=== PATIENT | female | born 1955 | race Caucasian/White ===

== ENCOUNTER → 2018-02-25 15:17 | Outpatient (CLI) | payer OTHER, SELFPAY ==
--- NOTE | 2018-02-25 15:20 | BI_ITS ---
MAMMOGRAPHY - BILATERAL SCREENING REASON FOR EXAM: Female, 63 years old. Routine annual screening examination. PERTINENT HISTORY: Non-contributory. TECHNIQUE: Digital bilateral breast shireen (3D mammographic acquisition) in the CC and MLO projections. 2-D mediolateral oblique (MLO) and craniocaudad (CC) views of both breasts were obtained. CAD: Full Field Digital Mammography with Computer Added Detection was performed. COMPARISON: Comparison is made with prior study dated January 29, 2017 and November 08, 2015. FINDINGS: Breast Composition: The breasts are heterogeneously dense, which may obscure small masses. There are no dominant masses or suspicious calcifications. No other significant abnormalities are identified. There has been no significant change since the prior study. BI/SCREENING MAMM (CAD), BILAT IMPRESSION: Stable bilateral screening mammogram. Yearly follow-up mammogram recommended. (A) ASSESSMENT CATEGORY: BIRADS Category 1: Negative. A letter regarding these results will be sent to the patient by the facility within 30 days. Approximately 10% of breast cancers are not detected by mammography. A normal mammogram should not delay biopsy of a clinically suspicious abnormality. [id number] Electronically Signed: Matthew Crockett MD at 8:16 EDT Tel [phone], Service support ,
== END ==
PROVIDERS: Family Provider Family Medicine; PCP Family Medicine; Visit Provider Family Medicine
DX: Z12.31 Encounter for screening mammogram for malignant neoplasm of breast (principal)
CPT/HCPCS: 77063; 77067

== ENCOUNTER → 2018-04-12 09:07 | Outpatient (CLI) | payer OTHER, SELFPAY | PROVIDERS: Visit Provider Family Medicine | DX: N39.0 Urinary tract infection, site not specified (principal) | CPT/HCPCS: 87086; 87088; 87186 ==

== ENCOUNTER → 2018-08-12 10:43 | Outpatient (CLI) | payer OTHER, SELFPAY ==
--- NOTE | 2018-08-15 10:50 | LEAS ---
Arterial Study - Arterial Study Arterial Study: This is a 63-year-old female with leg pain and suspected peripheral arterial occlusive disease. She is brought to the noninvasive vascular laboratory at this time for the purpose of bilateral noninvasive lower extremity arterial assessment. Doppler signal assessment was used to evaluate the pulses at ankle level bilaterally. The posterior tibial and dorsalis pedis pulses were triphasic bilaterally. Segmental limb pressures were obtained at ankle level bilaterally. The right ankle pressure, as determined by posterior tibial pulse, was measured at 159 mmHg. The right ankle pressure, as determined by dorsalis pedis pulse, was measured at 179 mmHg. The left ankle pressure, as determined by posterior tibial pulse, was measured at 179 mmHg. The left ankle pressure, as determined by dorsalis pedis pulse, was measured at 180 mmHg. Pulse?volume recordings were obtained at ankle level bilaterally. Waveform amplitudes appeared to be satisfactory bilaterally. Resting ankle?brachial indices were calculated bilaterally. The resting right ankle?brachial index was calculated to be 1.02. The resting left ankle?brachial index was calculated to be 1.02. Impression: Based upon the findings of this resting noninvasive lower extremity arterial study, there is no evidence of significant atherosclerotic peripheral arterial occlusive disease in the lower extremities bilaterally. Triphasic waveforms were noted at ankle level bilaterally. Resting ankle?brachial indices are bilaterally normal. In summary, this represents a normal resting noninvasive lower extremity arterial study bilaterally.
== END ==
PROVIDERS: Family Provider Family Medicine; PCP Family Medicine; Referring Provider Family Medicine; Visit Provider Family Medicine
DX: R09.89 Other specified symptoms and signs involving the circulatory and respiratory systems (principal); M79.604 Pain in right leg; M79.605 Pain in left leg
CPT/HCPCS: 93922

== ENCOUNTER → 2018-09-01 08:47 | Outpatient (CLI) | payer OTHER, SELFPAY ==
--- NOTE | 2018-09-01 09:52 | US_ITS ---
STUDY: ABDOMINAL ULTRASOUND REASON FOR EXAM: Female, 63 years old. Abdominal pain. TECHNIQUE: Transabdominal ultrasound was performed with real-time and static stovall scale imaging. TECHNICAL QUALITY: Adequate. COMPARISON: None. FINDINGS: Liver: The liver measures 12.8 cm. There is normal echogenicity of the liver. The bile ducts are within normal limits. There is hepatic color flow. The direction of portal flow is hepatopetal. There is no demonstrated mass lesion. Portal vein measurement: Gallbladder: Normal distended gallbladder. The gallbladder wall measures 3 mm. There is a negative sonographic Zhang's sign. There is no pericholecystic fluid. There are no gallstones. Common Bile Duct (C.B.D.): The common bile duct measures 3 mm. Pancreas: Normal size of the head, body and tail of the pancreas. There is normal echogenicity of the pancreas. There is no demonstrated pancreatic mass or cyst. Spleen: Normal size of the spleen. The spleen measures 10.5 cm. Right Kidney: Normal size of the right kidney. The right kidney measures 10.5 cm. Normal renal cortex. The right cortex measures 1.2 cm. There is no demonstrated renal mass or cyst. There is no right hydronephrosis. Left Kidney: Normal size of the left kidney. The left kidney measures 10.6 cm. Normal renal cortex. The left cortex measures 1.5 cm. There is no demonstrated renal mass or cyst. There is no left hydronephrosis. Aorta: Not dilated. I.V.C.: The IVC is patent. There is no ascites. US/Abdomen Complete IMPRESSION: Normal abdominal ultrasound examination. Electronically Signed: Franco Marte MD at 2:49 EST , Service support ,
[2018-09-01 10:33] LABS: Absolute Lymphocyte Count 1.67 X10^3/ul (0.83-4.51); Absolute Neutrophil Count 2.8 X10^3/uL (2.0-7.7); Basophil# 0.02 X10^3/uL; Basophil% 0.4 % (0-1); Eosinophil# 0.11 X10^3/uL; Eosinophils% 2.2 % (0-5); Hematocrit 43.7 % (37-47); Hemoglobin 13.9 g/dl (12.0-15.0); Lymphocyte # 1.67 X10^3/ul (4.0); Lymphocyte % 33.1 % (19-41); Mean Corp Hgb Conc 31.8 g/gl (32-36); Mean Corpuscular Hgb 30.2 pg (27.0-32.0); Monocyte# 0.43 X10^3/uL; Monocyte% 8.5 % (0-10); Neutrophil % 55.6 % (47-70); Platelet Count 335 K/mm3 (150-450); RBC Distribution Width CV 14.1 % (11.6-14.6); RBC Distribution Width SD 48.2 fl (35.1-43.9)
[2018-09-01 10:41] LABS: POSITIVE COUNT NO; POSITIVE DIFFERENTIAL NO; POSITIVE MORPHOLOGY NO
[2018-09-01 10:42] LABS: BUN 16 mg/dL (7-18); Creatinine, Serum 0.83 mg/dL (0.55-1.02); Glucose 94 mg/dL (74-106)
[2018-09-01 10:43] LABS: AST(SGOT) 9 U/L (15-37); Alanine Aminotransfer ALT/SGPT 21 U/L (13-56); Albumin, Serum 3.5 g/dL (3.2-5.0); Alkaline Phosphatase 64 U/L (45-117); Anion Gap 8 (5-15); BUN/Creat Ratio 19.4 RATIO (10-20); Chloride 108 mmol/L (98-107); EST Glomerular Filtration Rate 74 mL/min (>60); Est Glom Filt Rate - Afr Amer 90 mL/min (>60); Globulin 3.4 g/dL (2.2-4.2); Lipase 171 U/L (73-393); Potassium 3.7 mmol/L (3.5-5.1); Protein, Total 6.9 g/dL (6.4-8.2); Sodium Level 143 mmol/L (136-145)
== END ==
PROVIDERS: Family Provider Family Medicine; PCP Family Medicine; Visit Provider Family Medicine
DX: R10.9 Unspecified abdominal pain (principal)
CPT/HCPCS: 36415; 76700; 80053; 83690; 85025

== ENCOUNTER → 2018-09-27 19:16 | Outpatient (CLI) | payer OTHER, SELFPAY ==
[2018-09-27 13:08] VITALS: BMI 26.1
--- OUTSIDE RECORDS SUMMARY | 2018-12-30 10:07 | XMS RPT_ITS ---
:1955 Author Organization OHIP Support Name Relationship Address Phone [facility] Unavailable [address] + [place] [address] KHRIS AGARWAL Unavailable [address] + [place] [address] [facility] Unavailable [address] + [place] [address] KHRIS AGARWAL Unavailable [address] + [place] [address] [facility] Unavailable [address] + [place] [address] KHRIS AGARWAL Unavailable [address] + [place] [address] [facility] Unavailable [address] + [place] [address] KHRIS AGARWAL Unavailable [address] + [place] [address] [facility] Unavailable [address] + [place] [address] KHRIS AGARWAL Unavailable [address] + [place] [address] [facility] Unavailable [address] + [place] [address] KHRIS AGARWAL Unavailable [address] + [place] [address] [facility] Unavailable [address] + [place] [address] KHRIS AGARWAL Unavailable [address] + [place] [address] [facility] Unavailable [address] + [place] [address] KHRIS AGARWAL Unavailable [address] + [place] [address] [facility] Unavailable [address] + [place], [place] [address] KHRIS AGARWAL Unavailable [address] + [place] [address] Care Team Providers Name Role Phone Aisha Ignacio Attending Unavailable Santa, Reagan Referring Unavailable Marcanthony, Aisha Attending Unavailable Marcanthony, Aisha Referring Unavailable Santa, Reagan Primary Care Unavailable Santa, Reagan Attending Unavailable Santa, Reagan Primary Care Unavailable Santa, Reagan Attending Unavailable Marcanthony, Aisha Attending Unavailable Santa, Reagan Primary Care Unavailable Marcanthony, Aisha Referring Unavailable Santa, Reagan Attending Unavailable Marcanthony, Aisha Attending Unavailable Santa, Reagan Referring Unavailable Santa, Reagan Attending Unavailable Santa, Reagan Referring Unavailable Santa, Reagan Primary Care Unavailable Santa, Reagan Attending Unavailable Santa, Reagan Primary Care Unavailable PROBLEMS PROBLEMS DATE TYPE CONDITION / CODE ATTENDING STATUS SOURCE 09/28/2018 Unknown R10.2 - Pelvic Marcanthony, Active [place] and perineal pain [facility] / R10.2(ICD-10) Hospital Repository 09/27/2018 Unknown R52 - Pain, Marcanthony, Active [place] unspecified / [facility] R52(ICD-10) Hospital Repository 04/12/2018 Unknown N39.0 - Urinary SantaReagan fall Active [place] tract infection, Community site not Hospital specified / Repository N39.0(ICD-10) PROCEDURES PROCEDURES No Procedure Records FoundRESULTS RESULTS LAMBSKIN TRIMMER OFFICE VISIT Observed: 10/02/2018 Status: F Source: [place] REPORT 3:11 AM [facility] REPOSITORY [facility] [address] [place] [address] OFFICE VISIT Date of Service: 09/27/18 MR#: [id number] Acct: [id number] Name: YOUNG AGARWAL Rep #: [id number] : 1955 Provider: Aisha Ignacio MD Age/Sex: 63/F Location: [facility] [place] Status: Signed Intake Vital Signs09/27/18 Height 5 ft 8.5 in 09/27/18 Weight: 174 lb 8 oz 09/27/18 Body Mass Index (BMI) 26.1 09/27/18 Blood Pressure 112/80 Intake Visit Reasons: Pelvic pain x1 month (Stabbing pain) Allergies cephalexin [From Keflex] Allergy (Verified 09/27/18 13:09) Angioedema nitrofurantoin [From Macrobid] Allergy (Verified 09/27/18 13:09) Angioedema Sulfa (Sulfonamide Antibiotics) Allergy (Verified 09/27/18 13:09) Angioedema sulfamethoxazole [From Bactrim] Allergy (Verified 09/27/18 13:09) Angioedema trimethoprim [From Bactrim] Allergy (Verified 09/27/18 13:09) Angioedema ciprofloxacin [From Cipro] Adverse Reaction (Verified 09/27/18 13:09) rash Medications Aspirin [Aspirin, Baby] 81 mg PO DAILY@0800 09/16/16 [History Confirmed 09/27/18] Metoprolol Tartrate [Lopressor (Beta Zuleima)] 50 mg PO BID 09/16/16 [History Confirmed 09/27/18] ascorbic acid (vitamin C) 500 mg capsule mg PO cap 09/27/18 [History Confirmed 09/27/18] Is last menstrual period known: No Post menopausal: No Patient : No : No PFSH Medical History Mitral valve prolapse (Acute) UTI (urinary tract infection) (Acute) Surgical History History of endometrial ablation (Acute) Salivary cyst (Acute) Social History number of children: 3 current occupational status: employed current occupation: [employer] + Smoking Status: Never smoker alcohol intake: current alcohol intake frequency: holidays/special occasions only substance use type: does not use seatbelt use: always do you feel safe at home: Yes additional social history: Khris Retired HPI Pelvic pain x1 month (Stabbing pain): Details: YOUNG AGARWAL is a 63 year old who presents for pelvic pain for the last several months, complaining of a shooting pain vaginally into her uterus. she has a history of utis recurrent and saw a urologist in the past but didn't have any recommendations. she has only had 1 uti in the last 2 years. Her sister was just diagnosed with stage 4 bladder cancer. she has been having right upper quadrant pain and has had a GI workup. she had a RUQ ultrasound. she denies any bleeding or abnormal discharge. she will have a random spasm when she is walking around or on her feet moreso. she denies any known history of prolapse. she had a normal pap smear in the last year. Female Reproductive History Questions: Sexually active: Yes, Dyspareunia: No Pregancy History 3 Elective abortions Hx Para 3 Spontaneous abortions Past Pregnancies Del. DateName GA/Weeks Outcome Route Bth WeighInfant GeLabor LgtAnesthesiDel LocatProvider FOB t n h a n ROS Const Constitutional: Denies poor appetite, headache(s), fever(s), increased appetite, weight gain, weight loss or fatigue ENT ENT: Denies dizziness or dry mouth Cardio Card: Denies chest pain Resp Resp: Denies dyspnea or cough GI GI: Reports as per HPI and abdominal pain; denies vomiting, nausea or constipation : Reports as per HPI; denies urinary urgency, vaginal discharge, urinary frequency, vaginal itching, vaginal odor, vaginal dryness, urinary incontinence, urinary hesitancy, pelvic pain, difficulty urinating or painful urination Musc Musc: Denies muscle weakness, joint pain or back pain Skin Skin/Breast: Denies hair loss, change in hair, dry skin, breast pain, breast skin changes or breast lump Neuro Neuro: Denies dizziness Psych Psych: Denies anxiety or depression Endo Endo: Denies cold intolerance, increased thirst, excessive sweating or heat intolerance Meir/Lymph Hematologic/Lymphatic: Denies easy bleeding, Denies easy bruising, Denies enlarged lymph nodes Exam Const General: cooperative, healthy appearing, comfortable, no acute distress, well developed Nutritional Appearance: average body habitus Orientation: alert [facility] Head: normal to inspection, normocephalic Ears: hearing grossly normal bilaterally, external ears normal Nose: external nose normal, nares normal Face and sinus: normal facial exam Neck Neck: normal visual inspection, trachea midline, no lymphadenopathy Thyroid: thyroid normal Chest Chest palpation AND inspection: normal inspection of the chest Resp Effort AND Inspection: normal respiratory effort Auscultation: clear to auscultation bilaterally Cardio Rate: regular rate Rhythm: regular rhythm Heart Sounds: S1 normal, S2 normal GI Inspection: normal to inspection, non-distended Palpation: soft, no hepatosplenomegaly General: bladder normal to palpation External Female Exam: normal external appearance, normal appearance of the urethra Urethra: normal appearance of the urethra, normal palpation, no discharge Speculum Exam - Vagina: normal appearance of the vagina, normal vaginal discharge Speculum Exam - Cervix: normal appearance of the cervix, nontender Bimanual Exam- Vagina AND Uterus: bladder normal to palpation, No cervical tenderness, normal bimanual exam, normal vaginal palpation, uterine size normal, uterine shape normal, uterine mobility normal, uterine consistency normal, normal cervical palpation, uterus non-tender Bimanual Exam- Adnexa, other: normal adnexae, adnexae mobile, no adnexal masses, pelvic support normal Pelvic Support: normal Musc Cervical Spine: other Other: gross motor intact no deficits, full bilateral strength Skin General: no rashes or lesions noted Neuro General: alert, awake, no focal motor deficits, moves all extremities Motor: muscle tone normal throughout Extrem General: normal to inspection, no pedal edema Psych Appearance: grossly normal Mental Status: mental status grossly normal Affect: normal affect Speech and Movement: speech and movement normal Assessment AND Plan Problems 1. Acute pelvic pain R10.2 Plan recommend pelvic us, but reassurance provided that pain may be musculoskeletal. evaluate urine. fu if persistent Orders Orders: Coding Level of Care Code Off vis,new,level 3 Diagnoses Acute pelvic pain R10.2 10/02/18 0311 <Electronically signed by Aisha Ignacio MD> Date Aisha Ignacio MD Cosigner Signature: Date (if applicable) CC: TRANSVAGINAL Observed: 09/30/2018 Status: F Source: [place] NON- 11:24 AM [facility] REPOSITORY [facility] Imaging Services [address] [place] [address] Transvaginal Non- MR#: [id number] Acct: [id number] Name: YOUNG AGARWAL Rep #: [id number] : 1955 F 63 From: Edy Puckett DO PCP: Reagan Santa MD Status: REG CLI Study: Transvaginal Non- Date of Exam: 09/30/18 Exam# [id number] Ordering Dr: Aisha Ignacio MD STUDY: ULTRASOUND TRANSVAGINAL CLINICAL: Female, 63 years old. Pelvic pain TECHNIQUE: Transvaginal and transabdominal COMPARISON: None. FINDINGS: Normal uterine size measuring 5.4 x 4.8 x 3.0 cm in maximal craniocaudal dimension. It is retroverted. There are fibroids up to 2.4 cm with heterogeneous myometrium and calcifications. Nonvisualization of the endometrium. There are no endometrial masses, and there is no fluid in the endometrial cavity. Nabothian cyst at the uterine cervix. Normal right ovary, measuring 1.9 x 1.3 x 1.0 cm. There are cysts up to 1.4 cm . Normal left ovary, measuring 2.7 x 1.5 x 1.6 cm. There are cysts up to 8mm. There is mild free fluid in the pelvis. US/Transvaginal Non- IMPRESSION: Multiple cysts are noted of the ovaries. Heterogeneous myometrium with calcifications and fibroids. Mild pelvic fluid. Electronically Signed: Edy Puckett DO at 23:54 EST Tel [phone], Service support , CC: Reagan Santa MD; Aisha Ignacio MD Fluid Designer: Signed PELVIC (NON ) Observed: 09/30/2018 Status: F Source: [place] 11:24 AM [facility] REPOSITORY [facility] Imaging Services [address] [place] [address] Pelvic (Non ) MR#: [id number] Acct: [id number] Name: YOUNG AGARWAL Rep #: [id number] : 1955 F 63 From: Edy Puckett DO PCP: Reagan Santa MD Status: REG CLI Study: Pelvic (Non ) Date of Exam: 09/30/18 Exam# [id number] Ordering Dr: Aisha Ignacio MD STUDY: ULTRASOUND TRANSVAGINAL CLINICAL: Female, 63 years old. Pelvic pain TECHNIQUE: Transvaginal and transabdominal COMPARISON: None. FINDINGS: Normal uterine size measuring 5.4 x 4.8 x 3.0 cm in maximal craniocaudal dimension. It is retroverted. There are fibroids up to 2.4 cm with heterogeneous myometrium and calcifications. Nonvisualization of the endometrium. There are no endometrial masses, and there is no fluid in the endometrial cavity. Nabothian cyst at the uterine cervix. Normal right ovary, measuring 1.9 x 1.3 x 1.0 cm. There are cysts up to 1.4 cm . Normal left ovary, measuring 2.7 x 1.5 x 1.6 cm. There are cysts up to 8mm. There is mild free fluid in the pelvis. US/Pelvic (Non ) IMPRESSION: Multiple cysts are noted of the ovaries. Heterogeneous myometrium with calcifications and fibroids. Mild pelvic fluid. Electronically Signed: Edy Puckett DO at 23:54 EST Tel [phone], Service support , CC: Reagan Santa MD; Aisha Ignacio MD Fluid Designer: Signed Observed: 09/27/2018 Status: F Source: [place] CULTURE, URINE 7:17 PM [facility] REPOSITORY Urine Culture Culture exhibits no growth. Performed By: #### M100.0650 #### [facility] [address] [place] [place], [address] ABDOMEN COMPLETE Observed: 09/01/2018 Status: F Source: [place] 9:53 AM [facility] REPOSITORY [facility] Imaging Services [address] [place] [address] Abdomen Complete MR#: [id number] Acct: [id number] Name: YOUNG AGARWAL Rep #: [id number] : 1955 F 63 From: Franco Marte PCP: Reagan Santa MD Status: REG CLI Study: Abdomen Complete Date of Exam: 09/01/18 Exam# [id number] Ordering Dr: Reagan Santa MD STUDY: ABDOMINAL ULTRASOUND REASON FOR EXAM: Female, 63 years old. Abdominal pain. TECHNIQUE: Transabdominal ultrasound was performed with real-time and static stovall scale imaging. TECHNICAL QUALITY: Adequate. COMPARISON: None. FINDINGS: Liver: The liver measures 12.8 cm. There is normal echogenicity of the liver. The bile ducts are within normal limits. There is hepatic color flow. The direction of portal flow is hepatopetal. There is no demonstrated mass lesion. Portal vein measurement: Gallbladder: Normal distended gallbladder. The gallbladder wall measures 3 mm. There is a negative sonographic Zhang's sign. There is no pericholecystic fluid. There are no gallstones. Common Bile Duct (C.B.D.): The common bile duct measures 3 mm. Pancreas: Normal size of the head, body and tail of the pancreas. There is normal echogenicity of the pancreas. There is no demonstrated pancreatic mass or cyst. Spleen: Normal size of the spleen. The spleen measures 10.5 cm. Right Kidney: Normal size of the right kidney. The right kidney measures 10.5 cm. Normal renal cortex. The right cortex measures 1.2 cm. There is no demonstrated renal mass or cyst. There is no right hydronephrosis. Left Kidney: Normal size of the left kidney. The left kidney measures 10.6 cm. Normal renal cortex. The left cortex measures 1.5 cm. There is no demonstrated renal mass or cyst. There is no left hydronephrosis. Aorta: Not dilated. I.V.C.: The IVC is patent. There is no ascites. US/Abdomen Complete IMPRESSION: Normal abdominal ultrasound examination. Electronically Signed: Franco Marte MD at 2:49 EST , Service support , CC: Reagan Santa MD Fluid Designer: Signed CBC W/DIFF, AUTOMATED Collected: 09/01/2018 Status: F Source: [place] 8:48 AM [facility] REPOSITORY TYPE CODE TESTS RESULT OUT OF RANGE REFERENCE UNITS LAB L100.1000 4.4-11.0 K/mm3 Normal WBC 5.0 LAB L100.1200 4.2-5.4 M/mm3 Normal RBC 4.60 LAB L100.1300 12.0-15.0 g/dl Normal HGB 13.9 LAB L100.1400 37-47 % Normal HCT 43.7 LAB L100.1500 81-99 fL Normal MCV 95.0 LAB L100.1600 27.0-32.0 pg Normal MCH 30.2 LAB L100.1700 32-36 g/gl Low MCHC 31.8 LAB L100.1810 11.6-14.6 % Normal RDW CV 14.1 LAB L100.1820 35.1-43.9 fl High RDW SD 48.2 LAB L100.1900 150-450 K/mm3 Normal PLT 335 LAB L100.2000 6.2-12.0 fl Normal MPV 9.0 LAB L100.2100 47-70 % Normal NEUT% 55.6 LAB L100.2200 19-41 % Normal LY% 33.1 LAB L100.2300 0-10 % Normal MONO% 8.5 LAB L100.2400 0-5 % Normal EO% 2.2 LAB L100.2500 0-1 % Normal BASO% 0.4 LAB L100.2550 0.0-0.9 % Normal IM GRAN % 0.200 Result Comment: IG% - Immature Granulocytes (promyelocytes, myelocytes and metamyelocytes) > 1% indicates that a LEFT SHIFT is Present. LAB L100.2620 2.0-7.7 X10 3/uL Normal Absolute Neut 2.8 LAB L100.2720 0.83-4.51 X10 3/ul Normal Absolute Lymph 1.67 Performed By: #### L100.0100 #### [facility] [address] [place], [address] COMPREHENSIVE METABOLIC Collected: 09/01/2018 Status: F Source: [place] CAPUTO 8:48 AM [facility] REPOSITORY TYPE CODE TESTS RESULT OUT OF RANGE REFERENCE UNITS LAB L501.0100 74-106 mg/dL Normal GLU 94 Result Comment: Please note revised GLUCOSE reference range effective 2017. LAB L501.1000 7-18 mg/dL Normal BUN 16 LAB L501.1100 0.55-1.02 mg/dL Normal CREAT,SERUM 0.83 Result Comment: The validity of the calculated GFR AND GFRAA in patients over 70 years has not been determined. Clinical correlation is essential. LAB L501.1110 >60 mL/min Normal EST GFR 74 Result Comment: Non- GFR Calc LAB L501.1115 >60 mL/min Normal EST GFR - AA 90 Result Comment: GFR Calc LAB L501.1300 10-20 RATIO Normal BUN/CRE 19.4 LAB L501.1500 6.4-8.2 g/dL T Normal PROT 6.9 LAB L501.1800 3.2-5.0 g/dL Normal ALB 3.5 LAB L501.1950 2.2-4.2 g/dL Normal GLOB 3.4 LAB L501.2000 0.9-2.4 RATIO Normal A/G 1.0 LAB L501.2200 8.5-10.1 mg/dL CA Normal 9.0 LAB L501.4100 15-37 U/L Low AST 9 LAB L501.4305 45-117 U/L Normal ALK P 64 LAB L501.4405 13-56 U/L Normal ALT 21 LAB L501.4600 0.20-1.00 mg/dL T Normal BILI 0.50 LAB L501.5300 136-145 mmol/L NA Normal 143 LAB L501.5600 3.5-5.1 mmol/L K Normal 3.7 LAB L501.5900 98-107 mmol/L High CL 108 LAB L501.6100 21.0-32.0 mmol/L Normal CO2 27.0 LAB L501.6200 5-15 Normal GAP 8 Performed By: #### L500.4050, L501.2450 #### [facility] [address] [place], [address] LIPASE Collected: 09/01/2018 Status: F Source: [place]AH 8:48 AM [facility] REPOSITORY TYPE CODE TESTS RESULT OUT OF RANGE REFERENCE UNITS LAB L501.2450 73-393 U/L Normal LIPASE 171 Performed By: #### L500.4050, L501.2450 #### [facility] [address] [place], [address] LOWER EXT ARTERIAL Observed: 08/15/2018 Status: F Source: [place] STUDY 10:55 AM [facility] REPOSITORY [facility] Cardiovascular Services [address] [place] [address] 08/15/18 1050 MR#: [id number] Acct: [id number] Name: YOUNG AGARWAL Rep #: [id number] : 1955 63 From: Roderick Christine MD Attending Dr: Reagan Santa MD Status: REG CLI Ordering Dr: Date: 08/15/18 Location: [facility] Sex: F C Admitted: Arterial Study - Arterial Study Arterial Study: This is a 63-year-old female with leg pain and suspected peripheral arterial occlusive disease. She is brought to the noninvasive vascular laboratory at this time for the purpose of bilateral noninvasive lower extremity arterial assessment. Doppler signal assessment was used to evaluate the pulses at ankle level bilaterally. The posterior tibial and dorsalis pedis pulses were triphasic bilaterally. Segmental limb pressures were obtained at ankle level bilaterally. The right ankle pressure, as determined by posterior tibial pulse, was measured at 159 mmHg. The right ankle pressure, as determined by dorsalis pedis pulse, was measured at 179 mmHg. The left ankle pressure, as determined by posterior tibial pulse, was measured at 179 mmHg. The left ankle pressure, as determined by dorsalis pedis pulse, was measured at 180 mmHg. Pulse volume recordings were obtained at ankle level bilaterally. Waveform amplitudes appeared to be satisfactory bilaterally. Resting ankle brachial indices were calculated bilaterally. The resting right ankle brachial index was calculated to be 1.02. The resting left ankle brachial index was calculated to be 1.02. Impression: Based upon the findings of this resting noninvasive lower extremity arterial study, there is no evidence of significant atherosclerotic peripheral arterial occlusive disease in the lower extremities bilaterally. Triphasic waveforms were noted at ankle level bilaterally. Resting ankle brachial indices are bilaterally normal. In summary, this represents a normal resting noninvasive lower extremity arterial study bilaterally. 08/15/18 1055 <Electronically signed by Roderick Christine MD> Date Roderick Christine MD CC: Reagan Santa MD Date Dictated: 08/15/18 105 Date Transcribed: 08/15/181049 Fluid Designer: MANJEET Signed PROGRESS Observed: 04/28/2018 Status: COMPLETED Source: [place] 4:00 PM [facility] [place] REPOSITORY O ID: [id number] Author: Danisha Richmond Service: (none) Author Type: Physician Type: Progress Notes Filed: 04/28/2018 4:49 PM Note Text: SUBJECTIVE Young Agarwal is a 63 year old woman who presents for her annual exam: Last pap 03/28, Mammo 03/29, Bone Density 02/25, Patient's last menstrual period was 08/30/2013.. States she had a UTI 2 weeks ago and would like to be checked again. She took amoxicillin and pyridium (didn't help) and then was given trimethoprim. It helped. She had E coli on culture. Having vaginal irritation. Medications, Allergies, Surgeries, Family History updated and smoking status updated. Discussed health maintenance, including regular aerobic exercise, low fat diet, and periodic exams. HISTORIES FAMILY HISTORY Problem Relation Age of Onset - borderline diabetes [OTHER] Mother - skin cancer [OTHER] Father - RECTAL MASS [OTHER] Daughter - diabetic [OTHER] Sister PAST MEDICAL HISTORY Diagnosis Date - Benign neoplasm of colon - Mitral valve disorders(424.0) - Mitral valve prolapse - UTI (urinary tract infection) Dr Wesley - Varicose veins of both lower extremities PAST SURGICAL HISTORY Procedure Laterality Date - COLONOSCOP W/ OR W/O [facility] SPEC 05/26/2007 Colonoscopy - COLONOSCOP W/ OR W/O [facility] 07/16/2009 Colonoscopy - COLONOSCOPY 2012 - EXCIS RECTAL LESION,TRANSANAL 06/23/07 - LAPAROSCOPY, SURGICAL; ABLATION OF - OFFICE ENDOMETRIAL ABLATION - PAROTID DUCT DIVERT,EXC SUBMAND - PAST SURGICAL HISTORY OF 08/19 growth removed from neck benign - PAST SURGICAL HISTORY OF 2007 Removal Salivary Gland Benign - PAST SURGICAL HISTORY OF Removal Rectal Growth Benign - REMOVAL OF TONSILS,<12 Y/O Tonsillectomy - THERMAL ENDOMETRIAL ABLATION 2000 approx uncertain type ACTIVE PROBLEM LIST Family History of Malignant Neoplasm of Gastrointestinal Tract Personal History of Colonic Polyps Benign Neoplasm of Colon ALLERGIES Allergen Reactions - Augmentin [Amoxicil* Itching - Biaxin [Clarithromy* heart pounding - Ciprofloxacin Itching - Keflex [Cephalexin] Itching - Macrobid [Nitrofura* Itching - Macrodantin [Nitrof* Unknown - Sulfa (Sulfonamide * Current Outpatient Prescriptions: glucosamine/chondro garcia A (COSAMIN DS ORAL) Take by mouth. metoprolol tartrate(LOPRESSOR 50 MG TAB) Take one(1) tablet twice daily. MULTIVITAMIN TAB Take one(1) tablet daily. ascorbic acid(VITAMIN C 500 MG TAB) Take one(1) tablet daily. cyclobenzaprine (FLEXERIL) 5 mg tablet Take 5 mg by mouth daily at bedtime. phenazopyridine (PYRIDIUM, GERIDIUM) 200 mg tablet Take 200 mg by mouth three times daily. trimethoprim (PROLOPRIM) 100 mg tablet Take 100 mg by mouth twice daily. CALCIUM CITRATE/VITAMIN D3 (CALCIUM CITRATE + D ORAL) Take 1 Each by mouth once daily. No current facility-administered medications for this visit. REVIEW OF SYSTEMS GENERAL: No weight loss, malaise or fevers HEENT: No changes in hearing or vision NECK: Negative for lumps, goiter, pain and significant neck swelling RESPIRATORY: Negative for cough, wheezing, dyspnea or shortness of breath CARDIOVASCULAR: Negative for chest pain or palpitations GI: Negative for abdominal discomfort, blood in stools or black stools, change in bowel habit, diarrhea, nausea, vomiting, constipation : No history of dysuria, frequency or incontinence CERTIFIED MEDICAL TRANSCRIPTIONIST: Negative for abnormal vaginal bleeding, abnormal vaginal discharge or Breast symptoms ENDOCRINE: Negative for cold or heat intolerance, polyuria, polydipsia and goiter NEURO: No history of headaches, syncope, paralysis, seizures or tremors OBJECTIVE Urine dip: neg BP 124/80 Ht 5' 8 (1.73m) Wt 173 lb (78.5kg) LMP 08/30/2013 BMI 26.31 kg/(m2). HEENT: Within normal limits NECK: Supple, no thyromegaly BREASTS: No masses, no nipple discharge HEART: Regular rate and rhythm without murmur, rub, or gallop LUNGS: Clear bilaterally to auscultation ABDOMEN: No masses, non tender, no hernias, no hepatosplenomegaly PELVIC: EGBUS: No lesions, normal appearance VAGINA: + discharge, cx taken, no blood, no lesions; poor kegel tone CERVIX: No lesions, non tender UTERUS: Anteverted, normal size, non tender ADNEXA: Non tender, no masses RECTOVAGINAL: Neg for heme or mass (FIT) EXTREMITIES: No edema, no calf tenderness NEUROLOGICAL: Grossly intact ASSESSMENT/PLAN: 1. Gynecologic exam normal - ICD9: V72.31, ICD10: Z01.419 (primary diagnosis) - Completed pelvic and breast exam - Encouraged monthly BSE - Follow up for annual exam in one year. - THINPREP(R) PAP TEST W/RFX HPV MRNA E6/E7 ([facility]) - FLETCHER SCREENING 2. Cervical cancer screening - ICD9: V76.2, ICD10: Z12.4 - THINPREP(R) PAP TEST W/RFX HPV MRNA E6/E7 ([facility]) 3. Breast screening - ICD9: V76.10, ICD10: Z12.31 - FLETCHER SCREENING 4. Acute vaginitis - ICD9: 616.10, ICD10: N76.0 - ROUTINE CULT + STAIN Danisha Richmond MD Observed: 04/12/2018 Status: F Source: SARAH CULTURE, URINE 9:09 AM [facility] REPOSITORY Urine Culture ORGANISM 1: Presumptive E. coli Rio Count 50,000-80,000 Presumptive E. coli: REACTION Amoxacillin/Clavulanic Acid $ 8 S Ampicillin $ >=32 R Ampicillin/Sulbactam $ 16 I Cefazolin $ <=4 S Cefepime $ <=1 S Ceftriaxone $ <=1 S Ciprofloxacin $ <=0.25 S ESBL - Ertapenim $$$ <=0.5 S Gentamicin $ <=1 S Imipenem *NF <=0.25 S Levofloxacin $ <=0.12 S Nitrofurantoin $ <=16 S Piperacillin/Tazobactam $$ <=4 S Tobramycin $ <=1 S Trimethoprim/Sulfametho $ <=20 S (NF) indicates non-formulary drug at [facility]. Approval by Infectious Disease Specialist required before non-formulary drugs may be ordered and/or dispensed. Performed By: #### M100.0650 #### [facility] [address] [place], [address] SCREENING MAMM (CAD), Observed: 02/25/2018 Status: F Source: JULIOCESAR BILAT 3:20 PM [facility] REPOSITORY [facility] Imaging Services [address] [place] [address] SCREENING MAMM (CAD), BILAT MR#: [id number] Acct: [id number] Name: YOUNG AGARWAL Rep #: [id number] : 1955 F 63 From: Matthew Crockett MD PCP: Reagan Santa MD Status: REG CLI Study: SCREENING MAMM (CAD), BILAT Date of Exam: 02/25/18 Exam# [id number] Ordering Dr: Reagan Santa MD MAMMOGRAPHY - BILATERAL SCREENING REASON FOR EXAM: Female, 63 years old. Routine annual screening examination. PERTINENT HISTORY: Non-contributory. TECHNIQUE: Digital bilateral breast shireen (3D mammographic acquisition) in the CC and MLO projections. 2-D mediolateral oblique (MLO) and craniocaudad (CC) views of both breasts were obtained. CAD: Full Field Digital Mammography with Computer Added Detection was performed. COMPARISON: Comparison is made with prior study dated January 29, 2017 and November 08, 2015. FINDINGS: Breast Composition: The breasts are heterogeneously dense, which may obscure small masses. There are no dominant masses or suspicious calcifications. No other significant abnormalities are identified. There has been no significant change since the prior study. BI/SCREENING MAMM (CAD), BILAT IMPRESSION: Stable bilateral screening mammogram. Yearly follow-up mammogram recommended. (A) ASSESSMENT CATEGORY: BIRADS Category 1: Negative. A letter regarding these results will be sent to the patient by the facility within 30 days. Approximately 10% of breast cancers are not detected by mammography. A normal mammogram should not delay biopsy of a clinically suspicious abnormality. [id number] Electronically Signed: Matthew Crockett MD at 8:16 EDT Tel [phone], Service support , CC: Reagan Santa MD Fluid Designer: Signed ALLERGIES ALLERGIES DATE TYPE / CODE NAME / CODE REACTION SEVERITY SOURCE 09/27/2018 Drug Sulfa Angioedema Unknown [facility]4160 (Sulfonamide [facility] 45614(SNOMED Antibiotics) Repository CT) /[id number]( RXNORM) 09/27/2018 Drug cephalexin/F Angioedema Unknown [place] [facility] Allergy/4160 [id number](RX Hospital 02340(SNOMED NORM) Repository CT) 09/27/2018 Drug sulfamethoxa Angioedema Unknown [place] [facility] Allergy/4160 zole/[id number] Hospital 03442(SNOMED 827(RXNORM) Repository CT) 09/27/2018 Drug nitrofuranto Angioedema Unknown [facility]/4160 in/[id number] Hospital 52196(SNOMED 2(RXNORM) Repository CT) 09/27/2018 Drug trimethoprim Angioedema Unknown [place] [facility] Allergy/4160 /[id number]( Hospital 40527(SNOMED RXNORM) Repository CT) 09/27/2018 Drug ciprofloxaci Rash Unknown [facility] All[facility]/4160 n/[id number] Hospital 35546(SNOMED (RXNORM) Repository CT) ENCOUNTERS ENCOUNTERS ADMIT/DISCHARGE ACCOUNT ADMITTING ENCOUNTER LOCATION SOURCE NUMBER CLASS 09/30/2018 [id number] Ambulatory [facility] 3 [facility] ing:[place] Repository 09/27/2018 [id number] Ambulatory [place] Juliocesar 6 [facility] ing:[facility] Repository 09/27/2018/ [id number] Ambulatory BMSBuilding:B [place] 8 0 [facility] Repository 09/01/2018 [id number] [place]ulatory [place] 7 [facility] ing:[place] Repository 08/12/2018 [id number] Ambulatory [place] Juliocesar 0 [facility] ing:[facility] Repository 06/15/2018 [id number] Ambulatory BMSBuilding:B [facility] 7 [facility] Repository 04/28/2018 [id number] Ambulatory BMSBuilding:B [place] 5 [facility] Repository 04/12/2018 [id number] Ambulatory [place] Juliocesar 7 [facility] ing:[facility] Repository 02/25/2018 [id number] [place]ulatory [place] 1 [facility] ing:OPBI Repository PAYERS PAYERS ENCOUNTER GUARANTOR PAYER SUBSCRIBER SOURCE 09/30/2018 YOUNG L Primary YOUNG L [facility] [id number] [facility]: [address] Number: Repository [id number]: 330 [id number] [phone] () Date:6658-26-15YV[address] [address]EM: 09/30/2018 Secondary NOT GIVENUNK [place] Insurance:SELF PAY [facility] Number: Effective Repository Date:2018-09-27 09/27/2018 YOUNG L Primary KHRIS J [facility] [id number] [facility] [place] Number: Repository [address]Hfp: 330 [id number] [phone] () Date:4510-36-09NV[address] [address]BT: 09/27/2018 Secondary NOT GIVENUNK [place] Insurance:SELF PAY [facility] Number: Effective Repository Date:2018-09-27 09/27/2018 YOUNG L Primary YOUNG L [place]esar [id number] Insurance:[facility]: [address] Number: Repository [id number]: 330 [id number] [phone] () Date:8716-21-57JU[address] [address]DA: 09/27/2018 Secondary NOT GIVENUNK [place] Insurance:SELF PAY [facility]: Effective Repository Date:2018-08-27 09/01/2018 YOUNG L Primary YOUNG L [place] [id number] Insurance:[employer]OURCE RUSSELLDOB: Community ZHANG JUST [address] Number: Repository [id number]: 330 [id number] [phone] () Date:7372-24-32KU [address] [address]PH: 09/01/2018 Secondary NOT GIVENUNK [place] Insurance:SELF PAY [facility] Number: Effective Repository Date:2018-09-01 08/12/2018 YOUNG L Primary YOUNG L [place] [id number] Insurance:[employer] RUSSELLDOB: Community ZHANG JUST [address] Number: Repository [address]Bzr: 330 [id number] [phone] () Date:9646-74-03HQ[address] [address]CW: 08/12/2018 Secondary NOT GIVENUNK [place] Insurance:SELF PAY [facility] Number: Effective Repository Date:2018-07-28 06/15/2018 Young L Primary Young L [place] [id number] Insurance:CARESOURCE RussellDOB: Community ZHANG JUST [address] Number: Repository [id number]: 330 [id number] [phone] () Date:7865-71-80SA [address] [place] [address]QM: 06/15/2018 Secondary NOT GIVENUNK [place] Insurance:SELF PAY [facility] Number: Effective Repository Date:2018-04-13 04/28/2018 YOUNG L Primary YOUNG L [place] [id number] Insurance:[employer] RUSSELLDOB: Community [place]ANG JUST [address] [place] [address] Number: Repository [id number]: 330 [id number] [phone] (HP) Date:0872-35-29JU [address] [address]KG: 04/28/2018 Secondary NOT GIVENUNK [place] Insurance:SELF PAY [facility] Number: Effective Repository Date:2018-04-28 04/12/2018 Young L Primary Young L [place] [id number] Insurance:CARESOURCE RussellDOB: Community ZHANG JUST FOR [facility] [place]: Repository [id number]: 330 [id number] [phone] () Date:5317-07-33PR [address] [address]CF: 04/12/2018 Secondary NOT GIVENUNK [place] Insurance:SELF PAY [facility] Number: Effective Repository Date:2018-04-12 02/25/2018 Young L Primary Young L [place] [id number] Insurance:CARESOURCE RussellDOB: Community ZHANG JUST [facility][note 3] [id number] Number: Repository [id number]: 330 [id number] [phone] () Date:1348-17-06AI [address] [address]DA: 02/25/2018 Secondary NOT GIVENUNK [place] Insurance:SELF PAY [facility] Number: Effective Repository Date:2018-02-05
== END ==
PROVIDERS: Family Provider Family Medicine; PCP Family Medicine; Referring Provider Obstetrics & Gynecology; Visit Provider Obstetrics & Gynecology
DX: R10.2 Pelvic and perineal pain (principal)
CPT/HCPCS: 87086

== ENCOUNTER → 2018-09-30 11:22 | Outpatient (CLI) | payer OTHER, SELFPAY ==
[2018-09-27 13:08] VITALS: BMI 26.1
--- NOTE | 2018-09-30 11:24 | US_ITS ---
STUDY: ULTRASOUND TRANSVAGINAL CLINICAL: Female, 63 years old. Pelvic pain TECHNIQUE: Transvaginal and transabdominal COMPARISON: None. FINDINGS: Normal uterine size measuring 5.4 x 4.8 x 3.0 cm in maximal craniocaudal dimension. It is retroverted. There are fibroids up to 2.4 cm with heterogeneous myometrium and calcifications. Nonvisualization of the endometrium. There are no endometrial masses, and there is no fluid in the endometrial cavity. Nabothian cyst at the uterine cervix. Normal right ovary, measuring 1.9 x 1.3 x 1.0 cm. There are cysts up to 1.4 cm . Normal left ovary, measuring 2.7 x 1.5 x 1.6 cm. There are cysts up to 8mm. There is mild free fluid in the pelvis. US/Pelvic (Non ) IMPRESSION: Multiple cysts are noted of the ovaries. Heterogeneous myometrium with calcifications and fibroids. Mild pelvic fluid. Electronically Signed: Edy Puckett DO at 23:54 EST Tel [phone], Service support ,
--- NOTE | 2018-09-30 11:24 | US_ITS ---
STUDY: ULTRASOUND TRANSVAGINAL CLINICAL: Female, 63 years old. Pelvic pain TECHNIQUE: Transvaginal and transabdominal COMPARISON: None. FINDINGS: Normal uterine size measuring 5.4 x 4.8 x 3.0 cm in maximal craniocaudal dimension. It is retroverted. There are fibroids up to 2.4 cm with heterogeneous myometrium and calcifications. Nonvisualization of the endometrium. There are no endometrial masses, and there is no fluid in the endometrial cavity. Nabothian cyst at the uterine cervix. Normal right ovary, measuring 1.9 x 1.3 x 1.0 cm. There are cysts up to 1.4 cm . Normal left ovary, measuring 2.7 x 1.5 x 1.6 cm. There are cysts up to 8mm. There is mild free fluid in the pelvis. US/Transvaginal Non- IMPRESSION: Multiple cysts are noted of the ovaries. Heterogeneous myometrium with calcifications and fibroids. Mild pelvic fluid. Electronically Signed: Edy Puckett DO at 23:54 EST Tel [phone], Service support ,
== END ==
PROVIDERS: Family Provider Family Medicine; PCP Family Medicine; Referring Provider Obstetrics & Gynecology; Visit Provider Obstetrics & Gynecology
DX: R10.2 Pelvic and perineal pain (principal)
CPT/HCPCS: 76830; 76856; 93976

== ENCOUNTER → 2018-12-16 14:18 | Outpatient (CLI) | payer OTHER, SELFPAY ==
[2018-12-16 14:05] VITALS: BMI 25.4
--- NOTE | 2018-12-16 14:27 | RAD_ITS ---
STUDY: X-RAY - RIGHT KNEE REASON FOR EXAM: Female, 63 years old. Knee pain. TECHNIQUE: 4 view(s) of the knee. COMPARISON: None. FINDINGS: Normal visualized distal femur. Normal visualized proximal tibia and fibula. Normal proximal tibiofibular articulation. There is no acute fracture, dislocation or destructive osseous pathology. Normal medial femorotibial compartment. Normal lateral femorotibial compartment. Normal patellofemoral articulation. There is no demonstrated joint effusion. The soft tissue structures are unremarkable. RAD/Knee 4 or More Views IMPRESSION: Normal x-ray examination of the knee. Electronically Signed: Giles Singh DO at 23:15 EST Tel [phone], Service support ,
--- NOTE | 2018-12-16 14:27 | RAD_ITS ---
STUDY: X-RAY - PELVIS AND LEFT HIP REASON FOR EXAM: Female, 63 years old. Left hip pain. TECHNIQUE: 2 views of the pelvis and hip. COMPARISON: None. FINDINGS: There is a non-specific bowel gas pattern. Normal visualized soft tissue structures. There are multiple calcified phleboliths. Normal bilateral iliac wings, sacroiliac joints and visualized sacrum. Normal bilateral superior and inferior pubic rami. Normal pubic symphysis. Normal bilateral ischial tuberosities. Normal visualized left femoral head. Normal left acetabulum. Normal left hip joint. RAD/Hip 1 view with Pelvis IMPRESSION: Normal x-ray examination of the pelvis and left hip. Electronically Signed: Giles Singh DO at 23:16 EST Tel [phone], Service support ,
== END ==
PROVIDERS: Family Provider Family Medicine; PCP Family Medicine; Referring Provider Physician Assistant; Visit Provider Physician Assistant
DX: M25.561 Pain in right knee (principal)
CPT/HCPCS: 73501; 73564

== ENCOUNTER 2019-01-13 09:00 | Outpatient (RCR) | payer OTHER, SELFPAY ==
[2018-12-16 14:05] VITALS: BMI 25.4
--- NOTE | 2018-12-22 09:58 | HP.PTEVAL ---
Patient's Visit Information YOUNG AGARWAL is a 63 year old F referred to Physical Therapy by NIKOLAI Maloney with a diagnosis of Bilateral Patella Femoral Syndrome, Left greater troc bursitis and ITBand S. Date of Evaluation: 12/22/18 Physical Therapist: Adalgisa Guthrie DPT - Visit Plan Frequency: 2x /Week Duration: 3 Weeks Plan: Focus on I HEP (core and LE strength/stabilization) for the gym due to co-pay. - Subjective Findings: About a month ago she lifted some heavy things at work from the floor to waiste height- couple days later the right knee started to bother her- she has a injury about 30 years to the knee. About 5 years MD put her on Glucosamine. Now the pain is in the knee every time she goes upstairs. The left his is also bothering her. She feels like it was pulled. Thinks it was a flare up. Fritz told her OA and tilted knee caps. When she walks across a rooms he is okay but when she walks further it aches. Knee:Pain is located along the distal patella- Agg: stairs going up, squatting down Worst: 5/10 Eases: sitting down and it goes away instantly. Best: 0/10. Describes the pain in the knee as a sharp pains. No radiating pain on the right. No N/T in the toes. Left Hip: Worst: 5/10 Agg: walking any distances, going up stairs. Best: 0/10 Eases: sitting down and the pain goes away, Ice.Sleep: disturbed when she goes on that side and its a dull achy with walking. Left side radiates down the thigh. No N/T in the left foot. Does have OA in the back as well. Feels like she has OA everywhere and her mother has it as well. 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 X-rays were negative. PMHx/Meds: no changes. - Objective Posture: FH, RS in supported sitting- can correct but does not maintain. Gait: no deviation noted- good arm swing and trunk rotation. Stairs: Asc/Desc 8 recip with 1 HR- Asc: uses UE A for propulsion Desc: uncontrolled. Palpation: tender along left greater troch and into the piriformis with pain into the paraspinals on the left. PA glides to lumbar spine increase pain. No pain with palpation to knee. ROM: WFL in all planes. Sensation/Reflex: WNL. Strength: Core: poor, Hip: 4/5, Knee: 4+/5, Ankle: 5/5 throughout. Flex: HS: mild restrition, Gastroc: mild restriction. Special Test: dural signs: negative, McMurrays: negative - Goals Goal 1:: Patient will be I with HEP and progression Goal Time Frame: 4-6 Weeks Goal 2:: Patient will maintain proper posture t/o tx session to demo increased core s/s. Goal Time Frame: 4-6 Weeks Goal 3:: Patient will demo 5/5 strength in LE where deficit to ease ADL's. Goal Time Frame: 4-6 Weeks Goal 4:: Patient will asc/desc 8 recip with no HR and good control with 0/10 pain Goal Time Frame: 4-6 Weeks - Rehabilitation Potential Physical Therapy Diagnosis: Patient presents with hypomobiliy- she has decreased strength, flexibility and muscular endurance leading to poor posture and increased pain with ADL's Rehabilitation Potential: Fair - Anticipated Interventions Patient/Client Instruction: Educate patient on: Benefits of Fitness Program Therapeutic Exercise to Include: Strength training, Endurance training, Balance training, Agility training, Body mechanics, Postural training, Flexibilty training, Gait and locomotor training, Dynamic Lumbar Stabilization, Scapular Strength/Stabilization For the Purpose of:: To improve muscle performance and motor function Thank you for the opportunity to evaluate your patient. For Medicare and Medicare HMO plans, please review the plan of care and approve it. It will need to be FAXED BACK to us at [phone] for Medicare purposes. For Medicare only, by signing this I certify the plan of care. Please let me know if there are questions or concerns regarding this plan of care. Physician Signature: Date:
--- NOTE | 2019-01-13 10:33 | HP.PTDCSUM ---
HP - PT D/C Summary It has been my pleasure to treat YOUNG AGARWAL under orders from NIKOLAI Maloney, for the diagnosis of Bilateral Patella Femoral Syndrome, Left greater troc bursitis and ITBand S for a total of 4 visit(s). Discharge Date: Please see the following information for a summary of their discharge status. - Subjective Subjective: Patient reports that she is getting better- she is compliant with HEP- has not been able to get to the gym yet due to having stomach bug. Does feel like her knee is better- going up and down stairs. The hip just every once in awhile it pulls. But the exercises do not give her problems - Pain right knee Pain Intensity (Out of 10): 6 left hip Pain Intensity (Out of 10): 0 - Overall Improvement % Improvement: 80 - Objective Objective/Function: Posture: FH, RS can correct and maintain in supported sitting. Gait: no deviation noted- good arm swing and trunk rotation. Stairs: Asc/Desc 8 recip with 1 HR- good technique Palpation: not tender No pain with palpation to knee. ROM: WFL in all planes. Sensation/Reflex: WNL. Strength: Core: fair, Hip: 4+/5, Knee: 4+/5, Ankle: 5/5 throughout. Flex: HS: mild restrition, Gastroc: mild restriction. Special Test: dural signs: negative, McMurrays: negative - Goals Goal 1:: Patient will be I with HEP and progression Goal Progress: Goal Met Goal 2:: Patient will maintain proper posture t/o tx session to demo increased core s/s. Goal Progress: Progressing Goal 3:: Patient will demo 5/5 strength in LE where deficit to ease ADL's. Goal Progress: Progressing Goal 4:: Patient will asc/desc 8 recip with no HR and good control with 0/10 pain Goal Progress: Goal Met - Plan Plan: Discharge to HEP- call if questions - D/C Information If there are questions or concerns regarding this patient's physical therapy, please feel free to call me at [phone]. Thank you for the referral of this patient. Sincerely, Adalgisa Guthrie DPT
== END 2019-01-13 16:09 | disposition home or self-care (01) ==
LOC: PT 09:00
PROVIDERS: Family Provider Family Medicine; PCP Family Medicine; Referring Provider Physician Assistant; Visit Provider Physician Assistant
DX: M22.2X1 Patellofemoral disorders, right knee (principal); M22.2X2 Patellofemoral disorders, left knee; M70.62 Trochanteric bursitis, left hip; M76.32 Iliotibial band syndrome, left leg; G57.02 Lesion of sciatic nerve, left lower limb
CPT/HCPCS: 97110; 97161; 97164

== ENCOUNTER → 2019-04-12 14:32 | Outpatient (CLI) | payer OTHER, SELFPAY ==
[2018-12-16 14:05] VITALS: BMI 25.4
--- NOTE | 2019-04-12 14:34 | BI_ITS ---
MAMMOGRAPHY - BILATERAL SCREENING REASON FOR EXAM: Female, 64 years old. Routine annual screening examination. PERTINENT HISTORY: Sister with breast cancer. TECHNIQUE: Digital bilateral breast edith (3D mammographic acquisition) in the CC and MLO projections. 2-D mediolateral oblique (MLO) and craniocaudad (CC) views of both breasts were obtained. CAD: Full Field Digital Mammography with Computer Added Detection was performed. COMPARISON: Comparison is made with prior study dated February 25, 2018 and January 29, 2017. FINDINGS: Breast Composition: The breasts are heterogeneously dense, which may obscure small masses. There are no dominant masses or suspicious calcifications. No other significant abnormalities are identified. There has been no significant change since the prior study. BI/SCREEN MAMM (CAD) W/EDITH BILAT IMPRESSION: Stable bilateral screening mammogram. Yearly follow-up mammogram recommended. (A) ASSESSMENT CATEGORY: BIRADS Category 1: Negative. A letter regarding these results will be sent to the patient by the facility within 30 days. Approximately 10% of breast cancers are not detected by mammography. A normal mammogram should not delay biopsy of a clinically suspicious abnormality. [id number] Electronically Signed: Matthew Crockett, at 15:41 EDT , Service support ,
== END ==
PROVIDERS: Family Provider Family Medicine; PCP Family Medicine; Referring Provider Family Medicine; Visit Provider Family Medicine
DX: Z12.31 Encounter for screening mammogram for malignant neoplasm of breast (principal)
CPT/HCPCS: 77063; 77067

== ENCOUNTER → 2019-11-07 08:08 | Outpatient (CLI) | payer OTHER, SELFPAY ==
[2019-05-20 09:35] VITALS: BMI 25.4
[2019-11-07 10:48] LABS: Anion Gap 6 (5-15); BUN 17 mg/dL (7-18); BUN/Creat Ratio 21.8 RATIO (10-20); Calcium,Total 9.5 mg/dL (8.5-10.1); Chloride 106 mmol/L (98-107); Cholesterol 225 mg/dL (200); Creatinine, Serum 0.78 mg/dL (0.55-1.02); EST Glomerular Filtration Rate 79 mL/min (>60); Est Glom Filt Rate - Afr Amer 96 mL/min (>60); Glucose 96 mg/dL (74-106); High Density Lipoprotein 48 mg/dL; Potassium 4.2 mmol/L (3.5-5.1); Sodium Level 140 mmol/L (136-145); Triglycerides 129 mg/dL; Very Low Density Lipoprotein 26 mg/dL (5-40)
== END ==
PROVIDERS: PCP Family Medicine; Referring Provider Family Medicine; Visit Provider Family Medicine
DX: I10 Essential (primary) hypertension (principal)
CPT/HCPCS: 36415; 80048; 80061

== ENCOUNTER → 2019-11-29 09:24 | Outpatient (CLI) | payer OTHER, SELFPAY ==
[2019-11-11 15:04] VITALS: BMI 25.7
--- NOTE | 2019-11-29 09:25 | STEWCON_ITS ---
Reason For Study: CHEST PAIN Stress Results Protocol: Stress Echocardiogram Maximum Predicted HR: 156 bpm Target HR: 133 bpm % Maximum Predicted HR: 110 % DurationHeart Rate Stage (mm:ss) (bpm) BP Comment BASELINE 90 138/84DILUTED DEFINITY 5 CC USED ARNOLD PROTOCOL- STAGE 1 3:00 136 140/78NO SX ARNOLD PROTOCOL- STAGE 2 3:00 160 164/74NO SX ARNOLD PROTOCOL- STAGE 3 1:01 171 / FATIGUE, NO CP RECOVERY 115 124/74PT TOOK HER METOPROLOL FROM HOME Stress Duration: 7:01 mm:ss Maximum Stress HR: 171 bpm METS: 9 Baseline Echocardiogram Findings Stress Echo Wall motion Data Resting WM Intermediate WM Stress WM Resting Wall Motion Wall Motion Stress All segments Normal. All segments Hyperkinetic. Ejection Fraction 55 %. Ejection Fraction 70 %. Stress Results Heart rate response: Appropriate Blood pressure response: Resting blood pressure: Borderline hypertension-appropriate response Arrhythmias: Isolated ventricular couplet during exercise and isolated PVC during recovery Functional capacity: Average Stopped secondary to: Fatigue. EKG Data Baseline ECG: Normal sinus rhythm. Peak exercise ECG: Approximately 0.5 to 1.[address] segment depression in leads II, III, aVF, and V4 through V6 with subsequent resolution towards baseline in recovery. Symptoms with Stress No complaint of chest discomfort during exercise or recovery. Interpretation Summary 1. Technically difficult study 2. Contrast injection performed 3. Negative (adequate) stress echocardiogram Ordering Physician: Reagan Gallagher MD Referring Physician: Reagan Gallagher Performed By: Alison Ledezma, JACKYCS, RVT
== END ==
PROVIDERS: PCP Family Medicine; Referring Provider Internal Medicine Cardiovascular Disease; Visit Provider Internal Medicine Cardiovascular Disease
DX: R07.9 Chest pain, unspecified (principal); M79.602 Pain in left arm; I47.1 Supraventricular tachycardia; I49.3 Ventricular premature depolarization; I10 Essential (primary) hypertension; E78.2 Mixed hyperlipidemia
CPT/HCPCS: 93017; 93350; Q9957; A4216; C8928

== ENCOUNTER → 2020-01-12 11:38 | Outpatient (CLI) | payer OTHER, SELFPAY ==
[2019-11-11 15:04] VITALS: BMI 25.7
== END ==
PROVIDERS: PCP Family Medicine; Referring Provider Family Medicine; Visit Provider Family Medicine
DX: R19.7 Diarrhea, unspecified (principal)
CPT/HCPCS: 87493

== ENCOUNTER → 2020-04-10 | Outpatient (CLI) | payer MEDICARE, SELFPAY ==
[2019-11-11 15:04] VITALS: BMI 25.7
== END | disposition home or self-care (01) ==
PROVIDERS: PCP Family Medicine; Referring Provider Family Medicine; Visit Provider Family Medicine
DX: R19.7 Diarrhea, unspecified (principal)
CPT/HCPCS: 87493

== ENCOUNTER → 2020-06-11 09:48 | Outpatient (CLI) | payer MEDICARE, SELFPAY ==
[2019-11-11 15:04] VITALS: BMI 25.7
--- NOTE | 2020-06-11 09:51 | BI_ITS ---
MAMMOGRAPHY - BILATERAL SCREENING REASON FOR EXAM: Female, 65 years old. Routine annual screening examination. PERTINENT HISTORY: Non-contributory. TECHNIQUE: Digital bilateral breast edith (3D mammographic acquisition) in the CC and MLO projections. 2-D mediolateral oblique (MLO) and craniocaudad (CC) views of both breasts were obtained. CAD: Full Field Digital Mammography with Computer Added Detection was performed. COMPARISON: Comparison is made with prior study dated 04/12/2019 and 02/25/2018. FINDINGS: Breast Composition: The breasts are heterogeneously dense, which may obscure small masses. There are no dominant masses or suspicious calcifications. No other significant abnormalities are identified. There has been no significant change since the prior study. BI/SCREEN MAMM (CAD) W/EDITH BILAT IMPRESSION: Stable bilateral screening mammogram. Yearly follow-up mammogram recommended. (A) ASSESSMENT CATEGORY: BIRADS Category 1: Negative. A letter regarding these results will be sent to the patient by the facility within 30 days. Approximately 10% of breast cancers are not detected by mammography. A normal mammogram should not delay biopsy of a clinically suspicious abnormality. [id number] Electronically Signed: Matthew Crockett, at 10:51 EDT , Service support ,
== END ==
PROVIDERS: PCP Family Medicine; Referring Provider Family Medicine; Visit Provider Family Medicine
DX: Z12.31 Encounter for screening mammogram for malignant neoplasm of breast (principal)
CPT/HCPCS: 77063; 77067

== ENCOUNTER → 2020-12-17 10:45 | Outpatient (CLI) | payer MEDICARE, SELFPAY ==
[2020-11-07 16:16] VITALS: BMI 25.8
--- NOTE | 2020-12-17 10:49 | RAD_ITS ---
STUDY: X-RAY - PELVIS AND BILATERAL HIPS REASON FOR EXAM: Bilateral hip pain. TECHNIQUE: AP view of the pelvis.? 2 views of the right hip, and 2 views of the left hip were obtained. COMPARISON: Radiographs 12/16/2018. FINDINGS: There are pelvic phleboliths and a small calcified uterine fibroid. Normal bilateral iliac wings, sacroiliac joints and visualized sacrum. Normal bilateral superior and inferior pubic rami. Normal pubic symphysis. Normal bilateral ischial tuberosities. Normal visualized right femoral head. Normal right acetabulum. Normal right hip joint. Normal visualized left femoral head. Normal left acetabulum. There is mild joint space narrowing of the superior medial left hip joint as on the prior study. RAD/Hips B/L min 2 views w/ Pelvis IMPRESSION: Mild left hip arthrosis. Otherwise, unremarkable x-ray examination of the pelvis and bilateral hips. Electronically Signed: Song Portillo MD at 11:45 EST Tel , Service support ,
[2020-12-17 12:35] LABS: ALB/GLOB Ratio 1.1 RATIO (0.9-2.4); AST(SGOT) 17 U/L (15-37); Alanine Aminotransfer ALT/SGPT 25 U/L (13-56); Albumin, Serum 3.7 g/dL (3.2-5.0); Alkaline Phosphatase 64 U/L (45-117); Anion Gap 4 (5-15); BUN 14 mg/dL (7-18); Calcium,Total 9.1 mg/dL (8.5-10.1); Chloride 105 mmol/L (98-107); Cholesterol 169 mg/dL (200); Creatinine, Serum 0.74 mg/dL (0.55-1.02); EST Glomerular Filtration Rate 84 mL/min (>60); Est Glom Filt Rate - Afr Amer 102 mL/min (>60); Globulin 3.3 g/dL (2.2-4.2); Glucose 93 mg/dL (74-106); High Density Lipoprotein 65 mg/dL; Potassium 3.9 mmol/L (3.5-5.1); Sodium Level 141 mmol/L (136-145); Triglycerides 72 mg/dL; Very Low Density Lipoprotein 14 mg/dL (5-40)
== END ==
PROVIDERS: PCP Family Medicine; Referring Provider Family Medicine; Visit Provider Family Medicine
DX: Z00.00 Encounter for general adult medical examination without abnormal findings (principal); M25.552 Pain in left hip; M25.551 Pain in right hip
CPT/HCPCS: 36415; 73521; 80053; 80061

== ENCOUNTER → 2021-06-12 11:54 | Outpatient (CLI) | payer MEDICARE, SELFPAY ==
[2020-11-07 16:16] VITALS: BMI 25.8
--- NOTE | 2021-06-12 11:58 | BI_ITS ---
MAMMOGRAPHY - BILATERAL SCREENING 3-D TOMOSYNTHESIS REASON FOR EXAM: Female, 66 years old. SCREENING PERTINENT HISTORY: No significant family history. TECHNIQUE: 2-D mammograms and 3-D Tomosynthesis of the breast (s) were performed. CAD was performed. COMPARISON: 06/11/2020 FINDINGS: The breast composition is heterogeneously dense that can obscure small breast masses. Scattered benign calcifications are seen. No dense spiculated masses or suspicious microcalcifications are identified. No architectural distortion is identified. There is no skin thickening or retraction. There has been no significant change since the prior study. BI/SCREENING MAMM (CAD), BILAT IMPRESSION: No mammographic signs of malignancy. Routine yearly mammograms recommended. ASSESSMENT CATEGORY: BIRADS Category 1: Negative. A letter regarding these results will be sent to the patient by the facility within 30 days. FOLLOW UP RECOMMENDATION: Yearly follow up mammogram recommended. (A) Approximately 10% of breast cancers are not detected by mammography. A normal mammogram should not delay biopsy of a clinically suspicious abnormality. Electronically Signed: Arthur Walsh MD at 13:03 EDT Tel , Service support ,
== END ==
PROVIDERS: PCP Family Medicine; Visit Provider Family Medicine
DX: Z12.31 Encounter for screening mammogram for malignant neoplasm of breast (principal)
CPT/HCPCS: 77067

== ENCOUNTER 2021-12-26 10:37 | Outpatient (CLI) | payer MEDICARE, SELFPAY ==
[2021-12-26 12:52] LABS: Anion Gap 5 (5-15); BUN 15 mg/dL (7-18); BUN/Creat Ratio 20.5 RATIO (10-20); Calcium,Total 9.6 mg/dL (8.5-10.1); Chloride 106 mmol/L (98-107); Cholesterol 156 mg/dL (200); Creatinine, Serum 0.73 mg/dL (0.55-1.02); EST Glomerular Filtration Rate 85 mL/min (>60); Est Glom Filt Rate - Afr Amer 102 mL/min (>60); Glucose 89 mg/dL (74-106); High Density Lipoprotein 59 mg/dL; Potassium 4.2 mmol/L (3.5-5.1); Sodium Level 141 mmol/L (136-145); Thyroid Stim Hormone (TSH) 1.57 uIU/mL (0.358-3.74); Triglycerides 71 mg/dL; Very Low Density Lipoprotein 14 mg/dL (5-40); Vitamin D,25 Hydroxy 33.8 ng/mL
== END 2021-12-26 23:59 | disposition home or self-care (01) ==
LOC: MFPLAB 10:39
PROVIDERS: PCP Family Medicine; Referring Provider Family Medicine; Visit Provider Family Medicine
DX: Z00.00 Encounter for general adult medical examination without abnormal findings (principal); E55.9 Vitamin D deficiency, unspecified
CPT/HCPCS: 36415; 80048; 80061; 82306; 84443

== ENCOUNTER 2022-01-24 11:44 | Outpatient (CLI) | payer MEDICARE, SELFPAY ==
--- NOTE | 2022-01-24 11:47 | RAD_ITS ---
STUDY: X-RAY CHEST REASON FOR EXAM: Female, 66 years old. BRONCHITIS TECHNIQUE: PA and lateral views of the chest. COMPARISON: 09/16/2016 FINDINGS: The lungs are clear and expanded. There is no demonstrated pleural abnormality. Normal size heart. Normal mediastinum and juan m. Normal visualized pulmonary arteries. Normal visualized aortic arch and descending thoracic aorta. There is a dextroscoliosis of the thoracic spine. Normal visualized ribs, clavicles, and shoulders. There is no demonstrated abnormality of the visualized soft tissue structures of the upper abdomen. RAD/Chest PA and Lateral IMPRESSION: Normal x-ray examination of the chest. Electronically Signed: Arthur Walsh MD at 17:11 EDT ,
== END 2022-01-24 23:59 | disposition home or self-care (01) ==
LOC: MTRAD 11:45
PROVIDERS: PCP Family Medicine; Referring Provider Family Medicine; Visit Provider Family Medicine
DX: J20.9 Acute bronchitis, unspecified (principal)
CPT/HCPCS: 71046

== ENCOUNTER → 2022-07-14 | Outpatient (CLI) | payer MEDICARE, SELFPAY ==
--- NOTE | 2022-07-14 16:22 | CT_ITS ---
STUDY: CT ABDOMEN AND PELVIS WITH CONTRAST REASON FOR EXAM: Female, 67 years old. Abdominal pain. RADIATION DOSAGE (If Supplied By Facility): CTDIvol = ( 16.98 ) mGy, DLP = ( 1026.24 ) mGycm TECHNIQUE: Transaxial images were obtained from the dome of the diaphragm to the symphysis pubis with oral contrast. 100 mL of ISOVUE 370 was administered. Sagittal and coronal images were reconstructed. Individualized dose optimization techniques were used for this CT. COMPARISON: Ultrasound, 09/30/2018. Abdominal ultrasound, 09/01/2018. FINDINGS: The visualized lung bases are unremarkable. The visualized portions of the heart are within normal limits. There are small hypodensities in the dome of segment 7 of the liver. The more superior demonstrates interval patchy peripheral enhancement. There is also a hypodensity in segment 2 of the liver with adjacent patchy area of enhancement. Question hemangiomas. The liver is otherwise unremarkable. Normal gallbladder and extrahepatic biliary system. Normal spleen. Normal pancreas. Normal bilateral adrenal glands. Small fat density focus in the upper pole of the right kidney. Question angiomyolipoma. The right kidney is otherwise unremarkable. Normal left kidney. Normal visualized ureters. Normal visualized stomach. Normal small intestine. Normal colon. The appendix is visualized and appears normal. There is diffuse atherosclerotic calcification of the abdominal aorta, without a demonstrated aneurysm. Normal inferior vena cava. Normal retroperitoneum. Normal urinary bladder. Normal uterus. There are follicles left ovary with a small focal calcification. There were multiple right ovarian follicles. No pelvic lymphadenopathy. No free air or free fluid is seen within the peritoneal cavity. Normal abdominal wall. There are diffuse degenerative changes of the visualized lumbar spine. CT/Abdomen/Pelvis WITH Contrast IMPRESSION: 1. Question hepatic hemangiomas. 2. Small fat density mass in the right kidney. Question angiomyolipoma. 3. Bilateral ovarian follicles. 4. Atherosclerotic changes of the aorta without aneurysm. 5. Degenerative changes of the lumbar spine. Electronically Signed: Giles Singh DO at 17:20 EDT Reading Location ID and State: [facility] Tel [phone], Service support ,
[2022-07-14 16:50] LABS: CREATININE FINGERSTICK < 0.9 mg/dL (0.55-1.02); EGFR FINGERSTICK > 60.0000 mL/min (>60)
== END | disposition home or self-care (01) ==
LOC: CT 16:21
PROVIDERS: PCP Family Medicine; Referring Provider Family Medicine; Visit Provider Family Medicine
DX: R10.9 Unspecified abdominal pain (principal)
CPT/HCPCS: 36415; 74177; 80053; 83690; 85025; Q9967

== ENCOUNTER → 2022-07-14 | Outpatient (CLI) | payer MEDICARE, SELFPAY ==
[2022-07-14 18:15] LABS: Absolute Lymphocyte Count 2.44 X10^3/uL (0.83-4.51); Absolute Neutrophil Count 2.5 X10^3/uL (2.0-7.7); Basophil# 0.03 X10^3/uL; Basophil% 0.5 % (0-1); Eosinophil# 0.31 X10^3/uL; Eosinophils% 5.3 % (0-5); Hematocrit 42.4 % (37-47); Hemoglobin 13.5 g/dL (12.0-15.0); Lymphocyte # 2.44 X10^3/ul (0.83-4.51); Lymphocyte % 41.9 % (19-41); Mean Corp Hgb Conc 31.8 g/dL (32-36); Mean Corpuscular Hgb 30.1 pg (27.0-32.0); Mean Corpuscular Volume 94.6 fL (81-99); Mean Platelet Vol. 9.4 fl (6.2-12.0); Monocyte# 0.53 X10^3/uL; Monocyte% 9.1 % (0-10); NRBC Flagged by Analyzer 0 % (0-5); Neutrophil # 2.51 X10^3/uL (2.7-7.7); Platelet Count 314 K/mm3 (150-450); RBC Distribution Width CV 13.8 % (11.6-14.6); Red Blood Count 4.48 M/mm3 (4.2-5.4); White Blood Count 5.8 K/mm3 (4.4-11.0)
[2022-07-14 18:42] LABS: ALB/GLOB Ratio 1.1 RATIO (0.9-2.4); AST(SGOT) 19 U/L (15-37); Alanine Aminotransfer ALT/SGPT 31 U/L (13-56); Albumin, Serum 3.7 g/dL (3.2-5.0); Alkaline Phosphatase 73 U/L (45-117); Anion Gap 6 (5-15); BUN 13 mg/dL (7-18); BUN/Creat Ratio 17.8 RATIO (10-20); Calcium,Total 9.9 mg/dL (8.5-10.1); Chloride 104 mmol/L (98-107); Creatinine, Serum 0.73 mg/dL (0.55-1.02); EST Glomerular Filtration Rate 85 mL/min (>60); Est Glom Filt Rate - Afr Amer 102 mL/min (>60); Globulin 3.5 g/dL (2.2-4.2); Glucose 74 mg/dL (74-106); Lipase 185 U/L (73-393); Potassium 3.8 mmol/L (3.5-5.1); Protein, Total 7.2 g/dL (6.4-8.2); Sodium Level 142 mmol/L (136-145)
== END | disposition home or self-care (01) ==
LOC: MFPLAB 13:51
PROVIDERS: PCP Family Medicine; Visit Provider Family Medicine
DX: R10.9 Unspecified abdominal pain (principal)
CPT/HCPCS: 36415; 80053; 83690; 85025

== ENCOUNTER → 2022-07-18 | Outpatient (CLI) | payer MEDICARE, SELFPAY ==
--- NOTE | 2022-07-18 10:38 | BI_ITS ---
MAMMOGRAPHY - BILATERAL SCREENING REASON FOR EXAM: Female, 67 years old. Routine annual screening examination. PERTINENT HISTORY: Sister with breast cancer. TECHNIQUE: Digital bilateral breast edith (3D mammographic acquisition) in the CC and MLO projections. 2-D mediolateral oblique (MLO) and craniocaudad (CC) views of both breasts were obtained. CAD: Full Field Digital Mammography with Computer Added Detection was performed. COMPARISON: Comparison is made with prior study of 06/12/2021 and 06/11/2020. FINDINGS: Breast Composition: The breasts are heterogeneously dense, which may obscure small masses. There are no dominant masses or suspicious calcifications. No other significant abnormalities are identified. There has been no significant change since the prior study. BI/SCRN MAMM (CAD)W/EDITH BILAT IMPRESSION: Stable bilateral screening mammogram. Yearly follow-up mammogram recommended. (A) ASSESSMENT CATEGORY: BIRADS Category 1: Negative. A letter regarding these results will be sent to the patient by the facility within 30 days. Approximately 10% of breast cancers are not detected by mammography. A normal mammogram should not delay biopsy of a clinically suspicious abnormality. [id number] Electronically Signed: Matthew Crockett MD at 11:58 EDT ,
== END | disposition home or self-care (01) ==
LOC: OPBI 10:36
PROVIDERS: PCP Family Medicine; Visit Provider Family Medicine
DX: Z12.31 Encounter for screening mammogram for malignant neoplasm of breast (principal); Z80.3 Family history of malignant neoplasm of breast
CPT/HCPCS: 77063; 77067

== ENCOUNTER → 2022-09-22 | Outpatient (CLI) | payer MEDICARE, SELFPAY ==
--- NOTE | 2022-09-22 12:34 | RAD_ITS ---
EXAM: XR LUMBOSACRAL SPINE, 4 OR 5 VIEWS CLINICAL INDICATION: BACK PAIN TECHNIQUE: Frontal, lateral and bilateral oblique views of the lumbar spine. This report was created using [employer] report generation technology. COMPARISON: None. FINDINGS: VERTEBRAE: Mild levoscoliosis centered at L3. Preserved vertebral body height. No fracture. No spondylolisthesis. No significant facet arthropathy. DISC SPACES: Marked disc space narrowing at L5-S1 with mild endplate sclerosis. Mild narrowing at L3-4 and L4-5. VASCULATURE: Mild partial peripheral calcification of the intra-abdominal aorta. GASTROINTESTINAL TRACT: Mild gas and stool in the right colon. Included bowel gas pattern is non-obstructive. RAD/L/S Spine Min 4 Views IMPRESSION: Degenerative changes, multilevel disc space narrowing. No spondylolisthesis. Electronically Signed: Sameera Perez MD at 6:31 EST ,
== END | disposition home or self-care (01) ==
LOC: MTRAD 12:33
PROVIDERS: PCP Family Medicine; Referring Provider Family Medicine; Visit Provider Family Medicine
DX: M54.9 Dorsalgia, unspecified (principal)
CPT/HCPCS: 72110

== ENCOUNTER → 2022-11-06 | Outpatient (CLI) | payer MEDICARE, SELFPAY ==
--- NOTE | 2022-11-06 14:55 | CT_ITS ---
STUDY: LOW DOSE CT LUNG CANCER SCREENING REASON FOR EXAM: Female, 67 years old. HX SMOKING. Patient smoked 10 cigarettes a day for 25 years. Patient quit smoking 9 years ago. RADIATION DOSAGE (If Supplied By Facility): CTDIvol = ( 3.02 ) mGy, DLP = ( 112.87 ) mGycm TECHNIQUE: No contrast was administered. Low dose technique was utilized (average mAS-38 and kVp 120). 1.25 mm axial source images with a slice interval of 1.25-mm were reconstructed in lung windows. 2.5 mm axial source images with a slice interval of 2.5-mm were reconstructed in lung windows. 5.0 mm axial source images with a slice interval of 5.0-mm were reconstructed in soft tissue windows. COMPARISON: Comparison is made with prior chest radiograph dated 01/24/2022. NODULES: Emphysema: Emphysematous changes. Scarring at the lung apices. Irregular scarring with a small bullous formation in the peripheral lateral aspect of the right upper lobe. Mild degree of bronchiectasis in the lower lung. Mild scarring in the right middle lobe and left lower lobe. Endobronchial lesion: None Aorta: Mild atherosclerotic plaque formation of the aortic arch. CORONARY ARTERIES: Coronary artery calcification is seen. Heart: Unremarkable Pulmonary artery: Unremarkable Mediastinal nodes: Small benign-appearing mediastinal lymph nodes. Other chest and abdominal findings: CT/Low Dose CT Lung Screening IMPRESSION: Lung-RADS category 2 - Continue annual screening with LDCT in 12 months. IMPORTANT NOTES FOR USE: ACR Lung-RADS Version 1.1 Assessment Categories Release Date: 2018 Category: Coded 0-4 bases on nodule(s) with highest degree of suspicion. Negative screen is defined as categories 1 and 2; a positive screen is defined as categories 3 and 4. Category 3 and 4A nodules that are unchanged on interval CT should be coded as category 2, and individuals returned to screening in 12 months. Category 4X: Category 3 or 4 nodules with additional imaging findings that increase the suspicion of lung cancer, such as spiculation, GGN that doubles in size in 1 year, enlarged lymph notes, etc. Category Modifiers: S (significant finding unrelated to lung cancer) Electronically Signed: Matthew Crockett MD at 15:35 EST ,
== END | disposition home or self-care (01) ==
PROVIDERS: PCP Family Medicine; Referring Provider Family Medicine; Visit Provider Family Medicine
DX: Z87.891 Personal history of nicotine dependence (principal)
CPT/HCPCS: 71271

== ENCOUNTER 2022-11-26 11:30 | Outpatient (RCR) | payer MEDICARE, SELFPAY ==
--- NOTE | 2022-10-23 13:24 | HP.PTEVAL_ITS ---
Patient's Visit Information YOUNG AGARWAL is a 67 year old F referred to Physical Therapy by Dr. Reagan Santa MD with a diagnosis of BACK PAIN. Date of Evaluation: 10/23/22 Physical Therapist: Jorge Peterson PT, Cert MDT, OCS - Visit Plan Frequency: 2x /Week Duration: 4 Weeks Plan: PT INTERVETIONS DLS ,POSTURAL EX'S ,MODALTIES AND ACTIVITY MODIFIACTION - Subjective This 67 y/o female presents to physical therapy back pain. Patient has s ymmetrical LBP since May no etiology . Patient seen Chiropractor had x-rays showed DDD/spur. Seen DR tried prednisone which didn't help. Patient pain worse in morning thus changes mattress. Pain located center described ache occasional left buttock . Aggravating factors AM ,bending ,lifting ,twisting and sitting . Patient alleviating factors movement ,ice /heat. Coughing/sneezing -. Bowel/bladder -. Patient pain affects QOL and function. Patient sits all day at work. 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 SOCIAL: - Pain Bilateral Back Pain Intensity (Out of 10): 8 Pain Intensity Range: 10 - Objective POSTURE: mild forward posture. GAIT: reciprocal pattern. SYMTRIES: align. PALPATION: tender LS/SI. NEURO: denies paresthesia/tingling ,reflexes L3-4 ,L4-5,L5-S1 1/3. FLEXABLITY: hamstrings min tight. LUMBAR ROM: flexion WFL ,extension mod loss, side glides min loss. MMT: quads/hams 4/5 ,hip flexion 4/5 ,ankle 4/5 - Special Tests L/S Slump test left side: Negative L/S Slump test right side: Negative L/S Left Straight Leg Raise: Negative L/S Right Straight Leg Raise: Negative Lumbar Standing: Flexion - Mechanical Response: No effect Lumbar Standing: Flexion - Symptoms During Testing: Increases Lumbar Standing: Flexion - Symptoms After Testing: No worse Lumbar Standing: Extension - Symptoms During Testing: Increases Lumbar Standing: Extension - Symptoms After Testing: Worse Lumbar Standing: Right Side Glides - Mechanical Response: No effect Lumbar Standing: Right Side Meridian - Symptoms During Testing: No effect Lumbar Standing: Right Side Meridian - Symptoms After Testing: No effect Lumbar Standing: Left Side Meridian - Mechanical Response: No effect Lumbar Standing: Left Side Meridian - Symptoms During Testing: No effect Lumbar Standing: Left Side Mer[place] - Symptoms After Testing: No effect Lumbar Lying: Flexion - Mechanical Response: No effect Lumbar Lying: Flexion - Symptoms During Testing: Decreases Lumbar Lying: Flexion - Symptoms After Testing: Better Lumbar Lying: Extension - Mechanical Response: No effect Lumbar Lying: Extension - Symptoms During Testing: Increases Lumbar Lying: Extension - Symptoms After Testing: Worse - Balance/Special Test Scores Oswestry Low Back Score: 32 - Goals Goal 1:: I with HEP lumbar Goal Time Frame: 4-6 Weeks Goal 2:: Patient to improve posture/body mechanics 90% of the timne Goal Time Frame: 4-6 Weeks Goal 3:: Patient to improve lumbar pain to by 50% to improve function and ADLS Goal Time Frame: 4-6 Weeks Goal 4:: Patient to improve lumbar ROM for function of recovery to tie shoes Goal Time Frame: 4-6 Weeks Goal 5:: Patient to improve back oswestry score by 5 points to improve QOL and function Goal Time Frame: 4-6 Weeks - Rehabilitation Potential Physical Therapy Diagnosis: This patient has lumbar pain with possible stenosis vs disc with pain positioning and motion testing thus benefit from skilled PT Rehabilitation Potential: Good - Anticipated Interventions Patient/Client Instruction: Educate patient on: Condition, Plan of Care For the Purpose of:: To decrease pain, To increase ROM, To improve muscle performance and motor function, To improve ability to perform ADL's, To increase tolerance to activity/condition/position, To improve performance and independence with ADL's, To improve ability of physical actions for home/community/work/leisure, To improve health of tissue, To decrease soft tissue restriction, To increase flexibility/ROM, To reduce risk of recurrence, To improve tolerance to ADL's Therapeutic Exercise to Include: Strength training, Balance training, Body mechanics, Postural training, Flexibilty training, Dynamic Lumbar Stabilization, Farzaneh Exercises For the Purpose of:: To decrease pain, To increase ROM, To improve muscle performance and motor function, To improve ability to perform ADL's, To increase tolerance to activity/condition/position, To improve ability of physical actions for home/community/work/leisure, To improve health of tissue, To decrease soft tissue restriction, To increase flexibility/ROM TENS: Yes IF ES: Yes Thermo therapy (hot pack): Yes Ultrasound (thermal/non thermal): Yes For the Purpose of:: To decrease pain, To improve nutrient delivery to tissue, To increase oxygenation perfusion, To improve health of tissue, To decrease soft tissue restriction Thank you for the opportunity to evaluate your patient. For Medicare and Medicare HMO plans, please review the plan of care and approve it. It will need to be FAXED BACK to us at [phone] for Medicare purposes. For Medicare only, by signing this I certify the plan of care. Please let me know if there are questions or concerns regarding this plan of care. Physician Signature: Date:
--- NOTE | 2023-04-22 13:45 | HP.PTDCSUM ---
Discharge Summary D/C summary: It has been my pleasure to treat YOUNG AGARWAL referred by Dr. Reagan Santa MD, with the diagnosis of BACK PAIN for a total of 5 visit(s). Discharge Date: 11/26/22 Please see the following information for a summary of their discharge status. Subjective Subjective: Doing good Pain Bilateral Back: Pain Intensity (Out of 10): 1 Overall Improvement % Improvement: 50 Objective Objective/Function: POSTURE: mild forward posture GAIT: reciprocal pattern PALPTION: tender SI LUMBAR ROM: flexion min ,extension min loss ,side glides min MMT: quads/hams 4/5 ,hip flexion 4/5 ,ankle Goals Goal 1:: I with HEP lumbar Goal Progress: Goal Met Goal 2:: Patient to improve posture/body mechanics 90% of the timne Goal Progress: Goal Met Goal 3:: Patient to improve lumbar pain to by 50% to improve function and ADLS Goal Progress: Goal Met Goal 4:: Patient to improve lumbar ROM for function of recovery to tie shoes Goal Progress: Goal Met Goal 5:: Patient to improve back oswestry score by 5 points to improve QOL and function Goal Progress: Goal Met Plan Plan: D/C D/C Information d/c sentence: If there are questions or concerns regarding this patient's physical therapy, please feel free to call me at [phone]. Thank you for the referral of this patient. Sincerely, Jorge Peterson, PT, Cert MDT, OCS Balance/Gait/Functional tests Balance/Special Test Scores Oswestry Low Back Score: 6
== END 2022-11-26 19:00 | disposition home or self-care (01) ==
LOC: PT 11:30
PROVIDERS: PCP Family Medicine; Referring Provider Family Medicine; Visit Provider Family Medicine
DX: M54.9 Dorsalgia, unspecified (principal)
CPT/HCPCS: 97110; 97162

== ENCOUNTER → 2023-01-01 | Outpatient (CLI) | payer MEDICARE, SELFPAY ==
[2023-01-01 12:55] LABS: Anion Gap 6 (5-15); BUN 18 mg/dL (7-18); BUN/Creat Ratio 25.9 RATIO (10-20); Calcium,Total 9.4 mg/dL (8.5-10.1); Chloride 105 mmol/L (98-107); Cholesterol 151 mg/dL (200); Creatinine, Serum 0.69 mg/dL (0.55-1.02); EST Glomerular Filtration Rate 89 mL/min (>60); Est Glom Filt Rate - Afr Amer 108 mL/min (>60); Glucose 102 mg/dL (74-106); High Density Lipoprotein 56 mg/dL; Sodium Level 141 mmol/L (136-145); Triglycerides 81 mg/dL; Very Low Density Lipoprotein 16 mg/dL (5-40)
[2023-01-01 13:00] LABS: Vitamin D,25 Hydroxy 34.2 ng/mL
== END | disposition home or self-care (01) ==
LOC: MTLAB 10:19
PROVIDERS: PCP Family Medicine; Referring Provider Family Medicine; Visit Provider Family Medicine
DX: Z00.00 Encounter for general adult medical examination without abnormal findings (principal); E55.9 Vitamin D deficiency, unspecified
CPT/HCPCS: 36415; 80048; 80061; 82306

== ENCOUNTER → 2023-01-27 | Outpatient (CLI) | payer MEDICARE, SELFPAY ==
--- NOTE | 2023-01-27 09:58 | BD_ITS ---
STUDY: DUAL ENERGY X-RAY ABSORPTIOMETRY / DXA REASON FOR EXAM: Female, 67 years old. Post menopausal TECHNIQUE: Bone Mineral Density (BMD) measurements of lumbar spine and bilateral hips were obtained. COMPARISON: Comparison is made with prior study dated January 29, 2017. FINDINGS: Lumbar Spine (L1-L4): g/cm2 (0.825) / T-score (-2.0) / Z-score (-0.1) Findings are suggestive of osteopenia with a moderate fracture risk. Left Femur Total: g/cm2 (0.846) / T-score (-0.8) / Z-score (0.6) Left Femoral Neck: g/cm2 (0.699) / T-score (-1.4) / Z-score (0.3) Right Femur Total: g/cm2 (0.819) / T-score (-1.0) / Z-score (0.4) Right Femoral Neck: g/cm2 (0.709) / T-score (-1.3) / Z-score (0.4) The T-Scores on the most recent prior examination were: Lumbar Spine (L1-L4): There has been worsening of bone density since the previous examination. Left Femur Total: which represents a worsening of 3.4%. Right Femur Total: which represents a worsening of 3.8%. BD/Dexa Bone Density Study IMPRESSION: The patient is considered osteopenic as outlined below according to World [place]un[place] Organization (WHO) criteria with a moderate fracture risk. There has been worsening of bone density since the previous examination. Reference Information: The T-score is the number of standard deviations above or below the standard which is normal for young adults at their peak bone mineral density. The World Health Organization (WHO) interprets the T-scores as follows: Above -1 Normal bone density Between -1 and -2.5 Osteopenia Equal to / or below -2.5 Osteoporosis As a practical clinical guideline, osteopenia may be graded as follows: Mild -1 through -1.5 Moderate -1.6 through -2.0 Severe -2.1 through -2.4 The Z-score is the number of standard deviations above or below age-matched controls. A Z-score of less than -1.5 would be considered abnormal. References: 1. NIH Osteoporosis and Related Bone Diseases www osteo.org 2. International Society for Clinical Densitometry www iscd.org 3. National Osteoporosis Foundation www nof.org Electronically Signed: Matthew Crockett MD at 13:53 EDT ,
== END | disposition home or self-care (01) ==
LOC: OPBD 09:45
PROVIDERS: PCP Family Medicine; Referring Provider Obstetrics & Gynecology; Visit Provider Obstetrics & Gynecology
DX: Z01.419 Encounter for gynecological examination (general) (routine) without abnormal findings (principal); Z78.0 Asymptomatic menopausal state; N95.9 Unspecified menopausal and perimenopausal disorder
CPT/HCPCS: 77080

== ENCOUNTER → 2023-07-22 | Outpatient (CLI) | payer MEDICARE, SELFPAY ==
--- NOTE | 2023-07-22 10:04 | BI_ITS ---
MAMMOGRAPHY - BILATERAL SCREENING REASON FOR EXAM: Female, 68 years old. Routine annual screening examination. PERTINENT HISTORY: Sister with breast cancer. TECHNIQUE: Digital bilateral breast edith (3D mammographic acquisition) in the CC and MLO projections. 2-D mediolateral oblique (MLO) and craniocaudad (CC) views of both breasts were obtained. CAD: Full Field Digital Mammography with Computer Added Detection was performed. COMPARISON: Comparison is made with prior study July 18, 2022 and June 12, 2021. FINDINGS: Breast Composition: The breasts are heterogeneously dense, which may obscure small masses. There are no dominant masses or suspicious calcifications. No other significant abnormalities are identified. There has been no significant change since the prior study. BI/SCRN MAMM (CAD)W/EDITH BILAT IMPRESSION: Stable bilateral screening mammogram. Yearly follow-up mammogram recommended. (A) ASSESSMENT CATEGORY: BIRADS Category 1: Negative. A letter regarding these results will be sent to the patient by the facility within 30 days. Approximately 10% of breast cancers are not detected by mammography. A normal mammogram should not delay biopsy of a clinically suspicious abnormality. [id number] Electronically Signed: Matthew Crockett MD at 10:47 EDT ,
== END | disposition home or self-care (01) ==
LOC: OPBI 10:03
PROVIDERS: PCP Family Medicine; Referring Provider Family Medicine; Visit Provider Family Medicine
DX: Z12.31 Encounter for screening mammogram for malignant neoplasm of breast (principal)
CPT/HCPCS: 77063; 77067

== ENCOUNTER 2024-05-02 09:16 | Outpatient (CLI) | payer MEDICARE, SELFPAY ==
[2024-05-02 12:41] LABS: Anion Gap 7 (5-15); BUN 20 mg/dL (7-18); Calcium,Total 9.4 mg/dL (8.5-10.1); Chloride 107 mmol/L (98-107); Cholesterol 165 mg/dL (200); Creatinine, Serum 0.77 mg/dL (0.55-1.02); EST Glomerular Filtration Rate 79 mL/min (>60); Est Glom Filt Rate - Afr Amer 96 mL/min (>60); Glucose 98 mg/dL (74-106); High Density Lipoprotein 64 mg/dL; Potassium 3.9 mmol/L (3.5-5.1); Sodium Level 140 mmol/L (136-145); Thyroid Stim Hormone (TSH) 1.76 uIU/mL (0.358-3.74); Triglycerides 83 mg/dL; Very Low Density Lipoprotein 17 mg/dL (5-40)
== END 2024-05-02 23:59 | disposition home or self-care (01) ==
LOC: MTLAB 09:17
PROVIDERS: PCP Family Medicine; Referring Provider Family Medicine; Visit Provider Family Medicine
DX: R63.5 Abnormal weight gain (principal); E78.5 Hyperlipidemia, unspecified
CPT/HCPCS: 36415; 80048; 80061; 84443

== ENCOUNTER → 2024-05-23 | Outpatient (CLI) | payer MEDICARE, SELFPAY ==
--- NOTE | 2024-05-23 14:58 | CT_ITS ---
STUDY: LOW DOSE CT LUNG CANCER SCREENING REASON FOR EXAM: Female, 69 years old. NICOTINE DEPENDENCE. Patient smoked 10 cigarettes per day for 30 years. RADIATION DOSAGE (If Supplied By Facility): CTDIvol = ( 3.02 ) mGy, DLP = ( 114.75 ) mGycm TECHNIQUE: No contrast was administered. Low dose technique was utilized (average mAS-38 and kVp 120). 1.25 mm axial source images with a slice interval of 1.25-mm were reconstructed in lung windows. 2.5 mm axial source images with a slice interval of 2.5-mm were reconstructed in lung windows. 5.0 mm axial source images with a slice interval of 5.0-mm were reconstructed in soft tissue windows. COMPARISON: Comparison is made with prior study dated November 06, 2022. NODULES: No suspicious nodules seen. Emphysema: Stable scarring at the lung apices. Stable emphysematous changes. Stable focal bronchiectasis and scarring in the posterior aspect of the right upper lobe as seen on axial image #104. Stable scarring in the right middle lobe with a focal bronchiectasis. Stable mild scarring in the left lower lobe. Endobronchial lesion: None Aorta: Atherosclerotic plaque formation of the aortic arch. CORONARY ARTERIES: Coronary artery calcification is seen. Heart: Unremarkable Pulmonary artery: Unremarkable Mediastinal nodes: Small benign-appearing mediastinal lymph nodes. Other chest and abdominal findings: CT/Low Dose CT Lung Screening IMPRESSION: Lung-RADS category 2 - Continue annual screening with LDCT in 12 months. IMPORTANT NOTES FOR USE: ACR Lung-RADS Version 1.1 Assessment Categories Release Date: 2018 Category: Coded 0-4 bases on nodule(s) with highest degree of suspicion. Negative screen is defined as categories 1 and 2; a positive screen is defined as categories 3 and 4. Category 3 and 4A nodules that are unchanged on interval CT should be coded as category 2, and individuals returned to screening in 12 months. Category 4X: Category 3 or 4 nodules with additional imaging findings that increase the suspicion of lung cancer, such as spiculation, GGN that doubles in size in 1 year, enlarged lymph notes, etc. Category Modifiers: S (significant finding unrelated to lung cancer) Electronically Signed: Matthew Crockett MD at 10:09 EDT ,
== END | disposition home or self-care (01) ==
LOC: CT 14:57
PROVIDERS: PCP Family Medicine; Referring Provider Family Medicine; Visit Provider Family Medicine
DX: Z87.891 Personal history of nicotine dependence (principal)
CPT/HCPCS: 71271

== ENCOUNTER 2024-07-07 10:00 | Outpatient (RCR) | payer MEDICARE, SELFPAY ==
--- NOTE | 2024-06-09 14:59 | HP.PTEVAL ---
Patient's Visit Information Visit Information Visit Information: YOUNG AGARWAL is a 69 year old F referred to Physical Therapy by Dr. Aisha Ignacio MD with a diagnosis of PELVIC AND PERINEAL PAIN. Date of Evaluation: 06/01/24 Physical Therapist: Ele Tovar PT, Cert MDT Visit Plan Frequency: 1x/Week Duration: 2-4 Months Plan: PF THERAPY FOR STRENGTHENING, LENGTHENING/RELAXATION AND ENDURANCE TRAINING. URINARY URGE AND FREQUENCY EDUCATION. HEALTHY BLADDER HABIT EDUCATION. TRAINING IN COORDINATION OF PELVIC FLOOR MUSCULATURE WITH HIP AND CORE (TRANSVERSE ABDOMINUS) MUSCULATURE. CORE STRENGTHENING. SHILOH LE ROM, STRETCHING AND STRENGTHENING. TRAINING IN ABDOMINAL CAVITY PRESSURE MGMT WITH ADL'S. 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 Present symptoms: BLADDER AND UTERUS PROLAPSE. INTERMITTENT URINE LEAKAGE. INTERMITTENT URINARY URGENCY. PATIENT REPORTS SHE IS NOT HEAR FOR PAIN. SHE STATES SHE FEELS THE BULGING/PRESSURE IN THE VAGINAL AREA INTERMITTENLY BUT DENIES PAIN. Present since: NOTICED PROLAPSE ABOUT 3 YEARS AGO. Pain Scale: N/A Is it getting better, worse or staying the same: STAYING THE SAME. PATIENT REPORTS ON RECENT PHYSICIAN FOLLOW UP THE PROLAPSE IS STAYING THE SAME. Commenced as a result of: POSSIBLY LIFTING COFFEE CANS OF HEAVY QUARTERS - DIDN'T BEND KNEES AND HURT BACK/HIP/KNEE TOO. Worse: WALKING, STANDING, WAITING TOO LONG TO GO TO THE BATHROOM, MAKING THE BED, COMING UP THE BASEMENT STEPS. Better: SLR'S Disturbed sleep: GETTING UP 0-1 A NIGHT TO URINATE Previous history/Previous treatment: H/O A LOT OF UTI'S BUT HASN'T HAD ANY FOR ABOUT 4 YEARS. 1998 - ENDOMETRIAL ABLASION Treatment this episode: NONE Coughing/sneezing/straining: NOT NORMALLY UNLESS EXCESSIVE COUGHING WITH ILLNESS. Gait: NORMAL How long can you delay the need to urinate: 0-10 MINUTES Prolapse (Falling out feeling): YES Frequency of Urination: EVERY 1-2 HRS Ability to stop urine flow: YES Ability to initiate urine stream: YES Dyspareunia: N/A Bowel Incontinence: NO Accidents: NO Unexplained weight loss: NO Imaging: LUMBAR DDD PMH/Recent major surgery: CHRONIC BACK PAIN, R KNEE PAIN, SCOLIOSIS Objective Objective: Sitting/Standing Posture: ANTERIOR PELVIC TILT, SCOLIOSIS. Other Observations: INDEP GAIT AND TRANSFERS. Sensory deficit: SHILOH LE LIGHT TOUCH SENSATION GROSSLY INTACT AND SYMMETRICAL ROM deficit: SHILOH HIP TIGHTNESS ALL PLANES. SHILOH HS AND CALF TIGHTNESS. Motor deficit: R HIP 4-/5, KNEE 4-/5, ANKLE 5/5. L HIP 4/5, KNEE 4/5, ANKLE 5/5. PELVIC FLOOR STRENGTH 4/5 X 5 SEC X 5 WITH INTERNAL MANUAL VAGINAL TESTING. Dural Signs: NEGATIVE SHILOH LE'S. Lumbar mvmt loss: flex - NIL ext - LUZMA R SG - MOD L SG - MOD PATIENT DENIES PAIN WITH LUMBAR ROM TESTING Core strength: FAIR Palpation: NO TENDERNESS OF BACK, HIPS, PELVIC AREA INTERNALLY OR EXTERNALLY. FUNCTIONAL SCREEN: Incontinence Impact Questionnaire Score: 15 Urogenital Distress Inventory Score: 13 Goals Goal 1:: DECREASE URINARY LEAKAGE EPISODES TO ONE OR LESS PER DAY Goal Time Frame: 4-6 Weeks Goal 2:: PATIENT WILL SUCCESSFULLY DELAY VOIDING LONG NEEDED WHEN URGENCY OCCURS TO SUCCESSFULLY MAKE IT TO THE BATHROOM. Goal Time Frame: 6-8 Weeks Goal 3:: PATIENT WILL DEMONSTRATE/COMMUNICATE 10 CONSISTENT AND CONSECUTIVE 10 SECOND PELVIC FLOOR MUSCLE CONTRACTIONS TO DEMONSTRATE IMPROVED PELVIC FLOOR ENDURANCE. Goal Time Frame: 8-12 Weeks Goal 4:: DEVELOP HEALTHY FLUID INTAKE HABITS WITH FLUID INTAKE OF ? BODY WEIGHT IN OUNCES PER DAY AND 2/3 BEING WATER. Goal Time Frame: 2-4 Weeks Goal 5:: NORMALIZE VOIDING FREQUENCEY TO EVERY 3-4 HOURS. Goal Time Frame: 4-6 Weeks Goal 6:: PATIENT WILL BE INDEP WITH A HEP/HOME INSTRUCTIONS FOR CONTINUED IMPROVEMENT ONCE FORMAL PHYSICAL THERAPY CONCLUDES. Goal Time Frame: 8-12 Weeks Rehabilitation Potential Physical Therapy Diagnosis: PELVIC FLOOR, CORE AND LE WEAKNESS. TRUNK AND LE STIFFNESS. SYMPTOMS OF PROLAPSE, INCREASED URINARY FREQUENCY AND URGE INCONTINENCE. Rehabilitation Potential: Good Anticipated Interventions Patient/Client Instruction: Educate patient on: Condition and Plan of Care For the Purpose of:: To improve self management Therapeutic Exercise to Include: Strength training, Endurance training, Postural training, Flexibilty training, Neuromotor development and Relaxation training For the Purpose of:: To improve muscle performance and motor function, To increase tolerance to activity/condition/position, To increase flexibility/ROM and To improve self management Text: Thank you for the opportunity to evaluate your patient. For Medicare and Medicare HMO plans, please review the plan of care and approve it. It will need to be FAXED BACK to us at [phone] for Medicare purposes. For Medicare only, by signing this I certify the plan of care. Please let me know if there are questions or concerns regarding this plan of care. Physician Signature: Date:
--- NOTE | 2024-08-10 14:46 | HP.PT.NRP ---
Patient Information Patient Information: YOUNG AGARWAL was seen in my office for initial evaluation on 06/01/24. The following Plan of Care was established for this patient: POC Established Initial Frequency: 1x/Week Initial Duration: 2-4 Months Anticipated Interventions Patient/Client Instruction: Educate patient on: Condition and Plan of Care For the Purpose of:: To improve self management Therapeutic Exercise to Include: Strength training, Endurance training, Postural training, Flexibilty training, Neuromotor development and Relaxation training For the Purpose of:: To improve muscle performance and motor function, To increase tolerance to activity/condition/position, To increase flexibility/ROM and To improve self management Last Seen Last Seen: This patient was last seen in our office 07/07/24. Pertinent comments regarding their Physical therapy will appear below: It has been my pleasure to see this patient for a total of 5 visits. This patient has not returned to Physical Therapy for more visits and is appropriate to return to MD for further follow-up as needed. She apparently cancelled all remaining appointments due to hurting her back. At this point I will be discontinuing this patient from physical therapy. I would be happy to see this patient again in the future if found appropriate by the physician. Thank you! Ele Tovar, PT, Cert MDT
== END 2024-07-07 19:00 | disposition home or self-care (01) ==
LOC: PT 10:00
PROVIDERS: PCP Family Medicine; Referring Provider Obstetrics & Gynecology; Visit Provider Obstetrics & Gynecology
DX: R10.2 Pelvic and perineal pain (principal)
CPT/HCPCS: 97162; 97530

== ENCOUNTER → 2024-09-13 | Outpatient (CLI) | payer MEDICARE, SELFPAY ==
--- NOTE | 2024-09-13 15:24 | BI_ITS ---
MAMMOGRAPHY - BILATERAL SCREENING REASON FOR EXAM: Female, 69 years old. Routine annual screening examination. PERTINENT HISTORY: Sister with breast cancer. TECHNIQUE: Digital bilateral breast edith (3D mammographic acquisition) in the CC and MLO projections. 2-D mediolateral oblique (MLO) and craniocaudad (CC) views of both breasts were obtained. CAD: Full Field Digital Mammography with Computer Added Detection was performed. COMPARISON: Comparison is made with prior study July 22, 2023 and July 18, 2022. FINDINGS: Breast Composition: The breasts are heterogeneously dense, which may obscure small masses. There are no dominant masses or suspicious calcifications. Stable 5.1 mm well-defined nodule in the axillary region of the right breast suggestive of a small lymph node. No other significant abnormalities are identified. There has been no significant change since the prior study. BI/SCRN MAMM (CAD)W/EDITH BILAT IMPRESSION: Stable bilateral screening mammogram. Yearly follow-up mammogram recommended. (A) ASSESSMENT CATEGORY: BIRADS Category 2: Benign. A letter regarding these results will be sent to the patient by the facility within 30 days. Approximately 10% of breast cancers are not detected by mammography. A normal mammogram should not delay biopsy of a clinically suspicious abnormality. [id number] Electronically Signed: Matthew Crockett MD at 8:34 EST ,
== END | disposition home or self-care (01) ==
LOC: OPBI 15:24
PROVIDERS: PCP Family Medicine; Referring Provider Nurse Practitioner Women's Health; Visit Provider Nurse Practitioner Women's Health
DX: Z12.31 Encounter for screening mammogram for malignant neoplasm of breast (principal)
CPT/HCPCS: 77063; 77067

== ENCOUNTER → 2024-12-20 | Outpatient (CLI) | payer MEDICARE, SELFPAY ==
--- NOTE | 2024-12-20 09:46 | RAD_ITS ---
EXAM: XR Chest, 2 Views CLINICAL INDICATION: HEMOPTYSIS TECHNIQUE: Frontal and lateral views of the chest. COMPARISON: No relevant prior studies available. FINDINGS: LUNGS AND PLEURAL SPACES: Hyperlucent lungs. Flattening of the diaphragm. No consolidation. No pneumothorax. HEART: Unremarkable. No cardiomegaly. MEDIASTINUM: Unremarkable. Normal mediastinal contour. BONES/JOINTS: Unremarkable. No acute fracture. RAD/Chest PA and Lateral IMPRESSION: Suggestion of COPD. Reading Location: [facility]
== END | disposition home or self-care (01) ==
LOC: MTRAD 09:46
PROVIDERS: PCP Family Medicine; Referring Provider Family Medicine; Visit Provider Family Medicine
DX: R04.2 Hemoptysis (principal)
CPT/HCPCS: 71046

== ENCOUNTER → 2024-12-28 | Outpatient (CLI) | payer MEDICARE, SELFPAY ==
[2024-12-28 10:09] LABS: CRP < 3.00 mg/L (0.0-3.0)
[2024-12-29 13:08] LABS: Anti-dsDNA Ab <1 IU/mL (0-9); SJOGREN'S Anti-SS-A test < 0.2 AI (0.0-0.9); SJOGREN'S Anti-SS-B test < 0.2 AI (0.0-0.9)
[2024-12-30 13:08] LABS: QNTFERON TB Mitogen Value > 10.00 IU/mL (.); QNTFERON TB Nil Value 0.05 IU/mL (.); QNTFERON TB1+ Ag Value 0.07 IU/mL (.); QNTFERON TB2+ Ag Value 0.04 IU/mL (.); QNTIFERON TB Positive Criteria Negative (Negative)
[2025-01-02 13:08] LABS: Angiotensin Convert Enzyme 41 U/L (14-82); Anti-Smooth Muscle ABS 5 Units (0-19); CCP IgG Antibodies 5 units (0-19); Cytoplasmic Ab (C-ANCA) <1:20 titer (Neg:<1:20); Perinuclear Ab (P-ANCA) <1:20 titer (Neg:<1:20)
== END | disposition home or self-care (01) ==
LOC: LAB 08:46
PROVIDERS: PCP Family Medicine; Referring Provider Internal Medicine Pulmonary Disease; Visit Provider Internal Medicine Pulmonary Disease
DX: J47.9 Bronchiectasis, uncomplicated (principal)
CPT/HCPCS: 36415; 82164; 83516; 86037; 86140; 86200; 86225; 86235; 86480; 87015; 87070; 87116; 87205; 87206

== ENCOUNTER → 2024-12-29 | Outpatient (CLI) | payer MEDICARE, SELFPAY | END | disposition home or self-care (01) | LOC: LAB 11:07 | PROVIDERS: PCP Family Medicine; Referring Provider Internal Medicine Pulmonary Disease; Visit Provider Internal Medicine Pulmonary Disease | DX: J47.9 Bronchiectasis, uncomplicated (principal) | CPT/HCPCS: 87015; 87116; 87206 ==

== ENCOUNTER → 2024-12-30 | Outpatient (CLI) | payer MEDICARE, SELFPAY | END | disposition home or self-care (01) | LOC: LAB 09:10 | PROVIDERS: PCP Family Medicine; Referring Provider Internal Medicine Pulmonary Disease; Visit Provider Internal Medicine Pulmonary Disease | DX: J47.9 Bronchiectasis, uncomplicated (principal) | CPT/HCPCS: 87015; 87116; 87206 ==

== ENCOUNTER → 2025-02-04 | Outpatient (CLI) | payer MEDICARE, SELFPAY ==
--- NOTE | 2025-02-04 10:19 | US_ITS ---
EXAM: Soft tissue neck CLINICAL HISTORY: Palpable mass COMPARISON: None TECHNIQUE: Multiple longitudinal and transverse ultrasound images of the neck were obtained. FINDINGS: Multiple longitudinal and transverse ultrasound images of the right side of the neck confirmed a dominant nodule in the right lobe of the thyroid gland. This measures 4 x 2 cm and is mixed solid and cystic. US/Head/Neck Soft Tissue IMPRESSION: Ultrasound confirms a 4 cm mixed cystic and solid dominant nodule of the right lobe of the thyroid gland and follow-up thyroid ultrasound is recommended. Reading Location: [id number]
== END | disposition home or self-care (01) ==
LOC: US 10:18
PROVIDERS: PCP Family Medicine; Referring Provider Family Medicine; Visit Provider Family Medicine
DX: R22.1 Localized swelling, mass and lump, neck (principal)
CPT/HCPCS: 76536

== ENCOUNTER → 2025-02-16 | Outpatient (CLI) | payer MEDICARE, SELFPAY ==
--- NOTE | 2025-02-16 11:50 | US_ITS ---
PROCEDURE: THYROID 02/16/2025 REASON FOR EXAM: THYROID ULTRASOUND TECHNIQUE: High-frequency thyroid ultrasound, including grayscale and color-flow images. REFERENCE LINKS: TI-RADS Chart: [email or web address]-[email or web address]-rads TI-RADS Calculator Tool with Reference Images: [email or web address]/radiology-[email or web address]/body-imaging/tirads-calculator/ COMPARISON: Comparison is made with prior sonogram of the neck dated February 04, 2025. FINDINGS: Right thyroid lobe size: 5.1 cm x 2.7 cm x 2.2 cm Left thyroid lobe size: 3.9 cm x 1.4 cm x 1.4 cm Isthmus: 0.2 cm Background parenchymal echotexture is heterogeneous Nodules: . Lobe: Right, Location: Mid upper pole, Size: 3.9 cm x 2.1 cm x 2 cm cm, Stability: N/A Composition: Solid or almost completely solid (+2). Hypervascular. Echogenicity: Hyper to Isoechoic (+1) Margin: Ill-defined (+0) Shape: Wider than tall (+0) Echogenic Foci: None (+0) TI-RADS: 3 . Lobe: Left, Location: Mid portion, Size: 0.6 cm x 0.4 cm x 0.3 cm cm, Stability: N/A Composition: Mixed cystic and solid (+1) Echogenicity: Hyper to Isoechoic (+1) Margin: Ill-defined (+0) Shape: Wider than tall (+0) Echogenic Foci: None (+0) TI-RADS: 2 US/Thyroid IMPRESSION: Dominant complex nodule in the right lobe of the thyroid as described. Biopsy recommended. RECOMMENDATION: Based on most suspicious nodule. Nodule size = largest diameter Only evaluate nodule if =>5 mm. Growth > 20% in 2 dimensions = worsening. Follow up to 4 nodules. Recommend biopsy for no more than 2 nodules. Reading Location: [facility]
== END | disposition home or self-care (01) ==
PROVIDERS: PCP Family Medicine; Referring Provider Surgery; Visit Provider Surgery
DX: E04.1 Nontoxic single thyroid nodule (principal)
CPT/HCPCS: 76536

== ENCOUNTER → 2025-02-20 | Outpatient (CLI) | payer MEDICARE, SELFPAY ==
--- NOTE | 2025-02-20 09:00 | ASPIG_PTH ---
PATIENT: YOUNG AGARWAL LOC: [facility]#:[id number] AGE/SX: 69/F ROOM: RE02/20/[address]: Dr. Mendez South MD : 1955 BED: DIS: 02/20/2025 SPEC #: [id number] RECD: 02/20/25 10:00 STATUS: SHELIA RASHEL #: [id number] ANNIE: 02/20/25 09:[address]: Mendez South DEPT: CYTOLOGY RECD BY: José Malhotra ENTERED: 02/20/25 10:48 SP TYPE: ASP OUT OTHR DR: Dr. Reagan Santa MD Tissues: A - Thyroid gland, NOS Procedures: FNA Specimen Adequacy Special Stain Group II Surgery Specimen Level IV Cytology Other HEADER OPERATION: Fine needle aspiration of right thyroid nodule PRE-OP DIAGNOSIS: Right thyroid nodule TISSUE SUBMITTED: A- Right thyroid nodule, B- Right cystic fluid for cytology DIAGNOSIS CYTOLOGY A. Thyroid, fna - right thyroid: * No malignant cells are identified * Benign follicular nodular disease B. Thyroid, fna - cystic fluid: * Nondiagnostic due to insufficient cellular material * Cyst fluid COMMENT The specimen is evaluated at the time of biopsy by Dr. Garrett. Immediate Evaluation = 1. Adequate. 2. Adequate. 3. Adequate. 4. Adequate. 5. Few cells. CYTOLOGY STUDY Slides are reviewed. CYTOLOGY GROSS A. Received is 30 ml of red-cloudy fluid cytolyt with particles and 10 smears (5 DQ, 5 PAP labeled with the patient's name and and designated per the requisition as Right thyroid nodule. Submitted for cytology and cell block preparation. B. Received is 4 ml of red-cloudy fluid labeled with the patient's name and and designated per the requisition as Right cystic fluid. Submitted for cytology and cell block preparation. Mr 02/20/2025 CPT: 27094p7
[2025-02-20 11:06] LABS: Free T3 2.9 pg/mL (2.18-3.98); T4 Total, Thyroxin 7.1 ug/dL (4.8-13.9)
== END | disposition home or self-care (01) ==
PROVIDERS: PCP Family Medicine; Referring Provider Surgery; Visit Provider Surgery
DX: E04.1 Nontoxic single thyroid nodule (principal)
CPT/HCPCS: 36415; 84436; 84443; 84481; 88161; 88172; 88305; 88313

== ENCOUNTER → 2025-03-30 | Outpatient (CLI) | payer MEDICARE, SELFPAY ==
--- NOTE | 2025-03-30 15:02 | ART_ITS ---
Reason For Study Reason For Study: NUMBNESS/TINGLING Procedure A bilateral lower extremity continuous wave Doppler with analog waveform analysis and ankle brachial indexes. Left Segmental Pressures Left brachial= 153mmHg. Left posterior tibial artery = 171mmHg. Left dorsalis pedis artery = 176mmHg. The left posterior tibial artery waveforms are triphasic. The left dorsalis pedis waveforms are triphasic. Right Segmental Pressures Right brachial= 156mmHg. Right posterior tibial artery = 178mmHg. Right dorsalis pedis artery = 186mmHg. The right posterior tibial artery waveforms are triphasic. The right dorsalis pedis waveforms are triphasic. Indices The right resting ankle brachial index is 1.19. The right ankle brachial index by the posterior tibial artery is 1.14. The right ankle brachial index by the dorsalis pedis is 1.19. The left resting ankle brachial index is 1.13. The left ankle brachial index by the posterior tibial artery is 1.10. The left ankle brachial index by the dorsalis pedis is 1.13. VL/Ankle Brachial Index Interpretation Summary Triphasic Doppler waveforms are noted at ankle level bilaterally. Pulse-volume recordings appear satisfactory at ankle level bilaterally. Resting ankle-brachial indices are normal bilaterally. There is no evidence of significant arterial occlusive disease in the lower ext remities bilaterally. Ordering Physician: Reagan Santa Referring Physician: REAGAN SANTA MD Performed By: Kateryna Garay RVT, RDCS
== END | disposition home or self-care (01) ==
PROVIDERS: PCP Family Medicine; Referring Provider Family Medicine; Visit Provider Family Medicine
DX: R22.0 Localized swelling, mass and lump, head (principal); R20.2 Paresthesia of skin; R09.89 Other specified symptoms and signs involving the circulatory and respiratory systems
CPT/HCPCS: 93922

== ENCOUNTER → 2025-04-25 | Outpatient (CLI) | payer MEDICARE, SELFPAY ==
[2025-04-25 12:17] LABS: Hematocrit 40.9 % (37-47); Hemoglobin 13.3 g/dL (12.0-15.0); Immature Granulocytes Count 0.010 X10^3/uL (0.0-0.0); Mean Corp Hgb Conc 32.5 g/dL (32-36); Mean Corpuscular Volume 92.3 fL (81-99); Mean Platelet Vol. 9.0 fl (6.2-12.0); NRBC Flagged by Analyzer 0 % (0-5); Platelet Count 272 K/mm3 (150-450); RBC Distribution Width CV 14.1 % (11.6-14.6); RBC Distribution Width SD 48.2 fl (35.1-43.9); Red Blood Count 4.43 M/mm3 (4.2-5.4); White Blood Count 4.9 K/mm3 (4.4-11.0)
[2025-04-25 12:47] LABS: AST(SGOT) 19 U/L (<=31); Alanine Aminotransfer ALT/SGPT 14 U/L (<=34); Albumin, Serum 4.1 g/dL (3.4-4.8); Alkaline Phosphatase 72 U/L (35-104); Anion Gap 10 (5-15); BUN 19 mg/dL (4-19); BUN/Creat Ratio 28.5 RATIO (10-20); Calcium,Total 9.8 mg/dL (7.6-11.0); Carbon Dioxide 26.2 mmol/L (21.0-32.0); Chloride 103 mmol/L (98-108); Cholesterol 170 mg/dL (<=200); Globulin 2.7 g/dL (2.2-4.2); Glucose 92 mg/dL (70-99); Low Density Lipoprotein Calc. 93 mg/dL; Potassium 3.9 mmol/L (3.3-5.1); Triglycerides 79 mg/dL; Very Low Density Lipoprotein 16 mg/dL (5-40); Vitamin D,25 Hydroxy 31.3 ng/mL (30-100); cholesterol:hdl ratio screen 2.78
== END | disposition home or self-care (01) ==
LOC: MFPLAB 09:59
PROVIDERS: PCP Family Medicine; Visit Provider Family Medicine
DX: Z00.00 Encounter for general adult medical examination without abnormal findings (principal)
CPT/HCPCS: 36415; 80053; 80061; 82306; 83036; 84443; 85025

== ENCOUNTER → 2025-05-02 | Outpatient (CLI) | payer MEDICARE, SELFPAY ==
--- NOTE | 2025-05-02 11:37 | NEURO ---
NCS and/or EMG Patient Report Ordering Doctor: Reagan Santa DATE OF SERVICE: 05/02/25 Clinical Summary: 70 year old female patient with symptoms of pain in the left elbow that can radiate down the forearm. Nerve Conduction Studies Summary: Nerve conduction studies of the left upper extremity were normal. Needle Examination Summary: Needle examination of select muscles of the left upper extremity was normal. Impression: This is a normal study. There is no electrodiagnostic evidence of a left median mononeuropathy, ulnar mononeuropathy, or cervical radiculopathy. Multi Select Codes Neurology Neurology Interp Codes: 99686-59 Musc test done w/n test comp (interp) (1) and 36773-17 Nrv cndj test 7-8 studies (interp)
--- OUTSIDE RECORDS SUMMARY | 2025-05-02 20:05 | XMS RPT_ITS | CCD ---
Author Organization [facility] Care Team Providers Care Tubular Splitting Machine Tender Name Role Phone Dr. Reagan Rosen Primary Care Provider Dr. Reagan Rosen Referring Provider Dr. Reagan Gallagher Attending Provider Dr. Reagan Rosen Primary Care Provider Dr. Reagan Rosen Referring Provider Dr. Reagan Gallagher Attending Provider [phone] Aisha Ignacio Attending Provider [phone] Dr. Reagan Rosen Primary Care Provider Dr. Reagan Rosen Referring Provider REAGAN ROSEN Primary Care Unavailable Kiet RHODES, Dr. Kirk Primary Care Provider Regina RENDERER-CRashmi Attending Provider Regina RENDERER-CRashmi Referring Provider Dr. Clinton Bautista MD Attending Provider [phone] Dr. Clinton Bautista MD Referring Provider Porter RHODES, Dr. Edmundo Fam Attending Provider Dr. Edmundo Buenrostro MD, V Referring Provider Dr. Reagan Rosen MD Primary Care Provider Dr. Reagan Rosen MD Attending Provider Dr. Reagan Rosen MD Referring Provider Dr. Mendez South MD Attending Provider Dr. Mendez South MD Referring Provider Sibilia, Edmundo V Referring Unavailable Sibilia, Edmundo V Attending Unavailable Rosen, Reagan Primary Care Unavailable Regina, Rashmi Referring Unavailable Buckland, Rashmi Attending Unavailable Rosen, Reagan Primary Care Unavailable Rosen, Reagan Referring Unavailable Bortz, Mendez Attending Unavailable Rosen, Reagan Primary Care Unavailable Rosen, Reagan Referring Unavailable Rosen, Reagan Attending Unavailable Rosen, Reagan Primary Care Unavailable Bortz, Mendez Referring Unavailable Bortz, Mendez Attending Unavailable Rosen, Reagan Primary Care Unavailable Bortz, Mendez Referring Unavailable Bortz, Mendez Attending Unavailable Rosen, Reagan Primary Care Unavailable Rosen, Reagan Referring Unavailable Rosen, Reagan Attending Unavailable Rosen, Reagan Primary Care Unavailable Rosen, Reagan Primary Care Unavailable Rosen, Reagan Attending Unavailable Rosen, Reagan Referring Unavailable Rosen, Reagan Referring Unavailable Rosen, Reagan Attending Unavailable Rosen, Reagan Primary Care Unavailable Marcanthony, Aisha Referring Unavailable Marcanthony, Aisha Attending Unavailable Rosen, Reagan Primary Care Unavailable Schinner, Clinton Palomares Referring Unavailable Schinner, Clinton Palomares Attending Unavailable Rosen, Reagan Primary Care Unavailable Rosen, Reagan Attending Unavailable Rosen, Reagan Primary Care Unavailable Rosen, Reagan Referring Unavailable Rosen, Reagan Attending Unavailable Rosen, Reagan Primary Care Unavailable Rosen, Reagan Referring Unavailable Rosen, Reagan Attending Unavailable Rosen, Reagan Primary Care Unavailable Sibilia, Edmundo V Referring Unavailable Sibilia, Edmundo Fam Attending Unavailable Rosen, Reagan Primary Care Unavailable Sibilia, Edmundo V Referring Unavailable Sibilia, Edmundo Fam Attending Unavailable Rosen, Reagan Primary Care Unavailable Kiet RHODES, Dr. Kirk Primary Care Provider Allergies Allergy Classification Reported Allergen(s) Allergy Type Date of Onset Reaction(s) Facility (20 sources) Cephalexin; Translations: [CEPHALEXIN] Drug Allergy 12-19-19 16 Angioedema [facility] (20 sources) Ciprofloxacin; Translations: [CIPROFLOXACIN] Drug Allergy 10-20-19 15 rash [facility] (19 sources) Nitrofurantoin Drug Allergy 11-08-19 22 Angioedema [facility] (19 sources) Sulfamethoxazole Drug Allergy 11-08-19 22 Angioedema [facility] (20 sources) Sulfonamides (Antibiotic); Translations: [SULFA (SULFONAMIDE ANTIBIOTICS)] Allergy to substance 04-06-20 07 Angioedema [facility] (19 sources) Trimethoprim Drug Allergy 11-08-19 22 Angioedema [facility] (1 source) Clarithromycin; Translations: [CLARITHROMYCIN] Drug Allergy 05-26-20 07 [facility] (1 source) Nitrofurantoin; Translations: [NITROFURANTOIN MACROCRYSTAL] Drug Allergy 04-27-20 18 [facility] (1 source) NITROFURANTOIN MONOHYD/M-CRYST; Translations: [NITROFURANTOIN MONOHYD/M-CRYST] Propensity to adverse reactions to drug (disorder) 08-30-20 13 [facility] (1 source) Cephalexin Drug Allergy 02-21-20 [facility] (1 source) Ciprofloxacin Drug Allergy 02-21-20 [facility] (1 source) Nitrofurantoin Drug Allergy 02-21-20 [facility] (1 source) Sulfamethoxazole Drug Allergy 02-21-20 [facility] (1 source) Trimethoprim Drug Allergy 02-21-20 [facility] Medications Current Medications Medication Drug Class(es) Dates Sig (Normalized) Sig (Original) albuterol 0.83 mg/ml inhalation solution (4 sources) beta2-Adrenergic Agonist Start: 02-20-2025 take 2.5 mg by inhalation once daily Albuterol Sulfate 2.5 mg /3 mL (0.083 %) solution for nebulization Active 2.5 mg INHALATION daily February 20, 2025 12:00am ascorbic acid 500 mg oral capsule (20 sources) Vitamin C Start: 09-27-2018 End: 11-11-2019 take 1 capsule by mouth once daily Ascorbic Acid (Vitamin C) 500 mg capsule Active 500 mg PO DAILY 0 November 11, 2019 4:05pm chondroitin sulfates 400 mg / glucosamine hydrochloride 500 mg oral tablet (19 sources) Start: 11-08-2021 Glucosamine-Chondro itin (Cosamin Ds) 500-400 mg tablet Active 1 {tbl} PO DAILY November 08, 2021 1:00am Lactobacillus Combination No.4 (Probiotic) 3 billion cell capsule (4 sources) Start: 02-20-2025 take 3 capsules by mouth once daily Lactobacillus Combination No.4 (Probiotic) 3 billion cell capsule Active 3000 NMA PO daily February 20, 2025 12:00am administer with a meal metoprolol tartrate 50 mg oral tablet (19 sources) beta-Adrenergic Zuleima Start: 09-16-2016 take 1 tablet by mouth twice daily Metoprolol Tartrate 50 MG tablet Active 50 mg PO TWICE A DAY September 16, 2016 1:00am rosuvastatin calcium 5 mg oral tablet (19 sources) HMG-CoA Reductase Inhibitor Start: 11-11-2019 take 1 tablet by mouth once daily Rosuvastatin (Crestor) 5 mg tablet Active 5 mg PO DAILY November 11, 2019 1:00am Completed/Discontinued Medications Medication Drug Class(es) Dates Sig (Normalized) Sig (Original) Antiarthritic Combination No.2 (Glucosamine-Chondro itin) 900 mg tablet (19 sources) Start: 11-11-2019 End: 11-08-2021 take 1 tablet by mouth once daily Antiarthritic Combination No.2 (Glucosamine-Chondr oitin) 900 mg tablet Discontinued 900 MG PO DAILY November 11, 2019 4:07pm November 08, 2021 3:55pm Start: 11-11-2019 End: 11-08-2021 take 1 tablet by mouth once daily Antiarthritic Combination No.2 (Glucosamine-Chondroitin) 900 mg tablet Discontinued 900 mg PO DAILY November 11, 2019 1:00am November 08, 2021 3:55pm Start: 11-11-2019 End: 11-08-2021 take 1 tablet by mouth once daily Antiarthritic Combination No.2 (Glucosamine-Chondroitin) 900 mg tablet Discontinued 900 MG PO DAILY November 11, 2019 12:00am November 08, 2021 2:55pm Start: 11-11-2019 End: 11-08-2021 take 1 tablet by mouth once daily Antiarthritic Combination No.2 (Glucosamine-Chondroitin) 900 mg tablet Discontinued 900 MG PO DAILY November 11, 2019 1:00am November 08, 2021 3:55pm aspirin 81 mg chewable tablet (19 sources) Platelet Aggregation Inhibitor, Nonsteroidal Anti-inflammatory Drug Start: 09-16-2016 End: 11-07-2020 take 1 tablet by mouth once daily Aspirin 81 MG tablet,chewable Discontinued 81 mg PO DAILY@0800 September 16, 2016 1:00am November 07, 2020 5:16pm azithromycin 1000 mg powder for oral suspension (8 sources) Macrolide Antimicrobial Start: 01-22-2024 End: 02-18-2024 take 1 g by mouth every week Azithromycin (Zithromax) 1 gram packet Discontinued 1 g PO EVERY WEEK January 22, 2024 12:00am February 18, 2024 2:01pm calcium carbonate 750 mg chewable tablet (19 sources) Start: 05-20-2019 End: 11-11-2019 take 1 tablet by mouth twice daily Calcium Carbonate (Antacid Ext Str (Calcium Carb)) 300 mg (750 mg) tablet,chewable Discontinued 300 mg PO TWICE A DAY May 20, 2019 12:00am November 11, 2019 4:05pm calcium citrate 1500 mg / cholecalciferol 200 unt oral tablet (19 sources) Vitamin D Start: 11-08-2021 End: 12-17-2022 Calcium Citrate-Vitamin D3 (Calcium Citrate + D) 315 mg-5 mcg (200 unit) tablet Discontinued 1 {tbl} PO DAILY November 08, 2021 1:00am December 17, 2022 2:40pm FLUoxetine 10 mg oral capsule (19 sources) Serotonin Reuptake Inhibitor Start: 11-07-2020 End: 11-08-2021 take 1 capsule by mouth once daily Fluoxetine (Prozac) 10 mg capsule Discontinued 10 mg PO DAILY November 07, 2020 1:00am November 08, 2021 3:55pm LORazepam 0.5 mg oral tablet (19 sources) Benzodiazepine Start: 11-10-2019 End: 11-07-2020 take 1 tablet by mouth once daily as needed Lorazepam 0.5 mg tablet Discontinued 0.5 mg PO DAILY as needed November 10, 2019 1:00am November 07, 2020 5:17pm Problems Active Problems Problem Classification Problem Date Documented Date Episodic/Chronic Abdominal pain (19 sources) Acute pelvic pain; Translations: [Pelvic and perineal pain] 09-27-2018 Episodic Cardiac dysrhythmias (20 sources) Ventricular premature beats; Translations: [Ventricular premature depolarization] Chronic Chronic obstructive pulmonary disease and bronchiectasis (1 source) Bronchiectasis, uncomplicated; Translations: [Bronchiectasis, uncomplicated] Onset: 03-09-2025 Chronic Disorders of lipid metabolism (20 sources) Mixed hyperlipidemia; Translations: [Mixed hyperlipidemia] Chronic Essential hypertension (20 sources) Essential hypertension; Translations: [Essential (primary) hypertension] Chronic Other congenital anomalies (8 sources) Herniated urinary bladder 01-13-2023 Chronic Comment on above: PFPT. offered pessar y Other connective tissue disease (1 source) Pain in left arm; Translations: [Pain in left arm] Onset: 04-25-2025 Episodic Other diseases of bladder and urethra (19 sources) Prolapse of urethral mucosa; Translations: [Other specified disorders of urethra] 05-20-2019 Episodic Comment on above: offered estrogen cre am, pelvic floor physical therapy Other skin disorders (1 source) Localized swelling, mass and lump, head; Translations: [Localized swelling, mass and lump, head] Onset: 04-07-2025 Episodic Other skin disorders (1 source) Localized swelling, mass and lump, neck; Translations: [Localized swelling, mass and lump, neck] Onset: 02-08-2025 Episodic Thyroid disorders (9 sources) Thyroid nodule; Translations: [Nontoxic single thyroid nodule] Onset: 02-23-2025 02-20-2025 Chronic Comment on above: Patient is 69-year-o ld female, historically euthyroid, who presents for new evaluation of a recently diagnosed right thyroid nodule. Patient has a history of protracted illness dating back to July with upper respiratory tract symptoms. The nodule was patient discovered as she was rubbing her neck following a coughing fit with the symptoms. She has symptomatically improved but the nodule persists. At most, patient describes episodic symptoms that could be construed as compressive in nature. I reviewed her ultrasound with her and notified her that it is yet to be read by radiology but in my own independent interpretation the dominant right thyroid nodule fairly clearly qualified as a TI-RADS 3 nodule. With its greatest dimension at 3.9 cm it comfortably met ACR criteria for recommending FNA biopsy. Thus this recommendation was extended to patient which she readily accepted. After discussion of the procedure she provided her consent and it was undertaken during today's visit. Full details are given in the "procedures" section of this note. Additionally, she elected to have me aspirate some of the cystic fluid from her thyroid. Lastly, it is approaching 1 year since she had her last thyroid functions tested and she reports symptoms that could be related to metabolic dysfunction so these will be rechecked at the conclusion of today's visit. Unclassified (5 sources) Herniated urinary bladder; Translations: [Cystocele] 01-13-2023 Past or Other Problems Problem Classification Problem Date Documented Da te Episodic/Chronic Other lower respiratory disease (1 source) Hemoptysis; Translations: [Hemoptysis] Onset: 12-28-2024 Episodic Other nutritional; endocrine; and metabolic disorders (1 source) Abnormal weight gain; Translations: [Abnormal weight gain] Onset: 05-27-2024 Episodic Other screening for suspected conditions (not mental disorders or infectious disease) (1 source) Encounter for screening mammogram for malignant neoplasm of breast; Translations: [Encounter for screening mammogram for malignant neoplasm of breast] Onset: 10-13-2024 Episodic Screening and history of mental health and substance abuse codes (1 source) Personal history of nicotine dependence; Translations: [Personal history of nicotine dependence] Onset: 06-17-2024 Episodic Results Test Name Value Interpretation Reference Range Facility Absolute lymphocyte countOrd ered By: Reagan Rosen on 04-25-2025 Lymphocytes Auto (Unsp spec) [#/Vol] 2.10 10*3/uL 0.83-4.51 [facility] Absolute neutrophil countOrd ered By: Reagan Rosen on 04-25-2025 Neutrophils (Bld) [#/Vol] 2.0 10*3/uL 2.0-7.7 [facility] Anion gap in Serum or Plasma Ordered By: Reagan Rosen on 04-25-2025 Anion gap [Moles/Vol] 10 mmol/L 02-23 [facility] Automated lymphocyte count a s percentage of total leukocytesOrdered By: Reagan Rosen on 04-25-2025 Lymphocytes/100 WBC Auto (Unsp spec) 42.7 % High 19-41 [facility] BUN/creatinine ratioOrdered By: Reagan Rosen on 04-25-2025 Urea nitrogen/Creatinine [Mass ratio] 28.5 mg/mg High 10-20 [facility] Basophil percentageOrdered B y: Reagan Rosen on 04-25-2025 Basophils/100 WBC (Bld) 0.4 % 0-1 [facility] Bilirubin, totalOrdered By: Reagan Rosen on 04-25-2025 Bilirubin [Mass/Vol] 0.56 mg/dL 0.00-1.30 [facility] CBC W/Diff, Automatedon 04-11 Absolute Lymph 2.10 X10 3/uL Normal 0.83-4.51 [facility] Comment on above: Performed By: #### L 506.1001, [id number], [id number], L501.9985, L100.0100, L500.4100 #### [facility] [address] [place], [address] Absolute Neut 2.0 X10 3/uL Normal 2.0-7.7 [facility] Comment on above: Performed By: #### L 506.1001, [id number], L500.4050, L501.9985, L100.0100, L500.4100 #### [facility] [address] [place], [address] Basophils/100 WBC (Bld) 0.4 % Normal 0-1 [facility] Comment on above: Performed By: #### L 506.1001, [id number], [id number], [id number], L100.0100, L500.4100 #### [facility] [address] [place], [address] Eosinophils/100 WBC (Bld) 4.9 % Normal 0-5 [facility] Comment on above: Performed By: #### L 506.1001, [id number], [id number], L501.9985, L100.0100, L500.4100 #### [facility] [address] [place], [address] Erythrocyte distribution width (RBC) [Ratio] 14.1 % Normal 11.6-14.6 [facility] Comment on above: Performed By: #### L 506.1001, [id number], L500.4050, L501.9985, L100.0100, L500.4100 #### [facility] [address] [place], [address] Hematocrit (Bld) [Volume fraction] 40.9 % Normal 37-47 [facility] Comment on above: Performed By: #### L 506.1001, [id number], L500.4050, L501.9985, L100.0100, L500.4100 #### [facility] [address] [place], [address] Hemoglobin (Bld) [Mass/Vol] 13.3 g/dL Normal 12.0-15.0 [facility] Comment on above: Performed By: #### L 506.1001, [id number], L500.4050, L501.9985, L100.0100, L500.4100 #### [facility] [address] [place], [address] IG% 0.200 Normal 0.0-0.9 [facility] Comment on above: Result Comment: IG% - Immature Granulocytes (promyelocytes, myelocytes and metamyelocytes) > 1% indicates that a LEFT SHIFT is Present. Performed By: #### L 506.1001, [id number], L500.4050, L501.9985, L100.0100, L500.4100 #### [facility] [address] [place], [address] Lymphocytes/100 WBC (Bld) 42.7 % High 19-41 [facility] Comment on above: Performed By: #### L 506.1001, [id number], L500.4050, L501.9985, L100.0100, L500.4100 #### [facility] [address] [place], [address] MCH (RBC) [Entitic mass] 30.0 pg Normal 27.0-32.0 [facility] Comment on above: Performed By: #### L 506.1001, [id number], L500.4050, L501.9985, L100.0100, L500.4100 #### [facility] [address] [place], [address] MCHC (RBC) [Mass/Vol] 32.5 g/dL Normal 32-36 [facility] Comment on above: Performed By: #### L 506.1001, [id number], L500.4050, L501.9985, L100.0100, L500.4100 #### [facility] [address] [place], [address] MCV (RBC) [Entitic vol] 92.3 fL Normal 81-99 [facility] Comment on above: Performed By: #### L 506.1001, [id number], L500.4050, L501.9985, L100.0100, L500.4100 #### [facility] [address] [place], [address] Monocytes/100 WBC (Bld) 10.4 % High 0-10 [facility] Comment on above: Performed By: #### L 506.1001, [id number], L500.4050, L501.9985, L100.0100, L500.4100 #### [facility] [address] [place], [address] Neutrophils/100 WBC (Bld) 41.4 % Low 47-70 [facility] Comment on above: Performed By: #### L 506.1001, [id number], L500.4050, L501.9985, L100.0100, L500.4100 #### [facility] [address] [place], [address] Nucleated RBC (Bld) [#/Vol] 0 10*3/uL Normal 0-5 [facility] Comment on above: Performed By: #### L 506.1001, [id number], L500.4050, L501.9985, L100.0100, L500.4100 #### [facility] [address] [place], [address] Platelet mean volume (Bld) [Entitic vol] 9.0 fL Normal 6.2-12.0 [facility] Comment on above: Performed By: #### L 506.1001, [id number], L500.4050, L501.9985, L100.0100, L500.4100 #### [facility] [address] [place], [address] Platelets (Bld) [#/Vol] 272 10*3/uL Normal 150-450 [facility] Comment on above: Performed By: #### L 506.1001, [id number], L500.4050, L501.9985, L100.0100, L500.4100 #### [facility] [address] [place], [address] RBC (Bld) [#/Vol] 4.43 10*6/uL Normal 4.2-5.4 [facility] Comment on above: Performed By: #### L 506.1001, [id number], L500.4050, L501.9985, L100.0100, L500.4100 #### [facility] [address] [place], [address] RDW SD 48.2 fl High 35.1-43.9 [facility] Comment on above: Performed By: #### L 506.1001, [id number], L500.4050, L501.9985, L100.0100, L500.4100 #### [facility] [address] [place], [address] WBC (Bld) [#/Vol] 4.9 10*3/uL Normal 4.4-11.0 [facility] Comment on above: Performed By: #### L 506.1001, [id number], L500.4050, L501.9985, L100.0100, L500.4100 #### [facility] [address] [place], [address] Calculated very low density lipoprotein (VLDL) cholesterol measurementOrdered By: Reagan Rosen on 04-25-2025 Calculated very low density lipoprotein (VLDL) cholesterol measurement 16 mg/dL 5-40 [facility] Carbon dioxide, total [Moles /volume] in Central venous bloodOrdered By: Reagan Rosen on 04-25-2025 CO2 [Moles/Vol] 26.2 mmol/L 21.0-32.0 [facility] Chloride assayOrdered By: Miguel Ángel Rosen on 04-25-2025 Chloride [Moles/Vol] 103 mmol/L 98-108 [facility] Comprehensive Metabolic Prof ilon 04-25-2025 Albumin [Mass/Vol] 4.1 g/dL Normal 3.4-4.8 [facility] Comment on above: Performed By: #### L 506.1001, [id number], L500.4050, L501.9985, L100.0100, L500.4100 #### [facility] [address] [facility] [place], [address] Albumin/Globulin [Mass ratio] 1.5 {ratio} Normal 0.9-2.4 [facility] Comment on above: Performed By: #### L 506.1001, [id number], L500.4050, L501.9985, L100.0100, L500.4100 #### [facility] [address] [place], [address] ALK PHOS 72 U/L Normal 35-104 [facility] Comment on above: Performed By: #### L 506.1001, [id number], L500.4050, L501.9985, L100.0100, L500.4100 #### [facility] [address] [place], [address] ALT [Catalytic activity/Vol] 14 U/L Normal <=34 [facility] Comment on above: Performed By: #### L 506.1001, [id number], L500.4050, L501.9985, L100.0100, L500.4100 #### [facility] [address] [place], [address] AST [Catalytic activity/Vol] 19 U/L Normal <=31 [facility] Comment on above: Performed By: #### L 506.1001, [id number], L500.4050, L501.9985, L100.0100, L500.4100 #### [facility] [address] [place], [address] Bilirubin [Mass/Vol] 0.56 mg/dL Normal 0.00-1.30 [facility] Comment on above: Performed By: #### L 506.1001, [id number], L500.4050, L501.9985, L100.0100, L500.4100 #### [facility] [address] [place], [address] BUN/CRE 28.5 RATIO High 10-20 [facility] Comment on above: Performed By: #### L 506.1001, [id number], L500.4050, L501.9985, L100.0100, L500.4100 #### [facility] [address] [place], [address] Calcium [Mass/Vol] 9.8 mg/dL Normal 7.6-11.0 [facility] Comment on above: Performed By: #### L 506.1001, [id number], L500.4050, L501.9985, L100.0100, L500.4100 #### [facility] [address] [place], [address] Chloride [Moles/Vol] 103 mmol/L Normal 98-108 [facility] Comment on above: Performed By: #### L 506.1001, [id number], L500.4050, L501.9985, L100.0100, L500.4100 #### [facility] [address] [place], [address] CO2 [Moles/Vol] 26.2 mmol/L Normal 21.0-32.0 [facility] Comment on above: Performed By: #### L 506.1001, [id number], L500.4050, L501.9985, L100.0100, L500.4100 #### [facility] [address] [place], [address] Creatinine [Mass/Vol] 0.67 mg/dL Low 0.70-1.20 [facility] Comment on above: Performed By: #### L 506.1001, [id number], L500.4050, L501.9985, L100.0100, L500.4100 #### [facility] [address] [place], [address] GAP 10 Normal 5-15 [facility] Comment on above: Performed By: #### L 506.1001, [id number], L500.4050, L501.9985, L100.0100, L500.4100 #### [facility] [facility] [address] [place], [address] GFR/1.73 sq M.predicted among non-blacks MDRD (S/P/Bld) [Vol rate/Area] 94 mL/min/{1.73_m2} Normal >60 [facility] Comment on above: Result Comment: mL/m in/1.73m2 CKD-EPI Creatinine Equation (2020) Performed By: #### L 506.1001, L501.9520, L500.4050, L501.9985, L100.0100, L500.4100 #### [facility] [address] [place], [address] Globulin (S) [Mass/Vol] 2.7 g/dL Normal 2.2-4.2 [facility] Comment on above: Performed By: #### L 506.1001, L501.9520, L500.4050, L501.9985, L100.0100, L500.4100 #### [facility] [address] [place] [place], [address] Glucose [Mass/Vol] 92 mg/dL Normal 70-99 [facility] Comment on above: Performed By: #### L 506.1001, L501.9520, L500.4050, L501.9985, L100.0100, L500.4100 #### [facility] [address] [place], [address] Potassium [Moles/Vol] 3.9 mmol/L Normal 3.3-5.1 [facility] Comment on above: Performed By: #### L 506.1001, L501.9520, L500.4050, L501.9985, L100.0100, L500.4100 #### [facility] [address] [place], [address] Sodium [Moles/Vol] 139 mmol/L Normal 133-145 [facility] Comment on above: Performed By: #### L 506.1001, L501.9520, L500.4050, L501.9985, L100.0100, L500.4100 #### [facility] [address] [place], [address] T PROT 6.9 g/dL Normal 5.9-8.4 [facility] Comment on above: Performed By: #### L 506.1001, L501.9520, L500.4050, L501.9985, L100.0100, L500.4100 #### [facility] [address] [place], [address] Urea nitrogen [Mass/Vol] 19 mg/dL Normal 4-19 [facility] Comment on above: Performed By: #### L 506.1001, L501.9520, L500.4050, L501.9985, L100.0100, L500.4100 #### [facility] [address] [place], [address] Eosinophil percentageOrdered By: Reagan Rosen on 04-25-2025 Eosinophils/100 WBC (Bld) 4.9 % 0-5 [facility] Erythrocyte distribution wid th ratioOrdered By: Reagan Rosen on 04-25-2025 Erythrocyte distribution width (RBC) [Ratio] 14.1 % 11.6-14.6 [facility] Erythrocyte distribution wid th standard deviationOrdered By: Reagan Rosen on 04-25-2025 Erythrocyte distribution width (RBC) [Ratio] 48.2 fl High 35.1-43.9 [facility] Glomerular filtration rate ( GFR) estimation/1.73 sq m using serum, plasma, or whole bOrdered By: Reagan Rosen on 04-25-2025 GFR/1.73 sq M.predicted among non-blacks MDRD (S/P/Bld) [Vol rate/Area] 94 mL/min/{1.73_m2} >60 [facility] Comment on above: mL/min/1.73m2 CKD-EP I Creatinine Equation (2020) Hematocrit Auto (Bld) [Volum e fraction]Ordered By: Reagan Rosen on 04-25-2025 Hematocrit (Bld) [Volume fraction] 40.9 % 37-47 [facility] Hemoglobin A1con 04-25-2025 HbA1c (Bld) [Mass fraction] 5.4 % Normal <=5.6 [facility] Comment on above: Result Comment: Norm al < 5.7 % Prediabetic 5.7 - 6.4 % Diabetic >or= 6.5 % Please note range changes. Performed By: #### L 506.1001, L501.9520, L500.4050, L501.9985, L100.0100, L500.4100 ####[facility] [address] [place], [address] Hemoglobin A1c percentageOrd ered By: Reagan Rosen on 04-25-2025 HbA1c (Bld) [Mass fraction] 5.4 % <5.7 [facility] Comment on above: Normal < 5.7 % Predi abetic 5.7 - 6.4 % Diabetic >or= 6.5 % Please note range changes. Hemoglobin measurementOrdere d By: Reagan Rosen on 04-25-2025 Hemoglobin (Bld) [Mass/Vol] 13.3 g/dL 12.0-15.0 [facility] Immature granulocytes/100 WB C Auto (Bld)Ordered By: Reagan Rosen on 04-25-2025 Immature granulocytes/100 WBC (Bld) 0.200 % 0.0-0.9 [facility] Comment on above: IG% - Immature Granu locytes (promyelocytes, myelocytes and metamyelocytes) > 1% indicates that a LEFT SHIFT is Present. LDL calc ser/plasOrdered By: Reagan Rosen on 04-25-2025 Cholesterol in LDL [Mass/Vol] 93 mg/dL [facility] Comment on above: Pbqdppfyan=414-286 m g/dL & Higher Nphf=387 mg/dL or greater Laboratory - Chemistry and C hemistry - challengeOrdered By: Reagan Rosen on 04-25-2025 AST [Catalytic activity/Vol] 19 U/L <32 [facility] Lipid Profileon 04-25-2025 CHOL:HDL 2.78 Normal [facility] Comment on above: Performed By: #### L 506.1001, L501.9520, L500.4050, L501.9985, L100.0100, L500.4100 ####[facility] [address] [place], [place], [address] Cholesterol [Mass/Vol] 170 mg/dL Normal <=200 [facility] Comment on above: Result Comment: Chol esterol level, Desirable <200 mg/dL Borderline high cholesterol 200-239 mg/dL High cholesterol >=240 mg/dL Recommendations of the NCEP Adult Treatment Panel for the following risk-cutoff thresholds for the [place] population. Performed By: #### L 506.1001, L501.9520, L500.4050, L501.9985, L100.0100, L500.4100 ####[facility] [address] [place], [address] Cholesterol in HDL [Mass/Vol] 61 mg/dL Normal [facility] Comment on above: Result Comment: Jessica onal Cholesterol Education Program (NCEP) guidelines: <40 mg/dL: Low HDL-cholesterol (major risk factor for CHD) >= 60 mg/dL: High HDL-cholesterol (negative risk factor for CHD) HDL-cholesterol is affected by a number of factors, e.g. smoking, exercise, hormones, sex and age. Performed By: #### L 506.1001, L501.9520, L500.4050, L501.9985, L100.0100, L500.4100 ####[facility] [address] [place], [address] Cholesterol in LDL [Mass/Vol] 93 mg/dL Normal [facility] Comment on above: Result Comment: Bord gomcdh=054-908 mg/dL Higher Ynvf=453 mg/dL or greater Performed By: #### L 506.1001, L501.9520, L500.4050, L501.9985, L100.0100, L500.4100 ####[facility] [address] [place], [address] Cholesterol in VLDL [Mass/Vol] 16 mg/dL Normal 5-40 [facility] Comment on above: Performed By: #### L 506.1001, L501.9520, L500.4050, L501.9985, L100.0100, L500.4100 ####[facility] [address] [place], [address] Triglyceride [Mass/Vol] 79 mg/dL Normal [facility] Comment on above: Result Comment: The drugs N-Acetylcysteine and Metamizole may falsely depress this assay. Normal range: <150 mg/dL Borderline High: 150-199 mg/dL High: 200-499 mg/dL Very High: >500 mg/dL Performed By: #### L 506.1001, L501.9520, L500.4050, L501.9985, L100.0100, L500.4100 ####[facility] [address] [place], [address] MCV (mean corpuscular volume ) determinationOrdered By: Reagan Rosen on 04-25-2025 MCV (RBC) [Entitic vol] 92.3 fL 81-99 [facility] Mean corpuscular hemoglobin (MCH) determinationOrdered By: Reagan Rosen on 04-25-2025 MCH (RBC) [Entitic mass] 30.0 pg 27.0-32.0 [facility] Mean corpuscular hemoglobin concentration (MCHC) determinationOrdered By: Reagan Rosen on 04-25-2025 MCHC (RBC) [Mass/Vol] 32.5 g/dL 32-36 [facility] Mean platelet volume determi nationOrdered By: Reagan Rosen on 04-25-2025 Platelet mean volume (Bld) [Entitic vol] 9.0 fL 6.2-12.0 [facility] Monocyte percentageOrdered B y: Reagan Rosen on 04-25-2025 Monocytes/100 WBC (Bld) 10.4 % High 0-10 [facility] Neutrophil percentageOrdered By: Reagan Rosen on 04-25-2025 Neutrophils/100 WBC (Bld) 41.4 % Low 47-70 [facility] Nucleated red blood cell per centageOrdered By: Reagan Rosen on 04-25-2025 Nucleated RBC/100 WBC (Bld) [Ratio] 0 % 0-5 [facility] Platelet countOrdered By: Miguel Ángel Rosen on 04-25-2025 Platelets (Bld) [#/Vol] 272 10*3/uL 150-450 [facility] Potassium measurement (mass/ volume)Ordered By: Reagan Rosen on 04-25-2025 Potassium (Unsp spec) [Mass/Vol] 3.9 mmol/L 3.3-5.1 [facility] RBC Auto (Bld) [#/Vol]Ordere d By: Reagan Rosen on 04-25-2025 RBC (Bld) [#/Vol] 4.43 10*6/uL 4.2-5.4 [facility] Screening total cholesterol/ high density lipoprotein (HDL) cholesterol ratioOrdered By: Reagan Rosen on 04-25-2025 Cholesterol.total/Cholest sheryl in HDL [Mass ratio] 2.78 {ratio} [facility] Serum creatinine measurement (mass/volume)Ordered By: Reagan Rosen on 04-25-2025 Creatinine [Mass/Vol] 0.67 mg/dL Low 0.70-1.20 [facility] Serum globulin measurementOr dered By: Reagan Rosen on 04-25-2025 Globulin (S) [Mass/Vol] 2.7 g/dL 2.2-4.2 [facility] Serum glucose measurement (m ass/volume)Ordered By: Reagan Rosne on 04-25-2025 Glucose [Mass/Vol] 92 mg/dL 70-99 [facility] Serum or plasma alanine leon otransferase (ALT) measurementOrdered By: Reagan Rosen on 04-25-2025 ALT [Catalytic activity/Vol] 14 U/L <35 [facility] Serum or plasma albumin kelsey urement (mass/volume)Ordered By: Reagan Rosen on 04-25-2025 Albumin [Mass/Vol] 4.1 g/dL 3.4-4.8 [facility] Serum or plasma albumin/glob ulin mass ratioOrdered By: Reagan Rosen on 04-25-2025 Albumin/Globulin [Mass ratio] 1.5 {ratio} 0.9-2.4 [facility] Serum or plasma alkaline chandrakant sphatase measurementOrdered By: Reagan Rosen on 04-25-2025 ALP [Catalytic activity/Vol] 72 U/L 35-104 [facility] Serum or plasma calcium kelsey urement (mass/volume)Ordered By: Reagan Rosen on 04-25-2025 Calcium [Mass/Vol] 9.8 mg/dL 7.6-11.0 [facility] Serum or plasma cholesterol in HDL measurement (mass/volume)Ordered By: Reagan Rosen on 04-25-2025 Cholesterol in HDL [Mass/Vol] 61 mg/dL >40 [facility] Comment on above: National Cholesterol Education Program (NCEP) guidelines:<40 mg/dL: Low HDL-cholesterol (major risk factor for CHD)>= 60 mg/dL: High HDL-cholesterol (negative risk factor for CHD)HDL-cholesterol is affected by a number of factors, e.g. smoking, exercise, hormones, sex and age. Serum or plasma cholesterol measurement (mass/volume)Ordered By: Reagan Rosen on 04-25-2025 Cholesterol [Mass/Vol] 170 mg/dL <201 [facility] Comment on above: Cholesterol level, D esirable <200 mg/dLBorderline high cholesterol 200-239 mg/dLHigh cholesterol >=240 mg/dLRecommendations of the NCEP Adult Treatment Panel for the following risk-cutoff thresholds for the [place] population. Serum or plasma urea nitroge n measurement (mass/volume)Ordered By: Reagan Rosen on 04-25-2025 Urea nitrogen [Mass/Vol] 19 mg/dL 4-19 [facility] Sodium levelOrdered By: Reagan Rosen on 04-25-2025 Sodium [Moles/Vol] 139 mmol/L 133-145 [facility] TSH DL <= 0.005 mIU/L QnOrde red By: Reagan Rosen on 04-25-2025 TSH Qn 1.710 uIU/mL 0.300-4.20 0 [facility] Thyroid Stim Hormone (TSH)on 04-25-2025 TSH 1.710 uIU/mL Normal 0.300-4.20 0 [facility] Comment on above: Performed By: #### L 506.1001, L501.9520, L500.4050, L501.9985, L100.0100, L500.4100 ####[facility] [address] [place], [address] Total proteinOrdered By: Zoë keerthi Rosen on 04-25-2025 Protein [Mass/Vol] 6.9 g/dL 5.9-8.4 [facility] Triglycerides measurementOrd ered By: Reagan Rosen on 04-25-2025 Triglyceride [Mass/Vol] 79 mg/dL <199 [facility] Comment on above: The drugs N-Acetylcy steine and Metamizole may falsely depress this assay. Normal range: <150 mg/dLBorderline High: 150-199 mg/dLHigh: 200-499 mg/dLVery High: >500 mg/dL Vitamin D,25 Hydroxyon 04-25 Vitamin D 25-OH 31.3 ng/mL Normal 30-100 [facility] Comment on above: Result Comment: Stephany min D Status Deficiency: <20 ng/mL (50nmol/L) Insufficiency: 20-30 ng/mL (50-75 nmol/L) Sufficiency: 30-100 ng/mL (75-250 nmol/L) Toxicity: >100 ng/mL (>250 nmol/L) Performed By: #### L 506.1001, L501.9520, L500.4050, L501.9985, L100.0100, L500.4100 ####[facility] [address] [place], [address] White blood cell (WBC) count Ordered By: Reagan Rosen on 04-25-2025 WBC (Bld) [#/Vol] 4.9 10*3/uL 4.4-11.0 [facility] Ankle Brachial Indexon 03-30 Ankle Brachial Index [facility] [address] [place] [address] Ankle Brachial Index 03/30/25 1504 MR#: [id number] Acct: [id number] Name: YOUNG AGARWAL Rep #: [id number] : 1955 70 From: Roderick Christine MD Attending Dr: Dr. Reagan Rosen MD Status: REG CLI Ordering Dr: Reagan Rosen MD Date: 03/30/25 Location: [facility] Sex: F C Admitted: Reason For Study Reason For Study: NUMBNESS/TINGLING Procedure A bilateral lower extremity continuous wave Doppler with analog waveform analysis and ankle brachial indexes. Left Segmental Pressures Left brachial= 153mmHg. Left posterior tibial artery = 171mmHg. Left dorsalis pedis artery = 176mmHg. The left posterior tibial artery waveforms are triphasic. The left dorsalis pedis waveforms are triphasic. Right Segmental Pressures Right brachial= 156mmHg. Right posterior tibial artery = 178mmHg. Right dorsalis pedis artery = 186mmHg. The right posterior tibial artery waveforms are triphasic. The right dorsalis pedis waveforms are triphasic. Indices The right resting ankle brachial index is 1.19. The right ankle brachial index by the posterior tibial artery is 1.14. The right ankle brachial index by the dorsalis pedis is 1.19. The left resting ankle brachial index is 1.13. The left ankle brachial index by the posterior tibial artery is 1.10. The left ankle brachial index by the dorsalis pedis is 1.13. VL/Ankle Brachial Index Interpretation Summary Triphasic Doppler waveforms are noted at ankle level bilaterally. Pulse-volume recordings appear satisfactory at ankle level bilaterally. Resting ankle-brachial indices are normal bilaterally. There is no evidence of significant arterial occlusive disease in the lower extremities bilaterally. ___ Ordering Physician: Reagan Rosen Referring Physician: REAGAN ROSEN MD Performed By: Kateryna Garay RVFarrah, RDCS 03/30/25 2352 Date Roderick Christine MD CC: Dr. Reagan Rosen MD Date Dictated: 03/30/25 1504 Date Transcribed: 03/30/25 235 Arch Support Technician: Signed Normal [facility] Arterial study reportOrdered By: Roderick Christine on 03-30-2025 Noninvasive arteriosclerosis study report [facility] [address] [place] [address] Ankle Brachial Index 03/30/25 1504 MR#: [id number] Acct: [id number] Name: YOUNG AGARWAL Rep #:[id number] : 1955 70 From: Roderick Christine MD Attending Dr: Dr. Reagan Rosen MD Status: REG CLI Ordering Dr: Reagan Rsoen MD Date: Location: [facility] Sex: F C Admitted: Reason For Study Reason For Study: NUMBNESS/TINGLING Procedure A bilateral lower extremity continuous wave Doppler with analog waveform analysis and ankle brachial indexes. Left Segmental Pressures Left brachial= 153mmHg. Left posterior tibial artery = 171mmHg. Left dorsalis pedis artery = 176mmHg. The left posterior tibial artery waveforms are triphasic. The left dorsalis pedis waveforms are triphasic. Right Segmental Pressures Right brachial= 156mmHg. Right posterior tibial artery = 178mmHg. Right dorsalispedis artery = 186mmHg. The right posterior tibial artery waveforms are triphasic. The right dorsalis pedis waveforms are triphasic. Indices The right resting ankle brachial index is 1.19. The right ankle brachial index by the posterior tibial artery is 1.14. The right ankle brachial index by the dorsalis pedis is 1.19. The left resting ankle brachial index is 1.13. The left ankle brachial index by the posterior tibial artery is 1.10. The left ankle brachial index by the dorsalis pedis is 1.13. VL/Ankle Brachial Index Interpretation Summary Triphasic Doppler waveforms are noted at ankle level bilaterally. Pulse-volume recordings appear satisfactory at ankle level bilaterally. Resting ankle-brachial indices are normal bilaterally. There is no evidence of significant arterial occlusive disease in the lower extremities bilaterally. ___ Ordering Physician: Reagan Rosen Referring Physician: REAGAN ROSEN MD Performed By: Kateryna Garay RVT, RDCS 03/30/25 0615 Date _ Roderick Christine MD CC: Dr. Reagan Rosen MD ~ Date Dictated: 03/30/25 1504 Date Transcribed: 03/30/25 9916 Arch Support Technician: Signed [facility] Other Phone: Free T3on 02-20-2025 Free T3 [Mass/Vol] 2.9 pg/mL Normal 2.18-3.98 [facility] Comment on above: Performed By: #### L 501.70237, T357.7270, A073.7999 ####[facility] [address] [place], [address] Free M6Scylbyk By: Mendez iverson on 02-20-2025 Free T3 [Mass/Vol] 2.9 pg/mL 2.18-3.98 [facility] Special Stain Group IIon Special Stain Group II -------- Patient Age/Sex Location Account Attending Physician YOUNG AGARWAL 69/F [facility] [id number] Dr. Mendez [place] MD Specimen: [id number] Received: 02/20/25 Status: SHELIA Ott Num: [id number] Spec Type: ASP OUT Subm Dr: Dr. Mendez [facility] MD HEADER OPERATION: Fine needle aspiration of right thyroid nodule PRE-OP DIAGNOSIS: Right thyroid nodule TISSUE SUBMITTED: A- Right thyroid nodule, B- Right cystic fluid for cytology DIAGNOSIS CYTOLOGY A. Thyroid, fna - right thyroid: * No malignant cells are identified * Benign follicular nodular disease B. Thyroid, fna - cystic fluid: * Nondiagnostic due to insufficient cellular material * Cyst fluid COMMENT The specimen is evaluated at the time of biopsy by Dr. Garrett. Immediate Evaluation = 1. Adequate. 2. Adequate. 3. Adequate. 4. Adequate. 5. Few cells. CYTOLOGY STUDY Slides are reviewed. CYTOLOGY GROSS A. Received is 30 ml of red-cloudy fluid cytolyt with particles and 10 smears (5 DQ, 5 PAP labeled with the patient's name and and designated per the requisition as "Right thyroid nodule." Submitted for cytology and cell block preparation. B. Received is 4 ml of red-cloudy fluid labeled with the patient's name and and designated per the requisition as "Right cystic fluid." Submitted for cytology and cell block preparation. 02/20/2025 CPT: 33704u9 Signed (signature on file) Dr. Ely Mcrae, 02/24/25 1246 Normal [facility] Comment on above: Performed By: #### P SSII ####[facility] [address] [place], [address] Surgery Visit Reporton 02-20 Surgery Visit Report [facility] [address] [place] [address] OFFICE VISIT Date of Service: 02/20/25 MR#: [id number] Acct: [id number] Name: YOUNG AGARWAL Rep #: [id number] : 1955 Provider: Dr. Mendez savage MD Age/Sex: 69/F Location: [facility] Status: Signed Intake Vital Signs 02/18/24 13:58 02/20/25 09:07 Height 5 ft 8 in 5 ft 8 in Weight: 178 lb BMI 27.0 BP 127/75 H Blood Pressure Location Rt brachial Position Sitting Respiration 17 Pulse 58 L Pulse Source Monitor Pulse Oximetry (%) 97 Oxygen Delivery Method room air Intake Visit Reasons: THYROID NODULE Chief Complaint: thyroid nodule Is patient in pain?: No Allergies cephalexin (From Keflex) Allergy (Verified 02/20/25 09:07) Angioedema nitrofurantoin (From Macrobid) Allergy (Verified 02/20/25 09:07) Angioedema Sulfa (Sulfonamide Antibiotics) Allergy (Verified 02/20/25 09:07) Angioedema sulfamethoxazole (From Bactrim) Allergy (Verified 02/20/25 09:07) Angioedema trimethoprim (From Bactrim) Allergy (Verified 02/20/25 09:07) Angioedema ciprofloxacin (From Cipro) Adverse Reaction (Verified 02/20/25 09:07) rash Medications ???Medication ???Instructions ???Recorded ???Confirmed ???Type metoprolol tartrate 50 mg tablet 50 mg PO BID 09/16/16 02/20/25 His tory ascorbic acid (vitamin C) 500 mg 500 mg PO DAILY 11/11/19 02/20/25 History capsule rosuvastatin 5 mg tablet (Crestor) 5 mg PO DAILY 11/11/19 02/20/25 History glucosamine-chondroitin 500 mg-400 1 tab PO DAILY 11/08/21 02/20/25 History mg tablet (Cosamin DS) albuterol sulfate 2.5 mg/3 mL 2.5 mg inhalation QDAY 02/20/25 History (0.083 %) solution for nebulization lactobacillus combination no.4 3 3,000 mmu cells PO QDAY 02/20/25 0 02/20/25 History billion cell capsule (Probiotic) Have you fallen in the past year?: No PFSH Medical History Thyroid nodule Premature ventricular contraction SVT (supraventricular tachycardia) Essential hypertension Mixed hyperlipidemia UTI (urinary tract infection) Mitral valve prolapse Surgical History rectal tumor removal History of endometrial ablation Salivary cyst Family History Father Myocardial infarction, Onset Age: 65 Sister Mitral valve prolapse Bladder cancer Bladder cancer, cancer cells found in breast also Brother Cancer Liver Mother No problems noted. Social History number of children: 3 current occupational status: employed current occupation: Retired Smoking Status: Former smoker alcohol intake: current alcohol intake frequency: holidays/special occasions only details: occasional substance use type: does not use caffeine: No seatbelt use: always do you feel safe at home: Yes additional social history: Khris Retired HPI HPI HPI: Patient is a 69-year-old female who presents for surgical consultation related to newly diagnosed right thyroid nodularity. They are referred for surgical consultation from Dr. Rosen. This was discovered by patient as she felt a lump in her neck while rubbing her neck after a particularly troubling coughing fit. She notes she initially raised this observation to pulmonary medicine Dr. Buenrostro's office and was ultimately referred to her PCP, Dr. Rosen who ordered the thyroid ultrasound. Mrs. Agarwal relates that she has been sick "off-and-on" since July with upper respiratory tract symptoms. She reports that she is now feeling better. She shares she initially believed this could be related to a "lump" she had removed from her left salivary gland years ago that was ultimately given a benign pathologic diagnosis. They do not experience difficulty with swallowing. They do not complain of a new cough at this point. They do appreciate new voice changes per her but she admits these are episodic. They also do have a history of snoring/sleep apnea. Additionally, their weight has been stable but she reports an inability to lose despite intentional effort. There is a history of recent fatigue but she shares her sleep is fragmented with frequent awakenings due to possible restless leg syndrome diagnosis. They do have a history of cold intolerance. Other symptoms include: Pertinent positives: Anxiety, dry skin, pertinent negatives: No palpitations, no GI concerns, no unusual sweating. They do not have a family history of thyroid disorders or endocrinopathies. There is no history of prior radiation exposure. Previous work-up has included thyroid ultrasound. This study was performed (more content not included)... Normal [facility] T4 Total, Thyroxinon 025 T4 [Mass/Vol] 7.1 ug/dL Normal 4.8-13.9 [facility] [facility] Comment on above: Performed By: #### L 501.34577, L501.9520, L501.9310 ####[facility] [address] [place], [place], [id number] TSH DL <= 0.005 mIU/L QnOrde red By: Mendez South on 02-20-2025 TSH Qn 1.630 uIU/mL 0.300-4.20 0 [facility] Thyroid Stim Hormone (TSH)on 02-20-2025 TSH 1.630 uIU/mL Normal 0.300-4.20 0 [facility] Comment on above: Performed By: #### L 501.25041, L501.9520, L501.9310 ####[facility] [address] [place], [place], [id number] ThyroxineOrdered By: Mendez South on 02-20-2025 T4 [Mass/Vol] 7.1 ug/dL 4.8-13.9 [facility] Thyroidon 02-16-[address] [facility] Imaging Services [address] [place], [place] [id number] Thyroid MR#: [id number] Acct: [id number] Name: YOUNG AGARWAL Rep #: [id number] : 1955 F 69 From: Matthew flannery MD PCP: Dr. Reagan Rosen MD Status: REG CLI Study: Thyroid Date of Exam: 02/16/25 Exam# [id number] Ordering Dr: Mendez South MD PROCEDURE: THYROID 02/16/2025 REASON FOR EXAM: THYROID ULTRASOUND TECHNIQUE: High-frequency thyroid ultrasound, including grayscale and color-flow images. REFERENCE LINKS: TI-RADS Chart: [email or web address] [email or web address]/head-neck/ti-rads/ti -rads TI-RADS Calculator Tool with Reference Images: [email or web address]/rad iology-calculators/body-i maging/tirads-calculator/ COMPARISON: Comparison is made with prior sonogram of the neck dated February 04, 2025. FINDINGS: Right thyroid lobe size: 5.1 cm x 2.7 cm x 2.2 cm Left thyroid lobe size: 3.9 cm x 1.4 cm x 1.4 cm Isthmus: 0.2 cm Background parenchymal echotexture is heterogeneous Nodules: . Lobe: Right, Location: Mid upper pole, Size: 3.9 cm x 2.1 cm x 2 cm cm, Stability: N/A Composition: Solid or almost completely solid (+2). Hypervascular. Echogenicity: Hyper to Isoechoic (+1) Margin: Ill-defined (+0) Shape: Wider than tall (+0) Echogenic Foci: None (+0) TI-RADS: 3 . Lobe: Left, Location: Mid portion, Size: 0.6 cm x 0.4 cm x 0.3 cm cm, Stability: N/A Composition: Mixed cystic and solid (+1) Echogenicity: Hyper to Isoechoic (+1) Margin: Ill-defined (+0) Shape: Wider than tall (+0) Echogenic Foci: None (+0) TI-RADS: 2 US/Thyroid IMPRESSION: Dominant complex nodule in the right lobe of the thyroid as described. Biopsy recommended. RECOMMENDATION: Based on most suspicious nodule. Nodule size = largest diameter Only evaluate nodule if =>5 mm. Growth > 20% in 2 dimensions = worsening. Follow up to 4 nodules. Recommend biopsy for no more than 2 nodules. Reading Location: ERIN CC: Dr. Mendez South MD; Dr. Reagan Rosen MD Arch Support Technician: Signed [facility] Acid Fast Bacillus Cultureon 02-13-2025 tAFBC [facility] ORIGINAL REPORT ON FILE IN LAB CONTAINS ADDITIONAL TEST SITE INFORMATION. Culture, Acid Fast NO ACID-FAST BACILLI ISOLATED AFTER 6 WEEKS. [facility] Comment on above: Performed By: #### M 300.1999, M300.3000 ####[facility] [address] [place], [place], [phone] tAFBC TESTING [facility]FORMED [facility]. ORIGINAL REPORT ON FILE IN LAB CONTAINS ADDITIONAL TEST SITE INFORMATION. Culture, Acid Fast NO ACID-FAST BACILLI ISOLATED AFTER 6 WEEKS. [facility] Comment on above: Performed By: #### M 300.3000, M300.1999 ####[facility] [address] [place], [place], [address] tAFBC TESTING PERFORMED AT [facility]. ORIGINAL REPORT ON FILE IN LAB CONTAINS ADDITIONAL TEST SITE INFORMATION. Culture, Acid Fast NO ACID-FAST BACILLI ISOLATED AFTER 6 WEEKS. Normal [facility] Comment on above: Performed By: #### M 300.3000, L3410.9998, L4600.0100, L3400.8000, L3300.1200, L803.2200, L3100.9100, M100.2000, L3100.6900, L501.6710, L3100.5500, M300.2000, M100.2400 ####[facility] [address] [place], [address] Acid Fast Bacillus Smear/Flu oron 02-13-2025 tafb TESTING PERFORMED AT [facility]. ORIGINAL REPORT ON FILE IN LAB CONTAINS ADDITIONAL TEST SITE INFORMATION. Smear, Acid Fast Acid Fast Smear from Concentrated Specimen :Negative Normal [facility] Comment on above: Performed By: #### M 300.2000, M300.3000 ####[facility] [address] [place], [address] tafb TESTING PERFORMED AT [facility]. ORIGINAL REPORT ON FILE IN LAB CONTAINS ADDITIONAL TEST SITE INFORMATION. Smear, Acid Fast Acid Fast Smear from Concentrated Specimen :Negative Normal [facility] Comment on above: Performed By: #### M 300.3000, M300.2000 ####[facility] [address] [place], [place], [phone] tafb TESTING PERFORMED AT [facility]. ORIGINAL REPORT ON FILE IN LAB CONTAINS ADDITIONAL TEST SITE INFORMATION. Smear, Acid Fast Acid Fast Smear from Concentrated Specimen :Negative Normal [facility] Comment on above: Performed By: #### M 300.3000, L3410.9998, L4600.0100, L3400.8000, L3300.1200, L803.2200, L3100.9100, M100.2000, L3100.6900, L501.6710, L3100.5500, M300.2000, M100.2400 ####[facility] [address] [place], [place], [address] Head/Neck Soft Tissueon 04-2 Head/Neck Soft Tissue [facility] Imaging Services [address] [place], [place] [id number] Head/Neck Soft Tissue MR#: [id number] Acct: [id number] Name: YOUNG AGARWAL Rep #: [id number] : 1955 F 69 From: Arthur Walsh MD PCP: Dr. Reagan Rosen MD Status: REG CLI Study: Head/Neck Soft Tissue Date of Exam: 02/04/25 Exam# [id number] Ordering Dr: Reagan Rosen MD EXAM: Soft tissue neck CLINICAL HISTORY: Palpable mass COMPARISON: None TECHNIQUE: Multiple longitudinal and transverse ultrasound images of the neck were obtained. FINDINGS: Multiple longitudinal and transverse ultrasound images of the right side of the neck confirmed a dominant nodule in the right lobe of the thyroid gland. This measures 4 x 2 cm and is mixed solid and cystic. US/Head/Neck Soft Tissue IMPRESSION: Ultrasound confirms a 4 cm mixed cystic and solid dominant nodule of the right lobe of the thyroid gland and follow-up thyroid ultrasound is recommended. Reading Location: [id number]-YG CC: Dr. Reagan Rosen MD Arch Support Technician: Signed Normal [facility] M[facility] COM[facility] Normal . [facility] Comment on above: Order Comment: [id number] 3RDL PROFILE RED RF Result Comment: Test Ordered: [id number] Anti-Synthetase Profile (RDL) Test(s) 388588-Elev-ZR-6 Ab (RDL); 591686- Anti-PL-12 Ab (RDL); 637884-Jpje-OP Ab (RDL); 700624- Anti-OJ Ab (RDL) was developed and its performance characteristics determined by [facility]. It has not been cleared or approved by the Food and Drug Administration. Anti-Claire-1 Ab (RDL) <20 Units [facility] Reference Range: <20 Anti-PL-7 Ab (RDL) Negative [facility] Reference Range: Negative Anti-PL-12 Ab (RDL) Negative [facility] Reference Range: Negative Anti-EJ Ab (RDL) Negative [facility] Reference Range: Negative Anti-OJ Ab (RDL) Negative [facility] Reference Range: Negative Interpretation for Anti-Claire-1: Negative: <20 Weak Positive: 20 - 39 Moderate Positive: 40 - 80 Strong Positive: >80 Given overlapping phenotypes, autoantibody positivity should be interpreted in the context of clinical and other laboratory findings. Performed at: [facility] [address] [place] [id number] Decorative Engraver: Petr Cho MD, Phone: [phone] Performed at: [address] [id number] Decorative Engraver: Giancarlo Crowell PhD, Phone: [phone] Performed By: #### M 300.3000, L3410.9998, L4600.0100, L3400.8000, L3300.1200, L803.2200, L3100.9100, M100.2000, L3100.6900, L501.6710, L3100.5500, M300.2000, M100.2400 ####[facility] [address] [place], [address] [facility]. COMMENT Normal . [facility] Comment on above: Order Comment: 85095 9RNP ANTIBODY RED RF Result Comment: Test Ordered: 790884 Anti-U3 PARTITION NOTCHER (Fibrillarin)(RDL) Test(s) 863693-Ypqu-P7 PARTITION NOTCHER (Fibrillarin)(RDL) was developed and its performance characteristics determined by [facility]. It has not been cleared or approved by the Food and Drug Administration. Anti-U3 PARTITION NOTCHER (Fibrillarin)(RDL) Negative [facility] Reference Range: Negative Performed at: [facility] [address] [place] [id number] Decorative Engraver: Petr Cho MD, Phone: [phone] Performed at: [address] [id number] Decorative Engraver: Giancarlo Crowell PhD, Phone: [phone] Performed By: #### L 3410.9998 ####[facility] [address] [place], [address] ANCAon 01-02-2025 Atypical pANCA <1:20 Normal Neg:<1:20 [facility] Comment on above: Result Comment: The atypical pANCA pattern has been observed in a significant percentage of patients with ulcerative colitis, primary sclerosing cholangitis and autoimmune hepatitis. Performed By: #### M 300.3000, L3410.9998, L4600.0100, L3400.8000, L3300.1200, L803.2200, L3100.9100, M100.2000, L3100.6900, L501.6710, L3100.5500, M300.2000, M100.2400 ####[facility] [address] [place], [place], [phone] Cytoplasmic Ab <1:20 Normal Neg:<1:20 [facility] Comment on above: Performed By: #### M 300.3000, L3410.9998, L4600.0100, L3400.8000, L3300.1200, L803.2200, L3100.9100, M100.2000, L3100.6900, L501.6710, L3100.5500, M300.2000, M100.2400 ####[facility] [address] [place], [place], [address] Perinuclear Ab. <1:20 Normal Neg:<1:20 [facility] Comment on above: Result Comment: The presence of positive fluorescence exhibiting P-ANCA or C-ANCA patterns alone is not specific for the diagnosis of Hua's Granulomatosis (WG) or microscopic polyangiitis. Decisions about treatment should not be based solely on ANCA IFA results. The International ANCA Group Consensus recommends follow up testing of positive sera with both AL- 3 and MPO-ANCA enzyme immunoassays. As many as 5% serum samples are positive only by EIA. Ref. AM J Clin Pathol 1999;111:507-513. Performed By: #### M 300.3000, L3410.9998, L4600.0100, L3400.8000, L3300.1200, L803.2200, L3100.9100, M100.2000, L3100.6900, L501.6710, L3100.5500, M300.2000, M100.2400 ####[facility] [address] [place], [place], [phone] Angiotensin Convert Enzymeon 01-02-2025 ANGIOT-CONV.ENZ 41 U/L Normal 14-82 [facility] Comment on above: Performed By: #### M 300.3000, L3410.9998, L4600.0100, L3400.8000, L3300.1200, L803.2200, L3100.9100, M100.2000, L3100.6900, L501.6710, L3100.5500, M300.2000, M100.2400 ####[facility] [address] [place], [place], [address] Anti-Smooth Muscle ABSon ANTISMOOTH MUSC 5 Units Normal 0-19 [facility] Comment on above: Result Comment: Nega tive 0 - 19 Weak positive 20 - 30 Moderate to strong positive >30 Actin Antibodies are found in 52-85% of patients with autoimmune hepatitis or chronic active hepatitis and in 22% of patients with primary biliary cirrhosis. Performed By: #### M 300.3000, L3410.9998, L4600.0100, L3400.8000, L3300.1200, L803.2200, L3100.9100, M100.2000, L3100.6900, L501.6710, L3100.5500, M300.2000, M100.2400 ####[facility] [address] [place], [place], [address] CCP IgG Antibodieson 025 CCP IgG Ab. 5 units Normal 0-19 [facility] Comment on above: Result Comment: Nega tive <20 Weak positive 20 - 39 Moderate positive 40 - 59 Strong positive >59 Performed By: #### M 300.3000, L3410.9998, L4600.0100, L3400.8000, L3300.1200, L803.2200, L3100.9100, M100.2000, L3100.6900, L501.6710, L3100.5500, M300.2000, M100.2400 ####[facility] [address] [place], [place], [phone] Respiratory Cultureon 2024 RESPC Mixed normal respira tory rea. No Haemophilus, Streptococcus pneumoniae, beta-hemolytic Streptococcus or Staphylococcus aureus isolated. Normal [facility] Comment on above: Performed By: #### M 300.3000, L3410.9998, L4600.0100, L3400.8000, L3300.1200, L803.2200, L3100.9100, M100.2000, L3100.6900, L501.6710, L3100.5500, M300.2000, M100.2400 ####[facility] [address] [place], [place], [phone]) Acid fast bacillus (AFB) cul tureOrdered By: Edmundo Buenrostro on 12-30-2024 Mycobacterium sp identified Org specific cx Nom (Unsp spec) [facility] Quantiferon TB-Gold+on 12-30 QFT MITOGEN CARMEN > 10.00 Normal . [facility] Comment on above: Performed By: #### M 300.3000, L3410.9998, L4600.0100, L3400.8000, L3300.1200, L803.2200, L3100.9100, M100.2000, L3100.6900, L501.6710, L3100.5500, M300.2000, M100.2400 ####[facility] [address] [place], [place], [phone]) QFT NIL VALUE 0.05 IU/mL Normal . [facility] Comment on above: Performed By: #### M 300.3000, L3410.9998, L4600.0100, L3400.8000, L3300.1200, L803.2200, L3100.9100, M100.2000, L3100.6900, L501.6710, L3100.5500, M300.2000, M100.2400 ####[facility] [address] [place], [address] QFT TB GOLD+ Comment Normal . [facility] Comment on above: Result Comment: Robbie tiFERON-TB Gold Plus is a qualitative indirect test for M tuberculosis infection (including disease) and is intended for use in conjunction with risk assessment, radiography, and other medical and diagnostic evaluations. The QuantiFERON-TB Gold Plus result is determined by subtracting the Nil value from either TB antigen (Ag) value. The Mitogen tube serves as a control for the test. Performed By: #### M 300.3000, L3410.9998, L4600.0100, L3400.8000, L3300.1200, L803.2200, L3100.9100, M100.2000, L3100.6900, L501.6710, L3100.5500, M300.2000, M100.2400 ####[facility] [address] [place], [address] QFT TB POS CRIT Negative Normal Negative [facility] Comment on above: Result Comment: No r esponse to M tuberculosis antigens detected. Infection with M tuberculosis is unlikely, but high risk individuals should be considered for additional testing (ATS/IDSA/CDC Clinical Practice Guidelines, 2017). The reference range is an Antigen minus Nil result of <0.35 IU/mL. The specimen received for QuantiFERON testing was incubated by the ordering institution. Specific procedures outlined in our Directory of Services and in the package insert for the QuantiFERON Gold (In Tube) test must be followed to enable for proper stimulation of cells for the production of interferon gamma. Chemiluminescence immunoassay methodology Performed at: [facility] [employer] [id number] Decorative Engraver: Giancarlo Crowell PhD, Phone: [phone] Performed By: #### M 300.3000, L3410.9998, L4600.0100, L3400.8000, L3300.1200, L803.2200, L3100.9100, M100.2000, L3100.6900, L501.6710, L3100.5500, M300.2000, M100.2400 ####[facility] [address] [place], [place], [address] QFT TB1+ AG CARMEN 0.07 IU/mL Normal . [facility] Comment on above: Performed By: #### M 300.3000, L3410.9998, L4600.0100, L3400.8000, L3300.1200, L803.2200, L3100.9100, M100.2000, L3100.6900, L501.6710, L3100.5500, M300.2000, M100.2400 ####[facility] [address] [place], [place], [address] QFT TB2+ AG CARMEN 0.04 IU/mL Normal . [facility] Comment on above: Performed By: #### M 300.3000, L3410.9998, L4600.0100, L3400.8000, L3300.1200, L803.2200, L3100.9100, M100.2000, L3100.6900, L501.6710, L3100.5500, M300.2000, M100.2400 ####[facility] [address] [place], [place], [phone] Acid fast bacillus (AFB) cul tureOrdered By: Edmundo Buenrostro on 12-29-2024 Mycobacterium sp identified Org specific cx Nom (Unsp spec) [facility] Anti-dsDNA Abon 12-29-2024 ANTI-DNA (DS)AB <1 Normal 0-9 [facility] Comment on above: Result Comment: Nega tive <5 Equivocal 5 - 9 Positive >9 Performed at: [facility] [id number] Decorative Engraver: Giancarlo Crowell PhD, Phone: [phone] Performed By: #### M 300.3000, L3410.9998, L4600.0100, L3400.8000, L3300.1200, L803.2200, L3100.9100, M100.2000, L3100.6900, L501.6710, L3100.5500, M300.2000, M100.2400 ####[facility] [address] [place], [place], [address] Gram Stainon 12-29-2024 GS Gram Stain 2+ Gram positive cocci 1+ Gram positive rods 1+ Gram negative rods 1+ Epithelial cells Normal [facility] Comment on above: Performed By: #### M 300.3000, L3410.9998, L4600.0100, L3400.8000, L3300.1200, L803.2200, L3100.9100, M100.2000, L3100.6900, L501.6710, L3100.5500, M300.2000, M100.2400 ####[facility] [address] [facility] [place], [place], [address] Sjogren's Antibodies A/Bon 0 12-29-2024 ANTI-SS-A < 0.2 Normal 0.0-0.9 [facility] Comment on above: Result Comment: AMENDED REPORT 12/29/241307 Anti-SS-A previously reported as: Test not performed Performed By: #### M 300.3000, L3410.9998, L4600.0100, L3400.8000, L3300.1200, L803.2200, L3100.9100, M100.2000, L3100.6900, L501.6710, L3100.5500, M300.2000, M100.2400 ####[facility] [address] [facility] [place], [place], [address] ANTI-SS-B < 0.2 Normal 0.0-0.9 [facility] Comment on above: Result Comment: AMENDED REPORT 12/29/241307 Anti-SS-B previously reported as: Test not performed Performed By: #### M 300.3000, L3410.9998, L4600.0100, L3400.8000, L3300.1200, L803.2200, L3100.9100, M100.2000, L3100.6900, L501.6710, L3100.5500, M300.2000, M100.2400 ####[facility] [address] [facility] [place], [place], [phone] Acid fast bacillus (AFB) cul tureOrdered By: Edmundo Buenrostro on 12-28-2024 Mycobacterium sp identified Org specific cx Nom (Unsp spec) [facility] Actin IgG QnOrdered By: Nicholas Buenrostro on 12-28-2024 Anti-Smooth Muscle Antibody 5 Units 0- [facility] Comment on above: Negative 0 - 19 Weak positive 20 - 30 Moderate to strong positive >30 Actin Antibodies are found in 52-85% of patients with autoimmune hepatitis or chronic active hepatitis and in 22% of patients with primary biliary cirrhosis. Atypical perinuclear antineu trophil cytoplasmic antibodies measurementOrdered By: Edmundo Buenrostro on 12-28-2024 Atypical p-ANCA <1:20 titer Neg:<1:20 [facility] Comment on above: The atypical pANCA p attern has been observed in asignificant percentage of patients with ulcerative colitis,primary sclerosing cholangitis and autoimmune hepatitis. CRPon 12-28-2024 C-REACTIVE PROT < 3.00 Normal 0.0-3.0 [facility] Comment on above: Performed By: #### M 300.3000, L3410.9998, L4600.0100, L3400.8000, L3300.1200, L803.2200, L3100.9100, M100.2000, L3100.6900, L501.6710, L3100.5500, M300.2000, M100.2400 ####[facility] [address] [place], [place], [address] CRP [Mass/Vol]Ordered By: Chantal Buenrostro on 12-28-2024 C-Reactive Protein Extended Range < 3.00 mg/L 0.0-3.0 [facility] Cyclic citrullinated peptide IgG QnOrdered By: Edmundo Buenrostro on 12-28-2024 Cyclic Citrullinated Peptide IgG Ab 5 units 0- [facility] Comment on above: Negative <20 Weak po sitive 20 - 39 Moderate positive 40 - 59 Strong positive >59 DNA double strand Ab Qn (S)O rdered By: Edmundo Buenrostro on 12-28-2024 Anti-Double Strand DNA Antibody <1 IU/mL 0-9 [facility] Comment on above: Negative <5 Equivoca l 5 - 9 Positive >9Performed at: [facility] [place], [place] [id number] Director: Giancarlo Crowell PhD, Phone: [phone] Gram stainOrdered By: Edmundo Buenrostro on 12-28-2024 Microscopic observation Gram stain Nom (Unsp spec) [facility] M. tuberculosis tuberculin s joel IFN-g Ql (Bld)Ordered By: Edmundo Buenrostro on 12-28-2024 TB Test (QFT) Antigen 1 0.07 IU/mL . [facility] Microbial respiratory cultur eOrdered By: Edmundo Buenrostro on 12-28-2024 Microorganism identified Cx Nom (Unsp spec) [facility] Microorganism identified Cx Nom (Unsp spec)Ordered By: Edmundo Buenrostro on 12-28-2024 Respiratory Culture [facility] Neutrophil cytoplasmic Ab.cl assic Qn (S)Ordered By: Edmundo Buenrostro on 12-28-2024 Cytoplasmic ANCA (c-ANCA) Antibody <1:20 titer Neg:<1:20 [facility] Neutrophil cytoplasmic Ab.pe rinuclear IF (S) [Titer]Ordered By: Edmundo Buenrostro on 12-28-2024 Perinuclear ANCA (p-ANCA) Antibody <1:20 titer Neg:<1:20 [facility] Comment on above: The presence of posi tive fluorescence exhibiting P-ANCA orC-ANCA patterns alone is not specific for the diagnosis ofWegener's Granulomatosis (WG) or microscopic polyangiitis.Decisions about treatment should not be based solely onANCA IFA results. The International ANCA Group Consensusrecommends follow up testing of positive sera with both AL-3 and MPO-ANCA enzyme immunoassays. As many as 5% serumsamples are positive only by EIA. Ref. AM J Clin Dqmoux6042;111:507-513. No Panel InformationOrdered By: Edmundo Buenrostro on 12-28-2024 Miscellaneous Test COMMENT . [facility] Comment on above: Test Ordered: [id number] Anti-U3 PARTITION NOTCHER (Fibrillarin)(RDL)Test(s) 942304-Efdd-J7 PARTITION NOTCHER (Fibrillarin)(RDL)was developed and its performance characteristicsdetermined by [facility]. It has not been cleared or approvedby the Food and Drug Administration.Anti-U3 PARTITION NOTCHER (Fibrillarin)(RDL) Negative [facility] Reference Range: NegativePerformed at: [facility] [address] [place], [place] [id number] Director: Petr Cho MD, Phone: [phone] at: [address] [id number] Director: Giancarlo Crowell PhD, Phone: [phone] Qualitative QuantiFERON-TB g old in tube testOrdered By: Edmundo Buenrostro on 12-28-2024 M. tuberculosis tuberculin stim IFN-g Ql (Bld) 0.07 IU/mL . [facility] Quantiferon-TB Gold Plus javan tOrdered By: Edmundo Buenrostro on 12-28-2024 TB Test (QFT) Comment . [facility] Comment on above: QuantiFERON-TB Gold Plus is a qualitative indirect test forM tuberculosis infection (including disease) and isintended for use in conjunction with risk assessment,radiography, and other medical and diagnostic evaluations.The QuantiFERON-TB Gold Plus result is determined bysubtracting the Nil value from either TB antigen (Ag)value. The Mitogen tube serves as a control for the test. TB Test (QFT) Antigen 2 0.04 IU/mL . [facility] TB Test (QFT) Mitogen > 10.00 IU/mL . [facility] TB Test (QFT) Nil 0.05 IU/mL . [facility] TB Test (QFT) Positive Criteria Negative Negative [facility] Comment on above: No response to M tub erculosis antigens detected.Infection with M tuberculosis is unlikely, but high riskindividuals should be considered for additional testing(ATS/IDSA/CDC Clinical Practice Guidelines, 2017). Thereference range is an Antigen minus Nil result of <0.35IU/mL.The specimen received for QuantiFERON testing was incubatedby the ordering institution. Specific procedures outlinedin our Directory of Services and in the package insert forthe QuantiFERON Gold (In Tube) test must be followed toenable for proper stimulation of cells for the productionof interferon gamma. Chemiluminescence immunoassaymethodologyPerformed at: [facility] [place] [id number] [place], [place] [id number] Director: Giancarlo Crowell PhD, Phone: [phone] SS-A IgG antibody assayOrder ed By: Edmundo Buenrostro on 12-28-2024 SS-A/Ro IgG Antibody TNP [facility] Comment on above: Test not performed SS-A/Ro IgG Antibody < 0.2 AI 0.0-0.9 [facility] Comment on above: Previous reported re sult: TNP AIEdited by: MONTRELL on 12/29/24:1308 AMENDED REPORT 12/29/24 1308 Anti-SS-A previously reported as: Test not performed SS-B IgG antibody assayOrder ed By: Edmundo Buenrostro on 12-28-2024 SS-B/La IgG Antibody TNP [facility] Comment on above: Test not performed SS-B/La IgG Antibody < 0.2 AI 0.0-0.9 [facility] Comment on above: Previous reported re sult: TNP AIEdited by: MONTRELL on 12/29/24:1308 AMENDED REPORT 12/29/24 1308 Anti-SS-B previously reported as: Test not performed Serum DNA double strand anti body assay (units/volume)Ordered By: Edmundo Buenrostro on 12-28-2024 DNA double strand Ab Qn (S) [IU]/mL 0-9 [facility] Comment on above: Negative <5 Equivoca l 5 - 9 Positive >9Performed at: [facility] [place] [id number] [place], [place] [id number] Director: Giancarlo Crowell PhD, Phone: [phone] Serum classic neutrophil cyt oplasmic antibody assay (units/volume)Ordered By: Edmundo Buenrostro on 12-28-2024 Neutrophil cytoplasmic Ab.classic Qn (S) <1:20 titer Neg:<1:20 [facility] Serum or plasma C reactive p rotein measurement (mass/volume)Ordered By: Edmundo Buenrostro on 12-28-2024 CRP [Mass/Vol] mg/L 0.0-3.0 [facility] Serum or plasma actin IgG an tibody assay (units/volume)Ordered By: Edmundo Buenrostro on 12-28-2024 Actin IgG Qn 5 Units 0- [facility] Comment on above: Negative 0 - 19 Weak positive 20 - 30 Moderate to strong positive >30 Actin Antibodies are found in 52-85% of patients with autoimmune hepatitis or chronic active hepatitis and in 22% of patients with primary biliary cirrhosis. Serum or plasma angiotensin converting enzyme measurement (enzymatic activity/volume)Ordered By: Edmundo Buenrostro on 12-28-2024 Angiotensin converting enzyme [Catalytic activity/Vol] 41 U/L 14-82 [facility] Serum or plasma cyclic citru llinated peptide IgG antibody assay (units/volume)Ordered By: Edmundo Josechapin on 12-28-2024 Cyclic citrullinated peptide IgG Qn 5 units 0- [facility] Comment on above: Negative <20 Weak po sitive 20 - 39 Moderate positive 40 - 59 Strong positive >59 Serum perinuclear neutrophil cytoplasmic antibody titer by immunofluorescenceOrdered By: Edmundo Buenrostro on 12-28-2024 Neutrophil cytoplasmic Ab.perinuclear IF (S) [Titer] <1:20 titer Neg:<1:20 [facility] Comment on above: The presence of posi tive fluorescence exhibiting P-ANCA orC-ANCA patterns alone is not specific for the diagnosis ofWegener's Granulomatosis (WG) or microscopic polyangiitis.Decisions about treatment should not be based solely onANCA IFA results. The International ANCA Group Consensusrecommends follow up testing of positive sera with both AL-3 and MPO-ANCA enzyme immunoassays. As many as 5% serumsamples are positive only by EIA. Ref. AM J Clin Opgmat9754;111:507-513. Chest PA and Lateralon 12-20 Chest PA and Lateral [facility] Imaging Services [address] [place], [place] [id number] Chest PA and Lateral MR#: [id number] Acct: [id number] Name: YOUNG AGARWAL Rep #: [id number] : 1955 F 69 From: Manuelito Iraheta MD PCP: Dr. Reagan Rosen MD Status: REG CLI Study: Chest PA and Lateral Date of Exam: 12/20/24 Exam# [id number] Ordering Dr: Clinton Bautista MD EXAM: XR Chest, 2 Views CLINICAL INDICATION: HEMOPTYSIS TECHNIQUE: Frontal and lateral views of the chest. COMPARISON: No relevant prior studies available. FINDINGS: LUNGS AND PLEURAL SPACES: Hyperlucent lungs. Flattening of the diaphragm. No consolidation. No pneumothorax. HEART: Unremarkable. No cardiomegaly. MEDIASTINUM: Unremarkable. Normal mediastinal contour. BONES/JOINTS: Unremarkable. No acute fracture. RAD/Chest PA and Lateral IMPRESSION: Suggestion of COPD. Reading [facility] CC: Dr. Clinton Bautista MD; Dr. Reagan Rosen MD Arch Support Technician: Signed Normal [facility] SCRN MAMM (CAD)W/EDITH BILATo n 09-13-2024 SCRN MAMM (CAD)W/EDITH BILAT [facility] Imaging Services [address] [place] [id number] SCRN MAMM (CAD)W/EDITH BILAT MR#: [id number] Acct: [id number] Name: YOUNG AGARWAL Rep #: [id number] : 1955 F 69 From: Matthew flannery MD PCP: Dr. Reagan Rosen MD Status: REG [facility] Study: SCRN MAMM (CAD)W/EDITH BILAT Date of Exam: 01/02 Exam# [id number] Ordering Dr: Rashmi Tapia RENDERER RENDERER -C [id number] MAMMOGRAPHY - BILATERAL SCREENING REASON FOR EXAM: Female, 69 years old. Routine annual screening examination. PERTINENT HISTORY: Sister with breast cancer. TECHNIQUE: Digital bilateral breast edith (3D mammographic acquisition) in the CC and MLO projections. 2-D mediolateral oblique (MLO) and craniocaudad (CC) views of both breasts were obtained. CAD: Full Field Digital Mammography with Computer Added Detection was performed. COMPARISON: Comparison is made with prior study July 22, 2023 and July 18, 2022. FINDINGS: Breast Composition: The breasts are heterogeneously dense, which may obscure small masses. There are no dominant masses or suspicious calcifications. Stable 5.1 mm well-defined nodule in the axillary region of the right breast suggestive of a small lymph node. No other significant abnormalities are identified. There has been no significant change since the prior study. BI/SCRN MAMM (CAD)W/EDITH BILAT IMPRESSION: Stable bilateral screening mammogram. Yearly follow-up mammogram recommended. (A) ASSESSMENT CATEGORY: BIRADS Category 2: Benign. A letter regarding these results will be sent to the patient by the facility within 30 days. Approximately 10% of breast cancers are not detected by mammography. A normal mammogram should not delay biopsy of a clinically suspicious abnormality. [id number] Electronically Signed: Matthew Crockett MD at 8:34 EST Reading Location ID and State: [facility] / [place] , Service support , CC: JACLYN Tapia; Dr. Reagan Rosen MD Arch Support Technician: Signed Normal [facility] Inital Evaluation (1) - PTon 06-09-2024 Inital Evaluation (1) - PT [facility] Physical Therapy Health[address] [place] [address] / REHABILITATION SERVICES INITIAL EVALUATION MR#: [id number] Acct: [id number] Name: YOUNG AGARWAL Rep #: [id number] : 1955 69 From: Ele Tovar PT, Cert. MDT Referring Dr.: Dr. Aisha Ignacio MD Status: REG RCR [facility] Patient's Visit Information Visit Information Visit Information: YOUNG AGARWAL is a 69 year old F referred to Physical Therapy by Dr. Aisha Ignacio MD with a diagnosis of PELVIC AND PERINEAL PAIN. Date of Evaluation: 06/01/24 Physical Therapist: Ele Tovar PT, Cert MDT Visit Plan Frequency: 1x/Week Duration: 2-4 Months Plan: PF THERAPY FOR STRENGTHENING, LENGTHENING/RELAXATION AND ENDURANCE TRAINING. URINARY URGE AND FREQUENCY EDUCATION. HEALTHY BLADDER HABIT EDUCATION. TRAINING IN COORDINATION OF PELVIC FLOOR MUSCULATURE WITH HIP AND CORE (TRANSVERSE ABDOMINUS) MUSCULATURE. CORE STRENGTHENING. SHILOH LE ROM, STRETCHING AND STRENGTHENING. TRAINING IN ABDOMINAL CAVITY PRESSURE MGMT WITH ADL'S. 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 Present symptoms: BLADDER AND UTERUS PROLAPSE. INTERMITTENT URINE LEAKAGE. INTERMITTENT URINARY URGENCY. PATIENT REPORTS SHE IS NOT HEAR FOR PAIN. SHE STATES SHE FEELS THE BULGING/PRESSURE IN THE VAGINAL AREA INTERMITTENLY BUT DENIES PAIN. Present since: NOTICED PROLAPSE ABOUT 3 YEARS AGO. Pain Scale: N/A Is it getting better, worse or staying the same: STAYING THE SAME. PATIENT REPORTS ON RECENT PHYSICIAN FOLLOW UP THE PROLAPSE IS STAYING THE SAME. Commenced as a result of: POSSIBLY LIFTING COFFEE CANS OF HEAVY QUARTERS - DIDN'T BEND KNEES AND HURT BACK/HIP/KNEE TOO. Worse: WALKING, STANDING, WAITING TOO LONG TO GO TO THE BATHROOM, MAKING THE BED, COMING UP THE BASEMENT STEPS. Better: SLR'S Disturbed sleep: GETTING UP 0-1 A NIGHT TO URINATE Previous history/Previous treatment: H/O A LOT OF UTI'S BUT HASN'T HAD ANY FOR ABOUT 4 YEARS. 1998 - ENDOMETRIAL ABLASION Treatment this episode: NONE Coughing/sneezing/straini ng: NOT NORMALLY UNLESS EXCESSIVE COUGHING WITH ILLNESS. Gait: NORMAL How long can you delay the need to urinate: 0-10 MINUTES Prolapse (Falling out feeling): YES Frequency of Urination: EVERY 1-2 HRS Ability to stop urine flow: YES Ability to initiate urine stream: YES Dyspareunia: N/A Bowel Incontinence: NO Accidents: NO Unexplained weight loss: NO Imaging: LUMBAR DDD PMH/Recent major surgery: CHRONIC BACK PAIN, R KNEE PAIN, SCOLIOSIS Objective Objective: Sitting/Standing Posture: ANTERIOR PELVIC TILT, SCOLIOSIS. Other Observations: INDEP GAIT AND TRANSFERS. Sensory deficit: SHILOH LE LIGHT TOUCH SENSATION GROSSLY INTACT AND SYMMETRICAL ROM deficit: SHILOH HIP TIGHTNESS ALL PLANES. SHILOH HS AND CALF TIGHTNESS. Motor deficit: R HIP 4-/5, KNEE 4-/5, ANKLE 5/5. L HIP 4/5, KNEE 4/5, ANKLE 5/5. PELVIC FLOOR STRENGTH 4/5 X 5 SEC X 5 WITH INTERNAL MANUAL VAGINAL TESTING. Dural Signs: NEGATIVE SHILOH LE'S. Lumbar mvmt loss: flex - NIL ext - LUZMA R SG - MOD L SG - MOD PATIENT DENIES PAIN WITH LUMBAR ROM TESTING Core strength: FAIR Palpation: NO TENDERNESS OF BACK, HIPS, PELVIC AREA INTERNALLY OR EXTERNALLY. FUNCTIONAL SCREEN: Incontinence Impact Questionnaire Score: 15 Urogenital Distress Inventory Score: 13 Goals Goal 1:: DECREASE URINARY LEAKAGE EPISODES TO ONE OR LESS PER DAY Goal Time Frame: 4-6 Weeks Goal 2:: PATIENT WILL SUCCESSFULLY DELAY VOIDING LONG NEEDED WHEN URGENCY OCCURS TO SUCCESSFULLY MAKE IT TO THE BATHROOM. Goal Time Frame: 6-8 Weeks Goal 3:: PATIENT WILL DEMONSTRATE/COMMUNICATE 10 CONSISTENT AND CONSECUTIVE 10 SECOND PELVIC FLOOR MUSCLE CONTRACTIONS TO DEMONSTRATE IMPROVED PELVIC FLOOR ENDURANCE. Goal Time Frame: 8-12 Weeks Goal 4:: DEVELOP HEALTHY FLUID INTAKE HABITS WITH FLUID INTAKE OF ??? BODY WEIGHT IN OUNCES PER DAY AND 2/3 BEING WATER. Goal Time Frame: 2-4 Weeks Goal 5:: NORMALIZE VOIDING FREQUENCEY TO EVERY 3-4 HOURS. Goal Time Frame: 4-6 Weeks Goal 6:: PATIENT WILL BE INDEP WITH A HEP/HOME INSTRUCTIONS FOR CONTINUED IMPROVEMENT ONCE FORMAL PHYSICAL THERAPY CONCLUDES. Goal Time Frame: 8-12 Weeks Rehabilitation Potential Physical Therapy Diagnosis: PELVIC FLOOR, CORE AND LE WEAKNESS. TRUNK AND LE STIFFNESS. SYMPTOMS OF PROLAPSE, INCREASED URINARY FREQUENCY AND URGE INCONTINENCE. Rehabilitation Potential: Good Anticipated Interventions Patient/Client Instruction: Educate patient on: Condition and Plan of Care For the Purpose of:: To improve self management Therapeutic Exercise to Include: Strength training, Endurance training, Postural training, Flexibilty training, Neuromotor development and Relaxation training For the Purpose of:: T (more content not included)... Normal [facility] Low Dose CT Lung Screeningon 05-23-[address] Lung Screening [facility] Imaging Services [address] [place] [id number] Lung Screening MR#: [id number] Acct: [id number] Name: YOUNG AGARWAL Rep #: [id number] : 1955 F 69 From: Matthew flannery MD PCP: Dr. Reagan Rosen MD Status: REG CLI Study: Low Dose CT Lung Screening Date of Exam: 05/23 Exam# [id number] Ordering Dr: Reagan Rosen MD [id number] STUDY: LOW DOSE CT LUNG CANCER SCREENING REASON FOR EXAM: Female, 69 years old. NICOTINE DEPENDENCE. Patient smoked 10 cigarettes per day for 30 years. RADIATION DOSAGE (If Supplied By Facility): CTDIvol = ( 3.02 ) mGy, DLP = ( 114.75 ) mGycm TECHNIQUE: No contrast was administered. Low dose technique was utilized (average mAS-38 and kVp 120). 1.25 mm axial source images with a slice interval of 1.25-mm were reconstructed in lung windows. 2.5 mm axial source images with a slice interval of 2.5-mm were reconstructed in lung windows. 5.0 mm axial source images with a slice interval of 5.0-mm were reconstructed in soft tissue windows. COMPARISON: Comparison is made with prior study dated November 06, 2022. NODULES: No suspicious nodules seen. Emphysema: Stable scarring at the lung apices. Stable emphysematous changes. Stable focal bronchiectasis and scarring in the posterior aspect of the right upper lobe as seen on axial image #104. Stable scarring in the right middle lobe with a focal bronchiectasis. Stable mild scarring in the left lower lobe. Endobronchial lesion: None Aorta: Atherosclerotic plaque formation of the aortic arch. CORONARY ARTERIES: Coronary artery calcification is seen. Heart: Unremarkable Pulmonary artery: Unremarkable Mediastinal nodes: Small benign-appearing mediastinal lymph nodes. Other chest and abdominal findings: CT/Low Dose CT Lung Screening IMPRESSION: Lung-RADS category 2 - Continue annual screening with LDCT in 12 months. IMPORTANT NOTES FOR USE: ACR Lung-RADS Version 1.1 Assessment Categories Release Date: 2018 Category: Coded 0-4 bases on nodule(s) with highest degree of suspicion. Negative screen is defined as categories 1 and 2; a positive screen is defined as categories 3 and 4. Category 3 and 4A nodules that are unchanged on interval CT should be coded as category 2, and individuals returned to screening in 12 months. Category 4X: Category 3 or 4 nodules with additional imaging findings that increase the suspicion of lung cancer, such as spiculation, GGN that doubles in size in 1 year, enlarged lymph notes, etc. Category Modifiers: S (significant finding unrelated to lung cancer) Electronically Signed: Matthew Crockett MD at 10:09 EDT , CC: Dr. Reagan Rosen MD Arch Support Technician: Signed Normal [facility] Basic Metabolic Profile (BMP )on 05-02-2024 BUN/CRE 26.0 RATIO High 10-20 [facility] Comment on above: Performed By: #### L 501.9520, L500.4100, L500.2500 #### [facility] Laboratory [address] [place], [address] CA,Total 9.4 mg/dL Normal 8.5-10.1 [facility] Comment on above: Performed By: #### L 501.9520, L500.4100, L500.2500 #### [facility] Laboratory [address] [place], [address] Chloride [Moles/Vol] 107 mmol/L Normal 98-107 [facility] Comment on above: Performed By: #### L 501.9520, L500.4100, L500.2500 #### [facility] Laboratory [address] [place], [address] CO2 [Moles/Vol] 26.0 mmol/L Normal 21.0-32.0 [facility] Comment on above: Performed By: #### L 501.9520, L500.4100, L500.2500 #### [facility] Laboratory [address] [place], [address] Creatinine [Mass/Vol] 0.77 mg/dL Normal 0.55-1.02 [facility] Comment on above: Result Comment: The validity of the calculated GFR GFRAA in patients over 70 years has not been determined. Clinical correlation is essential. Performed By: #### L 501.9520, L500.4100, L500.2500 #### [facility] [address] [place], [address] EST GFR - AA 96 mL/min Normal >60 [facility] Comment on above: Result Comment: Afri can Greek GFR Calc Performed By: #### L 501.9520, L500.4100, L500.2500 #### [facility] Laboratory [address] [place], [address] GAP 7 Normal 5-15 [facility] Comment on above: Performed By: #### L 501.9520, L500.4100, L500.2500 #### [facility] Laboratory [address] [place], [address] GFR/1.73 sq M.predicted among non-blacks MDRD (S/P/Bld) [Vol rate/Area] 79 mL/min/{1.73_m2} Normal >60 [facility] Comment on above: Result Comment: Non- GFR Calc Performed By: #### L 501.9520, L500.4100, L500.2500 #### [facility] Laboratory [address] [place], [address] Glucose [Mass/Vol] 98 mg/dL Normal 74-106 [facility] Comment on above: Performed By: #### L 501.9520, L500.4100, L500.2500 #### [facility] Laboratory [address] [place], [address] Potassium [Moles/Vol] 3.9 mmol/L Normal 3.5-5.1 [facility] Comment on above: Performed By: #### L 501.9520, L500.4100, L500.2500 #### [facility] Laboratory [address] [place], [address] Sodium [Moles/Vol] 140 mmol/L Normal 136-145 [facility] Comment on above: Performed By: #### L 501.9520, L500.4100, L500.2500 #### [facility] [address] [place], [address] Urea nitrogen [Mass/Vol] 20 mg/dL High 7-18 [facility] Comment on above: Performed By: #### L 501.9520, L500.4100, L500.2500 #### [facility] Laboratory [address] [place], [address] Lipid Profileon 05-02-2024 Cholesterol [Mass/Vol] 165 mg/dL Normal 200 [facility] Comment on above: Result Comment: <200 mg/dL Desirable 200-240 mg/dL Borderline >240 mg/dL High Risk Performed By: #### L 501.9520, L500.4100, L500.2500 #### [facility] Laboratory [address] [place], [address] Cholesterol in HDL [Mass/Vol] 64 mg/dL Normal [facility] Comment on above: Result Comment: The drugs N-Acetylcysteine and Metamizole may falsely depress this assay. Reference Range HDL <40 mg/dL Low HDL Cholesterol HDL >or= 60 mg/dL High HDL Cholesterol Performed By: #### L 501.9520, L500.4100, L500.2500 #### [facility] Laboratory [address] [place], [address] Cholesterol in LDL [Mass/Vol] 84 mg/dL Normal 0-130 [facility] Comment on above: Performed By: #### L 501.9520, L500.4100, L500.2500 #### [facility] Laboratory [address] [place], [address] Cholesterol in VLDL [Mass/Vol] 17 mg/dL Normal 5-40 [facility] Comment on above: Performed By: #### L 501.9520, L500.4100, L500.2500 #### [facility] Laboratory [address] [place], [address] Triglyceride [Mass/Vol] 83 mg/dL Normal [facility] Comment on above: Result Comment: The drugs N-Acetylcysteine and Metamizole may falsely depress this assay. Serum Triglycerides Reference Interval Normal <150 mg/dL Borderline high 150 - 199 mg/dL High 200 - 499 mg/dL Very High > or = 500 mg/dL Performed By: #### L 501.9520, L500.4100, L500.2500 #### [facility] Laboratory [address] [place], [address] Thyroid Stim Hormone (TSH)on 05-02-2024 TSH 1.76 uIU/mL Normal 0.358-3.74 [facility] Comment on above: Performed By: #### L 501.9520, L500.4100, L500.2500 #### [facility] Laboratory [address] [place], [address] US ANKLE LTon 06-23-2023 US ANKLE LT * * *Final Report* * * DATE OF EXAM: Jun 23 2023 1:14PM AFU 1139 - US ANKLE LT / PROCEDURE REASON: [id number] * * * * Physician Interpretation * * * * MSK_US LEFT ACHILLES ULTRASOUND CLINICAL INFORMATION: Painful lump left Achilles. TECHNIQUE: Petty-scale real-time ultrasound of the Achilles with dynamic imaging and power Doppler examination was performed. Images were saved to the permanent image archive. [id number]. COMPARISON: None FINDINGS: ACHILLES TENDON: Tendinosis: Mild focal tendinosis at the area of swelling. - Tearing:None. Power Doppler: Minimal. Bony Attachment: No hypertrophic changes. RETROCALCANEAL BURSA: No abnormal fluid. Normal Doppler imaging. POSTERIOR ANKLE JOINT: No joint effusion or synovitis. CALF MUSCLES: No abnormality of the gastrocnemius or soleus muscles seen. Limited evaluation of the flexor hallucis muscle is unremarkable. KAGER'S FAT PAD: No abnormal fluid. Normal Doppler imaging. Normal dynamic exam of the Kager's fat. PLANTARIS TENDON: Intact. IMPRESSION: MILD FOCAL ACHILLES TENDINOSIS AT THE AREA OF THE PATIENT'S SWELLING. Arch Support Technician: BANDAR Transcribe Date/Time: Jun 23 2023 1:15P Dictated by : ARTIE HERNÁNDEZ MD This examination was interpreted and the report reviewed and electronically signed by: ARTIE HERNÁNDEZ MD on Jun 23 2023 1:18PM EST [id number] Normal [facility] 06-04-2023 CNPN Telephone (RULTTB) ----- YOUNG AGARWAL ([id number]) 1955 F Date Time Provider Department 06/04/23 STEPHEN ELLIS RULTTB During your visit today, we recorded the following information about you: Stephen Ellis 06/04/2023 11:35 AM Signed Visit Type: ANY MSK Visit Length: 45, 50 OR 60 MINUTES Order Name/Protocol: PLEASE HAVE PT SIGN AUTH OF RELEASE FORM. US ANKLE LT; ACHILLES-EVAL FOR BENIGN SOFT TISSUE MASS VS POSSIBLE OLD TENDON TEAR/STRAIN/SPRAIN. OUTSIDE ORDER SCANNED INTO CHART/BUILT IN [place]. Preferred Provider: N/A Comment: Please ask if the patient has ever had any prior surgery to their LT ANKLE. If so, upgrade the visit type to an MSK1 and notate the surgical hx in the Appointment Note. Also, ask the patient what the size of their mass is and notate the response in the Appointment Note. Location: Depending on the surgical hx, this patient can have this exam performed at any of our three locations. Slot held: N/A Ty Ray 06/04/2023 11:59 AM Signed Pt is scheduled for their MSK US on 06/23 at [place]. Allergies As of Date: 06/04/2023 Noted Allergy Reaction BIAXIN (CLARITHROMYCIN) 05/26/2007 Comments: heart pounding CIPROFLOXACIN 10/20/2014 9 - Itching KEFLEX (CEPHALEXIN) 12/19/2015 9 - Itching MACROBID (NITROFURANTOIN MONOHYD/*08/30/2013 9 - Itching MACRODANTIN (NITROFURANTOIN MACRO*04/27/2018 16 - Unknown SULFA (SULFONAMIDE ANTIBIOTICS) 04/06/2007 Date Reviewed: 09/27/2021 Reviewed by: Sue Pillai PA-C - Fully Assessed Reason for Visit: Appointment [186] Prescriptions as of 06/04/2023 - rosuvastatin (CRESTOR) 5 mg tablet Take 5 mg by mouth once daily. - glucosamine/chondro garcia A (COSAMIN DS ORAL) Take by mouth. - phenazopyridine (PYRIDIUM, GERIDIUM) 200 mg tablet Take 200 mg by mouth three times daily. - trimethoprim (PROLOPRIM) 100 mg tablet Take 100 mg by mouth twice daily. - CALCIUM CITRATE/VITAMIN D3 (CALCIUM CITRATE + D ORAL) Take 1 Each by mouth once daily. - metoprolol tartrate(LOPRESSOR 50 MG TAB) Take one(1) tablet twice daily. - MULTIVITAMIN TAB Take one(1) tablet daily. - ascorbic acid(VITAMIN C 500 MG TAB) Take one(1) tablet daily. 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 US ANKLE LT; ACHILLES-EVAL FOR BENIGN SOFT TISSUE MASS VS POSSIBLE OLD TENDON TEAR/STRAIN/SPRAIN. OUTSIDE ORDER SCANNED INTO CHART/BUILT IN [place]. Preferred Provider: N/A Comment: Please ask if the patient has ever had any prior surgery to their LT ANKLE. If so, upgrade the visit type to an MSK1 and notate the surgical hx in the Appointment Note. Also, ask the patient what the size of their mass is and notate the response in the Appointment Note. Location: Depending on the surgical hx, this patient can have this exam performed at any of our three locations. Slot held: N/A Stephen Ellis 05/28/2023 12:40 PM Signed Called patient on 05/28/23 at 12:40 pm to schedule their MSK US exam. No answer, left VM, 1st attempt. Stephen Ellis 05/29/2023 11:05 AM Signed Called patient on 05/29/23 at 11:05 am to schedule their MSK US exam. No answer, left VM, 2nd attempt. Stephen Ellis 06/01/2023 9:15 AM Signed Called patient on 06/01/23 at 9:14 am to schedule their MSK US exam. PT indicated she was already scheduled at [facility] and no longer needs an appointment. Allergies As of Date: 05/28/2023 Noted Allergy Reaction BIAXIN (CLARITHROMYCIN) 05/26/2007 Comments: heart pounding CIPROFLOXACIN 10/20/2014 9 - Itching KEFLEX (CEPHALEXIN) 12/19/2015 9 - Itching MACROBID (NITROFURANTOIN MONOHYD/*08/30/2013 9 - Itching MACRODANTIN (NITROFURANTOIN MACRO*04/27/2018 16 - Unknown SULFA (SULFONAMIDE ANTIBIOTICS) 04/06/2007 Date Reviewed: 09/27/2021 Reviewed by: Sue Pillai PA-C - Fully Assessed Reason for Visit: Appointment [[id number]] Prescriptions as of 06/01/2023 - rosuvastatin (CRESTOR) 5 mg tablet Take 5 mg by mouth once daily. - glucosamine/chondro garcia A (COSAMIN DS ORAL) Take by mouth. - phenazopyridine (PYRIDIUM, GERIDIUM) 200 mg tablet Take 200 mg by mouth three times daily. - trimethoprim (PROLOPRIM) 100 mg tablet Take 100 mg by mouth twice daily. - CALCIUM CITRATE/VITAMIN D3 (CALCIUM CITRATE + D ORAL) Take 1 Each by mouth once daily. - metoprolol tartrate(LOPRESSOR 50 MG TAB) Take one(1) tablet twice daily. - MULTIVITAMIN TAB Take one(1) tablet daily. - ascorbic acid(VITAMIN C 500 MG TAB) Take one(1) tablet daily. 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 Rosen on 01-01-2023 Chloride [Moles/Vol] 105 mmol/L 98-107 [facility] Cholesterol [Mass/Vol] 151 mg/dL <200 [facility] Comment on above: <200 mg/dL Desirable 200-240 mg/dL Borderline >240 mg/dL High Risk Glucose [Mass/Vol] 102 mg/dL 74-106 [facility] Comment on above: Fasting Glucose resu lt from 100 to 125 mg/dL suggests IMPAIRED HOMEOSTASIS per A.D.A. criteria. Potassium [Moles/Vol] 4.0 mmol/L 3.5-5.1 [facility] Sodium [Moles/Vol] 141 mmol/L 136-145 [facility] Triglyceride [Mass/Vol] 81 mg/dL <199 [facility] Comment on above: The drugs N-Acetylcy steine and Metamizole may falsely depress this assay.Serum Triglycerides Reference Interval Normal <150 mg/dL Borderline high 150 - 199 mg/dL High 200 - 499 mg/dL Very High > or = 500 mg/dL Laboratory - Chemistry and C hemistry - challengeOrdered By: Dr. Rosen on 01-01-2023 CO2 [Moles/Vol] 30.0 mmol/L 21.0-32.0 [facility] Urea nitrogen/Creatinine [Mass ratio] 25.9 mg/mg 10-20 [facility] No Panel InformationOrdered By: Dr. Rosen on 01-01-2023 Estimated GFR (MDRD) Amer 108 mL/min >60 [facility] Comment on above: GFR Calc Estimated GFR (MDRD) Non-Af Amer 89 mL/min >60 [facility] Comment on above: Non- GFR Calc Vitamin D 25-Hydroxy 34.2 ng/mL [facility] Comment on above: Vitamin D 25(OH) Sta tus Range Deficiency <20 ng/mL (50nmol/L) Insufficiency 20 - 30 ng/mL (50 - 75 nmol/L) Sufficiency 30 - 100 ng/mL (75 - 250 nmol/L) Toxicity >100 ng/mL (>250 nmol/L) Serum or plasma calcium kelsey urement (mass/volume)Ordered By: Dr. Rosen on 01-01-2023 Calcium [Mass/Vol] 9.4 mg/dL 8.5-10.1 [facility] Serum or plasma cholesterol in HDL measurement (mass/volume)Ordered By: Dr. Rosen on 01-01-2023 Cholesterol in HDL [Mass/Vol] 56 mg/dL >40 [facility] Comment on above: The drugs N-Acetylcy steine and Metamizole may falsely depress this assay. Reference Range HDL <40 mg/dL Low HDL Cholesterol HDL >or= 60 mg/dL High HDL Cholesterol Serum or plasma cholesterol in VLDL measurement (mass/volume)Ordered By: Dr. Rosen on 01-01-2023 Cholesterol in VLDL [Mass/Vol] 16 mg/dL 5-40 [facility] Serum or plasma creatinine m easurement (mass/volume)Ordered By: Dr. Rosen on 01-01-2023 Creatinine [Mass/Vol] 0.69 mg/dL 0.55-1.02 [facility] Comment on above: The validity of the calculated GFR & GFRAA in patients over 70 years has not been determined. Clinical correlation is essential. Serum or plasma low density lipoprotein (LDL) cholesterol measurement (mass/volume)Ordered By: Dr. Rosen on 01-01-2023 Cholesterol in LDL [Mass/Vol] 79 mg/dL 0-130 [facility] Serum or plasma urea nitroge n measurement (mass/volume)Ordered By: Dr. Rosen on 01-01-2023 Urea nitrogen [Mass/Vol] 18 mg/dL 7-18 [facility] Thin prep Papanicolaou smear with manual screeningOrdered By: Dr. Rosen on 01-01-2023 Thin prep Papanicolaou smear with manual screening 6 5-15 [facility] Absolute lymphocyte counton 07-14-2022 Lymphocytes Auto (Unsp spec) [#/Vol] 2.44 10*3/uL 0.83-4.51 [facility] Work Phone: Basophil percentageon 2021 Basophil percentage < 0.9 mg/dL 0.55-1.02 [facility] Work Phone: Basophils/100 WBC (Bld) 0.5 % 0-1 [facility] Work Phone: Bilirubin [Mass/Vol] 0.60 mg/dL 0.20-1.00 [facility] Work Phone: Comment on above: For patients on eltr ombopag therapy, use of Dimension [place] TBIL is not recommended. Chloride [Moles/Vol] 104 mmol/L 98-107 [facility] Work Phone: Eosinophils/100 WBC (Bld) 5.3 % 0-5 [facility] Work Phone: Glucose [Mass/Vol] 74 mg/dL 74-106 [facility] Work Phone: Neutrophils (Bld) [#/Vol] 2.5 10*3/uL 2.0-7.7 [facility] Work Phone: Neutrophils/100 WBC (Bld) 43.0 % 47-70 [facility] Work Phone: Potassium [Moles/Vol] 3.8 mmol/L 3.5-5.1 [facility] Work Phone: Protein [Mass/Vol] 7.2 g/dL 6.4-8.2 [facility] Work Phone: Sodium [Moles/Vol] 142 mmol/L 136-145 [facility] Work Phone: [phone] WBC (Bld) [#/Vol] 5.8 10*3/uL 4.4-11.0 [facility] Work Phone: Blood erythrocytes count (nu mber/volume)on 07-14-2022 RBC (Bld) [#/Vol] 4.48 10*6/uL 4.2-5.4 [facility] Work Phone: Blood hemoglobin measurement (mass/volume)on 07-14-2022 Hemoglobin (Bld) [Mass/Vol] 13.5 g/dL 12.0-15.0 [facility] Work Phone: Blood lymphocytes/100 leukoc yteson 07-14-2022 Lymphocytes/100 WBC (Bld) 41.9 % 19-41 [facility] Work Phone: Blood monocytes/100 leukocyt eson 07-14-2022 Monocytes/100 WBC (Bld) 9.1 % 0-10 [facility] Work Phone: Blood platelet mean volumeon 07-14-2022 Platelet mean volume (Bld) [Entitic vol] 9.4 fL 6.2-12.0 [facility] Work Phone: [phone] Determination of erythrocyte mean corpuscular volume (MCV)on 07-14-2022 MCV (RBC) [Entitic vol] 94.6 fL 81-99 [facility] Work Phone: Hematocrit Auto (Bld) [Volum e fraction]on 07-14-2022 Hematocrit (Bld) [Volume fraction] 42.4 % 37-47 [facility] Work Phone: [phone] Laboratory - Chemistry and C hemistry - challengeon 07-14-2022 ALP [Catalytic activity/Vol] 73 U/L 45-117 [facility] Work Phone: ALT [Catalytic activity/Vol] 31 U/L 13-56 [facility] Work Phone: [phone] CO2 [Moles/Vol] 32.0 mmol/L 21.0-32.0 [facility] Work Phone: [phone] Globulin (S) [Mass/Vol] 3.5 g/dL 2.2-4.2 [facility] Work Phone: [phone] Lipase [Catalytic activity/Vol] 185 U/L 73-393 [facility] Work Phone: [phone] Urea nitrogen/Creatinine [Mass ratio] 17.8 mg/mg 10-20 [facility] Work Phone: [phone] Laboratory - Hematology and Cell countson 07-14-2022 Erythrocyte distribution width (RBC) [Entitic vol] 48.0 fL 35.1-43.9 [facility] Work Phone: [phone] Erythrocyte distribution width (RBC) [Ratio] 13.8 % 11.6-14.6 [facility] Work Phone: [phone] Immature granulocytes/100 WBC (Bld) 0.200 % 0.0-0.9 [facility] Work Phone: [phone] Comment on above: IG% - Immature Granu locytes (promyelocytes, myelocytes and metamyelocytes) > 1% indicates that a LEFT SHIFT is Present. MCH (RBC) [Entitic mass] 30.1 pg 27.0-32.0 [facility] Work Phone: [phone] Nucleated RBC/100 WBC (Bld) [Ratio] 0 % 0-5 [facility] Work Phone: [phone] MCHC Auto (RBC) [Mass/Vol]on 07-14-2022 MCHC (RBC) [Mass/Vol] 31.8 g/dL 32-36 [facility] Work Phone: [phone] No Panel Informationon 07-14 Bedside Estimated GFR (eGFR) > 60.0000 mL/min >60 [facility] Work Phone: [phone] Estimated GFR (MDRD) Amer 102 mL/min >60 [facility] Work Phone: Comment on above: GFR Calc Estimated GFR (MDRD) Non-Af Amer 85 mL/min >60 [facility] Work Phone: Comment on above: Non- GFR Calc Platelets bldon 07-14-2022 Platelets (Bld) [#/Vol] 314 10*3/uL 150-450 [facility] Work Phone: Serum or plasma albumin kelsey urement (mass/volume)on 07-14-2022 Albumin [Mass/Vol] 3.7 g/dL 3.2-5.0 [facility] Work Phone: Serum or plasma albumin/glob ulin mass ratioon 07-14-2022 Albumin/Globulin [Mass ratio] 1.1 {ratio} 0.9-2.4 [facility] Work Phone: Serum or plasma calcium kelsey urement (mass/volume)on 07-14-2022 Calcium [Mass/Vol] 9.9 mg/dL 8.5-10.1 [facility] Work Phone: Serum or plasma creatinine m easurement (mass/volume)on 07-14-2022 Creatinine [Mass/Vol] 0.73 mg/dL 0.55-1.02 [facility] Work Phone: Comment on above: The validity of the calculated GFR & GFRAA in patients over 70 years has not been determined. Clinical correlation is essential. Serum or plasma urea nitroge n measurement (mass/volume)on 07-14-2022 Urea nitrogen [Mass/Vol] 13 mg/dL 7-18 [facility] Work Phone: Thin prep Papanicolaou smear with manual screeningon 07-14-2022 Thin prep Papanicolaou smear with manual screening 19 U/L 15-37 [facility] Work Phone: Thin prep Papanicolaou smear with manual screening 6 5-15 [facility] Work Phone: Basophil percentageon 2021 Chloride [Moles/Vol] 106 mmol/L 98-107 [facility] Work Phone: Cholesterol [Mass/Vol] 156 mg/dL <200 [facility] Work Phone: Comment on above: <200 mg/dL Desirable 200-240 mg/dL Borderline >240 mg/dL High Risk Glucose [Mass/Vol] 89 mg/dL 74-106 [facility] Work Phone: Potassium [Moles/Vol] 4.2 mmol/L 3.5-5.1 [facility] Work Phone: Sodium [Moles/Vol] 141 mmol/L 136-145 [facility] Work Phone: Triglyceride [Mass/Vol] 71 mg/dL [facility] Work Phone: Comment on above: The drugs N-Acetylcy steine and Metamizole may falsely depress this assay.Serum Triglycerides Reference Interval Normal <150 mg/dL Borderline high 150 - 199 mg/dL High 200 - 499 mg/dL Very High > or = 500 mg/dL Laboratory - Chemistry and C hemistry - challengeon 12-26-2021 CO2 [Moles/Vol] 30.0 mmol/L 21.0-32.0 [facility] Work Phone: Urea nitrogen/Creatinine [Mass ratio] 20.5 mg/mg 10-20 [facility] Work Phone: No Panel Informationon 12-26 Estimated GFR (MDRD) Amer 102 mL/min >60 [facility] Work Phone: Comment on above: GFR Calc Estimated GFR (MDRD) Non-Af Amer 85 mL/min >60 [facility] Work Phone: Comment on above: Non- GFR Calc Thyroid Stimulating Hormone (TSH) 1.57 uIU/mL 0.358-3.74 [facility] Work Phone: Vitamin D 25-Hydroxy 33.8 ng/mL [facility] Work Phone: Comment on above: Vitamin D 25(OH) Sta tus Range Deficiency <20 ng/mL (50nmol/L) Insufficiency 20 - 30 ng/mL (50 - 75 nmol/L) Sufficiency 30 - 100 ng/mL (75 - 250 nmol/L) Toxicity >100 ng/mL (>250 nmol/L) Serum or plasma calcium kelsey urement (mass/volume)on 12-26-2021 Calcium [Mass/Vol] 9.6 mg/dL 8.5-10.1 [facility] Work Phone: Serum or plasma cholesterol in HDL measurement (mass/volume)on 12-26-2021 Cholesterol in HDL [Mass/Vol] 59 mg/dL [facility] Work Phone: Comment on above: The drugs N-Acetylcy steine and Metamizole may falsely depress this assay. Reference Range HDL <40 mg/dL Low HDL Cholesterol HDL >or= 60 mg/dL High HDL Cholesterol Serum or plasma cholesterol in VLDL measurement (mass/volume)on 12-26-2021 Cholesterol in VLDL [Mass/Vol] 14 mg/dL 5-40 [facility] Work Phone: Serum or plasma creatinine m easurement (mass/volume)on 12-26-2021 Creatinine [Mass/Vol] 0.73 mg/dL 0.55-1.02 [facility] Work Phone: Comment on above: The validity of the calculated GFR & GFRAA in patients over 70 years has not been determined. Clinical correlation is essential. Serum or plasma low density lipoprotein (LDL) cholesterol measurement (mass/volume)on 12-26-2021 Cholesterol in LDL [Mass/Vol] 83 mg/dL 0-130 [facility] Work Phone: Serum or plasma urea nitroge n measurement (mass/volume)on 12-26-2021 Urea nitrogen [Mass/Vol] 15 mg/dL 7-18 [facility] Work Phone: Thin prep Papanicolaou smear with manual screeningon 12-26-2021 Thin prep Papanicolaou smear with manual screening 5 5-15 [facility] Work Phone: Vital Signs Date Time Vital Sign Value Performing Clinician Val sharma 02-20-2025 09:07-0400 Body height 172.[address] Clinton Bautista MD Work Phone: [facility] 02-20-2025 09:07-0400 Body mass index (BMI) [Ratio] 27 kg/m2 Dr. Clinton Bautista MD Work Phone: [facility] 02-20-2025 09:07-0400 Body weight 80.[address] Clinton Bautista MD Work Phone: [facility] 02-20-2025 09:07-0400 Diastolic blood pressure 75 mm[Hg] Dr. Clinton Bautista MD Work Phone: [facility] 02-20-2025 09:07-0400 Heart rate 58 /min Dr. Clinton Bautista MD Work Phone: [facility] 02-20-2025 09:07-0400 Respiratory rate 17 /min Dr. Clinton Bautista MD Work Phone: [facility] 02-20-2025 09:07-0400 SaO2% (BldA) [Mass fraction] 97 % Dr. Clinton Bautista MD Work Phone: [facility] 02-20-2025 09:07-0400 Systolic blood pressure 127 mm[Hg] Dr. Clinton Bautista MD Work Phone: [facility] 01-27-2023 09:52-0400 Body height 172.[address] Reagan Rosen Work Phone: [facility] 01-13-2023 10:23-0400 Body mass index (BMI) [Ratio] 26.6 kg/m2 Dr. Reagan Rosen Work Phone: [facility] 01-13-2023 10:23-0400 Body weight 79.[address] Reagan Rosen Work Phone: [facility] 01-13-2023 10:23-0400 Diastolic blood pressure 73 mm[Hg] Dr. Reagan Rosen Work Phone: [facility] 01-13-2023 10:23-0400 Systolic blood pressure 111 mm[Hg] Dr. Reagan Rosen Work Phone: [facility] 12-17-2022 13:40-0500 Body height 173.[address] Reagan Rosen Work Phone: [facility] 12-17-2022 13:40-0500 Body mass index (BMI) [Ratio] 26 kg/m2 Dr. Reagan Rosen Work Phone: [facility] 12-17-2022 13:40-0500 Body weight 78.[address] Reagan Rosen Work Phone: [facility] 12-17-2022 13:40-0500 Diastolic blood pressure 68 mm[Hg] Dr. Reagan Rosen Work Phone: [facility] 12-17-2022 13:40-0500 Heart rate 52 /min Dr. Reagan Rosen Work Phone: [facility] 12-17-2022 13:40-0500 Respiratory rate 16 /min Dr. Reagan Rosen Work Phone: [facility] 12-17-2022 13:40-0500 Systolic blood pressure 148 mm[Hg] Dr. Reagan Rosen Work Phone: [facility] 11-08-2021 13:54-0500 Body height 173.[address] Reagan Rosen Work Phone: [facility] Work Phone: 11-08-2021 13:54-0500 Body mass index (BMI) [Ratio] 26.9 kg/m2 Dr. Reagan Rosen Work Phone: [facility] Work Phone: 11-08-2021 13:54-0500 Body weight 81.[address] Reagan Rosen Work Phone: [facility] Work Phone: 11-08-2021 13:54-0500 Diastolic blood pressure 84 mm[Hg] Dr. Reagan Rosen Work Phone: [facility] Work Phone: 11-08-2021 13:54-0500 Heart rate 60 /min Dr. Reagan Rosen Work Phone: [facility] Work Phone: 11-08-2021 13:54-0500 Respiratory rate 16 /min Dr. Reagan Rosen Work Phone: [facility] Work Phone: 11-08-2021 13:54-0500 Systolic blood pressure 156 mm[Hg] Dr. Reagan Rosen Work Phone: [facility] Work Phone: Encounters Encounter Date Encounter Type Care Provider Facility Start: 05-03-2025 ambulatory Reagan Rosen Facility:[facility] Start: 05-02-2025 ambulatory Reagan Rosen Facility:[facility] Start: 04-25-2025 End: 04-25-[address] Reagan Rosen MD -Laboratory [facility] Start: 04-25-2025 End: 04-25-2025 ambulatory Reagan Rosen Facility:[facility] Start: 03-30-2025 End: 03-30-[address] Clinton Bautista MD Work Phone: -Cardiovascular Services Start: 03-30-2025 End: 03-30-[address] Reagan Rosen MD -Cardiovascular Services Work Phone: Start: 03-30-2025 End: 03-30-2025 ambulatory Reagan Rosen Facility:[facility] Start: 02-20-2025 End: 02-20-[address] Clinton Bautista MD Work Phone: [facility] Work Phone: Start: 02-20-2025 End: 02-20-[address] [facility] Start: 02-20-2025 End: 02-20-[address] Mendez South MD -[facility] Work Phone: Start: 02-20-2025 End: 02-20-2025 ambulatory Reagan Rosen Facility:[facility] Start: 02-20-2025 End: 02-20-2025 ambulatory Mendez South Facility:[facility] Start: 02-16-2025 End: 02-16-[address] Clinton Bautista MD Work Phone: [facility] Work Phone: Start: 02-16-2025 End: 02-16-[address] Mendez South MD -Ultrasound, [facility] Work Phone: Start: 02-16-2025 End: 02-16-2025 ambulatory Mendez South Facility:[facility] Start: 02-04-2025 End: 02-04-[address] Reagan Rosen MD -Ultrasound, [facility] Work Phone: Start: 02-04-2025 End: 02-04-2025 ambulatory Reagan Rosen Facility:[facility] Start: 12-30-2024 End: 12-30-[address] Reagan Rosen MD Work Phone: [facility] Work Phone: Start: 12-30-2024 End: 12-30-[address] Edmundo Buenrostro MD -Laboratory Work Phone: Start: 12-29-2024 End: 12-30-[address] Reagan Rosen MD Work Phone: [facility] Work Phone: Start: 12-29-2024 End: 12-29-[address] Edmundo Buenrostro MD -Laboratory Work Phone: Start: 12-28-2024 End: 12-29-[address] Reagan Rosen MD Work Phone: [facility] Work Phone: Start: 12-28-2024 End: 12-28-[address] Edmundo Buenrostro MD -Laboratory Work Phone: Start: 12-28-2024 End: 12-28-2024 ambulatory Edmundo Buenrostro Facility:[facility] Start: 12-20-2024 End: 12-20-[address] Reagan Rosen MD Work Phone: [facility] Work Phone: Start: 12-20-2024 End: 12-20-[address] Clinton Bautista MD -Radiology, [place] Work Phone: Start: 12-20-2024 End: 12-20-2024 ambulatory Clinton Bautista Facility:[facility] Start: 09-13-2024 End: 09-13-2024 Patient encounter procedure Rashmi Tapia NP-[facility] -Outpatient Breast Imaging Work Phone: Start: 09-13-2024 End: 09-13-2024 ambulatory Rashmi Regina Facility:[facility] Start: 07-07-2024 End: 07-07-2024 ambulatory Aisha Ignacio Facility:[facility] Start: 05-23-2024 End: 05-23-2024 ambulatory Reagan Rosen Facility:[facility] Start: 05-02-2024 End: 05-02-2024 ambulatory Reagan Rosen Facility:[facility] Start: 07-22-2023 End: 07-22-2023 ambulatory [facility] Work Phone: Start: 07-22-2023 End: 07-22-2023 Patient encounter procedure [facility]-Outpatient Breast Imaging Work Phone: Start: 06-23-2023 End: 06-23-2023 ambulatory REAGAN ROSEN Facility:[facility] Start: 01-27-2023 End: 01-27-[address] Reagan Rosen Work Phone: [facility] Work Phone: Start: 01-27-2023 End: 01-27-[address] Reagan Rosen Work Phone: [facility]-Outpatient Bone Densitometry Start: 01-13-2023 End: 01-13-[address] Reagan Rosen Work Phone: [facility] Start: 01-01-2023 End: 01-01-[address] Reagan Rosen Work Phone: [facility] Work Phone: Start: 01-01-2023 End: 01-01-[address] Reagan Rosen Work Phone: [facility] Start: 12-17-2022 End: 12-17-[address] Reagan Rosen Work Phone: [facility] Start: 11-26-[address] Reagan Rosen Work Phone: [facility] Start: 11-19-2022 Registered Recurring [facility] Start: 11-06-2022 End: 11-06-2022 ambulatory [facility] Work Phone: Start: 11-06-2022 End: 11-06-2022 Patient encounter procedure [facility], [facility] Start: 09-22-2022 End: 09-22-2022 ambulatory [facility] Work Phone: Start: 09-22-2022 End: 09-22-2022 Patient encounter procedure [facility] Start: 07-18-2022 End: 07-18-2022 ambulatory [facility] Work Phone: Start: 07-18-2022 End: 07-18-2022 Patient encounter procedure [facility]Outpatient [facility] Start: 07-14-2022 End: 07-14-2022 ambulatory [facility] Work Phone: Start: 07-14-2022 End: 07-14-2022 Patient encounter procedure [facility]Cat [facility], [facility] Start: 07-14-2022 End: 07-14-2022 ambulatory [facility] Work Phone: Start: 07-14-2022 End: 07-14-2022 Patient encounter procedure [facility] Start: 01-24-2022 End: 01-24-[address] Reagan Rosen Work Phone: [facility] Start: 12-26-2021 End: 12-26-[address] Reagan Rosen Work Phone: [facility] Start: 11-08-2021 End: 11-08-[address] Reagan Rosen Work Phone: [facility] Procedures Date Procedure Procedure Detail Performing Clinician Start: 04-25-2025 Vitamin D, 25-hydroxy measurement Dr. Miguel Ángel Rosen MD Work Phone: Comment on above: Vitamin D StatusDeficiency: <20 ng/mL (5 0nmol/L)Insufficiency: 20-30 ng/mL (50-75 nmol/L)Sufficiency: 30-100 ng/mL (75-250 nmol/L)Toxicity: >100 ng/mL (>250 nmol/L) Start: 02-16-2025 US scan of thyroid Dr. Clinton Bautista MD Work Phone: Start: 02-04-2025 Ultrasonography of thyroid and parathyroid Dr. Clinton Bautista MD Work Phone: Start: 12-30-2024 End: 12-30-[address]24 Acid [address] bacilli culture Dr. Clinton bain MD Work Phone: Start: 12-29-2024 End: 12-29-[address] bacilli culture Dr. Clinton bain MD Work Phone: Start: 12-28-2024 End: 12-28-[address] Acid fast bacilli culture Dr. Clinton bain MD Work Phone: Start: 12-28-[address] Reagan Rosen MD Work Phone: Start: 12-28-[address] Reagan brice MD Work Phone: Start: 12-28-[address] Clinton Bautista MD Work Phone: Comment on above: The atypical pANCA pattern has been obse rved in asignificant percentage of patients with ulcerative colitis,primary sclerosing cholangitis and autoimmune hepatitis. Start: 12-28-2024 Antibody to lupus La protein measurement Dr. Clinton Bautista MD Work Phone: Comment on above: Previous reported result: TNP AIEdited b y: INFCE on 12/29/24:1308 AMENDED REPORT 12/29/24 1308 Anti-SS-B previously reported as: Test not performed Start: 12-28-2024 Antibody to SS-A measurement Dr. Clinton gamez MD Work Phone: Comment on above: Previous reported result: TNP AIEdited b y: INFCE on 12/29/24:1308 AMENDED REPORT 12/29/24 1308 Anti-SS-A previously reported as: Test not performed Start: 12-28-2024 In-vitro immunologic test Dr. Clinton bain MD Work Phone: Comment on above: QuantiFERON-TB Gold Plus is a qualitativ e indirect test forM tuberculosis infection (including disease) and isintended for use in conjunction with risk assessment,radiography, and other medical and diagnostic evaluations.The QuantiFERON-TB Gold Plus result is determined bysubtracting the Nil value from either TB antigen (Ag)value. The Mitogen tube serves as a control for the test. No response to M tub erculosis antigens detected.Infection with M tuberculosis is unlikely, but high riskindividuals should be considered for additional testing(ATS/IDSA/CDC Clinical Practice Guidelines, 2017). Thereference range is an Antigen minus Nil result of <0.35IU/mL.The specimen received for QuantiFERON testing was incubatedby the ordering institution. Specific procedures outlinedin our Directory of Services and in the package insert forthe QuantiFERON Gold (In Tube) test must be followed toenable for proper stimulation of cells for the productionof interferon gamma. Chemiluminescence immunoassaymethodologyPerformed at: [facility] [employer] [id number] Director: Giancarlo Crowell PhD, Phone: [phone] Start: 12-20-2024 X-ray of chest, PA and lateral views Dr. Reagan Rosen MD Work Phone: Start: 09-13-[address] Reagan Rosen MD Work Phone: Start: 07-22-2023 Screening mammography Start: 01-27-2023 Dual energy X-ray absorptiometry Dr. Zoë Rosen Work Phone: Start: 11-06-2022 CT of chest Start: 09-22-2022 X-ray of lumbosacral spine Start: 07-18-2022 Screening mammography Start: 07-14-2022 Computed tomography of abdomen and pelvis with contrast Start: 01-24-2022 Plain chest X-ray Dr. Reagan Rosen Work Phone: Plan of Treatment Date Care Activity Detail Author Start: 12-30-2024 Acid Fast Bacilli Culture Acid Fast Bacilli Culture [facility] Start: 12-30-2024 Acid Fast Bacilli Smear Acid Fast Bacilli Smear [facility] Start: 12-30-2024 Acid fast bacilli culture [facility] Start: 12-29-2024 Acid Fast Bacilli Culture Acid Fast Bacilli Culture [facility] Start: 12-29-2024 Acid Fast Bacilli Smear Acid Fast Bacilli Smear [facility] Start: 12-29-2024 Acid fast bacilli culture [facility] Start: 12-28-2024 Acid Fast Bacilli Culture Acid Fast Bacilli Culture [facility] Start: 12-28-2024 Acid Fast Bacilli Smear Acid Fast Bacilli Smear [facility] Start: 12-28-2024 Microscopic observation [Identifier] in Unspecified specimen by Gram stain [facility] Start: 12-28-2024 Respiratory Culture Respiratory Culture [facility] Start: 12-28-2024 Acid fast bacilli culture [facility] Start: 12-28-2024 In-vitro immunologic test [facility] Start: 12-28-2024 [facility] Angiotensin converti ng enzyme [Enzymatic activity/volume] in Serum or Plasma [facility] Bacteria identified in Sputum by Respiratory culture [facility] C reactive protein [Mass/volume] in Serum or Plasma [facility] Cyclic citrullinated peptide IgG Ab [Units/volume] in Serum or Plasma [facility] DNA double strand Ab [Units/volume] in Serum [facility] Mycobacterium sp identified in Unspecified specimen by Organism specific culture [facility] Mycobacterium sp identified in Unspecified specimen by Organism specific culture [facility] Mycobacterium sp identified in Unspecified specimen by Organism specific culture [facility] Mycobacterium tuberculosis tuberculin stimulated gamma interferon [Presence] in Blood [facility] Neutrophil cytoplasm ic Ab.classic [Units/volume] in Serum [facility] P-ANCA measurement [facility] Smooth muscle Ab [Presence] in Serum [facility] Payers Date Payer Category Payer Medicare [id number] 2024 Self-pay [id number] 2020 Private Health Insurance 101 [id number] Unknown [id number] Unknown [id number] 2.16.8 [id number] Unknown [id number] 2.16.8 [id number] Unknown [id number] 2.16.8 40.1.018284.3.579.2.462 Unknown [id number] 2.16.8 40.1.133917.3.579.2.462 Unknown [id number] 2.16.8 40.1.212761.3.579.2.462 Unknown [id number] 2.16.8 40.1.667888.3.579.2.462 Unknown [id number] 2.16.8 40.1.837321.3.579.2.462 Unknown [id number] 2.16.8 40.1.135499.3.579.2.462 Unknown [id number] 2.16.8 40.1.049178.3.579.2.462 Unknown [id number] 2.16.8 40.1.654538.3.579.2.462 Unknown [id number] 2.16.8 40.1.962123.3.579.2.462 Unknown [id number] 2.16.8 40.1.893101.3.579.2.462 Unknown [id number] 2.16.8 40.1.138369.3.579.2.462 Unknown [id number] 2.16.8 40.1.079664.3.579.2.462 Unknown [id number] 2.16.8 40.1.781223.3.579.2.462 Unknown [id number] 2.16.8 [id number] Social History Date Type Detail Facility Start: 11-08-2021 End: 01-13-2023 Tobacco smoking status NDIS Unknown if ever smoked [facility] Start: 1955 Sex Assigned At Female [facility] Start: 01-22-2024 Tobacco smoking stat us NDIS Ex-smoker (finding) [facility] Start: 12-28-2024 End: 01-06-2025 Sex Female (finding) [facility] Radiology Diagnostic study note 02-20-2025 Note Date & Type Note Facility 02-20-2025 Radiology Diagnostic study note [facility] Imaging Services [address] [place] [id number] Thyroid MR#: [id number] Acct: [id number] Name: YOUNG AGARWAL Rep #: [id number] : 1955 F 69 From: Modesto Crockett MD PCP: Dr. Reagan Rosen MD Status: CATRACHITO YANCEY Study:Thyroid Date of Exam: 02/16/25 Exam# [id number] Ordering Dr: Hyun South MD PROCEDURE: THYROID 02/16/2025 REASON FOR EXAM: THYROID ULTRASOUND TECHNIQUE: High-frequency thyroid ultrasound, including grayscale and color-flow images. REFERENCE LINKS: TI-RADS Chart: [email or web address] TI-RADS Calculator Tool with Reference Images: [email or web address] s-[email or web address]/ COMPARISON: Comparison is made with prior sonogram of the neck dated February 04, 2025. FINDINGS: Right thyroid lobe size: 5.1 cm x 2.7 cm x 2.2 cm Left thyroid lobe size: 3.9 cm x 1.4 cm x 1.4 cm Isthmus: 0.2 cm Background parenchymal echotexture is heterogeneous Nodules: . Lobe: Right, Location: Mid upper pole, Size: 3.9 cm x 2.1 cm x 2 cm cm, Stability: N/A Composition: Solid or almost completely solid (+2). Hypervascular. Echogenicity: Hyper to Isoechoic (+1) Margin: Ill-defined (+0) Shape: Wider than tall (+0) Echogenic Foci: None (+0) TI-RADS: 3 . Lobe: Left, Location: Mid portion, Size: 0.6 cm x 0.4 cm x 0.3 cm cm, Stability: N/A Composition: Mixed cystic and solid (+1) Echogenicity: Hyper to Isoechoic (+1) Margin: Ill-defined (+0) Shape: Wider than tall (+0) Echogenic Foci: None (+0) TI-RADS: 2 US/Thyroid IMPRESSION: Dominant complex nodule in the right lobe of the thyroid as described. Biopsy recommended. RECOMMENDATION: Based on most suspicious nodule. Nodule size = largest diameter Only evaluate nodule if =>5 mm. Growth > 20% in 2 dimensions = worsening. Follow up to 4 nodules. Recommend biopsy for no more than 2 nodules. Reading Location: [id number] CC: Dr. Mendez South MD; Dr. Reagan Rosen MD ~ Arch Support Technician: Signed [facility] Evaluation note 02-20-2025 Note Date & Type Note Facility 02-20-2025 Evaluation note Diagnosis Onset Date Resolution Thyroid nodule acute February 20, 2025 8:46am [facility] Work Phone: Radiology Diagnostic study note 12-20-2024 Note Date & Type Note Facility 12-20-2024 Radiology Diagnostic study note [facility] Imaging Services [address] [place], [place] [id number] Chest PA and Lateral MR#: [id number] Acct: [id number] Name: YOUNG AGARWAL Rep #: [id number] : 1955 F 69 From: Dary Iraheta MD PCP: Dr. Reagan Rosen MD Status: REG C NAYE Study:Chest PA and Lateral Date of Exam: 12/20/24 Exam# [id number] Ordering Dr: Clinton Bautista MD EXAM: XR Chest, 2 Views CLINICAL INDICATION: HEMOPTYSIS TECHNIQUE: Frontal and lateral views of the chest. COMPARISON: No relevant prior studies available. FINDINGS: LUNGS AND PLEURAL SPACES: Hyperlucent lungs. Flattening of the diaphragm. No consolidation. No pneumothorax. HEART: Unremarkable. No cardiomegaly. MEDIASTINUM: Unremarkable. Normal mediastinal contour. BONES/JOINTS: Unremarkable. No acute fracture. RAD/Chest PA and Lateral IMPRESSION: Suggestion of COPD. Reading [facility] CC: Dr. Clinton Bautista MD; Dr. Reagan Rosen MD ~ Arch Support Technician: Signed [facility] Evaluation note Note Date & Type Note Facility Evaluation note Diagnosis Onset Date Premature ventricular contraction acute SVT (supraventricular tachycardia) acute Essential hypertension chron ic Mixed hyperlipidemia chronic [facility] Work Phone: Evaluation note Note Date & Type Note Facility Evaluation note No assessment information availa ble [facility] Work Phone: Evaluation note Note Date & Type Note Facility Evaluation note Diagnosis Onset Date Premature ventricular contraction acute SVT (supraventricular tachycardia) acute Essential hypertension chron ic Mixed hyperlipidemia chronic Cystocele acute Encounter for routine gyneco logical examination noneactive [facility] Work Phone: Evaluation note Note Date & Type Note Facility Evaluation note Diagnosis Onset Date Cystocele acute Encounter for routine gyneco logical examination noneactive [facility] Work Phone: Reason for referral (narrative) Note Date & Type Note Facility Reason for referral (narrative) No reason for referral information available [facility] Work Phone: Chief Complaint and Reason for Visit Chief Complaint 1 y fu Reason for Visit Premature ventricula r contraction SVT (supraventricular tachycardia) Essential hypertension Mixed hyperlipidemia Chief Complaint 1 y fu BRONCHITIS Reason for Visit Premature ventricula r contraction SVT (supraventricular tachycardia) Essential hypertension Mixed hyperlipidemia Chief Complaint UNSPECIFIED ABDOMINA L PAIN SCREENING Chief Complaint TOBACCO ABUSE BACK PAIN/RX HERE Chief Complaint TOBACCO ABUSE BACK PAIN/RX HERE 1 Y FU Reason for Visit Premature ventricula r contraction SVT (supraventricular tachycardia) Essential hypertension Mixed hyperlipidemia Chief Complaint TOBACCO ABUSE BACK PAIN/RX HERE 1 Y FU 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 Reason for Visit Premature ventricula r contraction SVT (supraventricular tachycardia) Essential hypertension Mixed hyperlipidemia Cystocele Encounter for routine gynecological examination Chief Complaint 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 Reason for Visit Cystocele Encounter for routine gynecological examination Chief Complaint SCREENING Chief Complaint Admit Date SCREENING September 13, 2024 3 :24pm hemoptysis December 20, 2024 9:4 4am LABS AND SPUTUM #1 December 28, 2024 8:4 5am Chief Complaint Admit Date SCREENING September 13, 2024 3 :24pm hemoptysis December 20, 2024 9:4 4am LABS AND SPUTUM #1 December 28, 2024 8:4 5am SPUTUM #2 December 29, 2024 11: 06am SPUTUM #3 December 30, 2024 9:0 9am Chief Complaint Admit Date hemoptysis December 20, 2024 9:4 4am LABS AND SPUTUM #1 December 28, 2024 8:4 5am SPUTUM #2 December 29, 2024 11: 06am SPUTUM #3 December 30, 2024 9:0 9am lump on neck February 04, 2025 10: 14am NODULE February 16, 2025 11:46a m THYROID NODULE February 20, 2025 8:46a m FNA THYROID NODULE February 20, 2025 10:16 am Reason for Visit Admit Date Thyroid nodule February 20, 2025 8:46a m Chief Complaint Admit Date hemoptysis December 20, 2024 9:4 4am LABS AND SPUTUM #1 December 28, 2024 8:4 5am SPUTUM #2 December 29, 2024 11: 06am SPUTUM #3 December 30, 2024 9:0 9am lump on neck February 04, 2025 10: 14am NODULE February 16, 2025 11:46a m THYROID NODULE February 20, 2025 8:46a m FNA THYROID NODULE February 20, 2025 10:16 am [employer] March 30, 2025 2: 56pm Chief Complaint Admit Date lump on neck February 04, 2025 10: 14am NODULE February 16, 2025 11:46a m THYROID NODULE February 20, 2025 8:46a m FNA THYROID NODULE February 20, 2025 10:16 am [employer] March 30, 2025 2: 56pm Family History Relationship Condition Age at Onset Recorded Date/T jacob father Myocardial infarction 65 sister Mitral valve prolapse Unknown Malignant neoplasm Unknown brother Malignant neoplasm Unknown Relationship Condition Age at Onset Recorded Date/T jacob father Myocardial infarction 65 sister Mitral valve prolapse Unknown Malignant neoplasm of urinary bladder Unk nown brother Malignant neoplasm Unknown Summary Purpose Advance Directives No Advanced Directives Records FoundNo Advanced Directives Records Found Additional Source Comments Goals (unrecognized section and content) Goals may be documented in a n alternate sectionGoals may be documented in an alternate sectionGoals may be documented in an alternate sectionGoals may be documented in an alternate sectionGoals may be documented in an alternate sectionGoals may be documented in an alternate sectionGoals may be documented in an alternate sectionGoals may be documented in an alternate sectionGoals may be documented in an alternate sectionGoals may be documented in an alternate sectionGoals may be documented in an alternate sectionGoals may be documented in an alternate sectionGoals may be documented in an alternate sectionGoals may be documented in an alternate sectionGoals may be documented in an alternate sectionGoals may be documented in an alternate sectionGoals may be documented in an alternate sectionGoals may be documented in an alternate sectionGoals may be documented in an alternate section Care Teams (unrecognized sec tion and content) Team Status: Active Member Role Status Dates Dr. Reagan Rosen MD Family Provider Active Dr. Reagan Rosen MD Primary Care Provider Active Team Status: Inactive Member Role Status Dates Dr. Reagan Rosen MD Primary Care Provi suly, Attending Provider, Referring Provider Active Team Status: Active Member Role Status Dates Dr. Reagan Rosen MD Primary Care Provi suly, Attending Provider, Referring Provider Active Team Status: Inactive Member Role Status Dates Dr. Reagan Rosen MD Primary Care Provider, Referring Provider Active Dr. Reagan Gallagher MD Attending Provider Active Team Status: Inactive Member Role Status Dates Dr. Reagan Rosen MD Primary Care Provider, Referring Provider Active Dr. Aisha Ignacio MD Attending Provider Active Team Status: Inactive Member Role Status Dates Dr. Reagan Rosen MD Primary Care Provider Active Dr. Aisha Ignacio MD Attending Provider, Referr ing Provider Active Team Status: Active Member Role Status Dates Dr. Reagan Rosen MD Primary Care Provider Active Team Status: Inactive Member Role Status Dates Dr. Reagan Rosen MD Primary Care Provider Active Start: September 13, 2024 End: September 13, 2024 Rashmi Tapia RENDERER, RENDERER-C Attending Provider Active Start: September 13, 2024 End: September 13, 2024 Rashmi Tapia RENDERER, RENDERER-C Referring Provider Active Start: September 13, 2024 End: September 13, 2024 Team Status: Inactive Member Role Status Dates Dr. Clinton Bautista MD Attending Provider Active Start: December 20, 2024 End: December 20, 2024 Dr. Clinton Bautista MD Referring Provider Active Start: December 20, 2024 End: December 20, 2024 Dr. Reagan Rosen MD Primary Care Provider Active Start: December 20, 2024 End: December 20, 2024 Team Status: Active Member Role Status Dates Dr. Reagan Rosen MD Primary Care Provider Active Start: December 28, 2024 Dr. Edmundo Buenrostro MD Attending Provider Active Start: December 28, 2024 Dr. Edmundo Buenrostro MD Referring Provider Active Start: December 28, 2024 Team Status: Inactive Member Role Status Dates Dr. Reagan Rosen MD Primary Care Provider Active Start: December 28, 2024 End: December 28, 2024 Dr. Edmundo Buenrostro MD Attending Provider Active Start: December 28, 2024 End: December 28, 2024 Dr. Edmundo Buenrostro MD Referring Provider Active Start: December 28, 2024 End: December 28, 2024 Team Status: Active Member Role Status Dates Dr. Reagan Rosen MD Primary Care Provider Active Start: December 29, 2024 Dr. Edmundo Buenrostro MD Attending Provider Active Start: December 29, 2024 Dr. Edmundo Buenrostro MD Referring Provider Active Start: December 29, 2024 Team Status: Active Member Role Status Dates Dr. Reagan Rosen MD Primary Care Provider Active Start: December 30, 2024 Dr. Edmundo Buenrostro MD Attending Provider Active Start: December 30, 2024 Dr. Edmundo Buenrostro MD Referring Provider Active Start: December 30, 2024 Team Status: Inactive Member Role Status Dates Dr. Reagan Rosen MD Primary Care Provider Active Start: December 29, 2024 End: December 29, 2024 Dr. Edmundo Buenrostro MD Attending Provider Active Start: December 29, 2024 End: December 29, 2024 Dr. Edmundo Buenrostro MD Referring Provider Active Start: December 29, 2024 End: December 29, 2024 Team Status: Inactive Member Role Status Dates Dr. Reagan Rosen MD Primary Care Provider Active Start: December 30, 2024 End: December 30, 2024 Dr. Edmundo Buenrostro MD Attending Provider Active Start: December 30, 2024 End: December 30, 2024 Dr. Edmundo Buenrostro MD Referring Provider Active Start: December 30, 2024 End: December 30, 2024 Team Status: Inactive Member Role Status Dates Dr. Reagan Rosen MD Primary Care Provider Active Start: February 04, 2025 End: February 04, 2025 Dr. Reagan Rosen MD Attending Provider Active Start: February 04, 2025 End: February 04, 2025 Dr. Reagan Rosen MD Referring Provider Active Start: February 04, 2025 End: February 04, 2025 Team Status: Inactive Member Role Status Dates Dr. Reagan Rosen MD Primary Care Provider Active Start: February 16, 2025 End: February 16, 2025 Dr. Mendez South MD Attending Provider Active Start: February 16, 2025 End: February 16, 2025 Dr. Mendez South MD Referring Provider Active Start: February 16, 2025 End: February 16, 2025 Team Status: Inactive Member Role Status Dates Dr. Reagan Rosen MD Primary Care Provider Active Start: February 20, 2025 End: February 20, 2025 Dr. Reagan Rosen MD Referring Provider Active Start: February 20, 2025 End: February 20, 2025 Dr. Mendez South MD Attending Provider Active Start: February 20, 2025 End: February 20, 2025 Team Status: Active Member Role Status Dates Dr. Reagan Rosen MD Primary Care Provider Active Start: February 20, 2025 Dr. Mendez South MD Attending Provider Active Start: February 20, 2025 Dr. Mendez South MD Referring Provider Active Start: February 20, 2025 Team Status: Inactive Member Role Status Dates Dr. Reagan Rosen MD Primary Care Provider Active Start: February 20, 2025 End: February 20, 2025 Dr. Mendez South MD Attending Provider Active Start: February 20, 2025 End: February 20, 2025 Dr. Mendez South MD Referring Provider Active Start: February 20, 2025 End: February 20, 2025 Team Status: Active Member Role/Relationship Status Dates Dr. Reagan Rosen MD Primary Care Provider Active Team Status: Inactive Member Role/Relationship Status Dates Dr. Clinton Bautista MD Attending Provider Active Start: December 20, 2024 End: December 20, 2024 Dr. Clinton Bautista MD Referring Provider Active Start: December 20, 2024 End: December 20, 2024 Dr. Reagan Rosen MD Primary Care Provider Active Start: December 20, 2024 End: December 20, 2024 Team Status: Inactive Member Role/Relationship Status Dates Dr. Reagan Rosen MD Primary Care Provider Active Start: December 28, 2024 End: December 28, 2024 Dr. Edmundo Buenrostro MD Attending Provider Active Start: December 28, 2024 End: December 28, 2024 Dr. Edmundo Buenrostro MD Referring Provider Active Start: December 28, 2024 End: December 28, 2024 Team Status: Inactive Member Role/Relationship Status Dates Dr. Reagan Rosen MD Primary Care Provider Active Start: December 29, 2024 End: December 29, 2024 Dr. Edmundo Buenrostro MD Attending Provider Active Start: December 29, 2024 End: December 29, 2024 Dr. Edmundo Buenrostro MD Referring Provider Active Start: December 29, 2024 End: December 29, 2024 Team Status: Inactive Member Role/Relationship Status Dates Dr. Reagan Rosen MD Primary Care Provider Active Start: December 30, 2024 End: December 30, 2024 Dr. Edmundo Buenrostro MD Attending Provider Active Start: December 30, 2024 End: December 30, 2024 Dr. Edmundo Buenrostro MD Referring Provider Active Start: December 30, 2024 End: December 30, 2024 Team Status: Inactive Member Role/Relationship Status Dates Dr. Reagan Rosen MD Primary Care Provider Active Start: February 04, 2025 End: February 04, 2025 Dr. Reagan Rosen MD Attending Provider Active Start: February 04, 2025 End: February 04, 2025 Dr. Reagan Rosen MD Referring Provider Active Start: February 04, 2025 End: February 04, 2025 Team Status: Inactive Member Role/Relationship Status Dates Dr. Reagan Rosen MD Primary Care Provider Active Start: February 16, 2025 End: February 16, 2025 Dr. Mendez South MD Attending Provider Active Start: February 16, 2025 End: February 16, 2025 Dr. Mendez South MD Referring Provider Active Start: February 16, 2025 End: February 16, 2025 Team Status: Inactive Member Role/Relationship Status Dates Dr. Reagan Rosen MD Primary Care Provider Active Start: February 20, 2025 End: February 20, 2025 Dr. Reagan Rosen MD Referring Provider Active Start: February 20, 2025 End: February 20, 2025 Dr. Mendez South MD Attending Provider Active Start: February 20, 2025 End: February 20, 2025 Team Status: Inactive Member Role/Relationship Status Dates Dr. Reagan Rosen MD Primary Care Provider Active Start: February 20, 2025 End: February 20, 2025 Dr. Mendez South MD Attending Provider Active Start: February 20, 2025 End: February 20, 2025 Dr. Mendez South MD Referring Provider Active Start: February 20, 2025 End: February 20, 2025 Team Status: Inactive Member Role/Relationship Status Dates Dr. Reagan Rosen MD Primary Care Provider Active Start: March 30, 2025 End: March 30, 2025 Dr. Reagan Rosen MD Attending Provider Active Start: March 30, 2025 End: March 30, 2025 Dr. Reagan Rosen MD Referring Provider Active Start: March 30, 2025 End: March 30, 2025 Team Status: Inactive Member Role/Relationship Status Dates Dr. Reagan Rosen MD Primary Care Provider Active Start: February 04, 2025 End: February 04, 2025 Dr. Reagan Rosen MD Attending Provider Active Start: February 04, 2025 End: February 04, 2025 Dr. Reagan Rosen MD Referring Provider Active Start: February 04, 2025 End: February 04, 2025 Team Status: Inactive Member Role/Relationship Status Dates Dr. Reagan Rosen MD Primary Care Provider Active Start: February 16, 2025 End: February 16, 2025 Dr. Mendez South MD Attending Provider Active Start: February 16, 2025 End: February 16, 2025 Dr. Mendez South MD Referring Provider Active Start: February 16, 2025 End: February 16, 2025 Team Status: Inactive Member Role/Relationship Status Dates Dr. Reagan Rosen MD Primary Care Provider Active Start: February 20, 2025 End: February 20, 2025 Dr. Reagan Rosen MD Referring Provider Active Start: February 20, 2025 End: February 20, 2025 Dr. Mendez South MD Attending Provider Active Start: February 20, 2025 End: February 20, 2025 Team Status: Inactive Member Role/Relationship Status Dates Dr. Reagan Rosen MD Primary Care Provider Active Start: February 20, 2025 End: February 20, 2025 Dr. Mendez South MD Attending Provider Active Start: February 20, 2025 End: February 20, 2025 Dr. Mendez South MD Referring Provider Active Start: February 20, 2025 End: February 20, 2025 Team Status: Inactive Member Role/Relationship Status Dates Dr. Reagan Rosen MD Primary Care Provider Active Start: March 30, 2025 End: March 30, 2025 Dr. Reagan Rosen MD Attending Provider Active Start: March 30, 2025 End: March 30, 2025 Dr. Reagan Rosen MD Referring Provider Active Start: March 30, 2025 End: March 30, 2025 Team Status: Inactive Member Role/Relationship Status Dates Dr. Reagan Rosen MD Primary Care Provider Active Start: April 25, 2025 End: April 25, 2025 Dr. Reagan Rosen MD Attending Provider Active Start: April 25, 2025 End: April 25, 2025 INFORMATION SOURCE (unrecogn ized section and content) DATE CREATED AUTHOR 06/24/2023 [facility] DATE CREATED AUTHOR AUTHOR'S ORGANIZ ATION 04/27/2025 [facility] FOR RECORDS PERTAINING TO PATIENTS WHO ARE OR HAVE BEEN ENROLLED IN A CHEMICAL DEPENDENCY/SUBSTANCEABUSE PROGRAM, SOME INFORMATION MAY BE OMITTED. This clinical summary was aggregated from multiple sources. Caution should be exercised in using it in the provision of clinical care. This summary normalizes information from multiple sources, and as a consequence, information in this document may materially change the coding, format and clinical context of patient data. In addition, data may be omitted in some cases. CLINICAL DECISIONS SHOULD BE BASED ON THE PRIMARY CLINICAL RECORDS. [facility] [employer] [facility]. provides no warranty or guarantee of the accuracy or completeness of information in this document.
== END | disposition home or self-care (01) ==
LOC: PSN 10:21
PROVIDERS: PCP Family Medicine; Referring Provider Family Medicine; Visit Provider Family Medicine
DX: M79.602 Pain in left arm (principal)
CPT/HCPCS: 95886; 95910

== ENCOUNTER → 2025-05-03 | Outpatient (CLI) | payer MEDICARE, SELFPAY ==
--- NOTE | 2025-05-03 13:28 | BD_ITS ---
PROCEDURE: DEXA BONE DENSITY STUDY 05/03/2025 REASON FOR EXAM: F, age 70 y/o . Postmenopausal. TECHNIQUE: DEXA BONE DENSITY STUDY COMPARISON: Priors were compared FINDINGS: BMD and T-SCORES Lumbar spine: 0.831 g/cm2, T-score -2.0, prior measurement of bone mass density is 0.831 g/cm2 Levels: L1 through L4 Right femoral neck: 0.764 g/cm2, T-score -1.5 BD/Dexa Bone Density Study IMPRESSION: Patient's bone density reveals osteopenia with an estimated 10 year risk for hi p fracture of 2.1% and for a Major osteoporotic fracture of 11%. This fracture risk estimate was calculated using FRAX version 3.08. Reading Location: [id number]
== END | disposition home or self-care (01) ==
LOC: OPBD 13:20
PROVIDERS: PCP Family Medicine; Referring Provider Family Medicine; Visit Provider Family Medicine
DX: Z00.00 Encounter for general adult medical examination without abnormal findings (principal); Z78.0 Asymptomatic menopausal state; M85.80 Other specified disorders of bone density and structure, unspecified site
CPT/HCPCS: 77080

== ENCOUNTER 2025-05-06 02:03 | Emergency (ER) | payer MEDICARE, SELFPAY ==
[2025-05-06 02:04] VITALS: BP 180/83; PULSE 71; RESP 16; TEMP 36.5; O2SAT 99; BMI 27.4
[2025-05-06 02:37] LABS: Mucous, Urine 0 SEEN /hpf (<or=2+)
[2025-05-06 02:39] LABS: Color, Urine Straw (Yellow); Glucose, Dipstick Normal (Normal); Ketone-Dipstick Negative (Negative); Leukocyte Esterase-Dipstick 500 /ul (Negative); Nitrite-Dipstick Negative (Negative); Occult Blood-Urine 250 /ul (Negative); Protein-Dipstick 30 mg/dl (Negative); Specific Gravity, Urine 1.010 (1.002-1.030); Urine Bilirubin Dipstick Negative (Negative)
--- OUTSIDE RECORDS SUMMARY | 2025-05-06 02:50 | XMS RPT_ITS | CCD ---
Author Organization [facility] Care Team Providers Care Vp Ad Products And Planning Name Role Phone Dr. Reagan Rosen Primary Care Provider Dr. Reagan Rosen Referring Provider Dr. Reagan Gallagher Attending Provider [phone] Reagan Rosen Primary Care Provider Dr. Reagan Rosen Referring Provider Dr. Reagan Gallagher Attending Provider [phone] Aisha Ignacio Attending Provider [phone] Dr. Reagan Rosen Primary Care Provider Dr. Reagan Rosen Referring Provider REAGAN ROSEN Primary Care Unavailable Kiet RHODES, Dr. Kirk Primary Care Provider Regina [employer] DYNAMICS INSTRUCTOR-CRashmi Attending Provider Regina [employer] INSTRUCTOR-CRashmi Referring Provider Dr. Clinton Bautista MD Attending Provider [phone] Dr. Clinton Bautista MD Referring Provider Porter RHODES, Dr. Edmundo Fam Attending Provider Dr. Edmundo Buenrostro MD, V Referring Provider Dr. Reagan Rosen MD Primary Care Provider Dr. Reagan Rosen MD Attending Provider Dr. Reagan Rosen MD Referring Provider Dr. Mendez South MD Attending Provider Dr. Mendez South MD Referring Provider Dr. Reagan Rosen MD Primary Care Provider Clinton Bautista Referring Unavailable Clinton Bautista Attending Unavailable Rosen, Reagan Primary Care Unavailable Bortz, Mendez Referring Unavailable Bortz, Mendez Attending Unavailable Rosen, Reagan Primary Care Unavailable Rosen, Reagan Referring Unavailable Zeke, Earline Attending Unavailable Rosen, Reagan Consulting Unavailable Rosen, Reagan Primary Care Unavailable Rosen, Reagan Referring Unavailable Bortz, Mendez Attending Unavailable Rosen, Reagan Primary Care Unavailable Rosen, Reagan Referring Unavailable Rosen, Reagan Attending Unavailable Rosen, Reagan Primary Care Unavailable Rosen, Reagan Attending Unavailable Rosen, Reagan Primary Care Unavailable Rosen, Reagan Primary Care Unavailable Rosen, Reagan Attending Unavailable Rosen, Reagan Referring Unavailable Marcanthony, Aisha Referring Unavailable Marcanthony, Aisha Attending Unavailable Rosen, Reagan Primary Care Unavailable Regina [employer] INSTRUCTOR, Rashmi Referring Unavailable Regina [employer] INSTRUCTOR, Rashmi Attending Unavailable Rosen, Reagan Primary Care Unavailable Sibilia, Edmundo V Referring Unavailable Sibilia, Edmundo Fam Attending Unavailable Rosen, Reagan Primary Care Unavailable Sibilia, Edmundo V Referring Unavailable Sibilia, Edmundo Fam Attending Unavailable Rosen, Reagan Primary Care Unavailable Sibilia, Edmundo Fam Referring Unavailable Sibilia, Edmundo Fam Attending Unavailable [...] Attending Unavailable Rosen, Reagan Primary Care Unavailable Allergies Allergy Classification Reported Allergen(s) Allergy Type Date of Onset Reaction(s) Facility (20 sources) Cephalexin; Translations: [CEPHALEXIN] Drug Allergy 12-19-19 16 Angioedema [facility] (20 sources) Ciprofloxacin; Translations: [CIPROFLOXACIN] Drug Allergy 10-20-19 15 rash [facility] (19 sources) Nitrofurantoin Drug Allergy 11-08-19 22 Angioedema [facility] (19 sources) Sulfamethoxazole Drug Allergy 11-08-19 22 Angioedema [facility] (20 sources) Sulfonamides (Antibiotic); Translations: [SULFA (SULFONAMIDE ANTIBIOTICS)] Allergy to substance 04-06-20 07 Angioedema [facility] (19 sources) Trimethoprim Drug Allergy 11-08-19 22 Angioedema [facility] (1 source) Clarithromycin; Translations: [CLARITHROMYCIN] Drug Allergy 05-26-20 07 [facility] (1 source) Nitrofurantoin; Translations: [NITROFURANTOIN MACROCRYSTAL] Drug Allergy 04-27-20 18 [facility] (1 source) NITROFURANTOIN MONOHYD/M-CRYST; Translations: [NITROFURANTOIN MONOHYD/M-CRYST] Propensity to adverse reactions to drug (disorder) 08-30-20 13 [facility] (1 source) Cephalexin Drug Allergy 02-21-20 [facility] (1 source) Ciprofloxacin Drug Allergy 02-21-20 [facility] (1 source) Nitrofurantoin Drug Allergy 02-21-20 [facility] (1 source) Sulfamethoxazole Drug Allergy 02-21-20 [facility] (1 source) Trimethoprim Drug Allergy 02-21-20 [facility] Medications Current Medications Medication Drug Class(es) [...] arm; Translations: [Pain in left arm] Onset: 05-02-2025 Episodic Other diseases of bladder and urethra [...] visit. Full details are given in the procedures section of this note. Additionally, she elected [...] Hemoptysis; Translations: [Hemoptysis] Onset: 12-28-2024 Episodic Other screening for suspected conditions (not [...] Test Name Value Interpretation Reference Range Facility NCS and/or EMG Patienton NCS and/or EMG Patient [facility] Pulmonary Services/Neurology [address] [place] [address] MR#: [id number] Acct: [id number] Name: YOUNG AGARWAL Rep #: [id number] : 1955 70 From: Earline Alanis MD Referring Dr: Reagan Rosen MD Status: REG CLI Location: [facility] Date: 05/02/25 Sex: F C NCS and/or EMG Patient Report Ordering Doctor: Reagan Rosen DATE OF SERVICE: 05/02/25 Clinical Summary: 70 year old female patient with symptoms of pain in the left elbow that can radiate down the forearm. Nerve Conduction Studies Summary: Nerve conduction studies of the left upper extremity were normal. Needle Examination Summary: Needle examination of select muscles of the left upper extremity was normal. Impression: This is a normal study. There is no electrodiagnostic evidence of a left median mononeuropathy, ulnar mononeuropathy, or cervical radiculopathy. Multi Select Codes Neurology Neurology Interp Codes: 80808-33 Musc test done w/n test comp (interp) (1) and 81892-53 Nrv cndj test 7-8 studies (interp) 05/02/25 1249 Date Earline Alanis MD CC: Dr. Earline Alanis MD; Dr. Reagan Rosen MD Date Dictated: 05/02/251136 Date Transcribed: 05/02/251136 Spring Bender: Signed Normal [facility] Absolute lymphocyte countOrd ered By: Reagan Rosen on 04-25-2025 Lymphocytes Auto (Unsp spec) [#/Vol] 2.10 10*3/uL 0.83-4.51 [facility] Absolute neutrophil countOrd ered By: Reagan Rosen on 04-25-2025 Neutrophils (Bld) [#/Vol] 2.0 10*3/uL 2.0-7.7 [facility] Anion gap in Serum or Plasma Ordered By: Reagan Rosen on 04-25-2025 Anion gap [Moles/Vol] 10 mmol/L 02-23 [facility] Automated lymphocyte count a s percentage of total leukocytesOrdered By: Reagan Rosen on 04-25-2025 Lymphocytes/100 WBC Auto (Unsp spec) 42.7 % High 19-41 [facility] BUN/creatinine ratioOrdered By: Reagan Rosen on 04-25-2025 Urea nitrogen/Creatinine [Mass ratio] 28.5 mg/mg High 10-20 [facility] Basophil percentageOrdered B y: Reagan Rosen on 04-25-2025 Basophils/100 WBC (Bld) 0.4 % 0-1 [facility] Bilirubin, totalOrdered By: Reagan Rosen on 04-25-2025 Bilirubin [Mass/Vol] 0.56 mg/dL 0.00-1.[address] [facility] CBC W/Diff, Automatedon 04-11 Absolute Lymph 2.10 X10 3/uL Normal 0.83-4.51 [facility] Comment on above: Performed By: #### L 501.9520, L500.4050, L501.9985, L506.1001, L100.0100, L500.4100 #### [facility] [address] [place], [place], [address] Absolute Neut 2.0 X10 3/uL Normal 2.0-7.7 [facility] Comment on above: Performed By: #### L 501.9520, L500.4050, L501.9985, L506.1001, L100.0100, L500.4100 #### [facility] [address] [place], [address] Basophils/100 WBC (Bld) 0.4 % Normal 0-1 [facility] Comment on above: Performed By: #### L 501.9520, L500.4050, L501.9985, L506.1001, L100.0100, L500.4100 #### [facility] [address] [place], [address] Eosinophils/100 WBC (Bld) 4.9 % Normal 0-5 [facility] Comment on above: Performed By: #### L 501.9520, L500.4050, L501.9985, L506.1001, L100.0100, L500.4100 #### [facility] [address] [place], [address] Erythrocyte distribution width (RBC) [Ratio] 14.1 % Normal 11.6-14.6 [facility] Comment on above: Performed By: #### L 501.9520, L500.4050, L501.9985, L506.1001, L100.0100, L500.4100 #### [facility] [address] [place], [address] Hematocrit (Bld) [Volume fraction] 40.9 % Normal 37-47 [facility] Comment on above: Performed By: #### L 501.9520, L500.4050, L501.9985, L506.1001, L100.0100, L500.4100 #### [facility] [address] [place], [address] Hemoglobin (Bld) [Mass/Vol] 13.3 g/dL Normal 12.0-15.0 [facility] Comment on above: Performed By: #### L 501.9520, L500.4050, L501.9985, L506.1001, L100.0100, L500.4100 #### [facility] [address] [place], [address] IG% 0.200 Normal 0.0-0.9 [facility] Comment on above: Result Comment: IG% - Immature Granulocytes (promyelocytes, myelocytes and metamyelocytes) > 1% indicates that a LEFT SHIFT is Present. Performed By: #### L 501.9520, L500.4050, L501.9985, L506.1001, L100.0100, L500.4100 #### [facility] [address] [place], [address] Lymphocytes/100 WBC (Bld) 42.7 % High 19-41 [facility] Comment on above: Performed By: #### L 501.9520, L500.4050, L501.9985, L506.1001, L100.0100, L500.4100 #### [facility] [address] [place], [address] MCH (RBC) [Entitic mass] 30.0 pg Normal 27.0-32.0 [facility] Comment on above: Performed By: #### L 501.9520, L500.4050, L501.9985, L506.1001, L100.0100, L500.4100 #### [facility] [address] [place], [address] MCHC (RBC) [Mass/Vol] 32.5 g/dL Normal 32-36 [facility] Comment on above: Performed By: #### L 501.9520, L500.4050, L501.9985, L506.1001, L100.0100, L500.4100 #### [facility] [address] [place], [address] MCV (RBC) [Entitic vol] 92.3 fL Normal 81-99 [facility] Comment on above: Performed By: #### L 501.9520, L500.4050, L501.9985, L506.1001, L100.0100, L500.4100 #### [facility] [address] [place], [address] Monocytes/100 WBC (Bld) 10.4 % High 0-10 [facility] Comment on above: Performed By: #### L 501.9520, L500.4050, L501.9985, L506.1001, L100.0100, L500.4100 #### [facility] [address] [place], [address] Neutrophils/100 WBC (Bld) 41.4 % Low 47-70 [facility] Comment on above: Performed By: #### L 501.9520, L500.4050, L501.9985, L506.1001, L100.0100, L500.4100 #### [facility] [address] [place], [address] Nucleated RBC (Bld) [#/Vol] 0 10*3/uL Normal 0-5 [facility] Comment on above: Performed By: #### L 501.9520, L500.4050, L501.9985, L506.1001, L100.0100, L500.4100 #### [facility] [address] [place], [address] Platelet mean volume (Bld) [Entitic vol] 9.0 fL Normal 6.2-12.0 [facility] Comment on above: Performed By: #### L 501.9520, L500.4050, L501.9985, L506.1001, L100.0100, L500.4100 #### [facility] [address] [place], [address] Platelets (Bld) [#/Vol] 272 10*3/uL Normal 150-450 [facility] Comment on above: Performed By: #### L 501.9520, L500.4050, L501.9985, L506.1001, L100.0100, L500.4100 #### [facility] [address] [place], [address] RBC (Bld) [#/Vol] 4.43 10*6/uL Normal 4.2-5.4 [facility] Comment on above: Performed By: #### L 501.9520, L500.4050, L501.9985, L506.1001, L100.0100, L500.4100 #### [facility] [address] [place], [address] RDW SD 48.2 fl High 35.1-43.9 [facility] Comment on above: Performed By: #### L 501.9520, L500.4050, L501.9985, L506.1001, L100.0100, L500.4100 #### [facility] [address] [place], [address] WBC (Bld) [#/Vol] 4.9 10*3/uL Normal 4.4-11.0 [facility] Comment on above: Performed By: #### L 501.9520, L500.4050, L501.9985, L506.1001, L100.0100, L500.4100 #### [facility] [address] [place], [address] Calculated very low density lipoprotein (VLDL) cholesterol measurementOrdered By: Reagan Rosen on 04-25-2025 Calculated very low density lipoprotein (VLDL) cholesterol measurement 16 mg/dL 5-40 [facility] Carbon dioxide, total [Moles /volume] in Central venous bloodOrdered By: Reagan Rosen on 04-25-2025 CO2 [Moles/Vol] 26.2 mmol/L 21.0-32.0 [facility] Chloride assayOrdered By: Miguel Ángel Rosen on 04-25-2025 Chloride [Moles/Vol] 103 mmol/L 98-[address] [facility] Comprehensive Metabolic Prof ilon 04-25-2025 Albumin [Mass/Vol] 4.1 g/dL Normal 3.4-4.8 [facility] Comment on above: Performed By: #### L 501.9520, L500.4050, L501.9985, L506.1001, L100.0100, L500.4100 #### [facility] [address] [place], [address] Albumin/Globulin [Mass ratio] 1.5 {ratio} Normal 0.9-2.4 [facility] Comment on above: Performed By: #### L 501.9520, L500.4050, L501.9985, L506.1001, L100.0100, L500.4100 #### [facility] [address] [place], [address] ALK PHOS 72 U/L Normal 35-104 [facility] Comment on above: Performed By: #### L 501.9520, L500.4050, L501.9985, L506.1001, L100.0100, L500.4100 #### [facility] [address] [place], [address] ALT [Catalytic activity/Vol] 14 U/L Normal <=34 [facility] Comment on above: Performed By: #### L 501.9520, L500.4050, L501.9985, L506.1001, L100.0100, L500.4100 #### [facility] [address] [place], [address] AST [Catalytic activity/Vol] 19 U/L Normal <=31 [facility] Comment on above: Performed By: #### L 501.9520, L500.4050, L501.9985, L506.1001, L100.0100, L500.4100 #### [facility] [address] [place], [address] Bilirubin [Mass/Vol] 0.56 mg/dL Normal 0.00-1.[address] [facility] Comment on above: Performed By: #### L 501.9520, L500.4050, L501.9985, L506.1001, L100.0100, L500.4100 #### [facility] [address] [place], [address] BUN/CRE 28.5 RATIO High 10-20 [facility] Comment on above: Performed By: #### L 501.9520, L500.4050, L501.9985, L506.1001, L100.0100, L500.4100 #### [facility] [address] [place], [address] Calcium [Mass/Vol] 9.8 mg/dL Normal 7.6-11.0 [facility] Comment on above: Performed By: #### L 501.9520, L500.4050, L501.9985, L506.1001, L100.0100, L500.4100 #### [facility] [address] [place], [address] Chloride [Moles/Vol] 103 mmol/L Normal 98-[address] [facility] Comment on above: Performed By: #### L 501.9520, L500.4050, L501.9985, L506.1001, L100.0100, L500.4100 #### [facility] [address] [place], [address] CO2 [Moles/Vol] 26.2 mmol/L Normal 21.0-32.0 [facility] Comment on above: Performed By: #### L 501.9520, L500.4050, L501.9985, L506.1001, L100.0100, L500.4100 #### [facility] [address] [place], [address] Creatinine [Mass/Vol] 0.67 mg/dL Low 0.70-1.20 [facility] Comment on above: Performed By: #### L 501.9520, L500.4050, L501.9985, L506.1001, L100.0100, L500.4100 #### [facility] [address] [place], [address] GAP 10 Normal 5-15 [facility] Comment on above: Performed By: #### L 501.9520, L500.4050, L501.9985, L506.1001, L100.0100, L500.4100 #### [facility] [address] [place], [address] GFR/1.73 sq M.predicted among non-blacks MDRD (S/P/Bld) [Vol rate/Area] 94 mL/min/{1.73_m2} Normal >60 [facility] Comment on above: Result Comment: mL/m in/1.73m2 CKD-EPI Creatinine Equation (2020) Performed By: #### L 501.9520, L500.4050, L501.9985, L506.1001, L100.0100, L500.4100 #### [facility] [address] [place], [address] Globulin (S) [Mass/Vol] 2.7 g/dL Normal 2.2-4.2 [facility] Comment on above: Performed By: #### L 501.9520, L500.4050, L501.9985, L506.1001, L100.0100, L500.4100 #### [facility] [address] [place], [address] Glucose [Mass/Vol] 92 mg/dL Normal 70-99 [facility] Comment on above: Performed By: #### L 501.9520, L500.4050, L501.9985, L506.1001, L100.0100, L500.4100 #### [facility] [address] [place], [address] Potassium [Moles/Vol] 3.9 mmol/L Normal 3.3-5.1 [facility] Comment on above: Performed By: #### L 501.9520, L500.4050, L501.9985, L506.1001, L100.0100, L500.4100 #### [facility] [address] [place], [address] Sodium [Moles/Vol] 139 mmol/L Normal 133-145 [facility] Comment on above: Performed By: #### L 501.9520, L500.4050, L501.9985, L506.1001, L100.0100, L500.4100 #### [facility] [address] [place], [address] T PROT 6.9 g/dL Normal 5.9-8.4 [facility] Comment on above: Performed By: #### L 501.9520, L500.4050, L501.9985, L506.1001, L100.0100, L500.4100 #### [facility] [address] [place], [address] Urea nitrogen [Mass/Vol] 19 mg/dL Normal 4-19 [facility] Comment on above: Performed By: #### L 501.9520, L500.4050, L501.9985, L506.1001, L100.0100, L500.4100 #### [facility] [address] [place], [address] Eosinophil percentageOrdered By: Reagan Rosen on 04-25-2025 Eosinophils/100 WBC (Bld) 4.9 % 0-5 [facility] Erythrocyte distribution wid th ratioOrdered By: Reagan Rosen on 04-25-2025 Erythrocyte distribution width (RBC) [Ratio] 14.1 % 11.6-14.6 [facility] Erythrocyte distribution wid th standard deviationOrdered By: Reagan Rosen on 04-25-2025 Erythrocyte distribution width (RBC) [Ratio] 48.2 fl High 35.1-43.9 [facility] Glomerular filtration rate ( GFR) estimation/1.73 sq m using serum, plasma, or whole bOrdered By: Reagan Rosen on 04-25-2025 GFR/1.73 sq M.predicted among non-blacks MDRD (S/P/Bld) [Vol rate/Area] 94 mL/min/{1.73_m2} >60 [facility] Comment on above: mL/min/1.73m2 CKD-EP I Creatinine Equation (2020) Hematocrit Auto (Bld) [Volum e fraction]Ordered By: Reagan Rosen on 04-25-2025 Hematocrit (Bld) [Volume fraction] 40.9 % 37-47 [facility] Hemoglobin A1con 04-25-2025 HbA1c (Bld) [Mass fraction] 5.4 % Normal <=5.6 [facility] Comment on above: Result Comment: Norm al < 5.7 % Prediabetic 5.7 - 6.4 % Diabetic >or= 6.5 % Please note range changes. Performed By: #### L 501.9520, L500.4050, L501.9985, L506.1001, L100.0100, L500.4100 ####[facility] [id number] [place], [place], [id number] Hemoglobin A1c percentageOrd ered By: Reagan Rosen on 04-25-2025 HbA1c (Bld) [Mass fraction] 5.4 % <5.7 [facility] Comment on above: Normal < 5.7 % Predi abetic 5.7 - 6.4 % Diabetic >or= 6.5 % Please note range changes. Hemoglobin measurementOrdere d By: Reagan Rosen on 04-25-2025 Hemoglobin (Bld) [Mass/Vol] 13.3 g/dL 12.0-15.0 [facility] Immature granulocytes/100 WB C Auto (Bld)Ordered By: Reagan Rosen on 04-25-2025 Immature granulocytes/100 WBC (Bld) 0.200 % 0.0-0.9 [facility] Comment on above: IG% - Immature Granu locytes (promyelocytes, myelocytes and metamyelocytes) > 1% indicates that a LEFT SHIFT is Present. LDL calc ser/plasOrdered By: Reagan Rosen on 04-25-2025 Cholesterol in LDL [Mass/Vol] 93 mg/dL [facility] Comment on above: Zfnoaaqbuv=531-295 m g/dL & Higher Dlsx=204 mg/dL or greater Laboratory - Chemistry and C hemistry - challengeOrdered By: Reagan Rosen on 04-25-2025 AST [Catalytic activity/Vol] 19 U/L <32 [facility] Lipid Profileon 04-25-2025 CHOL:HDL 2.78 Normal [facility] Comment on above: Performed By: #### L 501.9520, L500.4050, L501.9985, L506.1001, L100.0100, L500.4100 #### [facility] [address] [place], [address] Cholesterol [Mass/Vol] 170 mg/dL Normal <=200 [facility] Comment on above: Result Comment: Chol esterol level, Desirable <200 mg/dL Borderline high cholesterol 200-239 mg/dL High cholesterol >=240 mg/dL Recommendations of the NCEP Adult Treatment Panel for the following risk-cutoff thresholds for the [place] population. Performed By: #### L 501.9520, L500.4050, L501.9985, L506.1001, L100.0100, L500.4100 #### [facility] [address] [place], [address] Cholesterol in HDL [Mass/Vol] 61 mg/dL Normal [facility] Comment on above: Result Comment: Jessica onal Cholesterol Education Program (NCEP) guidelines: <40 mg/dL: Low HDL-cholesterol (major risk factor for CHD) >= 60 mg/dL: High HDL-cholesterol (negative risk factor for CHD) HDL-cholesterol is affected by a number of factors, e.g. smoking, exercise, hormones, sex and age. Performed By: #### L 501.9520, L500.4050, L501.9985, L506.1001, L100.0100, L500.4100 #### [facility] [address] [place], [address] Cholesterol in LDL [Mass/Vol] 93 mg/dL Normal [facility] Comment on above: Result Comment: Bord hbgakr=868-865 mg/dL Higher Essg=477 mg/dL or greater Performed By: #### L 501.9520, L500.4050, L501.9985, L506.1001, L100.0100, L500.4100 #### [facility] [address] [place], [address] Cholesterol in VLDL [Mass/Vol] 16 mg/dL Normal 5-40 [facility] Comment on above: Performed By: #### L 501.9520, L500.4050, L501.9985, L506.1001, L100.0100, L500.4100 #### [facility] [address] [place], [address] Triglyceride [Mass/Vol] 79 mg/dL Normal [facility] Comment on above: Result Comment: The drugs N-Acetylcysteine and Metamizole may falsely depress this assay. Normal range: <150 mg/dL Borderline High: 150-199 mg/dL High: 200-499 mg/dL Very High: >500 mg/dL Performed By: #### L 501.9520, L500.4050, L501.9985, L506.1001, L100.0100, L500.4100 #### [facility] [address] [place], [address] MCV (mean corpuscular volume ) determinationOrdered By: Reagan Rosen on 04-25-2025 MCV (RBC) [Entitic vol] 92.3 fL 81-99 [facility] Mean corpuscular hemoglobin (MCH) determinationOrdered By: Reagan Rosen on 04-25-2025 MCH (RBC) [Entitic mass] 30.0 pg 27.0-32.0 [facility] Mean corpuscular hemoglobin concentration (MCHC) determinationOrdered By: Reagan Rosen on 04-25-2025 MCHC (RBC) [Mass/Vol] 32.5 g/dL 32-36 [facility] Mean platelet volume determi nationOrdered By: Reagan Rosen on 04-25-2025 Platelet mean volume (Bld) [Entitic vol] 9.0 fL 6.2-12.0 [facility] Monocyte percentageOrdered B y: Reagan Rosen on 04-25-2025 Monocytes/100 WBC (Bld) 10.4 % High 0-10 [facility] Neutrophil percentageOrdered By: Reagan Rosen on 04-25-2025 Neutrophils/100 WBC (Bld) 41.4 % Low 47-70 [facility] Nucleated red blood cell per centageOrdered By: Reagan Rosen on 04-25-2025 Nucleated RBC/100 WBC (Bld) [Ratio] 0 % 0-5 [facility] Platelet countOrdered By: Miguel Ángel Rosen on 04-25-2025 Platelets (Bld) [#/Vol] 272 10*3/uL 150-450 [facility] Potassium measurement (mass/ volume)Ordered By: Reagan Rosen on 04-25-2025 Potassium (Unsp spec) [Mass/Vol] 3.9 mmol/L 3.3-5.1 [facility] RBC Auto (Bld) [#/Vol]Ordere d By: Reagan Rosen on 04-25-2025 RBC (Bld) [#/Vol] 4.43 10*6/uL 4.2-5.4 [facility] Screening total cholesterol/ high density lipoprotein (HDL) cholesterol ratioOrdered By: Reagan Rosen on 04-25-2025 Cholesterol.total/Cholest sheryl in HDL [Mass ratio] 2.78 {ratio} [facility] Serum creatinine measurement (mass/volume)Ordered By: Reagan Rosen on 04-25-2025 Creatinine [Mass/Vol] 0.67 mg/dL Low 0.70-1.20 [facility] Serum globulin measurementOr dered By: Reagan Rosen on 04-25-2025 Globulin (S) [Mass/Vol] 2.7 g/dL 2.2-4.2 [facility] Serum glucose measurement (m ass/volume)Ordered By: Reagan Rosen on 04-25-2025 Glucose [Mass/Vol] 92 mg/dL 70-99 [facility] Serum or plasma alanine leon otransferase (ALT) measurementOrdered By: Reagan Rosen on 04-25-2025 ALT [Catalytic activity/Vol] 14 U/L <35 [facility] Serum or plasma albumin kelsey urement (mass/volume)Ordered By: Reagan Rosen on 04-25-2025 Albumin [Mass/Vol] 4.1 g/dL 3.4-4.8 [facility] Serum or plasma albumin/glob ulin mass ratioOrdered By: Reagan Rosen on 04-25-2025 Albumin/Globulin [Mass ratio] 1.5 {ratio} 0.9-2.4 [facility] Serum or plasma alkaline chandrakant sphatase measurementOrdered By: Reagan Rosen on 04-25-2025 ALP [Catalytic activity/Vol] 72 U/L 35-104 [facility] Serum or plasma calcium kelsey urement (mass/volume)Ordered By: Reagan Rosen on 04-25-2025 Calcium [Mass/Vol] 9.8 mg/dL 7.6-11.0 [facility] Serum or plasma cholesterol in HDL measurement (mass/volume)Ordered By: Reagan Rosen on 04-25-2025 Cholesterol in HDL [Mass/Vol] 61 mg/dL >40 [facility] Comment on above: National Cholesterol Education Program (NCEP) guidelines:<40 mg/dL: Low HDL-cholesterol (major risk factor for CHD)>= 60 mg/dL: High HDL-cholesterol (negative risk factor for CHD)HDL-cholesterol is affected by a number of factors, e.g. smoking, exercise, hormones, sex and age. Serum or plasma cholesterol measurement (mass/volume)Ordered By: Reagan Rosen on 04-25-2025 Cholesterol [Mass/Vol] 170 mg/dL <201 [facility] Comment on above: Cholesterol level, D esirable <200 mg/dLBorderline high cholesterol 200-239 mg/dLHigh cholesterol >=240 mg/dLRecommendations of the NCEP Adult Treatment Panel for the following risk-cutoff thresholds for the [place] population. Serum or plasma urea nitroge n measurement (mass/volume)Ordered By: Reagan Rosen on 04-25-2025 Urea nitrogen [Mass/Vol] 19 mg/dL 4-19 [facility] Sodium levelOrdered By: Reagan Rosen on 04-25-2025 Sodium [Moles/Vol] 139 mmol/L 133-145 [facility] TSH DL <= 0.005 mIU/L QnOrde red By: Reagan Rosen on 04-25-2025 TSH Qn 1.710 uIU/mL 0.300-4.20 0 [facility] Thyroid Stim Hormone (TSH)on 04-25-2025 TSH 1.710 uIU/mL Normal 0.300-4.20 0 [facility] Comment on above: Performed By: #### L 501.9520, L500.4050, L501.9985, L506.1001, L100.0100, L500.4100 #### [facility] Laboratory [facility] [place], [address] Total proteinOrdered By: Zoë Rosen on 04-25-2025 Protein [Mass/Vol] 6.9 g/dL 5.9-8.4 [facility] Triglycerides measurementOrd ered By: Reagan Rosen on 04-25-2025 Triglyceride [Mass/Vol] 79 mg/dL <199 [facility] Comment on above: The drugs N-Acetylcy steine and Metamizole may falsely depress this assay. Normal range: <150 mg/dLBorderline High: 150-199 mg/dLHigh: 200-499 mg/dLVery High: >500 mg/dL Vitamin D,25 Hydroxyon 04-25 Vitamin D 25-OH 31.3 ng/mL Normal 30-100 [facility] Comment on above: Result Comment: Stephany min D Status Deficiency: <20 ng/mL (50nmol/L) Insufficiency: 20-30 ng/mL (50-75 nmol/L) Sufficiency: 30-100 ng/mL (75-250 nmol/L) Toxicity: >100 ng/mL (>250 nmol/L) Performed By: #### L 501.9520, L500.4050, L501.9985, L506.1001, L100.0100, L500.4100 #### [facility] Laboratory [address] [place], [address] White blood cell (WBC) count Ordered By: Reagan Rosen on 04-25-2025 WBC (Bld) [#/Vol] 4.9 10*3/uL 4.4-11.0 [facility] Ankle Brachial Indexon 03-30 Ankle Brachial Index [facility] Cardi[facility] [address] [place] [address] Ankle Brachial Index 03/30/25 1504 MR#: [id number] Acct: [id number] Name: YOUNG AGARWAL Rep #: [id number] : 1955 70 From: Roderick Christine MD Attending Dr: Dr. Reagan Rosen MD Status: REG CLI Ordering Dr: Reagan Rosen MD Date: 03/30/25 Location: [facility] Sex: F C Admitted: Reason For Study [...] Performed By: Kateryna Garay RVT, RDCS 03/30/25 2352 Date Roderick Christine MD CC: Dr. Reagan Rosen MD Date Dictated: 03/30/25 1504 Date Transcribed: 03/30/252351 Spring Bender: Signed Normal [facility] Arterial study reportOrdered By: Roderick Christine on 03-30-2025 Noninvasive arteriosclerosis study report [facility] Cardiovascular Services [address] [place] [address] Ankle Brachial Index 03/30/25 1504 MR#: [id number] Acct: [id number] Name: YOUNG AGARWAL Rep #:[id number] : 1955 70 From: Roderick Christine MD Attending Dr: Dr. Reagan Rosen MD Status: REG CLI Ordering Dr: Reagan Rosen MD Date: Location: [facility] Sex: F C Admitted: Reason For Study [...] REAGAN ROSEN MD Performed By: Kateryna Garay Farrah, RDCS 03/30/25 2352 Date _ Roderick Christine MD CC: Dr. Reagan Rosen MD ~ Date Dictated: 03/30/25 1504 Date Transcribed: 03/30/252351 Spring Bender: Signed [facility] Other Phone: Free T3on 02-20-2025 Free T3 [Mass/Vol] 2.9 pg/mL Normal 2.18-3.98 [facility] Comment on above: Performed By: #### L 501.60351, L526.8276, N385.6405 ####[facility] [address] [place], [address] Free N6Hkdepss By: Mendez iverson on 02-20-2025 Free T3 [Mass/Vol] 2.9 pg/mL 2.18-3.98 [facility] Special Stain Group IIon Special Stain Group II -------- Patient Age/Sex Location Account Attending Physician YOUNG AGARWAL 69/F [facility] [id number] Dr. Mendez South MD Specimen: [id number] Received: 02/20/25 Status: SHELIA Ott Num: [id number] Spec Type: ASP OUT Subm Dr: Dr. [...] and and designated per the requisition as Right thyroid nodule. Submitted for cytology and cell block preparation. B. Received is 4 ml of red-cloudy fluid labeled with the patient's name and and designated per the requisition as Right cystic fluid. Submitted for cytology and cell block preparation. Mr 02/20/2025 CPT: 46428i7 Signed (signature on file) Dr. Ely Mcrae DO 02/24/25 1246 Normal [facility] Comment on above: Performed By: #### P SSII ####[facility] [address] [place], [place], [id number] Surgery Visit Reporton 02-20 Surgery Visit Report [facility] [address] [place], [place] [address] OFFICE VISIT Date of Service: 02/20/25 MR#: [id number] Acct: [id number] Name: YOUNG AGARWAL Rep #: [id number] : 1955 Provider: Dr. Mendez savage MD Age/Sex: 69/F Location: [facility] Status: Signed Intake Vital Signs 02/18/24 13:58 [...] Agarwal relates that she has been sick off-and-on since July with upper respiratory tract symptoms. She reports that she is now feeling better. She shares she initially believed this could be related to a lump she had removed from her left salivary [...] was performed (more content not included)... Normal [facility] T4 Total, Thyroxinon 025 T4 [Mass/Vol] 7.1 ug/dL Normal 4.8-13.9 [facility] Comment on above: Performed By: #### L 501.04482, L501.9520, L501.9310 ####[facility] [address] [place], [address] TSH DL <= 0.005 mIU/L QnOrde red By: Mendez South on 02-20-2025 TSH Qn 1.630 uIU/mL 0.300-4.20 0 [facility] Thyroid Stim Hormone (TSH)on 02-20-2025 TSH 1.630 uIU/mL Normal 0.300-4.20 0 [facility] Comment on above: Performed By: #### L 501.15339, L501.9520, L501.9310 ####[facility] [address] [place], [address] ThyroxineOrdered By: Mendez South on 02-20-2025 T4 [Mass/Vol] 7.1 ug/dL 4.8-13.9 [facility] Thyroidon 02-16-2025 Thyroid [facility] Imaging Services [address] [place] [address] Thyroid MR#: [id number] Acct: [id number] Name: YOUNG AGARWAL Rep #: [id number] : 1955 F 69 From: Matthew flannery MD PCP: Dr. Reagan Rosen MD Status: [facility] CLI Study: Thyroid Date of Exam: 02/16/25 Exam# [id number] Ordering Dr: Mendez South MD PROCEDURE: THYROID 02/16/2025 REASON FOR EXAM: THYROID ULTRASOUND TECHNIQUE: High-frequency thyroid ultrasound, including grayscale and color-flow images. REFERENCE LINKS: TI-RADS Chart: [email or web address] [email or web address]/head-neck/ti-rads/ti -rads TI-RADS Calculator Tool with Reference Images: [email or web address].com/rad iology-calculators/body-i maging/tirads-calculator/ COMPARISON: Comparison is made with [...] no more than 2 nodules. Reading Location: [id number] CC: Dr. Mendez South MD; Dr. Reagan Rosen MD Spring Bender: Signed [facility] Acid Fast Bacillus Cultureon 02-13-2025 tAFBC TESTING PERFORMED AT [facility]. ORIGINAL REPORT ON FILE IN LAB CONTAINS ADDITIONAL TEST SITE INFORMATION. Culture, Acid Fast NO ACID-FAST BACILLI ISOLATED AFTER 6 WEEKS. [facility] Comment on above: Performed By: #### M 300.1999, M300.3000 ####[facility] [address] [facility] [place], [address] tAFBC TESTING PERFORMED AT [facility]. ORIGINAL REPORT ON FILE IN LAB CONTAINS ADDITIONAL TEST SITE INFORMATION. Culture, Acid Fast NO ACID-FAST BACILLI ISOLATED AFTER 6 WEEKS. [facility] Comment on above: Performed By: #### M 300.1999, M300.3000 ####[facility] [address] [place], [address] tAFBC TESTING PERFORMED AT [facility]. ORIGINAL REPORT ON FILE IN LAB CONTAINS ADDITIONAL TEST SITE INFORMATION. Culture, Acid Fast NO ACID-FAST BACILLI ISOLATED AFTER 6 WEEKS. [facility] Comment on above: Performed By: #### L 3410.9998, L3400.8000, L3300.1200, L803.2200, L3100.9100, M100.2000, L3100.6900, L501.6710, M300.3000, L3100.5500, M300.2000, M100.2400, L4600.0100 ####[facility] [address] [place], [place], [id number] Acid Fast Bacillus Smear/Flu oron 02-13-2025 tafb TESTING PERFORMED AT [facility]. ORIGINAL REPORT ON FILE IN LAB CONTAINS ADDITIONAL TEST SITE INFORMATION. Smear, Acid Fast Acid Fast Smear from Concentrated Specimen :Negative [facility] Comment on above: Performed By: #### M 300.2000, M300.3000 ####[facility] [address] [facility] [place], [address] tafb TESTING PERFORMED AT [facility] ORIGINAL REPORT ON FILE IN LAB CONTAINS ADDITIONAL TEST SITE INFORMATION. Smear, Acid Fast Acid Fast Smear from Concentrated Specimen :Negative [facility] Comment on above: Performed By: #### M 300.2000, M300.3000 ####[facility] [address] [place], [address] tafb TESTING PERFORMED AT [facility]. ORIGINAL REPORT ON FILE IN LAB CONTAINS ADDITIONAL TEST SITE INFORMATION. Smear, Acid Fast Acid Fast Smear from Concentrated Specimen :Negative Normal [facility] Comment on above: Performed By: #### L 3410.9998, L3400.8000, L3300.1200, L803.2200, L3100.9100, M100.2000, L3100.6900, L501.6710, M300.3000, L3100.5500, M300.2000, M100.2400, L4600.0100 ####[facility] [address] [facility] [place], [address] Head/Neck Soft Tissueon 04-2 Head/Neck Soft Tissue [facility] Imaging Services [address] [place], [place] [address] Head/Neck Soft Tissue MR#: [id number] Acct: [id number] Name: YOUNG AGARWAL Rep #: [id number] : 1955 F 69 From: Arthur Walsh MD PCP: Dr. Reagan Rosen MD Status: REG CLI Study: Head/Neck Soft Tissue Date of Exam: 02/04/25 Exam# [id number] Ordering Dr: Reagan Rosen MD EXAM: Soft [...] follow-up thyroid ultrasound is recommended. Reading Location: [id number]-GP CC: Dr. Reagan Rosen MD Spring Bender: Signed Normal [facility] Misc.on 01-26-2025 [facility]. COMMENT Normal . [facility] Comment on above: Order Comment: 36308 3RDL PROFILE RED RF Result Comment: Test Ordered: 203137 Anti-Synthetase Profile (RDL) Test(s) 184481-Owyj-HN-5 Ab (RDL); 638456- Anti-PL-12 Ab (RDL); 323186-Gpxf-FK Ab (RDL); 686762- Anti-OJ Ab (RDL) was developed and its performance characteristics determined by [employer]. It has not been cleared or approved [...] clinical and other laboratory findings. Performed at: [facility] [address] [place] [id number] Armored Vehicle Officer: Petr Cho MD, Phone: [phone] Performed at: [facility] [id number] Armored Vehicle Officer: Giancarlo Crowell PhD, Phone: [phone] Performed By: #### L 3410.9998, L3400.8000, L3300.1200, L803.2200, L3100.9100, M100.2000, L3100.6900, L501.6710, M300.3000, L3100.5500, M300.2000, M100.2400, L4600.0100 ####[facility] [address] [place], [place], [id number] [facility]. COMMENT Normal . [facility] Comment on above: Order Comment: 14744 9RNP ANTIBODY RED RF Result Comment: Test Ordered: 516064 Anti-U3 TAG WRITER (Fibrillarin)(RDL) Test(s) 687470-Qyhh-C9 TAG WRITER (Fibrillarin)(RDL) was developed and its performance characteristics determined by [facility]. It has not been cleared or approved by the Food and Drug Administration. Anti-U3 TAG WRITER (Fibrillarin)(RDL) Negative ESECF Reference Range: Negative Performed at: [facility] [address] [place] [id number] Armored Vehicle Officer: Petr Cho MD, Phone: [phone] Performed at: [address] [id number] Armored Vehicle Officer: Giancarlo Crowell PhD, Phone: [phone] Performed By: #### L 3410.9998 ####[facility] [address] [place], [address] ANCAon 01-02-2025 Atypical pANCA <1:20 Normal Neg:<1:20 [facility] Comment on above: Result Comment: The atypical pANCA pattern has been observed in a significant percentage of patients with ulcerative colitis, primary sclerosing cholangitis and autoimmune hepatitis. Performed By: #### L 3410.9998, L3400.8000, L3300.1200, L803.2200, L3100.9100, M100.2000, L3100.6900, L501.6710, M300.3000, L3100.5500, M300.2000, M100.2400, L4600.0100 ####[facility] [address] [place], [address] Cytoplasmic Ab <1:20 Normal Neg:<1:20 [facility] Comment on above: Performed By: #### L 3410.9998, L3400.8000, L3300.1200, L803.2200, L3100.9100, M100.2000, L3100.6900, L501.6710, M300.3000, L3100.5500, M300.2000, M100.2400, L4600.0100 ####[facility] [address] [place], [place], [id number] Perinuclear Ab. <1:20 Normal Neg:<1:20 [facility] Comment on above: Result Comment: The presence of positive fluorescence exhibiting P-ANCA or C-ANCA patterns alone is not specific for the diagnosis of Hua's Granulomatosis (WG) or microscopic polyangiitis. Decisions about treatment should not be based solely on ANCA IFA results. The International ANCA Group Consensus recommends follow up testing of positive sera with both NJ- 3 and MPO-ANCA enzyme immunoassays. As many as 5% serum samples are positive only by EIA. Ref. AM J Clin Pathol 1999;111:507-513. Performed By: #### L 3410.9998, L3400.8000, L3300.1200, L803.2200, L3100.9100, M100.2000, L3100.6900, L501.6710, M300.3000, L3100.5500, M300.2000, M100.2400, L4600.0100 ####[facility] [address] [place], [place], [address] Angiotensin Convert Enzymeon 01-02-2025 ANGIOT-CONV.ENZ 41 U/L Normal 14-82 [facility] Comment on above: Performed By: #### L 3410.9998, L3400.8000, L3300.1200, L803.2200, L3100.9100, M100.2000, L3100.6900, L501.6710, M300.3000, L3100.5500, M300.2000, M100.2400, L4600.0100 ####[facility] [address] [place], [place], [address] Anti-Smooth Muscle ABSon ANTISMOOTH MUSC 5 Units Normal 0-19 [facility] Comment on above: Result Comment: Nega tive 0 - 19 Weak positive 20 - 30 Moderate to strong positive >30 Actin Antibodies are found in 52-85% of patients with autoimmune hepatitis or chronic active hepatitis and in 22% of patients with primary biliary cirrhosis. Performed By: #### L 3410.9998, L3400.8000, L3300.1200, L803.2200, L3100.9100, M100.2000, L3100.6900, L501.6710, M300.3000, L3100.5500, M300.2000, M100.2400, L4600.0100 ####[facility] [address] [place], [place], [id number] CCP IgG Antibodieson 025 CCP IgG Ab. 5 units Normal 0-19 [facility] Comment on above: Result Comment: Nega tive <20 Weak positive 20 - 39 Moderate positive 40 - 59 Strong positive >59 Performed By: #### L 3410.9998, L3400.8000, L3300.1200, L803.2200, L3100.9100, M100.2000, L3100.6900, L501.6710, M300.3000, L3100.5500, M300.2000, M100.2400, L4600.0100 ####[facility] [address] [place], [place], [address] Respiratory Cultureon 2024 RESPC Mixed normal respira tory rea. No Haemophilus, Streptococcus pneumoniae, beta-hemolytic Streptococcus or Staphylococcus aureus isolated. Normal [facility] Comment on above: Performed By: #### L 3410.9998, L3400.8000, L3300.1200, L803.2200, L3100.9100, M100.2000, L3100.6900, L501.6710, M300.3000, L3100.5500, M300.2000, M100.2400, L4600.0100 ####[facility] [address] [place], [address] Acid fast bacillus (AFB) cul tureOrdered By: Edmundo Buenrostro on 12-30-2024 Mycobacterium sp identified Org specific cx Nom (Unsp spec) [facility] Quantiferon TB-Gold+on 12-30 QFT MITOGEN CARMEN > 10.00 Normal . [facility] Comment on above: Performed By: #### L 3410.9998, L3400.8000, L3300.1200, L803.2200, L3100.9100, M100.2000, L3100.6900, L501.6710, M300.3000, L3100.5500, M300.2000, M100.2400, L4600.0100 ####[facility] [address] [place], [address] QFT NIL VALUE 0.05 IU/mL Normal . [facility] Comment on above: Performed By: #### L 3410.9998, L3400.8000, L3300.1200, L803.2200, L3100.9100, M100.2000, L3100.6900, L501.6710, M300.3000, L3100.5500, M300.2000, M100.2400, L4600.0100 ####[facility] [address] [place], [place], [address] QFT TB GOLD+ Comment Normal . [facility] Comment on above: Result Comment: Robbie tiFERON-TB [...] control for the test. Performed By: #### L 3410.9998, L3400.8000, L3300.1200, L803.2200, L3100.9100, M100.2000, L3100.6900, L501.6710, M300.3000, L3100.5500, M300.2000, M100.2400, L4600.0100 ####[facility] [address] [place], [place], [address] QFT TB POS CRIT Negative Normal Negative [facility] Comment on above: Result Comment: No r [...] interferon gamma. Chemiluminescence immunoassay methodology Performed at: [employer] [id number] Armored Vehicle Officer: Giancarlo Crowell PhD, Phone: [phone] Performed By: #### L 3410.9998, L3400.8000, L3300.1200, L803.2200, L3100.9100, M100.2000, L3100.6900, L501.6710, M300.3000, L3100.5500, M300.2000, M100.2400, L4600.0100 ####[facility] [address] [place], [place], [address] QFT TB1+ AG CARMEN 0.07 IU/mL Normal . [facility] Comment on above: Performed By: #### L 3410.9998, L3400.8000, L3300.1200, L803.2200, L3100.9100, M100.2000, L3100.6900, L501.6710, M300.3000, L3100.5500, M300.2000, M100.2400, L4600.0100 ####[facility] [address] [place], [place], [address] QFT TB2+ AG CARMEN 0.04 IU/mL Normal . [facility] Comment on above: Performed By: #### L 3410.9998, L3400.8000, L3300.1200, L803.2200, L3100.9100, M100.2000, L3100.6900, L501.6710, M300.3000, L3100.5500, M300.2000, M100.2400, L4600.0100 ####[facility] [address] [place], [address] Acid fast bacillus (AFB) cul tureOrdered By: Edmundo Buenrostro on 12-29-2024 Mycobacterium sp identified Org specific cx Nom (Unsp spec) [facility] Anti-dsDNA Abon 12-29-2024 ANTI-DNA (DS)AB <1 Normal 0-9 [facility] Comment on above: Result Comment: Nega tive <5 Equivocal 5 - 9 Positive >9 Performed at: [facility] [id number] Armored Vehicle Officer: Giancarlo Crowell PhD, Phone: [phone] Performed By: #### L 3410.9998, L3400.8000, L3300.1200, L803.2200, L3100.9100, M100.2000, L3100.6900, L501.6710, M300.3000, L3100.5500, M300.2000, M100.2400, L4600.0100 ####[facility] [address] [place], [place], [address] Gram Stainon 12-29-2024 GS Gram Stain 2+ Gram positive cocci 1+ Gram positive rods 1+ Gram negative rods 1+ Epithelial cells Normal [facility] Comment on above: Performed By: #### L 3410.9998, L3400.8000, L3300.1200, L803.2200, L3100.9100, M100.2000, L3100.6900, L501.6710, M300.3000, L3100.5500, M300.2000, M100.2400, L4600.0100 ####[facility] [address] [facility] [place], [place], [id number] Sjogren's Antibodies A/Bon 0 12-29-2024 ANTI-SS-A < 0.2 Normal 0.0-0.9 [facility] Comment on above: Result Comment: AMENDED REPORT 12/29/241307 Anti-SS-A previously reported as: Test not performed Performed By: #### L 3410.9998, L3400.8000, L3300.1200, L803.2200, L3100.9100, M100.2000, L3100.6900, L501.6710, M300.3000, L3100.5500, M300.2000, M100.2400, L4600.0100 ####[facility] [address] [facility] [place], [place], [address] ANTI-SS-B < 0.2 Normal 0.0-0.9 [facility] Comment on above: Result Comment: AMENDED REPORT 12/29/241307 Anti-SS-B previously reported as: Test not performed Performed By: #### L 3410.9998, L3400.8000, L3300.1200, L803.2200, L3100.9100, M100.2000, L3100.6900, L501.6710, M300.3000, L3100.5500, M300.2000, M100.2400, L4600.0100 ####[facility] [address] [facility] [address] [place], [place], [address] Acid fast bacillus (AFB) cul tureOrdered By: Edmundo Buenrostro on 12-28-2024 Mycobacterium sp identified Org specific cx Nom (Unsp spec) [facility] Actin IgG QnOrdered By: Nicholas Buenrostro on 12-28-2024 Anti-Smooth Muscle Antibody 5 Units 0-19 [facility] Comment on above: Negative 0 - 19 Weak positive 20 - 30 Moderate to strong positive >30 Actin Antibodies are found in 52-85% of patients with autoimmune hepatitis or chronic active hepatitis and in 22% of patients with primary biliary cirrhosis. Atypical perinuclear antineu trophil cytoplasmic antibodies measurementOrdered By: Edmundo Buenrostro on 12-28-2024 Atypical p-ANCA <1:20 titer Neg:<1:20 [facility] Comment on above: The atypical pANCA p attern has been observed in asignificant percentage of patients with ulcerative colitis,primary sclerosing cholangitis and autoimmune hepatitis. CRPon 12-28-2024 C-REACTIVE PROT < 3.00 Normal 0.0-3.0 [facility] Comment on above: Performed By: #### L 3410.9998, L3400.8000, L3300.1200, L803.2200, L3100.9100, M100.2000, L3100.6900, L501.6710, M300.3000, L3100.5500, M300.2000, M100.2400, L4600.0100 ####[facility] [address], [place], [address] CRP [Mass/Vol]Ordered By: Chantal Buenrostro on 12-28-2024 C-Reactive Protein Extended Range < 3.00 mg/L 0.0-3.0 [facility] Cyclic citrullinated peptide IgG QnOrdered By: Edmundo Buenrostro on 12-28-2024 Cyclic Citrullinated Peptide IgG Ab 5 units 0-19 [facility] Comment on above: Negative <20 Weak po sitive 20 - 39 Moderate positive 40 - 59 Strong positive >59 DNA double strand Ab Qn (S)O rdered By: Edmundo Buenrostro on 12-28-2024 Anti-Double Strand DNA Antibody <1 IU/mL 0-9 [facility] Comment on above: Negative <5 Equivoca l 5 - 9 Positive >9Performed at: - [facility] [id number] Director: Giancarlo Crowell PhD, Phone: [phone] Gram stainOrdered By: Edmundo Buenrostro on 12-28-2024 Microscopic observation Gram stain Nom (Unsp spec) [facility] M. tuberculosis tuberculin s joel IFN-g Ql (Bld)Ordered By: Edmundo Buenrostro on 12-28-2024 TB Test (QFT) Antigen 1 0.07 IU/mL . [facility] Microbial respiratory cultur eOrdered By: Edmundo Buenrostro on 12-28-2024 Microorganism identified Cx Nom (Unsp spec) [facility] Microorganism identified Cx Nom (Unsp spec)Ordered By: Edmundo Buenrostro on 12-28-2024 Respiratory Culture [facility] Neutrophil cytoplasmic Ab.cl assic Qn (S)Ordered By: Edmundo Buenrostro on 12-28-2024 Cytoplasmic ANCA (c-ANCA) Antibody <1:20 titer Neg:<1:20 [facility] Neutrophil cytoplasmic Ab.pe rinuclear IF (S) [Titer]Ordered By: Edmundo Buenrostro on 12-28-2024 Perinuclear ANCA (p-ANCA) Antibody <1:20 titer Neg:<1:20 [facility] Comment on above: The presence of posi tive fluorescence exhibiting P-ANCA orC-ANCA patterns alone is not specific for the diagnosis ofWegener's Granulomatosis (WG) or microscopic polyangiitis.Decisions about treatment should not be based solely onANCA IFA results. The International ANCA Group Consensusrecommends follow up testing of positive sera with both NJ-3 and MPO-ANCA enzyme immunoassays. As many as 5% serumsamples are positive only by EIA. Ref. AM J Clin [id number];111:507-513. No Panel InformationOrdered By: Edmundo Buenrostro on 12-28-2024 Miscellaneous Test COMMENT . [facility] Comment on above: Test Ordered: [id number] Anti-U3 TAG WRITER (Fibrillarin)(RDL)Test(s) [id number] TAG WRITER (Fibrillarin)(RDL)was developed and its performance characteristicsdetermined by [employer]. It has not been cleared or approvedby the Food and Drug Administration.Anti-U3 TAG WRITER (Fibrillarin)(RDL) Negative [facility] Reference Range: NegativePerformed at: [facility] [address] [place], [place] [id number] Director: Petr Cho MD, Phone: [phone] at: - [facility] [id number] Director: Giancarlo Crowell PhD, Phone: [phone] Qualitative QuantiFERON-TB g old in tube testOrdered By: Edmundo Buenrostro on 12-28-2024 M. tuberculosis tuberculin stim IFN-g Ql (Bld) 0.07 IU/mL . [facility] Quantiferon-TB Gold Plus javan tOrdered By: Edmundo Buenrostro on 12-28-2024 TB Test (QFT) Comment . [facility] Comment on above: QuantiFERON-TB Gold Plus is [...] (QFT) Antigen 2 0.04 IU/mL . [facility] TB Test (QFT) Mitogen > 10.00 IU/mL . [facility] TB Test (QFT) Nil 0.05 IU/mL . [facility] TB Test (QFT) Positive Criteria Negative Negative [facility] Comment on above: No response to M [...] the productionof interferon gamma. Chemiluminescence immunoassaymethodologyPerformed at: [employer] [facility] [address] [id number] Director: Giancarlo Crowell PhD, Phone: [phone] SS-A IgG antibody assayOrder ed By: Edmundo Buenrostro on 12-28-2024 SS-A/Ro IgG Antibody TNP [facility] Comment on above: Test not performed SS-A/Ro IgG Antibody < 0.2 AI 0.0-0.[address] [facility] Comment on above: Previous reported re sult: TNP AIEdited by: MONTRELL on 12/29/24:1308 AMENDED REPORT 12/29/24 1308 Anti-SS-A previously reported as: Test not performed SS-B IgG antibody assayOrder ed By: Edmundo Buenrostro on 12-28-2024 SS-B/La IgG Antibody TNP [facility] Comment on above: Test not performed SS-B/La IgG Antibody < 0.2 AI 0.0-0.[address] [facility] Comment on above: Previous reported re sult: TNP AIEdited by: MONTRELL on 12/29/24:1308 AMENDED REPORT 12/29/24 1308 Anti-SS-B previously reported as: Test not performed Serum DNA double strand anti body assay (units/volume)Ordered By: Edmundo Buenrostro on 12-28-2024 DNA double strand Ab Qn (S) [IU]/mL 0-9 [facility] Comment on above: Negative <5 Equivoca l 5 - 9 Positive >9Performed at: [facility] Director: Giancarlo Crowell PhD, Phone: [phone] Serum classic neutrophil cyt oplasmic antibody assay (units/volume)Ordered By: Edmundo Buenrostro on 12-28-2024 Neutrophil cytoplasmic Ab.classic Qn (S) <1:20 titer Neg:<1:20 [facility] Serum or plasma C reactive p rotein measurement (mass/volume)Ordered By: Edmundo Buenrostro on 12-28-2024 CRP [Mass/Vol] mg/L 0.0-3.0 [facility] Serum or plasma actin IgG an tibody assay (units/volume)Ordered By: Edmundo Buenrostro on 12-28-2024 Actin IgG Qn 5 Units 0-19 [facility] Comment on above: Negative 0 - 19 Weak positive 20 - 30 Moderate to strong positive >30 Actin Antibodies are found in 52-85% of patients with autoimmune hepatitis or chronic active hepatitis and in 22% of patients with primary biliary cirrhosis. Serum or plasma angiotensin converting enzyme measurement (enzymatic activity/volume)Ordered By: Edmundo Buenrostro on 12-28-2024 Angiotensin converting enzyme [Catalytic activity/Vol] 41 U/L 14-82 [facility] Serum or plasma cyclic citru llinated peptide IgG antibody assay (units/volume)Ordered By: Edmundo Buenrostro on 12-28-2024 Cyclic citrullinated peptide IgG Qn 5 units 0-19 [facility] Comment on above: Negative <20 Weak po sitive 20 - 39 Moderate positive 40 - 59 Strong positive >59 Serum perinuclear neutrophil cytoplasmic antibody titer by immunofluorescenceOrdered By: Edmundo Buenrostro on 12-28-2024 Neutrophil cytoplasmic Ab.perinuclear IF (S) [Titer] <1:20 titer Neg:<1:20 [facility] Comment on above: The presence of posi tive fluorescence exhibiting P-ANCA orC-ANCA patterns alone is not specific for the diagnosis ofWegener's Granulomatosis (WG) or microscopic polyangiitis.Decisions about treatment should not be based solely onANCA IFA results. The International ANCA Group Consensusrecommends follow up testing of positive sera with both NJ-3 and MPO-ANCA enzyme immunoassays. As many as 5% serumsamples are positive only by EIA. Ref. AM J Clin [id number];111:507-513. Chest PA and Lateralon 12-20 Chest PA and Lateral [facility] Imaging Services [address] [place], [place] [address] Chest PA and Lateral MR#: [id number] Acct: [id number] Name: YOUNG AGARWAL Rep #: [id number] : 1955 F 69 From: Manuelito Iraheta MD PCP: Dr. Reagan Rosen MD Status: [facility] Study: Chest PA and Lateral Date of Exam: 12/20/24 Exam# [id number] Ordering Dr: Clinton Bautista MD EXAM: XR [...] Lateral IMPRESSION: Suggestion of COPD. Reading [facility] CC: Dr. Clinton Bautista MD; Dr. Reagan Rosen MD Spring Bender: Signed Normal [facility] SCRN MAMM (CAD)W/EDITH BILATo n 09-13-2024 SCRN MAMM (CAD)W/EDITH BILAT [facility] Imaging Services [address] [place] [address] SCRN MAMM (CAD)W/EDITH BILAT MR#: [id number] Acct: [id number] Name: YOUNG AGARWAL Rep #: [id number] : 1955 F 69 From: Matthew flannery MD PCP: Dr. Reagan Rosen MD Status: REG CLI Study: SCRN MAMM (CAD)W/EDITH BILAT Date of Exam: 01/02 Exam# [id number] Ordering Dr: Rashmi Tapia GROUP DYNAMICS INSTRUCTOR GROUP DYNAMICS INSTRUCTOR -[id number] MAMMOGRAPHY - BILATERAL SCREENING REASON FOR EXAM: [...] delay biopsy of a clinically suspicious abnormality. [id number] Electronically Signed: Matthew Crockett MD at 8:34 EST , CC: JACLYN Tapia; Dr. Reagan Rosen MD Spring Bender: Signed Normal [facility] Inital Evaluation (1) - PTon 06-09-2024 Inital Evaluation (1) - PT [facility] Physical Therapy [facility] [place] [address] / REHABILITATION SERVICES INITIAL EVALUATION MR#: [id number] Acct: [id number] Name: YOUNG AGARWAL Rep #: [id number] : 1955 69 From: Frederick Giron PT. MDT Referring Dr.: Dr. Aisha Ignacio MD Status: REG [facility] Insurance: [facility] [employer]URANCE Patient's Visit Information Visit [...] of:: T (more content not included)... Normal [facility] Low Dose CT Lung Screeningon 05-23-[address] Lung Screening [facility] Imaging Services [address] [place] [id number] Lung Screening MR#: [id number] Acct: [id number] Name: YOUNG AGARWAL Rep #: [id number] : 1955 F 69 From: Matthew flannery MD PCP: Dr. Reagan Rosen MD Status: REG [facility] Study: Low Dose CT Lung Screening Date of Exam: 05/23 Exam# [id number] Ordering Dr: Reagan Rosen MD [id number] STUDY: LOW DOSE CT LUNG CANCER SCREENING [...] EDT , CC: Dr. Reagan Rosen MD Spring Bender: Signed Normal [facility] US ANKLE LTon 06-23-2023 US ANKLE LT [...] AT THE AREA OF THE PATIENT'S SWELLING. Spring Bender: BANDAR Transcribe Date/Time: Jun 23 2023 1:15P Dictated by : ARTIE HERNÁNDEZ MD This examination was interpreted and the report reviewed and electronically signed by: ARTIE HERNÁNDEZ MD on Jun 23 2023 1:18PM EST [id number] Normal [facility] Sarah 06-04-2023 CNPN Telephone (RULTTB) ----- YOUNG AGARWAL ([id number]) 1955 F Date Time Provider Department 06/04/23 [...] TEAR/STRAIN/SPRAIN. OUTSIDE ORDER SCANNED INTO CHART/BUILT IN [employer]. Preferred Provider: N/A Comment: Please ask if [...] for their MSK US on 06/23 at [place]. Allergies As of Date: 06/04/2023 Noted Allergy [...] Encounter Status:Closed by TY RAY on 06/04/23 [facility] 05-28-2023 CNPN Telephone (RULTTB) ----- YOUNG AGARWAL ([id number]) 1955 F Date Time Provider Department 05/28/23 [...] TEAR/STRAIN/SPRAIN. OUTSIDE ORDER SCANNED INTO CHART/BUILT IN [employer]. Preferred Provider: N/A Comment: Please ask if [...] PT indicated she was already scheduled at [facility] and no longer needs an appointment. [...] Status:Closed by STEPHEN ELLIS on 06/01/23 Normal [facility] Basophil percentageOrdered B y: Dr. Rosen on 01-01-2023 Chloride [Moles/Vol] 105 mmol/L 98-[address] [facility] Cholesterol [Mass/Vol] 151 mg/dL <200 [facility] Comment on above: <200 mg/dL Desirable 200-240 mg/dL Borderline >240 mg/dL High Risk Glucose [Mass/Vol] 102 mg/dL 74-106 [facility] Comment on above: Fasting Glucose resu lt from 100 to 125 mg/dL suggests IMPAIRED HOMEOSTASIS per A.D.A. criteria. Potassium [Moles/Vol] 4.0 mmol/L 3.5-5.1 [facility] Sodium [Moles/Vol] 141 mmol/L 136-145 [facility] Triglyceride [Mass/Vol] 81 mg/dL <199 [facility] Comment on above: The drugs N-Acetylcy steine and Metamizole may falsely depress this assay.Serum Triglycerides Reference Interval Normal <150 mg/dL Borderline high 150 - 199 mg/dL High 200 - 499 mg/dL Very High > or = 500 mg/dL Laboratory - Chemistry and C hemistry - challengeOrdered By: Dr. Rosen on 01-01-2023 CO2 [Moles/Vol] 30.0 mmol/L 21.0-32.0 [facility] Urea nitrogen/Creatinine [Mass ratio] 25.9 mg/mg 10-20 [facility] No Panel InformationOrdered By: Dr. Rosen on 01-01-2023 Estimated GFR (MDRD) Amer 108 mL/min >60 [facility] Comment on above: GFR Calc Estimated GFR (MDRD) Non-Af Amer 89 mL/min >60 [facility] Comment on above: Non- GFR Calc Vitamin D 25-Hydroxy 34.2 ng/mL [facility] Comment on above: Vitamin D 25(OH) Sta tus Range Deficiency <20 ng/mL (50nmol/L) Insufficiency 20 - 30 ng/mL (50 - 75 nmol/L) Sufficiency 30 - 100 ng/mL (75 - 250 nmol/L) Toxicity >100 ng/mL (>250 nmol/L) Serum or plasma calcium kelsey urement (mass/volume)Ordered By: Dr. Rosen on 01-01-2023 Calcium [Mass/Vol] 9.4 mg/dL 8.5-10.1 [facility] Serum or plasma cholesterol in HDL measurement (mass/volume)Ordered By: Dr. Rosen on 01-01-2023 Cholesterol in HDL [Mass/Vol] 56 mg/dL >40 [facility] Comment on above: The drugs N-Acetylcy steine and Metamizole may falsely depress this assay. Reference Range HDL <40 mg/dL Low HDL Cholesterol HDL >or= 60 mg/dL High HDL Cholesterol Serum or plasma cholesterol in VLDL measurement (mass/volume)Ordered By: Dr. Rosen on 01-01-2023 Cholesterol in VLDL [Mass/Vol] 16 mg/dL 5-40 [facility] Serum or plasma creatinine m easurement (mass/volume)Ordered By: Dr. Rosen on 01-01-2023 Creatinine [Mass/Vol] 0.69 mg/dL 0.55-1.02 [facility] Comment on above: The validity of the calculated GFR & GFRAA in patients over 70 years has not been determined. Clinical correlation is essential. Serum or plasma low density lipoprotein (LDL) cholesterol measurement (mass/volume)Ordered By: Dr. Rosen on 01-01-2023 Cholesterol in LDL [Mass/Vol] 79 mg/dL 0-130 [facility] Serum or plasma urea nitroge n measurement (mass/volume)Ordered By: Dr. Rosen on 01-01-2023 Urea nitrogen [Mass/Vol] 18 mg/dL 7-18 [facility] Thin prep Papanicolaou smear with manual screeningOrdered By: Dr. Rosen on 01-01-2023 Thin prep Papanicolaou smear with manual screening 6 5-15 [facility] Absolute lymphocyte counton 07-14-2022 Lymphocytes Auto (Unsp spec) [#/Vol] 2.44 10*3/uL 0.83-4.51 [facility] Work Phone: Basophil percentageon 2021 Basophil percentage < 0.9 mg/dL 0.55-1.[address] [facility] Work Phone: Basophils/100 WBC (Bld) 0.5 % 0-1 [facility] Work Phone: Bilirubin [Mass/Vol] 0.60 mg/dL 0.20-1.[address] [facility] Work Phone: Comment on above: For patients on eltr ombopag therapy, use of Dimension Alpine TBIL is not recommended. Chloride [Moles/Vol] 104 mmol/L 98-[address] [facility] Work Phone: Eosinophils/100 WBC (Bld) 5.3 % 0-5 [facility] Work Phone: Glucose [Mass/Vol] 74 mg/dL 74-106 [facility] Work Phone: Neutrophils (Bld) [#/Vol] 2.5 10*3/uL 2.0-7.7 [facility] Work Phone: Neutrophils/100 WBC (Bld) 43.0 % 47-70 [facility] Work Phone: Potassium [Moles/Vol] 3.8 mmol/L 3.5-5.1 [facility] Work Phone: Protein [Mass/Vol] 7.2 g/dL 6.4-8.2 [facility] Work Phone: Sodium [Moles/Vol] 142 mmol/L 136-145 [facility] Work Phone: WBC (Bld) [#/Vol] 5.8 10*3/uL 4.4-11.0 [facility] Work Phone: Blood erythrocytes count (nu mber/volume)on 07-14-2022 RBC (Bld) [#/Vol] 4.48 10*6/uL 4.2-5.4 [facility] Work Phone: Blood hemoglobin measurement (mass/volume)on 07-14-2022 Hemoglobin (Bld) [Mass/Vol] 13.5 g/dL 12.0-15.0 [facility] Work Phone: Blood lymphocytes/100 leukoc yteson 07-14-2022 Lymphocytes/100 WBC (Bld) 41.9 % 19-41 [facility] Work Phone: Blood monocytes/100 leukocyt eson 07-14-2022 Monocytes/100 WBC (Bld) 9.1 % 0-10 [facility] Work Phone: Blood platelet mean volumeon 07-14-2022 Platelet mean volume (Bld) [Entitic vol] 9.4 fL 6.2-12.0 [facility] Work Phone: [phone] Determination of erythrocyte mean corpuscular volume (MCV)on 07-14-2022 MCV (RBC) [Entitic vol] 94.6 fL 81-99 [facility] Work Phone: Hematocrit Auto (Bld) [Volum e fraction]on 07-14-2022 Hematocrit (Bld) [Volume fraction] 42.4 % 37-47 [facility] Work Phone: [phone] Laboratory - Chemistry and C hemistry - challengeon 07-14-2022 ALP [Catalytic activity/Vol] 73 U/L 45-117 [facility] Work Phone: ALT [Catalytic activity/Vol] 31 U/L 13-56 [facility] Work Phone: CO2 [Moles/Vol] 32.0 mmol/L 21.0-32.0 [facility] Work Phone: Globulin (S) [Mass/Vol] 3.5 g/dL 2.2-4.2 [facility] Work Phone: Lipase [Catalytic activity/Vol] 185 U/L 73-393 [facility] Work Phone: Urea nitrogen/Creatinine [Mass ratio] 17.8 mg/mg 10-20 [facility] Work Phone: Laboratory - Hematology and Cell countson 07-14-2022 Erythrocyte distribution width (RBC) [Entitic vol] 48.0 fL 35.1-43.9 [facility] Work Phone: Erythrocyte distribution width (RBC) [Ratio] 13.8 % 11.6-14.6 [facility] Work Phone: Immature granulocytes/100 WBC (Bld) 0.200 % 0.0-0.9 [facility] Work Phone: Comment on above: IG% - Immature Granu locytes (promyelocytes, myelocytes and metamyelocytes) > 1% indicates that a LEFT SHIFT is Present. MCH (RBC) [Entitic mass] 30.1 pg 27.0-32.0 [facility] Work Phone: Nucleated RBC/100 WBC (Bld) [Ratio] 0 % 0-5 [facility] Work Phone: MCHC Auto (RBC) [Mass/Vol]on 07-14-2022 MCHC (RBC) [Mass/Vol] 31.8 g/dL 32-36 [facility] Work Phone: No Panel Informationon 07-14 Bedside Estimated GFR (eGFR) > 60.0000 mL/min >60 [facility] Work Phone: Estimated GFR (MDRD) Amer 102 mL/min >60 [facility] Work Phone: Comment on above: GFR Calc Estimated GFR (MDRD) Non-Af Amer 85 mL/min >60 [facility] Work Phone: Comment on above: Non- GFR Calc Platelets bldon 07-14-2022 Platelets (Bld) [#/Vol] 314 10*3/uL 150-450 [facility] Work Phone: Serum or plasma albumin kelsey urement (mass/volume)on 07-14-2022 Albumin [Mass/Vol] 3.7 g/dL 3.2-5.0 [facility] Work Phone: [phone] Serum or plasma albumin/glob ulin mass ratioon 07-14-2022 Albumin/Globulin [Mass ratio] 1.1 {ratio} 0.9-2.4 [facility] Work Phone: [phone] Serum or plasma calcium kelsey urement (mass/volume)on 07-14-2022 Calcium [Mass/Vol] 9.9 mg/dL 8.5-10.1 [facility] Work Phone: Serum or plasma creatinine m easurement (mass/volume)on 07-14-2022 Creatinine [Mass/Vol] 0.73 mg/dL 0.55-1.02 [facility] Work Phone: Comment on above: The validity of the calculated GFR & GFRAA in patients over 70 years has not been determined. Clinical correlation is essential. Serum or plasma urea nitroge n measurement (mass/volume)on 07-14-2022 Urea nitrogen [Mass/Vol] 13 mg/dL 7-18 [facility] Work Phone: Thin prep Papanicolaou smear with manual screeningon 07-14-2022 Thin prep Papanicolaou smear with manual screening 19 U/L 15-37 [facility] Work Phone: Thin prep Papanicolaou smear with manual screening 6 5-15 [facility] Work Phone: Basophil percentageon 2021 Chloride [Moles/Vol] 106 mmol/L 98-[address] [facility] Work Phone: Cholesterol [Mass/Vol] 156 mg/dL <200 [facility] Work Phone: Comment on above: <200 mg/dL Desirable 200-240 mg/dL Borderline >240 mg/dL High Risk Glucose [Mass/Vol] 89 mg/dL 74-106 [facility] Work Phone: Potassium [Moles/Vol] 4.2 mmol/L 3.5-5.1 [facility] Work Phone: Sodium [Moles/Vol] 141 mmol/L 136-145 [facility] Work Phone: Triglyceride [Mass/Vol] 71 mg/dL [facility] Work Phone: Comment on above: The drugs N-Acetylcy steine and Metamizole may falsely depress this assay.Serum Triglycerides Reference Interval Normal <150 mg/dL Borderline high 150 - 199 mg/dL High 200 - 499 mg/dL Very High > or = 500 mg/dL Laboratory - Chemistry and C hemistry - challengeon 12-26-2021 CO2 [Moles/Vol] 30.0 mmol/L 21.0-32.0 [facility] Work Phone: Urea nitrogen/Creatinine [Mass ratio] 20.5 mg/mg 10-20 [facility] Work Phone: No Panel Informationon 12-26 Estimated GFR (MDRD) Amer 102 mL/min >60 [facility] Work Phone: Comment on above: GFR Calc Estimated GFR (MDRD) Non-Af Amer 85 mL/min >60 [facility] Work Phone: Comment on above: Non- GFR Calc Thyroid Stimulating Hormone (TSH) 1.57 uIU/mL 0.358-3.74 [facility] Work Phone: Vitamin D 25-Hydroxy 33.8 ng/mL [facility] Work Phone: Comment on above: Vitamin D 25(OH) Sta tus Range Deficiency <20 ng/mL (50nmol/L) Insufficiency 20 - 30 ng/mL (50 - 75 nmol/L) Sufficiency 30 - 100 ng/mL (75 - 250 nmol/L) Toxicity >100 ng/mL (>250 nmol/L) Serum or plasma calcium kelsey urement (mass/volume)on 12-26-2021 Calcium [Mass/Vol] 9.6 mg/dL 8.5-10.1 [facility] Work Phone: Serum or plasma cholesterol in HDL measurement (mass/volume)on 12-26-2021 Cholesterol in HDL [Mass/Vol] 59 mg/dL [facility] Work Phone: Comment on above: The drugs N-Acetylcy steine and Metamizole may falsely depress this assay. Reference Range HDL <40 mg/dL Low HDL Cholesterol HDL >or= 60 mg/dL High HDL Cholesterol Serum or plasma cholesterol in VLDL measurement (mass/volume)on 12-26-2021 Cholesterol in VLDL [Mass/Vol] 14 mg/dL 5-40 [facility] Work Phone: Serum or plasma creatinine m easurement (mass/volume)on 12-26-2021 Creatinine [Mass/Vol] 0.73 mg/dL 0.55-1.02 [facility] Work Phone: Comment on above: The validity of the calculated GFR & GFRAA in patients over 70 years has not been determined. Clinical correlation is essential. Serum or plasma low density lipoprotein (LDL) cholesterol measurement (mass/volume)on 12-26-2021 Cholesterol in LDL [Mass/Vol] 83 mg/dL 0-130 [facility] Work Phone: Serum or plasma urea nitroge n measurement (mass/volume)on 12-26-2021 Urea nitrogen [Mass/Vol] 15 mg/dL 7-18 [facility] Work Phone: Thin prep Papanicolaou smear with manual screeningon 12-26-2021 Thin prep Papanicolaou smear with manual screening 5 5-15 [facility] Work Phone: Vital Signs Date Time Vital Sign Value Performing Clinician Faci lity 02-20-2025 09:07-0400 Body height 172.[address] Clinton Bautista MD Work Phone: [facility] 02-20-2025 09:07-0400 Body mass index (BMI) [Ratio] 27 kg/m2 Dr. Clinton Bautista MD Work Phone: [facility] 02-20-2025 09:07-0400 Body weight 80.[address] Clinton Bautista MD Work Phone: [facility] 02-20-2025 09:07-0400 Diastolic blood pressure 75 mm[Hg] Dr. Clinton Bautista MD Work Phone: [facility] 02-20-2025 09:07-0400 Heart rate 58 /min Dr. Clinton Bautista MD Work Phone: [facility] 02-20-2025 09:07-0400 Respiratory rate 17 /min Dr. Clinton Bautista MD Work Phone: [facility] 02-20-2025 09:07-0400 SaO2% (BldA) [Mass fraction] 97 % Dr. Clinton Bautista MD Work Phone: [facility] 02-20-2025 09:07-0400 Systolic blood pressure 127 mm[Hg] Dr. Clinton Bautista MD Work Phone: [facility] 01-27-2023 09:52-0400 Body height 172.[address] Reagan Rosen Work Phone: [facility] 01-13-2023 10:23-0400 Body mass index (BMI) [Ratio] 26.6 kg/m2 Dr. Reagan Rosen Work Phone: [facility] 01-13-2023 10:23-0400 Body weight 79.[address] Reagan Rosen Work Phone: [facility] 01-13-2023 10:23-0400 Diastolic blood pressure 73 mm[Hg] Dr. Reagan Rosen Work Phone: [facility] 01-13-2023 10:23-0400 Systolic blood pressure 111 mm[Hg] Dr. Reagan Rosen Work Phone: [facility] 12-17-2022 13:40-0500 Body height 173.[address] Reagan Rosen Work Phone: [facility] 12-17-2022 13:40-0500 Body mass index (BMI) [Ratio] 26 kg/m2 Dr. Reagan Rosen Work Phone: [facility] 12-17-2022 13:40-0500 Body weight 78.[address] Reagan Rosen Work Phone: [facility] 12-17-2022 13:40-0500 Diastolic blood pressure 68 mm[Hg] Dr. Reagan Rosen Work Phone: [facility] 12-17-2022 13:40-0500 Heart rate 52 /min Dr. Reagan Rosen Work Phone: [facility] 12-17-2022 13:40-0500 Respiratory rate 16 /min Dr. Reagan Rosen Work Phone: [facility] 12-17-2022 13:40-0500 Systolic blood pressure 148 mm[Hg] Dr. Reagan Rosen Work Phone: [facility] 11-08-2021 13:54-0500 Body height 173.[address] Reagna Rosen Work Phone: [facility] Work Phone: 11-08-2021 13:54-0500 Body mass index (BMI) [Ratio] 26.9 kg/m2 Dr. Reagan Rosen Work Phone: [facility] Work Phone: 11-08-2021 13:54-0500 Body weight 81.[address] Reagan Rosen Work Phone: [facility] Work Phone: 11-08-2021 13:54-0500 Diastolic blood pressure 84 mm[Hg] Dr. Reagan Rosen Work Phone: [facility] Work Phone: 11-08-2021 13:54-0500 Heart rate 60 /min Dr. Reagan Rosen Work Phone: [facility] Work Phone: 11-08-2021 13:54-0500 Respiratory rate 16 /min Dr. Reagan Rosen Work Phone: [facility] Work Phone: 11-08-2021 13:54-0500 Systolic blood pressure 156 mm[Hg] Dr. Reagan Rosen Work Phone: [facility] Work Phone: Encounters Encounter Date Encounter Type Care Provider Facility Start: 05-03-2025 ambulatory Reagan Rosen Facility:[facility] Start: 05-02-2025 ambulatory Reagan Rosen Facility:[facility] Start: 05-02-2025 ambulatory Reagan Rosen Facility:[facility] Start: 05-01-2025 Encounter for genera l adult medical examination without abnormal findings Reagan Rosen [facility] Start: 04-25-2025 End: 04-25-[address] Reagan Rosen MD Work Phone: -Laboratory [facility] Start: 04-25-2025 End: 04-25-[address] Reagan Rosen MD -Laboratory [facility] Start: 04-25-2025 End: 04-25-2025 ambulatory Reagan Rosen Facility:[facility] Start: 03-30-2025 End: 03-30-[address] Clinton Bautista MD Work Phone: -Cardiovascular Services Start: 03-30-2025 End: 03-30-[address] Reagan Rosen MD -Cardiovascular Services Work Phone: Start: 03-30-2025 End: 03-30-2025 ambulatory Reagan Rosen [facility] [facility] Start: 02-20-2025 End: 02-20-[address] Clinton Bautista MD Work Phone: [facility] Work Phone: Start: 02-20-2025 End: 02-20-[address] Mendez South MD -Laboratory, [facility] Start: 02-20-2025 End: 02-20-[address] Mendez South MD -[facility] Work Phone: Start: 02-20-2025 End: 02-20-2025 ambulatory Reagan Rosen Facility:[facility] Start: 02-20-2025 End: 02-20-2025 ambulatory Mendez South Facility:[facility] Start: 02-16-2025 End: 02-16-[address] Clinton Bautista MD Work Phone: [facility] Work Phone: Start: 02-16-2025 End: 02-16-[address] Mendez South MD -[facility], [facility] Work Phone: Start: 02-16-2025 End: 02-16-2025 ambulatory Mendez South Facility:[facility] Start: 02-04-2025 End: 02-04-[address] Reagan Rosen MD -Ultrasound, [facility] Work Phone: Start: 02-04-2025 End: 02-04-2025 ambulatory Reagan Rosen Facility:[facility] Start: 12-30-2024 End: 12-30-[address] Regaan Rosen MD Work Phone: [facility] Work Phone: Start: 12-30-2024 End: 12-30-[address] Edmundo Buenrostro MD -Laboratory Work Phone: Start: 12-29-2024 End: 12-30-[address] Reagan Rosen MD Work Phone: [facility] Work Phone: Start: 12-29-2024 End: 12-29-[address] Edmundo Buenrostro MD -Laboratory Work Phone: Start: 12-28-2024 End: 12-29-[address] Reagan Rosen MD Work Phone: [facility] Work Phone: Start: 12-28-2024 End: 12-28-[address] Edmundo Buenrostro MD -Laboratory Work Phone: Start: 12-28-2024 End: 12-28-2024 ambulatory Edmundo Buenrostro Facility:[facility] Start: 12-20-2024 End: 12-20-[address] Reagan Rosen MD Work Phone: [facility] Work Phone: Start: 12-20-2024 End: 12-20-[address] Clinton Bautista MD -Radiology, [place] Work Phone: Start: 12-20-2024 End: 12-20-2024 ambulatory Clinton Bautista Facility:[facility] Start: 09-13-2024 End: 09-13-2024 Patient encounter procedure Rashmi ANAYA -Outpatient Breast Imaging Work Phone: Start: 09-13-2024 End: 09-13-2024 ambulatory Rashmi Tapia NP Facility:[facility] Start: 07-07-2024 End: 07-07-2024 ambulatory Aisha Ignacio Facility:[facility] Start: 05-23-2024 End: 05-23-2024 ambulatory Reagan Rosen Facility:[facility] Start: 07-22-2023 End: 07-22-2023 ambulatory [facility] Work Phone: Start: 07-22-2023 End: 07-22-2023 Patient encounter procedure [facility]-Outpatient Breast Imaging Work Phone: Start: 06-23-2023 End: 06-23-2023 ambulatory REAGAN ROSEN Facility:[facility] Start: 01-27-2023 End: 01-27-[address] Reagan Rosen Work Phone: [facility] Work Phone: Start: 01-27-2023 End: 01-27-[address] Reagan Rosen Work Phone: [facility]-Outpatient Bone Densitometry Start: 01-13-2023 End: 01-13-[address] Reagan Rosen Work Phone: [facility] Start: 01-01-2023 End: 01-01-[address] Reagan Rosen Work Phone: [facility] Work Phone: Start: 01-01-2023 End: 01-01-[address] Reagan Rosen Work Phone: [facility] Start: 12-17-2022 End: 12-17-[address] Reagan Rosen Work Phone: [facility] Start: 11-26-[address] Reagan Rosen Work Phone: [facility]-Physical Therapy Start: 11-19-2022 Registered Recurring [facility]-Physical Therapy Start: 11-06-2022 End: 11-06-2022 ambulatory [facility] Work Phone: Start: 11-06-2022 End: 11-06-2022 Patient encounter procedure [facility]-Cat Scan, [facility] Start: 09-22-2022 End: 09-22-2022 ambulatory [facility] Work Phone: Start: 09-22-2022 End: 09-22-2022 Patient encounter procedure [facility] Start: 07-18-2022 End: 07-18-2022 ambulatory [facility] Work Phone: Start: 07-18-2022 End: 07-18-2022 Patient encounter procedure [facility]-Outpatient Breast Imaging Start: 07-14-2022 End: 07-14-2022 ambulatory [facility] Work Phone: Start: 07-14-2022 End: 07-14-2022 Patient encounter procedure [facility]-Cat Scan, [facility] Start: 07-14-2022 End: 07-14-2022 ambulatory [facility] Work Phone: Start: 07-14-2022 End: 07-14-2022 Patient encounter procedure [facility] Start: 01-24-2022 End: 01-24-[address] Reagan Rosen Work Phone: [facility] Start: 12-26-2021 End: 12-26-[address] Reagan Rosen Work Phone: [facility] Start: 11-08-2021 End: 11-08-[address] Reagan Rosen Work Phone: [facility] Procedures Date Procedure Procedure Detail [...] the productionof interferon gamma. Chemiluminescence immunoassaymethodologyPerformed at: [facility] [address] [id number] Director: Giancarlo Crowell PhD, Phone: [phone] Start: 12-20-2024 X-ray of chest, PA and [...] Fast Bacilli Culture Acid Fast Bacilli Culture [facility] Start: 12-30-2024 Acid Fast Bacilli Smear Acid Fast Bacilli Smear [facility] Start: 12-30-2024 Acid fast bacilli culture [facility] Start: 12-29-2024 Acid Fast Bacilli Culture Acid Fast Bacilli Culture [facility] Start: 12-29-2024 Acid Fast Bacilli Smear Acid Fast Bacilli Smear [facility] Start: 12-29-2024 Acid fast bacilli culture [facility] Start: 12-28-2024 Acid Fast Bacilli Culture Acid Fast Bacilli Culture [facility] Start: 12-28-2024 Acid Fast Bacilli Smear Acid Fast Bacilli Smear [facility] Start: 12-28-2024 Microscopic observation [Identifier] in Unspecified specimen by Gram stain [facility] Start: 12-28-2024 Respiratory Culture Respiratory Culture [facility] Start: 12-28-2024 Acid fast bacilli culture [facility] Start: 12-28-2024 In-vitro immunologic test [facility] Start: 12-28-2024 [facility] Angiotensin converti ng enzyme [Enzymatic activity/volume] in Serum or Plasma [facility] Bacteria identified in Sputum by Respiratory culture [facility] C reactive protein [Mass/volume] in Serum or Plasma [facility] Cyclic citrullinated peptide IgG Ab [Units/volume] in Serum or Plasma [facility] DNA double strand Ab [Units/volume] in Serum [facility] Mycobacterium sp identified in Unspecified specimen by Organism specific culture [facility] Mycobacterium sp identified in Unspecified specimen by Organism specific culture [facility] Mycobacterium sp identified in Unspecified specimen by Organism specific culture [facility] Mycobacterium tuberculosis tuberculin stimulated gamma interferon [Presence] in Blood [facility] Neutrophil cytoplasm ic Ab.classic [Units/volume] in Serum [facility] P-ANCA measurement [facility] Smooth muscle Ab [Presence] in Serum [facility] Payers Date Payer Category Payer Medicare [id number] 2024 Self-pay [id number] 2020 Private Health Insurance [id number] Unknown [id number] Unknown [id number] 2.16.8 [id number] Unknown [id number] 2.16.8 [id number] Unknown [id number] 2.16.8 [id number] Unknown [id number] 2.16.8 [id number] Unknown [id number] 2.16.8 [id number] Unknown [id number] 2.16.8 [id number] Unknown [id number] 2.16.8 [id number] Unknown [id number] 2.16.8 40.1.892500.3.579.2.462 Unknown [id number] 2.16.8 40.1.599734.3.579.2.462 Unknown [id number] 2.16.8 40.1.712434.3.579.2.462 Unknown [id number] 2.16.8 40.1.827494.3.579.2.462 Unknown [id number] 2.16.8 40.1.244529.3.579.2.462 Unknown [id number] 2.16.8 40.1.847404.3.579.2.462 Unknown [id number] 2.16.8 40.1.036428.3.579.2.462 Unknown [id number] 2.16.8 40.1.182759.3.579.2.462 Unknown [id number] 2.16.8 [id number] Social History Date Type Detail Facility Start: 11-08-2021 End: 01-13-2023 Tobacco smoking status NHIS Unknown if ever smoked [facility] Start: 1955 Sex Assigned At Female [facility] Start: 01-22-2024 Tobacco smoking stat us NHIS Ex-smoker (finding) [facility] Start: 12-28-2024 End: 01-06-2025 Sex Female (finding) [facility] Radiology Diagnostic study note 02-20-2025 Note Date & Type Note Facility 02-20-2025 Radiology Diagnostic study note [facility] Imaging Services [address] [place], [place] [address] Thyroid MR#: [id number] Acct: [id number] Name: YOUNG AGARWAL Rep #: [id number] : 1955 F 69 From: [place] Crockett MD PCP: Dr. Reagan Rosen MD Status: REG C LI Study:Thyroid Date of Exam: 02/16/25 Exam# [id number] Ordering Dr: Hyun South MD PROCEDURE: THYROID 02/16/2025 REASON FOR EXAM: THYROID ULTRASOUND TECHNIQUE: High-frequency thyroid ultrasound, including grayscale and color-flow images. REFERENCE LINKS: TI-RADS Chart: [email or web address] TI-RADS Calculator Tool with Reference Images: [email or web address] -[email or web address]/body-[email or web address]/tirad s-calculator/ COMPARISON: Comparison is made with [...] no more than 2 nodules. Reading Location: [id number] CC: Dr. Mendez South MD; Dr. Reagan Rosen MD ~ [place]: Signed [facility] Evaluation note 02-20-2025 Note Date & Type Note Facility 02-20-2025 Evaluation note Diagnosis Onset Date Resolution Thyroid nodule acute February 20, 2025 8:46am [facility] Work Phone: Radiology Diagnostic study note 12-20-2024 Note Date & Type Note Facility 12-20-2024 Radiology Diagnostic study note [facility] Imaging Services [address] [place], [place] [address] Chest PA and Lateral MR#: [id number] Acct: [id number] Name: YOUNG AGARWAL Rep #: [id number] : 1955 F 69 From: Dary Iraheta MD PCP: Dr. Reagan Rosen MD Status: REG Mady YANCEY Study:Chest PA and Lateral Date of Exam: 12/20/24 Exam# [id number] Ordering Dr: Clinton Bautista MD EXAM: XR [...] Lateral IMPRESSION: Suggestion of COPD. Reading Location[facility] CC: Dr. Clinton Bautista MD; Dr. Reagan Rosen MD ~ [place]: Signed [facility] Evaluation note Note Date & Type Note Facility Evaluation note Diagnosis Onset Date Premature ventricular contraction acute SVT (supraventricular tachycardia) acute Essential hypertension chron ic Mixed hyperlipidemia chronic [facility] Work Phone: Evaluation note Note Date & Type Note Facility Evaluation note No assessment information availa ble [facility] Work Phone: Evaluation note Note Date & Type Note Facility Evaluation note Diagnosis Onset Date Premature ventricular contraction acute SVT (supraventricular tachycardia) acute Essential hypertension chron ic Mixed hyperlipidemia chronic Cystocele acute Encounter for routine gyneco logical examination noneactive [facility] Work Phone: Evaluation note Note Date & Type Note Facility Evaluation note Diagnosis Onset Date Cystocele acute Encounter for routine gyneco logical examination noneactive [facility] Work Phone: Reason for referral (narrative) Note Date & Type Note Facility Reason for referral (narrative) No reason for referral information available [facility] Work Phone: Chief Complaint and Reason for [...] BACK PAIN/RX HERE 1 Y FU 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 Reason for Visit Premature ventricula r contraction SVT (supraventricular tachycardia) Essential hypertension Mixed hyperlipidemia Cystocele Encounter for routine gynecological examination Chief Complaint 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 Mendze South MD Referring Provider Active Start: February [...] section and content) DATE CREATED AUTHOR 06/24/2023 [facility] DATE CREATED AUTHOR AUTHOR'S ORGANIZ ATION 05/05/2025 [facility] FOR RECORDS PERTAINING TO PATIENTS WHO ARE [...] BE BASED ON THE PRIMARY CLINICAL RECORDS. [employer] provides no warranty or guarantee of the accuracy or completeness of information in this document.
--- NOTE | 2025-05-06 02:55 | EX.ED.DYSGE1 ---
HPI History of Present Illness Chief Complaint: Complaint Informant: patient and spouse/S.O. Narrative Narrative: Patient is a 70-year-old female with past medical history of hypertension and hyperlipidemia prolapsed bladder and reportedly recurrent urinary tract infection. She states however it has been almost 7 years since her last UTI. She states that this afternoon she began noticing symptoms of urinary frequency urgency and dysuria. She states she sent a message to her family doctor with concern that her symptoms may worsen over the weekend and that she might require antibiotic. She states that she did not hear back from them today and she has continued to have symptoms. She denies any fevers or chills or history of immunosuppression but with concern for worsening infection presents for evaluation. [facility] Medical History Thyroid nodule Premature ventricular contraction SVT (supraventricular tachycardia) Essential hypertension Mixed hyperlipidemia UTI (urinary tract infection) Mitral valve prolapse Home Medications ?Medication ?Instructions ?Recorded ?Last Taken ?Type metoprolol tartrate 50 mg tablet 50 mg PO BID 09/16/16 Unknown History ascorbic acid (vitamin C) 500 mg 500 mg PO DAILY 11/11/19 Unknown History capsule rosuvastatin 5 mg tablet (Crestor) 5 mg PO DAILY 11/11/19 Unknown History glucosamine-chondroitin 500 mg-400 1 tab PO DAILY 11/08/21 Unknown History mg tablet (Cosamin DS) albuterol sulfate 2.5 mg/3 mL 2.5 mg inhalation QDAY 02/20/25 Unknown History (0.083 %) solution for nebulization lactobacillus combination no.4 3 3,000 mmu cells PO QDAY 02/20/25 Unknown History billion cell capsule (Probiotic) amoxicillin 875 mg-potassium 1 tab PO BID 7 days #14 tabs 05/06/25 Unknown Rx clavulanate 125 mg tablet phenazopyridine 200 mg tablet 200 mg PO TID PRN pain 3 days #9 05/06/25 Unknown Rx (Pyridium) tabs Allergy/AdvReac Type Severity Reaction Status Date / Time cephalexin (From Keflex) Allergy Angioedema Verified 05/06/25 02:06 nitrofurantoin (From Allergy Angioedema Verified 05/06/25 02:06 Macrobid) Sulfa (Sulfonamide Allergy Angioedema Verified 05/06/25 02:06 Antibiotics) sulfamethoxazole (From Allergy Angioedema Verified 05/06/25 02:06 Bactrim) trimethoprim (From Bactrim) Allergy Angioedema Verified 05/06/25 02:06 ciprofloxacin (From Cipro) AdvReac rash Verified 05/06/25 02:06 Family History Father Myocardial infarction, Onset Age: 65 Sister Mitral valve prolapse Bladder cancer Bladder cancer, cancer cells found in breast also Brother Cancer Liver Mother No problems noted. Surgical History rectal tumor removal History of endometrial ablation Salivary cyst Social History number of children: 3 current occupational status: employed current occupation: Retired Smoking Status: Former smoker alcohol intake: current alcohol intake frequency: holidays/special occasions only details: occasional substance use type: does not use caffeine: No seatbelt use: always do you feel safe at home: Yes additional social history: Khris Retired ROS ROS ED Constitutional Constitutional ED: Denies chills or fever(s) ENT ENT ED: Denies sore throat Cardiovascular Cardiovascular: Denies chest pain Respiratory/Chest Respiratory/Chest: Denies cough or dyspnea Gastrointestinal Gastrointestinal: Denies abdominal pain, diarrhea, nausea or vomiting Genitourinary Genitourinary ED: Reports dysuria and urinary frequency; Denies hematuria Musculoskeletal Musculoskeletal: Denies back pain Integumentary Denies rash Neurologic Neurologic: Denies headache(s) Hematologic/Lymphatic Hematologic/Lymphatic: Denies easy bleeding or easy bruising EXAM Physical Exam Const Vital Signs: 05/06/25 02:04 Temperature 97.7 F L Temperature Source Oral Pulse Rate 71 Respiratory Rate 16 Blood Pressure 180/83 H Blood Pressure Mean 115 Pulse Ox 99 Oxygen Delivery Method Room Air Positive well nourished and well developed General Appearance ED: well developed; Negative for pallor HEENT HEENT Narrative: Normocephalic atraumatic Eyes PERRL and EOMs intact bilaterally General Eye ED: Negative for scleral icterus Neck supple Resp normal respiratory effort and clear to auscultation bilaterally Cardio regular rate and regular rhythm GI non-distended and no masses GI Narrative: There is pain on palpation in the suprapubic region without voluntary guarding or rigidity or pulsatile mass No organomegaly noted to suggest acute urinary retention Auscultation: normoactive bowel sounds Palpation: soft Back/Spine no CVA tenderness Extremity normal to inspection Neuro oriented x3, CN's II-XII intact bilaterally and no sensory deficits noted Sensorium / Orientation: alert Motor Exam: strength 5/5 throughout Psych mental status grossly normal Skin no rashes or lesions noted and no wounds General Skin Exam: Negative for jaundice or pallor MDM MDM MDM Narrative Medical decision making narrative: Patient arrived to the ER hypertensive but has a past medical history of this and is with stable vitals. She reported roughly 24 hours of increased urinary frequency urgency and dysuria. Differential diagnosis is for UTI versus pyelonephritis versus interstitial cystitis. As she is afebrile and does not have findings of systemic symptoms concern for urosepsis is low. Also she does not have back pain going against concern for pyelonephritis and therefore do not feel the need for blood work. A urine sample will be obtained to check for changes consistent with infection. As she does have a history of recurrent UTIs I will also send the urine for culture. The sample is consistent with UTI. The patient has multiple medical allergies but states she can take penicillin. Therefore I will start the patient on Augmentin while urine culture is pending. However at this time she is afebrile she is not hypotensive she does not have back/flank pain and therefore I do not feel there is need for further workup in the ER and she can be discharged home on her medication. History & Record Review Discussion w/independent historian: Patient and Significant other Lab Data Attestation: I reviewed the patient's lab results. Labs: Laboratory Results - last 24 hr 05/06/25 02:20 Urine Color Straw Urine Clarity Sl. Cloudy Urine pH 7.0 Ur Specific [place] 1.010 Urine Protein 30 H Urine Glucose (UA) Normal Urine Ketones Negative Urine Occult Blood 250 H Urine Nitrite Negative Urine Bilirubin Negative Urine Urobilinogen Normal Ur Leukocyte Esterase 500 H Urine RBC 10-25 SEEN Urine WBC >100 SEEN Ur Squamous Epith Cells 0-5 SEEN Urine Bacteria 1+ Urine Mucus 0 SEEN Discharge Plan Triage Chief Complaint: Complaint ED Provider: Froilan Nelson Dx/Rx/DC Orders Clinical Impression: UTI (urinary tract infection), Essential hypertension, Hyperlipidemia Instructions: UTIs Prescriptions: New amoxicillin-pot clavulanate 875-125 mg tablet 1 tab PO BID 7 Days Qty: 14 0RF phenazopyridine [Pyridium] 200 mg tablet 200 mg PO TID PRN (Reason: pain) 3 Days Qty: 9 0RF No Action ascorbic acid (vitamin C) 500 mg capsule 500 mg PO DAILY rosuvastatin [Crestor] 5 mg tablet 5 mg PO DAILY glucosamine-chondroitin [Cosamin DS] 500-400 mg tablet 1 tab PO DAILY Probiotic 3 billion cell capsule 3,000 mmu cells PO QDAY Rx Instructions: administer with a meal albuterol sulfate 2.5 mg /3 mL (0.083 %) solution for nebulization 2.5 mg inhalation QDAY metoprolol tartrate 50 MG tablet 50 mg PO BID Primary Care Provider: Reagan Santa Referrals: Reagan Santa MD [Primary Care Provider] - Activity Restrictions/Additional Instructions: Please take the antibiotic as directed to help resolve your urinary tract infection. It would typically take 2 to 3 days for the antibiotic to take effect and help resolve symptoms. If you develop a fever or have increasing pain or any further concerns please return to the ER for repeat evaluation. Print Language: Estonian Disposition Disposition: Home, Self Care
[2025-05-06 03:29] LABS: Red Blood Cells-Urine 10-25 SEEN /hpf (0-5); Squamous Epithelial Cells - UA 0-5 SEEN /hpf (5-10)
[2025-05-06 03:59] VITALS: BP 158/78; PULSE 81; RESP 16; TEMP 36.6; O2SAT 96
== END 2025-05-06 03:59 | disposition home or self-care (01) ==
PROVIDERS: Emergency Provider Emergency Medicine; PCP Family Medicine; Visit Provider Emergency Medicine
DX: N39.0 Urinary tract infection, site not specified (principal); E78.2 Mixed hyperlipidemia; Z87.891 Personal history of nicotine dependence; I10 Essential (primary) hypertension; Z87.440 Personal history of urinary (tract) infections
CPT/HCPCS: 81001; 87077; 87086; 87088; 87186; 99283

== ENCOUNTER → 2025-06-07 | Outpatient (CLI) | payer MEDICARE, SELFPAY ==
--- NOTE | 2025-06-07 15:45 | VDLE_ITS ---
Reason For Study Reason For Study: LLE Pain RIGHT LEFT FV is compressible, spontaneous, phasic, competent GSV is normal. and demonstrates normal augmentation. CFV is compressible, spontaneous, phasic, competent, Procedure and demonstrates normal augmentation. This is a venous duplex using B-mode, color flow and FV is compressible, spontaneous, phasic, competent spectral Doppler. and demonstrates normal augmentation. Exam performed in department. POP V is compressible, spontaneous, phasic, competent The exam was diagnostic. and demonstrates normal augmentation. A preliminary report was called and/or faxed to T/P Trunk is compressible. Rc office. PTV is compressible. LT PerV is compressible. VL/Venous Duplex US, Unilateral Interpretation Summary Deep veins of the left lower extremity are patent and compressible segmentally. There is no evidence of left lower extremity deep vein thrombosis. Valvular competence appears intact within the p roximal deep venous system on the left . The left great saphenous vein appears patent and compressible segmentally. The right femoral vein is patent and compressible. Ordering Physician: Reagan Santa Referring Physician: Reagan Santa Performed By: Elie Elliott RVT
== END | disposition home or self-care (01) ==
LOC: CVS 15:43
PROVIDERS: PCP Family Medicine; Referring Provider Family Medicine; Visit Provider Family Medicine
DX: M79.605 Pain in left leg (principal)
CPT/HCPCS: 93971

== ENCOUNTER → 2025-06-08 | Outpatient (CLI) | payer MEDICARE, SELFPAY ==
--- NOTE | 2025-06-08 13:35 | RAD_ITS ---
EXAM: XR Left Knee Complete, 4 or More Views CLINICAL INDICATION: LEFT KNEE PAIN TECHNIQUE: Four or more views of the left knee. COMPARISON: No relevant prior studies available. FINDINGS: BONES/JOINTS: Unremarkable. No acute fracture. No dislocation. SOFT TISSUES: Unremarkable. RAD/Knee 4 or More Views IMPRESSION: No acute fracture. Reading Location[facility]
== END | disposition home or self-care (01) ==
PROVIDERS: PCP Family Medicine; Referring Provider Family Medicine; Visit Provider Family Medicine
DX: M25.562 Pain in left knee (principal)
CPT/HCPCS: 73564

== ENCOUNTER → 2025-08-05 | Outpatient (CLI) | payer MEDICARE, SELFPAY ==
--- OUTSIDE RECORDS SUMMARY | 2025-08-05 08:51 | XMS RPT_ITS | CCD ---
Author Organization [facility] CliniSyid Care Team Providers Care Printing Supervisor Name Role Phone Dr. Reagan Rosen Primary Care Provider Dr. Reagan Rosen Referring Provider [phone] Reagan Gallagher Attending Provider [phone] Reagan Rosen Primary Care Provider Dr. Reagan Rosen Referring Provider [phone] Reagan Gallagher Attending Provider [phone] Aisha Ignacio Attending Provider [phone] Dr. Reagan Rosen Primary Care Provider Dr. Reagan Rosen Referring Provider REAGAN ROSEN Primary Care Unavailable Dr. Reagan Rosen MD Primary Care Provider Regina OPTICAL ASSISTANT-CRashmi Attending Provider Regina OPTICAL ASSISTANT-CRashmi Referring Provider Dr. Clinton Bautista MD Attending Provider [phone] Dr. Clinton Bautista MD Referring Provider Porter RHODES, Dr. Edmundo Fam Attending Provider Dr. Edmundo Buenrostro MD, V Referring Provider [phone] Dr. Reagan Rosen MD Primary Care Provider [phone] Dr. Reagan Rosen MD Attending Provider Dr. Reagan Rosen MD Referring Provider Dr. Mendez South MD Attending Provider Dr. Mendez South MD Referring Provider Kiet RHODES, Dr. Kirk Primary Care Provider Nanci RHODES, Dr. Roderick Nichols Attending Provider Kiet RHODES, Dr. Kirk Other Provider Zeke RHODES, Dr. Patten Attending Provider [phone] Leslie THORNE, Dr. Mcgovern Emergency Provider [phone] Kiet RHODES, Dr. Kirk Primary Care Provider Kiet RHODES, Dr. Kirk Referring Provider Kiet RHODES, Dr. Kirk Attending Provider Leslie THORNE, Dr. Mcgovern Attending Provider Mushtaq RHODES, Dr. Dawn Attending Provider Kiet RHODES, Dr. Kirk Primary Care Provider Akosua RHODES, Dr. Simms Attending Provider Akosua RHODES, Dr. Simms Referring Provider Mendez South Attending Unavailable Rosen, Reagan Primary Care Unavailable Bortz, Mendez Referring Unavailable Rosen, Reagan Primary Care Unavailable Sibilia, Edmundo Fam Attending Unavailable Sibilia, Edmundo Fam Referring Unavailable Rosen, Reagan Primary Care Unavailable Rosen, Reagan Referring Unavailable Rosen, Reagan Attending Unavailable Rosen, Reagan Primary Care Unavailable SchinnerClinton Referring Unavailable Schinner, Clinton Palomares Attending Unavailable Roesn, Reagan Primary Care Unavailable Sibilia, Edmundo Fam Referring Unavailable Sibilia, Edmundo Fam Attending Unavailable Akosua, Mendez Attending Unavailable Rosen, Reagan Primary Care Unavailable Bortz, Mendez Referring Unavailable Bortz, Mendez Attending Unavailable Rosen, Reagan Primary Care Unavailable Bortz, Mendez Referring Unavailable Rosen, Reagan Referring Unavailable Rosen, Reagan Attending Unavailable Rosen, Reagan Primary Care Unavailable Rosen, Reagan Consulting Unavailable Rosen, Reagan Referring Unavailable Earline Alanis Attending Unavailable Rosen, Reagan Primary Care Unavailable Nereyda Landin Attending Unavailable Rosen, Reagan Primary Care Unavailable Rosen, Reagan Referring Unavailable Rosen, Reagan Primary Care Unavailable Froilan Nelson Attending Unavailable Rosen, Reagan Referring Unavailable Rosen, Reagan Attending Unavailable Rosen, Reagan Primary Care Unavailable Bortz, Mendez Attending Unavailable Rosen, Reagan Referring Unavailable Rosen, Reagan Primary Care Unavailable Rosen, Reagan Primary Care Unavailable Rosen, Reagan Attending Unavailable Rosen, Reagan Referring Unavailable Rosen, Reagan Primary Care Unavailable Rosen, Reagan Attending Unavailable Rosen, Reagan Primary Care Unavailable Rosen, Reagan Referring Unavailable Rosen, Reagan Attending Unavailable Rosen, Reagan Primary Care Unavailable Sibilia, Edmundo V Referring Unavailable Sibilia, Edmundo V Attending Unavailable Rosen, Reagan Primary Care Unavailable Sibilia, Edmundo V Referring Unavailable Sibilia, Edmundo V Attending Unavailable Rosen, Reagan Attending Unavailable Rosen, Reagan Referring Unavailable Rosen, Reagan Primary Care Unavailable Rosen, Reagan Primary Care Unavailable Regina OPTICAL ASSISTANT, Rashmi Referring Unavailable Regina OPTICAL ASSISTANT, Rashmi Attending Unavailable Allergies Allergy Classification Reported Allergen(s) Allergy Type Date of Onset Reaction(s) Facility (20 sources) Cephalexin; Translations: [CEPHALEXIN] Drug Allergy 12-19-19 16 [facility] (20 sources) Ciprofloxacin; Translations: [CIPROFLOXACIN] Drug Allergy 10-20-19 15 rash [facility] (20 sources) Nitrofurantoin Drug Allergy 11-08-19 22 [facility] (20 sources) Sulfamethoxazole Drug Allergy 11-08-19 [facility] (20 sources) Sulfonamides (Antibiotic); Translations: [SULFA (SULFONAMIDE ANTIBIOTICS)] Allergy to substance 04-06-20 07 [facility] (20 sources) Trimethoprim Drug Allergy 11-08-19 [facility] (1 source) Clarithromycin; Translations: [CLARITHROMYCIN] Drug Allergy 05-26-20 07 [facility] (1 source) Nitrofurantoin; Translations: [NITROFURANTOIN MACROCRYSTAL] Drug Allergy 04-27-20 18 [facility] (1 source) NITROFURANTOIN MONOHYD/M-CRYST; Translations: [NITROFURANTOIN MONOHYD/M-CRYST] Propensity to adverse reactions to drug (disorder) 08-30-20 13 [facility] (1 source) Cephalexin Drug Allergy 06-14-20 [facility] Repository (1 source) Ciprofloxacin Drug Allergy 06-14-20 [facility] Repository (1 source) Nitrofurantoin Drug Allergy 06-14-20 25 [facility] Repository (1 source) Sulfamethoxazole Drug Allergy 06-14-20 [facility] Repository (1 source) Trimethoprim Drug Allergy 06-14-20 [facility] Repository Medications Current Medications Medication Drug Class(es) Dates Sig (Normalized) Sig (Original) albuterol 0.83 mg/ml inhalation solution (10 sources) beta2-Adrenergic Agonist Start: 02-20-2025 take 2.5 [...] mg capsule Active 500 mg PO DAILY November 11, 2019 4:05pm aspirin 81 mg oral tablet (20 sources) Platelet Aggregation Inhibitor, Nonsteroidal Anti-inflammatory Drug Start: 06-14-2025 take 1 tablet by mouth once daily Aspirin 81 mg tablet Active 81 mg PO daily June 14, 2025 12:00am Start: 09-16-2016 End: 11-07-2020 take 1 tablet by mouth once daily Aspirin 81 MG tablet,chewable Discontinued 81 mg PO DAILY@0800 September 16, 2016 1:00am November 07, 2020 5:16pm chondroitin sulfates 400 mg / glucosamine hydrochloride 500 mg oral tablet (20 sources) Start: 11-08-2021 Glucosamine-Chondroitin (Cosamin Ds) 500-400 mg tablet Active 1 {tbl} PO DAILY November 08, 2021 1:00am estradiol 0.1 mg/ml vaginal cream (3 sources) Estrogen Start: 06-14-2025 Estradiol 0.01 % (0.1 mg/gram) cream Active 1 g VAGINAL 3 TIMES A WEEK 42.5 90 3 June 14, 2025 12:00am Lactobacillus Combination No.4 (Probiotic) 3 billion cell capsule (10 sources) Start: 02-20-2025 take 3 capsules by mouth once daily Lactobacillus Combination No.4 (Probiotic) 3 billion cell capsule Active 3000 NMA PO daily February 20, 2025 12:00am administer with a meal Magnesium Aspart,Citrate,Oxi de 400 mg magnesium capsule (3 sources) Start: 06-14-2025 Magnesium Aspart,Citrate,Oxide 400 mg magnesium capsule Active mg PO June 14, 2025 12:00am metoprolol tartrate 50 mg oral tablet (20 sources) beta-Adrenergi c Zuleima Start: 09-16-2016 take 1 tablet by mouth twice daily Metoprolol Tartrate 50 MG tablet Active 50 mg PO TWICE A DAY September 16, 2016 1:00am rosuvastatin calcium 5 mg oral tablet (20 sources) HMG-CoA Reductase Inhibitor Start: 11-11-2019 take 1 tablet by mouth once daily Rosuvastatin (Crestor) 5 mg tablet Active 5 mg PO DAILY November 11, 2019 1:00am Completed/Discontinued Medications Medication Drug Class(es) Dates Sig (Normalized) Sig (Original) amoxicillin 875 mg / clavulanate 125 mg oral tablet (6 sources) Penicillin-class Antibacterial Start: 05-06-2025 End: 06-14-2025 Amoxicillin-Pot Clavulanate 875-125 mg tablet Discontinued 1 {tbl} PO TWICE A DAY 14 7 0 May 06, 2025 12:00am June 14, 2025 10:55am Antiarthritic Combination No.2 (Glucosamine-Chondr oitin) 900 mg tablet (20 sources) Start: 11-11-2019 End: 11-08-2021 take 1 tablet by mouth once daily Antiarthritic Combination No.2 (Glucosamine-Chond roitin) 900 mg tablet Discontinued 900 MG PO [...] 11, 2019 1:00am November 08, 2021 3:55pm azithromycin 1000 mg powder for oral suspension (14 sources) Macrolide Antimicrobial Start: 01-22-2024 End: 02-18-2024 take 1 g by mouth every week Azithromycin (Zithromax) 1 gram packet Discontinued 1 g PO EVERY WEEK January 22, 2024 12:00am February 18, 2024 2:01pm calcium carbonate 750 mg chewable tablet (20 sources) Start: 05-20-2019 End: 11-11-2019 take 1 tablet by mouth twice daily Calcium Carbonate (Antacid Ext Str (Calcium Carb)) 300 mg (750 mg) tablet,chewable Discontinued 300 mg PO TWICE A DAY May 20, 2019 12:00am November 11, 2019 4:05pm calcium citrate 1500 mg / cholecalciferol 200 unt oral tablet (20 sources) Vitamin D Start: 11-08-2021 End: 12-17-2022 Calcium Citrate-Vitamin D3 (Calcium Citrate + D) 315 mg-5 mcg (200 unit) tablet Discontinued 1 {tbl} PO DAILY November 08, 2021 1:00am December 17, 2022 2:40pm FLUoxetine 10 mg oral capsule (20 sources) Serotonin Reuptake Inhibitor Start: 11-07-2020 End: 11-08-2021 take 1 capsule by mouth once daily Fluoxetine (Prozac) 10 mg capsule Discontinued 10 mg PO DAILY November 07, 2020 1:00am November 08, 2021 3:55pm LORazepam 0.5 mg oral tablet (20 sources) Benzodiazepine Start: 11-10-2019 End: 11-07-2020 take 1 tablet by mouth once daily as needed Lorazepam 0.5 mg tablet Discontinued 0.5 mg PO DAILY as needed November 10, 2019 1:00am November 07, 2020 5:17pm phenazopyridine hydrochloride 200 mg oral tablet (6 sources) Start: 05-06-2025 End: 06-14-2025 take 1 tablet by mouth three times daily as needed for pain Phenazopyridine (Pyridium) 200 mg tablet Discontinued 200 mg PO THREE TIMES A DAY as needed for pain 9 3 0 May 06, 2025 3:44am June 14, 2025 10:55am Problems Active Problems Problem Classification Problem Date Documented Date Episodic/Chronic Abdominal pain (20 sources) Acute pelvic pain; Translations: [Pelvic and perineal pain] 09-27-2018 Episodic Cardiac dysrhythmias (20 sources) Ventricular premature beats; Translations: [Ventricular premature depolarization] Chronic Chronic obstructive pulmonary disease and bronchiectasis (1 source) Bronchiectasis, uncomplicated; Translations: [Bronchiectasis, uncomplicated] Onset: 03-09-2025 Chronic Disorders of lipid metabolism (20 sources) Mixed hyperlipidemia; Translations: [Mixed hyperlipidemia] Chronic Essential hypertension (20 sources) Essential hypertension; Translations: [Essential (primary) hypertension] Chronic Genitourinary symptoms and ill-defined conditions (4 sources) Urge incontinence of urine; Translations: [Urge incontinence] 06-14-2025 Chronic Menopausal disorders (4 sources) Atrophy of vagina; Translations: [Postmenopausal atrophic vaginitis] 06-14-2025 Chronic Other congenital anomalies (14 sources) Herniated urinary bladder 01-13-2023 Chronic Comment on above: PFPT. offered pessar y Other connective tissue disease (1 source) Pain in left leg; Translations: [Pain in left leg] Onset: 06-16-2025 Episodic Other connective tissue disease (2 sources) Pain in left arm; Translations: [Pain in left arm] Onset: 06-08-2025 Episodic Other diseases of bladder and urethra (4 sources) Overactive bladder; Translations: [Overactive bladder] 06-14-2025 Chronic Other diseases of bladder and urethra (20 sources) Prolapse of urethral mucosa; Translations: [Other specified disorders of urethra] 05-20-2019 Episodic Comment on above: offered estrogen cre am, pelvic floor physical therapy Other female genital disorders (1 source) Unspecified condition associated with female genital organs and menstrual cycle; Translations: [Unspecified condition associated with female genital organs and menstrual cycle] Onset: 05-11-2025 Episodic Other non-traumatic joint disorders (1 source) Pain in left knee; Translations: [Pain in left knee] Onset: 06-19-2025 Episodic Prolapse of female genital organs (4 sources) Incomplete uterovaginal prolapse; Translations: [Incomplete uterovaginal prolapse] 06-14-2025 Chronic Screening and history of mental health and substance abuse codes (1 source) Personal history of nicotine dependence; Translations: [Personal history of nicotine dependence] Onset: 07-28-2025 Episodic Thyroid disorders (20 sources) Thyroid nodule; Translations: [Nontoxic single thyroid [...] sources) Herniated urinary bladder; Translations: [Cystocele] 01-13-2023 Urinary tract infections (12 sources) Urinary tract infectious disease; Translations: [Urinary tract infection, site not specified] Onset: 06-14-2025 05-06-2025 Episodic Past or Other Problems Problem Classification Problem Date Documented Da te Episodic/Chronic Other lower respiratory disease (1 source) Hemoptysis; Translations: [Hemoptysis] Onset: 12-28-2024 Episodic Other screening for suspected conditions (not mental disorders or infectious disease) (1 source) Encounter for screening mammogram for malignant neoplasm of breast; Translations: [Encounter for screening mammogram for malignant neoplasm of breast] Onset: 10-13-2024 Episodic Other skin disorders (1 source) Localized swelling, mass and lump, head; Translations: [Localized swelling, mass and lump, head] Onset: 04-07-2025 Episodic Other skin disorders (1 source) Localized swelling, mass and lump, neck; Translations: [Localized swelling, mass and lump, neck] Onset: 02-08-2025 Episodic Results Test Name Value Interpretation Reference Range Facility Laboratory - Chemistry and C hemistry - challengeOrdered By: Nereyda Landin on 06-14-2025 Bilirubin Ql (U) Negative [facility] Glucose Ql (U) Negative [facility] Ketones Ql (U) Negative [facility] pH (U) 6 [pH] [facility] Specific gravity (U) [Rel density] 1.010 [facility] Urobilinogen (U) [Mass/Vol] Negative [facility] Laboratory - Hematology and Cell countsOrdered By: Nereyda Landin on 06-14-2025 Hemoglobin Ql (U) Negative [facility] Laboratory - UrinalysisOrder ed By: Nereyda Landin on 06-14-2025 Nitrite Ql (U) Negative [facility] Protein Ql (U) Negative [facility] MR/BMSChidiTomás 06-14-2025 MR/ERICKAChidiSARAI [facility] [address], [address] [place] [address] OFFICE VISIT Date of Service: 06/14/25 MR#: [id number] Acct: [id number] Name: YOUNG AGARWAL Rep #: [id number] : 1955 Provider: Dr. Nereyda Graham i, MD Age/Sex: 70/F Location: [facility] Status: Signed Intake Vital Signs 05/06/25 02:04 06/14/25 10:56 Height 5 ft 8 in 5 ft 8 in Weight: 178 lb BMI 27.0 BP 128/79 H Pulse 60 Intake Visit Reasons: prolapse Chief Complaint: new- prolapse and recurrent UTI Wound Care Physician Required: No Accompanied by: Self Is patient in pain?: No Allergies cephalexin (From Keflex) Allergy (Verified 06/14/25 10:54) Angioedema nitrofurantoin (From Macrobid) Allergy (Verified 06/14/25 10:54) Angioedema Sulfa (Sulfonamide Antibiotics) Allergy (Verified 06/14/25 10:54) Angioedema sulfamethoxazole (From Bactrim) Allergy (Verified 06/14/25 10:54) Angioedema trimethoprim (From Bactrim) Allergy (Verified 06/14/25 10:54) Angioedema ciprofloxacin (From Cipro) Adverse Reaction (Verified 06/14/25 10:54) rash Medications ???Medication ???Instructions ???Recorded ???Confirmed ???Type metoprolol tartrate 50 mg tablet 50 mg PO BID 09/16/16 06/14/25 His tory ascorbic acid (vitamin C) 500 mg 500 mg PO DAILY 11/11/19 06/14/25 History capsule rosuvastatin 5 mg tablet (Crestor) 5 mg PO DAILY 11/11/19 06/14/25 History glucosamine-chondroitin 500 mg-400 1 tab PO DAILY 11/08/21 06/14/25 History mg tablet (Cosamin DS) albuterol sulfate 2.5 mg/3 mL 2.5 mg inhalation QDAY 02/20/25 History (0.083 %) solution for nebulization lactobacillus combination no.4 3 3,000 mmu cells PO QDAY 02/20/25 0 06/14/25 History billion cell capsule (Probiotic) aspirin 81 mg tablet 81 mg PO QDAY 06/14/25 06/14/25 Hi story estradiol 0.01% (0.1 mg/gram) 1 g vaginal 3XW 3 months #42.5 01/0306/14/25 Rx vaginal cream grams magnesium aspart,citrate,oxide mg PO 06/14/25 06/14/25 History Have you fallen in the past year?: No Nurse's Note: last UTI was May 06 Bladder scan PVR 18cc. PFSH Medical History (Updated 06/14/25 @ 12:[address] 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 She is here for evaluation and management of pelvic organ prolapse. She has had this for a few years and it has worsened over the last year. She has retired, but was lifting during working and feels this is related. She had 3 large children. She has been seen by . She is voiding 5-10 times during the day, 0-1 times at night. There is urge incontinence where she cannot make it to the bathroom. There is no stress incontinence with cough, laugh, sneeze, lifting, etc. She is using 0-1 pads in 24 hours. She has had one urinary tract infections in the last year. She takes probiotics. Her last infection was 7 yrs ago. She has not had visible blood in her urine. She is not really sexually active. with prostate cancer. She has the following issues with chronic bowel function: none. There is no pelvic pain. She has a history of smoking. She quit about 10yrs ago. Smoked about 20yrs 1/2ppd. There is no history of blood clots or easy bleeding. There is a family history of bladder cancer. Her sister 5yrs ago from ringlet cell. She is dealing with a thyroid nodule. She has bronchiectasis as well. She had 6 antibiotics last year for her lungs. She completed pelvic floor physical therapy last year. ROS Const Constitutional: No chills, fatigue, fever(s), headache(s), night sweats, weakness, weight ch (more content not included)... Normal [facility] No Panel InformationOrdered By: Nereyda Landin on 06-14-2025 Urine Leukocytes Positive [facility] Urine Non-Hemolyzed Blood Negative [facility] Knee 4 or More Viewson 06-08 Knee 4 or More Views [facility] [address] [place] [address] [place], [place] [address] Knee 4 or More Views MR#: [id number] Acct: [id number] Name: YOUNG AGARWAL Rep #: [id number] : 1955 F 70 From: Manuelito Iraheta MD PCP: Dr. Reagan Rosen MD Status: REG CLI Study: Knee 4 or More Views Date of Exam: 06/08/25 Exam# [id number] Ordering Dr: Reagan Rosen MD EXAM: XR Left Knee Complete, 4 or More Views CLINICAL INDICATION: LEFT KNEE PAIN TECHNIQUE: Four or more views of the left knee. COMPARISON: No relevant prior studies available. FINDINGS: BONES/JOINTS: Unremarkable. No acute fracture. No dislocation. SOFT TISSUES: Unremarkable. RAD/Knee 4 or More Views IMPRESSION: No acute fracture. Reading Location: [facility] CC: Dr. Reagan Rosen MD Choir Director: Signed Normal [facility] Venous duplex ultrasound rep ortOrdered By: Roderick Christine on 06-08-2025 US Vein [facility] [address] [place] [address] Venous Duplex US, Unilateral 06/07/25 1558 MR#: [id number] Acct: [id number] Name: YOUNG AGARWAL Rep #:[id number] : 1955 70 From: Roderick Christine MD Attending Dr: Dr. Reagan Rosen MD Status: REG CLI Ordering Dr: Reagan Rosen MD Date: Location: [facility] Sex: F C Admitted: Reason For Study Reason For Study: LLE Pain RIGHT LEFT FV is compressible, spontaneous, phasic, competent GSV is normal. and demonstrates normal augmentation. CFV is compressible, spontaneous, phasic, competent, Procedure and demonstrates normal augmentation. This is a venous duplex using B-mode, color flow and FV is compressible, spontaneous, phasic, competent spectral Doppler. and demonstrates normal augmentation. Exam performed in department. POP V is compressible, spontaneous, phasic, competent The exam was diagnostic. and demonstrates normal augmentation. A preliminary report was called and/or faxed to T/P Trunk is compressible. Rc office. PTV is compressible. LT PerV is compressible. VL/Venous Duplex US, Unilateral Interpretation Summary Deep veins of the left lower extremity are patent and compressible segmentally. There is no evidence of left lower extremity deep vein thrombosis. Valvular competence appears intact within the proximal deep venous system on the left . The left great saphenous vein appears patent and compressible segmentally. The right femoral vein is patent and compressible. ___ Ordering Physician: Reagan Rosen Referring Physician: Reagan Rosen Performed By: Elie Elliott, Farrah 06/08/25 1113 Date _ Roderick Christine MD CC: Dr. Reagan Rosen MD ~ Date Dictated: 06/07/258 Date Transcribed: 06/08/251112 Choir Director: Signed [facility] Work Phone: Venous Duplex US, Unilateral on 06-07-2025 Venous Duplex US, Unilateral [facility] [address] [place] [address] Venous Duplex US, Unilateral 06/07/25 1558 MR#: [id number] Acct: [id number] Name: YOUNG AGARWAL Rep #: [id number] : 1955 70 From: Roderick Christine MD Attending Dr: Dr. Reagan Rosen MD Status: REG CLI Ordering Dr: Reagan Rosen MD Date: 06/07/25 Location: [facility] Sex: F C Admitted: Reason For Study Reason For Study: LLE Pain RIGHT LEFT FV is compressible, spontaneous, phasic, competent GSV is normal. and demonstrates normal augmentation. CFV is compressible, spontaneous, phasic, competent, Procedure and demonstrates normal augmentation. This is a venous duplex using B-mode, color flow and FV is compressible, spontaneous, phasic, competent spectral Doppler. and demonstrates normal augmentation. Exam performed in department. POP V is compressible, spontaneous, phasic, competent The exam was diagnostic. and demonstrates normal augmentation. A preliminary report was called and/or faxed to T/P Trunk is compressible. Rc office. PTV is compressible. LT PerV is compressible. VL/Venous Duplex US, Unilateral Interpretation Summary Deep veins of the left lower extremity are patent and compressible segmentally. There is no evidence of left lower extremity deep vein thrombosis. Valvular competence appears intact within the proximal deep venous system on the left . The left great saphenous vein appears patent and compressible segmentally. The right femoral vein is patent and compressible. ___ Ordering Physician: Reagan Rosen Referring Physician: Reagan Rosen Performed By: Elie Elliott, Farrah 06/08/25 1113 Date Roderick Christine MD CC: Dr. Reagan Rosen MD Date Dictated: 06/07/25 1558 Date Transcribed: 06/08/25 1113 Choir Director: Signed Normal [facility] Urine Cultureon 05-08-2025 [facility] Klebsiella pneumonia e sp pneum [place] Count 50,000-80,000 Klebsiella pneumoniae sp pneum: REACTION Ampicillin Islt ANDRÉS >=32 Ampicillin+Sulbac Islt ANDRÉS 4 S Cefepime Islt ANDRÉS <=0.12 S cefTRIAXone Islt ANDRÉS <=0.25 S Ciprofloxacin Islt ANDRÉS <=0.06 S B-Lactamase Extended Susc Islt NEG Gentamicin Islt ANDRÉS <=1 S levoFLOXacin Islt ANDRÉS <=0.12 S Meropenem Islt ANDRÉS <=0.25 S Nitrofurantoin Islt ANDRÉS 64 I Pip+Tazo Islt ANDRÉS <=4 S TMP SMX Islt ANDRÉS <=20 S Normal [facility] Comment on above: Performed By: #### M 100.2200, L400.0001 ####[facility] [id number] [place], [address] Bilirubin Test strip Ql (U)O rdered By: Froilan Nelson on 05-06-2025 Bilirubin Ql (U) Negative Negative [facility] Emergency Department Summary on 05-06-2025 Emergency Department Summary [facility] Medical Records Department [address] [facility] [place] [address] Emergency Department Summary 05/06/25 MR#: [id number] Acct: [id number] Name: YOUNG AGARWAL Rep #: [id number] : 1955 70 From: Froilan Nelson DO PCP: Dr. Reagan Rosen MD Status:REG ER Location: ED HPI History of Present Illness Chief Complaint: Complaint Informant: patient and spouse/S.O. Narrative Narrative: Patient is a 70-year-old female with past medical history of hypertension and hyperlipidemia prolapsed bladder and reportedly recurrent urinary tract infection. She states however it has been almost 7 years since her last UTI. She states that this afternoon she began noticing symptoms of urinary frequency urgency and dysuria. She states she sent a message to her family doctor with concern that her symptoms may worsen over the weekend and that she might require antibiotic. She states that she did not hear back from them today and she has continued to have symptoms. She denies any fevers or chills or history of immunosuppression but with concern for worsening infection presents for evaluation. [facility] Medical History Thyroid nodule Premature ventricular contraction SVT (supraventricular tachycardia) Essential hypertension Mixed hyperlipidemia UTI (urinary tract infection) Mitral valve prolapse Home Medications ???Medication ???Instructions ???Recorded ???Last Taken ???Type metoprolol tartrate 50 mg tablet 50 mg PO BID 09/16/16 Unknown Hist ory ascorbic acid (vitamin C) 500 mg 500 mg PO DAILY 11/11/19 Unknown H istory capsule rosuvastatin 5 mg tablet (Crestor) 5 mg PO DAILY 11/11/19 Unknown H istory glucosamine-chondroitin 500 mg-400 1 tab PO DAILY 11/08/21 Unknown History mg tablet (Cosamin DS) albuterol sulfate 2.5 mg/3 mL 2.5 mg inhalation QDAY 02/20/25 Un known History (0.083 %) solution for nebulization lactobacillus combination no.4 3 3,000 mmu cells PO QDAY 02/20/25 U nknown History billion cell capsule (Probiotic) amoxicillin 875 mg-potassium 1 tab PO BID 7 days #14 tabs 05/06 Unknown Rx clavulanate 125 mg tablet phenazopyridine 200 mg tablet 200 mg PO TID PRN pain 3 days #9 0 05/06/25 Unknown Rx (Pyridium) tabs Allergy/AdvReac Type Severity Reaction Status Date / Time cephalexin (From Keflex) Allergy Angioedema Verified 05/06/25 02:06 nitrofurantoin (From Allergy Angioedema Verified 05/06/25 02:06 Macrobid) Sulfa (Sulfonamide Allergy Angioedema Verified 05/06/25 02:06 Antibiotics) sulfamethoxazole (From Allergy Angioedema Verified 05/06/25 02:06 Bactrim) trimethoprim (From Bactrim) Allergy Angioedema Verified 05/06/25 02:06 ciprofloxacin (From Cipro) AdvReac rash Verified 05/06/25 02:06 Family History Father Myocardial infarction, Onset Age: 65 Sister Mitral valve prolapse Bladder cancer Bladder cancer, cancer cells found in breast also Brother Cancer Liver Mother No problems noted. Surgical History rectal tumor removal History of endometrial ablation Salivary cyst Social History number of children: 3 current occupational status: employed current occupation: Retired Smoking Status: Former smoker alcohol intake: current alcohol intake frequency: holidays/special occasions only details: occasional substance use type: does not use caffeine: No seatbelt use: always do you feel safe at home: Yes additional social history: Khris Retired ROS ROS ED Constitutional Constitutional ED: Denies chills or fever(s) ENT ENT ED: Denies sore throat Cardiovascular Cardiovascular: Denies chest pain Respiratory/Chest Respiratory/Chest: Denies cough or dyspnea Gastrointestinal Gastrointestinal: Denies abdominal pain, diarrhea, nausea or vomiting Genitourinary Genitourinary ED: Reports dysuria and urinary frequency; Denies hematuria Musculoskeletal Musculoskeletal: Denies back pain Integumentary Denies rash Neurologic Neurologic: Denies headache(s) Hematologic/Lymphatic Hematologic/Lymphatic: Denies easy bleeding or easy bruising EXAM Physical Exam Const Vital Signs: 05/06/25 02:04 Temperature 97.7 F L Temperature Source Oral Pulse Rate 71 Respiratory Rate 16 Blood Pressure 180/83 H Blood Pressure Mean 115 Pulse Ox 99 Oxygen Delivery Method Room Air Positive well nourished and well developed General Appearance ED: well developed; Negative for pallor HEENT HEENT Narrative: Normocephalic atraumatic Eyes PERRL and EOMs intact bilaterally General Eye ED: Negativ (more content not included)... Normal [facility] Ketones Test strip Ql (U)Ord ered By: Froilan Nelson on 05-06-2025 Ketones Ql (U) Negative Negative [facility] Microscopic analysis of urin e for red blood cells (RBC)Ordered By: Froilan Nelson on 05-06-2025 Microscopic analysis of urine for red blood cells (RBC) 10-25 SEEN /hpf 0-5 [facility] Mucus LM Ql (Urine sed)Order ed By: Froilan Nelson on 05-06-2025 Mucus Ql (Urine sed) 0 SEEN /hpf [facility] Nitrite Test strip Ql (U)Ord ered By: Froilan Nelson on 05-06-2025 Nitrite Ql (U) Negative Negative [facility] Protein Test strip Ql (U)Ord ered By: Froilan Nelson on 05-06-2025 Protein Ql (U) 30 mg/dl High Negative [facility] Squamous epithelial cells de tection in urine sediment by light microscopyOrdered By: Froilan Nelson on 05-06-2025 Epithelial cells.squamous LM Ql (Urine sed) 0-5 SEEN /hpf 5-10 [facility] Urinalysis, Completeon 05-06 BACTERIA 1+ /hpf Normal None Seen [facility] Comment on above: Order Comment: [facility] CTOR TO SPECIFY Performed By: #### M 100.2200, L400.0001 ####[facility] [address] [place], [address] EPI,SQUAMOUS 0-5 SEEN Normal 5-10 [facility] Comment on above: Order Comment: [facility] CTOR TO SPECIFY Performed By: #### M 100.2200, L400.0001 ####[facility] [address] [place], [address] RBC 10-25 SEEN Normal 0-5 [facility] Comment on above: Order Comment: [facility] CTOR TO SPECIFY Performed By: #### M 100.2200, L400.0001 ####[facility] [address] [place], [address] WBC >100 SEEN Normal 0-5 [facility] Comment on above: Order Comment: [facility] CTOR TO SPECIFY Performed By: #### M 100.2200, L400.0001 ####[facility] [address] [place], [address] BILIRUBIN URINE Negative Normal Negative [facility] Comment on above: Order Comment: [facility] CTOR TO SPECIFY Performed By: #### M 100.2200, L400.0001 ####[facility] [address] [place], [address] Clarity (U) Sl. Cloudy Normal Clear [facility] Comment on above: Order Comment: [facility] CTOR TO SPECIFY Performed By: #### M 100.2200, L400.0001 ####[facility] [address] [place], [address] Color (U) Straw Normal Yellow [facility] Comment on above: Order Comment: [facility] CTOR TO SPECIFY Performed By: #### M 100.2200, L400.0001 ####[facility] [address] [place], [address] GLUCOSE, UR Normal Normal Normal [facility] Comment on above: Order Comment: [facility] CTOR TO SPECIFY Performed By: #### M 100.2200, L400.0001 ####[facility] [address] [place], [address] KETONE UR Negative Normal Negative [facility] Comment on above: Order Comment: [facility] CTOR TO SPECIFY Performed By: #### M 100.2200, L400.0001 ####[facility] [address] [place], [address] LEUK ESTERASE 500 /ul Abnormal Negative [facility] Comment on above: Order Comment: [facility] CTOR TO SPECIFY Performed By: #### M 100.2200, L400.0001 ####[facility] [address] [place], [address] Nitrite Ql (U) Negative Normal Negative [facility] Comment on above: Order Comment: [facility] CTOR TO SPECIFY Performed By: #### M 100.2200, L400.0001 ####[facility] [address] [place], [address] OCCULT BLOOD-UR 250 /ul Abnormal Negative [facility] Comment on above: Order Comment: [facility] CTOR TO SPECIFY Performed By: #### M 100.2200, L400.0001 ####[facility] [address] [place], [address] pH UR 7.0 Normal 5.0 - 8.0 [facility] Comment on above: Order Comment: [facility] CTOR TO SPECIFY Performed By: #### M 100.2200, L400.0001 ####[facility] [address] [place], [address] PROT DIPSTX 30 mg/dl Abnormal Negative [facility] Comment on above: Order Comment: [facility] CTOR TO SPECIFY Performed By: #### M 100.2200, L400.0001 ####[facility] [address] [place], [address] SP.GR. DIPSTX 1.010 Normal 1.002-1.03 0 [facility] Comment on above: Order Comment: [facility] CTOR TO SPECIFY Performed By: #### M 100.2200, L400.0001 ####[facility] [address] [place], [address] UROBILI Normal Normal Normal [facility] Comment on above: Order Comment: [facility] CTOR TO SPECIFY Performed By: #### M 100.2200, L400.0001 ####[facility] [address] [place], [address] Mucus Ql (Urine sed) 0 SEEN Normal [facility] Comment on above: Order Comment: JONY CTOR TO SPECIFY Performed By: #### M 100.2200, L400.0001 ####[facility] [address] [place], [address] Urine clarityOrdered By: Reno Nelson on 05-06-2025 Clarity (U) Sl. Cloudy Clear [facility] Urine color determinationOrd ered By: Froilan Nelson on 05-06-2025 Color (U) Straw Yellow [facility] Urine cultureOrdered By: Reno Nelson on 05-06-2025 Bacteria identified Cx Nom (U) Klebsiella pneumoniae sp pneum Abnormal [facility] Urine glucose detectionOrder ed By: Froilan Nelson on 05-06-2025 Glucose Ql (U) Normal mg/dl Normal [facility] Urine leukocyte esterase det ection by dipstickOrdered By: Froilan Nelson on 05-06-2025 Leukocyte esterase Test strip Ql (U) 500 /ul High Negative [facility] Urine pHOrdered By: Froilan clark on 05-06-2025 pH (U) 7.0 [pH] 5.0 - 8.0 [facility] Urine sediment bacteria coun t by microscopy (number/high power field)Ordered By: Froilan Nelson on 05-06-2025 Bacteria LM.HPF (Urine sed) [#/Area] 1 /[HPF] None Seen [facility] Urine specific gravity measu rementOrdered By: Froilan Nelson on 05-06-2025 Specific gravity (U) [Rel density] 1.010 1.002-1.03 0 [facility] Urine urobilinogen measureme ntOrdered By: Froilan Nelson on 05-06-2025 Urobilinogen Ql (U) Normal mg/dl Normal [facility] White blood cell countOrdere d By: Froilan Nelson on 05-06-2025 White blood cell count >100 SEEN /hpf 0-5 [facility] Bone density reportOrdered B y: Chuyita Bran on 05-05-2025 Study report Skeletal system DXA [facility] Imaging Services [address] [place] [address] Dexa Bone Density Study MR#: [id number] Acct: [id number] Name: YOUNG AGARWAL Rep #: [id number] : 1955 F 70 From: Colby Estrada MD PCP: Dr. Reagan Rosen MD Status: REG C LI Study:Dexa Bone Density Study Date of Exam: 05/03/25 Exam# [id number] Ordering Dr: Reagan Rosen MD PROCEDURE: DEXA BONE DENSITY STUDY 05/03/2025 REASON FOR EXAM: F, age 70 y/o . Postmenopausal. TECHNIQUE: DEXA BONE DENSITY STUDY COMPARISON: Priors were compared FINDINGS: BMD and T-SCORES Lumbar spine: 0.831 g/cm2, T-score -2.0, prior measurement of bone mass density is 0.831 g/cm2 Levels: L1 through L4 Right femoral neck: 0.764 g/cm2, T-score -1.5 BD/Dexa Bone Density Study IMPRESSION: Patient's bone density reveals osteopenia with an estimated 10 year risk for hipfracture of 2.1% and for a Major osteoporotic fracture of 11%. This fracture risk estimate was calculated using FRAX version 3.08. Reading Location: [id number] CC: Dr. Reagan Rosen MD ~ Choir Director: Signed [facility] Dexa Bone Density Studyon Dexa Bone Density Study [facility] Imaging Services [address] [place] [address] Dexa Bone Density Study MR#: [id number] Acct: [id number] Name: YOUNG AGARWAL Rep #: [id number] : 1955 F 70 From: Chuyita Forman i, MD PCP: Dr. Reagan Rosen MD Status: REG CLI Study: Dexa Bone Density Study Date of Exam: 05/03/25 Exam# [id number] Ordering Dr: Reagan Rosen MD PROCEDURE: DEXA BONE DENSITY STUDY 05/03/2025 REASON FOR EXAM: F, age 70 y/o . Postmenopausal. TECHNIQUE: DEXA BONE DENSITY STUDY COMPARISON: Priors were compared FINDINGS: BMD and T-SCORES Lumbar spine: 0.831 g/cm2, T-score -2.0, prior measurement of bone mass density is 0.831 g/cm2 Levels: L1 through L4 Right femoral neck: 0.764 g/cm2, T-score -1.5 BD/Dexa Bone Density Study IMPRESSION: Patient's bone density reveals osteopenia with an estimated 10 year risk for hip fracture of 2.1% and for a Major osteoporotic fracture of 11%. This fracture risk estimate was calculated using FRAX version 3.08. Reading Location: [id number] CC: Dr. Reagan Rosen MD Choir Director: Signed Normal [facility] NCS and/or EMG Patienton NCS and/or EMG Patient [facility]monary Services/Neurology [address] [place] [address] MR#: [id number] Acct: [id number] Name: YOUNG AGARWAL Rep #: [id number] : 1955 70 From: Earline Alanis MD Referring Dr: Reagan Rosen MD Status: REG CLI Location: [facility] Date: 05/02/25 Sex: F C [...] Multi Select Codes Neurology Neurology Interp Codes: 50228-91 Musc test done w/n test comp (interp) (1) and 55035-02 Nrv cndj test 7-8 studies (interp) 05/02/25 1249 Date Earline Alanis MD CC: Dr. Earline Alanis MD; Dr. Reagan Rosen MD Date Dictated: 05/02/251136 Date Transcribed: 05/02/251136 Choir Director: Signed Normal [facility] Absolute lymphocyte countOrd ered By: Reagan Rosen on 04-25-2025 Lymphocytes Auto (Unsp spec) [#/Vol] 2.10 10*3/uL 0.83-4.51 [facility] Absolute neutrophil countOrd ered By: Reagan Rosen on 04-25-2025 Neutrophils (Bld) [#/Vol] 2.0 10*3/uL 2.0-7.7 [facility] Anion gap in Serum or Plasma Ordered By: Reagan Rosen on 04-25-2025 Anion gap [Moles/Vol] 10 mmol/L 5-15 [facility] Automated lymphocyte count a s percentage of total leukocytesOrdered By: Reagan Rosen on 04-25-2025 Lymphocytes/100 WBC Auto (Unsp spec) 42.7 % High 19-41 [facility] BUN/creatinine ratioOrdered By: Reagan Rosen on 04-25-2025 Urea nitrogen/Creatinine [Mass ratio] 28.5 mg/mg High 10-20 [facility] Basophil percentageOrdered B y: Reagan Rosen on 04-25-2025 Basophils/100 WBC (Bld) 0.4 % 0-1 [facility] Bilirubin, totalOrdered By: Reagan Rosen on 04-25-2025 Bilirubin [Mass/Vol] 0.56 mg/dL 0.00-1.30 [facility] CBC W/Diff, Automatedon 04-11 Absolute Lymph 2.10 X10 3/uL Normal 0.83-4.51 [facility] Comment on above: Performed By: #### L 506.1001, L501.9520, L500.4050, L501.9985, L100.0100, L500.4100 #### [facility] Laboratory [address] [place], [address] Absolute Neut 2.0 X10 3/uL Normal 2.0-7.7 [facility] Comment on above: Performed By: #### L 506.1001, L501.9520, L500.4050, L501.9985, L100.0100, L500.4100 #### [facility] [address] [place], [address] Basophils/100 WBC (Bld) 0.4 % Normal 0-1 [facility] Comment on above: Performed By: #### L 506.1001, L501.9520, L500.4050, L501.9985, L100.0100, L500.4100 #### [facility] [address] [place], [address] Eosinophils/100 WBC (Bld) 4.9 % Normal 0-5 [facility] Comment on above: Performed By: #### L 506.1001, L501.9520, L500.4050, L501.9985, L100.0100, L500.4100 #### [facility] [address] [place], [address] Erythrocyte distribution width (RBC) [Ratio] 14.1 % Normal 11.6-14.6 [facility] Comment on above: Performed By: #### L 506.1001, L501.9520, L500.4050, L501.9985, L100.0100, L500.4100 #### [facility] [address] [place], [address] Hematocrit (Bld) [Volume fraction] 40.9 % Normal 37-47 [facility] Comment on above: Performed By: #### L 506.1001, L501.9520, L500.4050, L501.9985, L100.0100, L500.4100 #### [facility] [address] [place], [address] Hemoglobin (Bld) [Mass/Vol] 13.3 g/dL Normal 12.0-15.0 [facility] Comment on above: Performed By: #### L 506.1001, L501.9520, L500.4050, L501.9985, L100.0100, L500.4100 #### [facility] [address] [place], [address] IG% 0.200 Normal 0.0-0.9 [facility] Comment on above: Result Comment: IG% - Immature Granulocytes (promyelocytes, myelocytes and metamyelocytes) > 1% indicates that a LEFT SHIFT is Present. Performed By: #### L 506.1001, L501.9520, L500.4050, L501.9985, L100.0100, L500.4100 #### [facility] [address] [place], [address] Lymphocytes/100 WBC (Bld) 42.7 % High 19-41 [facility] Comment on above: Performed By: #### L 506.1001, L501.9520, L500.4050, L501.9985, L100.0100, L500.4100 #### [facility] [address] [place], [address] MCH (RBC) [Entitic mass] 30.0 pg Normal 27.0-32.0 [facility] Comment on above: Performed By: #### L 506.1001, L501.9520, L500.4050, L501.9985, L100.0100, L500.4100 #### [facility] [address] [place], [address] MCHC (RBC) [Mass/Vol] 32.5 g/dL Normal 32-36 [facility] Comment on above: Performed By: #### L 506.1001, L501.9520, L500.4050, L501.9985, L100.0100, L500.4100 #### [facility] [address] [place], [address] MCV (RBC) [Entitic vol] 92.3 fL Normal 81-99 [facility] Comment on above: Performed By: #### L 506.1001, L501.9520, L500.4050, L501.9985, L100.0100, L500.4100 #### [facility] [address] [place], [address] Monocytes/100 WBC (Bld) 10.4 % High 0-10 [facility] Comment on above: Performed By: #### L 506.1001, L501.9520, L500.4050, L501.9985, L100.0100, L500.4100 #### [facility] [address] [place], [address] Neutrophils/100 WBC (Bld) 41.4 % Low 47-70 [facility] Comment on above: Performed By: #### L 506.1001, L501.9520, L500.4050, L501.9985, L100.0100, L500.4100 #### [facility] [address] [place], [address] Nucleated RBC (Bld) [#/Vol] 0 10*3/uL Normal 0-5 [facility] Comment on above: Performed By: #### L 506.1001, L501.9520, L500.4050, L501.9985, L100.0100, L500.4100 #### [facility] [address] [place], [address] Platelet mean volume (Bld) [Entitic vol] 9.0 fL Normal 6.2-12.0 [facility] Comment on above: Performed By: #### L 506.1001, L501.9520, L500.4050, L501.9985, L100.0100, L500.4100 #### [facility] [address] [place], [address] Platelets (Bld) [#/Vol] 272 10*3/uL Normal 150-450 [facility] Comment on above: Performed By: #### L 506.1001, L501.9520, L500.4050, L501.9985, L100.0100, L500.4100 #### [facility] [address] [place], [address] RBC (Bld) [#/Vol] 4.43 10*6/uL Normal 4.2-5.4 [facility] Comment on above: Performed By: #### L 506.1001, L501.9520, L500.4050, L501.9985, L100.0100, L500.4100 #### [facility] [address] [place], [address] RDW SD 48.2 fl High 35.1-43.9 [facility] Comment on above: Performed By: #### L 506.1001, L501.9520, L500.4050, L501.9985, L100.0100, L500.4100 #### [facility] [address] [place], [address] WBC (Bld) [#/Vol] 4.9 10*3/uL Normal 4.4-11.0 [facility] Comment on above: Performed By: #### L 506.1001, L501.9520, L500.4050, L501.9985, L100.0100, L500.4100 #### [facility] [address] [place], [address] Calculated very low density lipoprotein (VLDL) cholesterol measurementOrdered By: Reagan Rosen on 04-25-2025 Calculated very low density lipoprotein (VLDL) cholesterol measurement 16 mg/dL 5-40 [facility] Carbon dioxide, total [Moles /volume] in Central venous bloodOrdered By: Reagan Rosen on 04-25-2025 CO2 [Moles/Vol] 26.2 mmol/L 21.0-32.0 [facility] Chloride assayOrdered By: Miguel Ángel Rosen on 04-25-2025 Chloride [Moles/Vol] 103 mmol/L 98-108 [facility] Comprehensive Metabolic Prof ilon 04-25-2025 Albumin [Mass/Vol] 4.1 g/dL Normal 3.4-4.8 [facility] Comment on above: Performed By: #### L 506.1001, L501.9520, L500.4050, L501.9985, L100.0100, L500.4100 #### [facility] [address] [place], [address] Albumin/Globulin [Mass ratio] 1.5 {ratio} Normal 0.9-2.4 [facility] Comment on above: Performed By: #### L 506.1001, L501.9520, L500.4050, L501.9985, L100.0100, L500.4100 #### [facility] [address] [place], [address] ALK PHOS 72 U/L Normal 35-104 [facility] Comment on above: Performed By: #### L 506.1001, L501.9520, L500.4050, L501.9985, L100.0100, L500.4100 #### [facility] [address] [place], [address] ALT [Catalytic activity/Vol] 14 U/L Normal <=34 [facility] Comment on above: Performed By: #### L 506.1001, L501.9520, L500.4050, L501.9985, L100.0100, L500.4100 #### [facility] [address] [place], [address] AST [Catalytic activity/Vol] 19 U/L Normal <=31 [facility] Comment on above: Performed By: #### L 506.1001, L501.9520, L500.4050, L501.9985, L100.0100, L500.4100 #### [facility] [address] [place], [address] Bilirubin [Mass/Vol] 0.56 mg/dL Normal 0.00-1.30 [facility] Comment on above: Performed By: #### L 506.1001, L501.9520, L500.4050, L501.9985, L100.0100, L500.4100 #### [facility] [address] [place], [address] BUN/CRE 28.5 RATIO High 10-20 [facility] Comment on above: Performed By: #### L 506.1001, L501.9520, L500.4050, L501.9985, L100.0100, L500.4100 #### [facility] [address] [place], [address] Calcium [Mass/Vol] 9.8 mg/dL Normal 7.6-11.0 [facility] Comment on above: Performed By: #### L 506.1001, L501.9520, L500.4050, L501.9985, L100.0100, L500.4100 #### [facility] [address] [place], [address] Chloride [Moles/Vol] 103 mmol/L Normal 98-108 [facility] Comment on above: Performed By: #### L 506.1001, L501.9520, L500.4050, L501.9985, L100.0100, L500.4100 #### [facility] [address] [place], [address] CO2 [Moles/Vol] 26.2 mmol/L Normal 21.0-32.0 [facility] Comment on above: Performed By: #### L 506.1001, L501.9520, L500.4050, L501.9985, L100.0100, L500.4100 #### [facility] [address] [place], [address] Creatinine [Mass/Vol] 0.67 mg/dL Low 0.70-1.20 [facility] Comment on above: Performed By: #### L 506.1001, L501.9520, L500.4050, L501.9985, L100.0100, L500.4100 #### [facility] [address] [place], [address] GAP 10 Normal 5-15 [facility] Comment on above: Performed By: #### L 506.1001, L501.9520, L500.4050, L501.9985, L100.0100, L500.4100 #### [facility] [address] [place], [address] GFR/1.73 sq M.predicted among non-blacks MDRD (S/P/Bld) [Vol rate/Area] 94 mL/min/{1.73_m2} Normal >60 [facility] Comment on above: Result Comment: mL/m in/1.73m2 CKD-EPI Creatinine Equation (2020) Performed By: #### L 506.1001, L501.9520, L500.4050, L501.9985, L100.0100, L500.4100 #### [facility] [address] [place], [address] Globulin (S) [Mass/Vol] 2.7 g/dL Normal 2.2-4.2 [facility] Comment on above: Performed By: #### L 506.1001, L501.9520, L500.4050, L501.9985, L100.0100, L500.4100 #### [facility] [address] [place], [address] Glucose [Mass/Vol] 92 mg/dL Normal 70-99 [facility] Comment on above: Performed By: #### L 506.1001, L501.9520, L500.4050, L501.9985, L100.0100, L500.4100 #### [facility] [address] [place], [address] Potassium [Moles/Vol] 3.9 mmol/L Normal 3.3-5.1 [facility] Comment on above: Performed By: #### L 506.1001, L501.9520, L500.4050, L501.9985, L100.0100, L500.4100 #### [facility] [address] [place], [address] Sodium [Moles/Vol] 139 mmol/L Normal 133-145 [facility] Comment on above: Performed By: #### L 506.1001, L501.9520, L500.4050, L501.9985, L100.0100, L500.4100 #### [facility] [address] [place], [address] T PROT 6.9 g/dL Normal 5.9-8.4 [facility] Comment on above: Performed By: #### L 506.1001, L501.9520, L500.4050, L501.9985, L100.0100, L500.4100 #### [facility] [address] [place], [address] Urea nitrogen [Mass/Vol] 19 mg/dL Normal 4-19 [facility] Comment on above: Performed By: #### L 506.1001, L501.9520, L500.4050, L501.9985, L100.0100, L500.4100 #### [facility] [address] [place], [address] Eosinophil percentageOrdered By: Reagan Rosen on 04-25-2025 Eosinophils/100 WBC (Bld) 4.9 % 0-5 [facility] Erythrocyte distribution wid th ratioOrdered By: Reagan Rosen on 04-25-2025 Erythrocyte distribution width (RBC) [Ratio] 14.1 % 11.6-14.6 [facility] Erythrocyte distribution wid th standard deviationOrdered By: Reagan Rosen on 04-25-2025 Erythrocyte distribution width (RBC) [Ratio] 48.2 fl High 35.1-43.9 [facility] Glomerular filtration rate ( GFR) estimation/1.73 sq m using serum, plasma, or whole bOrdered By: Reagan Rosen on 04-25-2025 GFR/1.73 sq M.predicted among non-blacks MDRD (S/P/Bld) [Vol rate/Area] 94 mL/min/{1.73_m2} >60 [facility] Comment on above: mL/min/1.73m2 CKD-EP I Creatinine Equation (2020) Hematocrit Auto (Bld) [Volum e fraction]Ordered By: Reagan Rosen on 04-25-2025 Hematocrit (Bld) [Volume fraction] 40.9 % 37-47 [facility] Hemoglobin A1con 04-25-2025 HbA1c (Bld) [Mass fraction] 5.4 % Normal <=5.6 [facility] Comment on above: Result Comment: Norm al < 5.7 % Prediabetic 5.7 - 6.4 % Diabetic >or= 6.5 % Please note range changes. Performed By: #### L 506.1001, L501.9520, L500.4050, L501.9985, L100.0100, L500.4100 ####[facility] [address] [place], [address] Hemoglobin A1c percentageOrd ered By: Reagan Rosen on 04-25-2025 HbA1c (Bld) [Mass fraction] 5.4 % <5.7 [facility] Comment on above: Normal < 5.7 % Predi abetic 5.7 - 6.4 % Diabetic >or= 6.5 % Please note range changes. Hemoglobin measurementOrdere d By: Reagan Rosen on 04-25-2025 Hemoglobin (Bld) [Mass/Vol] 13.3 g/dL 12.0-15.0 [facility] Immature granulocytes/100 WB C Auto (Bld)Ordered By: Reagan Rosen on 04-25-2025 Immature granulocytes/100 WBC (Bld) 0.200 % 0.0-0.9 [facility] Comment on above: IG% - Immature Granu locytes (promyelocytes, myelocytes and metamyelocytes) > 1% indicates that a LEFT SHIFT is Present. LDL calc ser/plasOrdered By: Reagan Rosen on 04-25-2025 Cholesterol in LDL [Mass/Vol] 93 mg/dL [facility] Comment on above: Ntztdwqlnz=515-757 m g/dL & Higher Qizv=030 mg/dL or greater Laboratory - Chemistry and C hemistry - challengeOrdered By: Reagan Rosen on 04-25-2025 AST [Catalytic activity/Vol] 19 U/L <32 [facility] Lipid Profileon 04-25-2025 CHOL:HDL 2.78 Normal [facility] Comment on above: Performed By: #### L 506.1001, L501.9520, L500.4050, L501.9985, L100.0100, L500.4100 #### [facility] [address] [place], [place], [address] Cholesterol [Mass/Vol] 170 mg/dL Normal <=200 [facility] Comment on above: Result Comment: Chol esterol level, Desirable <200 mg/dL Borderline high cholesterol 200-239 mg/dL High cholesterol >=240 mg/dL Recommendations of the NCEP Adult Treatment Panel for the following risk-cutoff thresholds for the [place] population. Performed By: #### L 506.1001, L501.9520, L500.4050, L501.9985, L100.0100, L500.4100 #### [facility] [address] [place], [address] Cholesterol in HDL [Mass/Vol] 61 mg/dL Normal [facility] Comment on above: Result Comment: Jessica onal Cholesterol Education Program (NCEP) guidelines: <40 mg/dL: Low HDL-cholesterol (major risk factor for CHD) >= 60 mg/dL: High HDL-cholesterol (negative risk factor for CHD) HDL-cholesterol is affected by a number of factors, e.g. smoking, exercise, hormones, sex and age. Performed By: #### L 506.1001, L501.9520, L500.4050, L501.9985, L100.0100, L500.4100 #### [facility] [address] [place], [address] Cholesterol in LDL [Mass/Vol] 93 mg/dL Normal [facility] Comment on above: Result Comment: Bord ypkfxv=547-663 mg/dL Higher Kyap=449 mg/dL or greater Performed By: #### L 506.1001, L501.9520, L500.4050, L501.9985, L100.0100, L500.4100 #### [facility] [address] [place], [address] Cholesterol in VLDL [Mass/Vol] 16 mg/dL Normal 5-40 [facility] Comment on above: Performed By: #### L 506.1001, L501.9520, L500.4050, L501.9985, L100.0100, L500.4100 #### [facility] [address] [place], [address] Triglyceride [Mass/Vol] 79 mg/dL Normal [facility] Comment on above: Result Comment: The drugs N-Acetylcysteine and Metamizole may falsely depress this assay. Normal range: <150 mg/dL Borderline High: 150-199 mg/dL High: 200-499 mg/dL Very High: >500 mg/dL Performed By: #### L 506.1001, L501.9520, L500.4050, L501.9985, L100.0100, L500.4100 #### [facility] [address] [place], [address] MCV (mean corpuscular volume ) determinationOrdered By: Reagan Rosen on 04-25-2025 MCV (RBC) [Entitic vol] 92.3 fL 81-99 [facility] Mean corpuscular hemoglobin (MCH) determinationOrdered By: Reagan Rosen on 04-25-2025 MCH (RBC) [Entitic mass] 30.0 pg 27.0-32.0 [facility] Mean corpuscular hemoglobin concentration (MCHC) determinationOrdered By: Reagan Rosen on 04-25-2025 MCHC (RBC) [Mass/Vol] 32.5 g/dL 32-36 [facility] Mean platelet volume determi nationOrdered By: Reagan Rosen on 04-25-2025 Platelet mean volume (Bld) [Entitic vol] 9.0 fL 6.2-12.0 [facility] Monocyte percentageOrdered B y: Reagan Rosen on 04-25-2025 Monocytes/100 WBC (Bld) 10.4 % High 0-10 [facility] Neutrophil percentageOrdered By: Reagan Rosen on 04-25-2025 Neutrophils/100 WBC (Bld) 41.4 % Low 47-70 [facility] Nucleated red blood cell per centageOrdered By: Reagan Rosen on 04-25-2025 Nucleated RBC/100 WBC (Bld) [Ratio] 0 % 0-5 [facility] Platelet countOrdered By: Miguel Ángel Rosen on 04-25-2025 Platelets (Bld) [#/Vol] 272 10*3/uL 150-450 [facility] Potassium measurement (mass/ volume)Ordered By: Reagan Rosen on 04-25-2025 Potassium (Unsp spec) [Mass/Vol] 3.9 mmol/L 3.3-5.1 [facility] RBC Auto (Bld) [#/Vol]Ordere d By: Reagan Rosen on 04-25-2025 RBC (Bld) [#/Vol] 4.43 10*6/uL 4.2-5.4 [facility] Screening total cholesterol/ high density lipoprotein (HDL) cholesterol ratioOrdered By: Reagan oRsen on 04-25-2025 Cholesterol.total/Cholest sheryl in HDL [Mass ratio] 2.78 {ratio} [facility] Serum creatinine measurement (mass/volume)Ordered By: Reagan Rosen on 04-25-2025 Creatinine [Mass/Vol] 0.67 mg/dL Low 0.70-1.20 [facility] Serum globulin measurementOr dered By: Reagan Rosen on 04-25-2025 Globulin (S) [Mass/Vol] 2.7 g/dL 2.2-4.2 [facility] Serum glucose measurement (m ass/volume)Ordered By: Reagan Rosen on 04-25-2025 Glucose [Mass/Vol] 92 mg/dL 70-99 [facility] Serum or plasma alanine leon otransferase (ALT) measurementOrdered By: Reagan Rosen on 04-25-2025 ALT [Catalytic activity/Vol] 14 U/L <35 [facility] Serum or plasma albumin kelsey urement (mass/volume)Ordered By: Reagan Rosen on 04-25-2025 Albumin [Mass/Vol] 4.1 g/dL 3.4-4.8 [facility] Serum or plasma albumin/glob ulin mass ratioOrdered By: Reagan Rosen on 04-25-2025 Albumin/Globulin [Mass ratio] 1.5 {ratio} 0.9-2.4 [facility] Serum or plasma alkaline chandrakant sphatase measurementOrdered By: Reagan Rosen on 04-25-2025 ALP [Catalytic activity/Vol] 72 U/L 35-104 [facility] Serum or plasma calcium kelsey urement (mass/volume)Ordered By: Reagan Rosen on 04-25-2025 Calcium [Mass/Vol] 9.8 mg/dL 7.6-11.0 [facility] Serum or plasma cholesterol in HDL measurement (mass/volume)Ordered By: Reagan Rosen on 04-25-2025 Cholesterol in HDL [Mass/Vol] 61 mg/dL >40 [facility] Comment on above: National Cholesterol Education Program (NCEP) guidelines:<40 mg/dL: Low HDL-cholesterol (major risk factor for CHD)>= 60 mg/dL: High HDL-cholesterol (negative risk factor for CHD)HDL-cholesterol is affected by a number of factors, e.g. smoking, exercise, hormones, sex and age. Serum or plasma cholesterol measurement (mass/volume)Ordered By: Reagan Rosen on 04-25-2025 Cholesterol [Mass/Vol] 170 mg/dL <201 [facility] Comment on above: Cholesterol level, D esirable <200 mg/dLBorderline high cholesterol 200-239 mg/dLHigh cholesterol >=240 mg/dLRecommendations of the NCEP Adult Treatment Panel for the following risk-cutoff thresholds for the [place] population. Serum or plasma urea nitroge n measurement (mass/volume)Ordered By: Reagan Rosen on 04-25-2025 Urea nitrogen [Mass/Vol] 19 mg/dL 4-19 [facility] Sodium levelOrdered By: Reagan Rosen on 04-25-2025 Sodium [Moles/Vol] 139 mmol/L 133-145 [facility] TSH DL <= 0.005 mIU/L QnOrde red By: Reagan Rosen on 04-25-2025 TSH Qn 1.710 uIU/mL 0.300-4.20 0 [facility] Thyroid Stim Hormone (TSH)on 04-25-2025 TSH 1.710 uIU/mL Normal 0.300-4.20 0 [facility] Comment on above: Performed By: #### L 506.1001, L501.9520, L500.4050, L501.9985, L100.0100, L500.4100 #### [facility] [address] [place], [address] Total proteinOrdered By: Zoë Rosen on 04-25-2025 Protein [Mass/Vol] 6.9 g/dL 5.9-8.4 [facility] Triglycerides measurementOrd ered By: Reagan Rosen on 04-25-2025 Triglyceride [Mass/Vol] 79 mg/dL <199 [facility] Comment on above: The drugs N-Acetylcy steine and Metamizole may falsely depress this assay. Normal range: <150 mg/dLBorderline High: 150-199 mg/dLHigh: 200-499 mg/dLVery High: >500 mg/dL Vitamin D,25 Hydroxyon 04-25 Vitamin D 25-OH 31.3 ng/mL Normal 30-100 [facility] Comment on above: Result Comment: Stephany min D Status Deficiency: <20 ng/mL (50nmol/L) Insufficiency: 20-30 ng/mL (50-75 nmol/L) Sufficiency: 30-100 ng/mL (75-250 nmol/L) Toxicity: >100 ng/mL (>250 nmol/L) Performed By: #### L 506.1001, L501.9520, L500.4050, L501.9985, L100.0100, L500.4100 ####[facility] [address] [place], [address] White blood cell (WBC) count Ordered By: Reagan Rosen on 04-25-2025 WBC (Bld) [#/Vol] 4.9 10*3/uL 4.4-11.0 [facility] Ankle Brachial Indexon 03-30 Ankle Brachial Index [facility] [address] [facility] [place] [address] Ankle Brachial Index 03/30/25 1504 MR#: [id number] Acct: [id number] Name: YOUNG AGARWAL Rep #: [id number] : 1955 70 From: Roderick Christine MD Attending Dr: Dr. Reagan Rosen MD Status: REG CLI Ordering Dr: Reagan Rosen MD Date: 03/30/25 Location: [facility] Sex: F C Admitted: Reason For [...] REAGAN ROSEN MD Performed By: Kateryna Garay T, RDCS 03/30/25 856 Date Roderick Christine MD CC: Dr. Reagan Rosen MD Date Dictated: 03/30/25 1504 Date Transcribed: 03/30/25 702 Choir Director: Signed Normal [facility] Arterial study reportOrdered By: Roderick Christine on 03-30-2025 Noninvasive arteriosclerosis study report [facility] [address] [place] [address] Ankle Brachial Index 03/30/25 1504 MR#: [id number] Acct: [id number] Name: YOUNG AGARWAL Rep #:[id number] : 1955 70 From: Roderick Christine MD Attending Dr: Dr. Reagan Rosen MD Status: REG CLI Ordering Dr: Reagan Rosen MD Date: Location: [facility] Sex: F C Admitted: Reason For Study [...] MD Performed By: Kateryna Garay RVT, RDCS 03/30/252351 Date _ Roderick Christine MD CC: Dr. Reagan Rosen MD ~ Date Dictated: 03/30/25 1504 Date Transcribed: 03/30/252351 Choir Director: Signed [facility] Other Phone: Free T3on 02-20-2025 Free T3 [Mass/Vol] 2.9 pg/mL Normal 2.18-3.98 [facility] Comment on above: Performed By: #### L 501.41728, L501.9520, L501.9310 ####[facility] [address] [place], [address] Free D5Kyyhhcl By: Mendez iverson on 02-20-2025 Free T3 [Mass/Vol] 2.9 pg/mL 2.18-3.98 [facility] Special Stain Group IIon Special Stain Group II -------- Patient Age/Sex Location Account Attending Physician YOUNG AGARWAL 69/F [facility] [id number] Dr. Mendez South MD Specimen: [id number] Received: 02/20/25 Status: SHELIA Ott Num: [id number] Spec Type: ASP OUT Subm Dr: Dr. [...] and cell block preparation. Mr 02/20/2025 CPT: 10250g4 Signed (signature on file) Dr. Ely Mcrae DO 02/24/25 1246 Normal [facility] Comment on above: Performed By: #### P SSII ####[facility] [address] [place], [place], [address] Surgery Visit Reporton 02-20 Surgery Visit Report [facility] [address] [place], [place] [address] OFFICE VISIT Date of Service: 02/20/25 MR#: [id number] Acct: [id number] Name: YOUNG AGARWAL Rep #: [id number] : 1955 Provider: Dr. Mendez savage MD Age/Sex: 69/F Location: [facility] Status: Signed Intake Vital Signs 02/18/24 [...] was performed (more content not included)... Normal [facility] T4 Total, Thyroxinon 025 T4 [Mass/Vol] 7.1 ug/dL Normal 4.8-13.9 [facility] Comment on above: Performed By: #### L 501.84117, L501.9520, L501.9310 ####[facility] [address] [facility] [place], [place], [id number] TSH DL <= 0.005 mIU/L QnOrde red By: Mendez South on 02-20-2025 TSH Qn 1.630 uIU/mL 0.300-4.20 0 [facility] Thyroid Stim Hormone (TSH)on 02-20-2025 TSH 1.630 uIU/mL Normal 0.300-4.20 0 [facility] Comment on above: Performed By: #### L 501.17676, L501.9520, L501.9310 ####[facility] [address] [facility] [address] [place], [place], [id number] ThyroxineOrdered By: Mendez South on 02-20-2025 T4 [Mass/Vol] 7.1 ug/dL 4.8-13.9 [facility] Thyroidon 02-16-2025 Thyroid [facility] [address] [place], [place] [address] Thyroid MR#: [id number] Acct: [id number] Name: YOUNG AGARWAL Rep #: [id number] : 1955 F 69 From: Matthew flannery MD PCP: Dr. Reagan Rosen MD Status: REG CLI Study: Thyroid Date of Exam: 02/16/25 Exam# [id number] Ordering Dr: Mendez South MD PROCEDURE: THYROID 02/16/2025 REASON FOR EXAM: THYROID ULTRASOUND TECHNIQUE: High-frequency thyroid ultrasound, including grayscale and color-flow images. REFERENCE LINKS: TI-RADS Chart: [email or web address] -[email or web address] TI-RADS Calculator Tool with Reference Images: [email or web address] [email or web address]/ COMPARISON: Comparison is made with [...] no more than 2 nodules. Reading Location: [id number] CC: Dr. Mendez South MD; Dr. Reagan Rosen MD Choir Director: Signed [facility] Acid Fast Bacillus Cultureon 02-13-2025 tAFBC TESTING PERFORMED AT [facility]. ORIGINAL REPORT ON FILE IN LAB CONTAINS ADDITIONAL TEST SITE INFORMATION. Culture, Acid Fast NO ACID-FAST BACILLI ISOLATED AFTER [address] [facility] Comment on above: Performed By: #### M 300.2000, M300.3000 #### [facility] [address] [place], [address] tAFBC TESTING PERFORMED AT [facility]. ORIGINAL REPORT ON FILE IN LAB CONTAINS ADDITIONAL TEST SITE INFORMATION. Culture, Acid Fast NO ACID-FAST BACILLI ISOLATED AFTER [address] [facility] Comment on above: Performed By: #### M 300.3000, M300.2000 ####[facility] [address] [facility] [address] [place], [place], [address] tAFBC TESTING PERFORMED AT [facility]. ORIGINAL REPORT ON FILE IN LAB CONTAINS ADDITIONAL TEST SITE INFORMATION. Culture, Acid Fast NO ACID-FAST BACILLI ISOLATED AFTER [address] [facility] Comment on above: Performed By: #### M 300.3000, L3410.9998, L4600.0100, L3400.8000, L3300.1200, L803.2200, L3100.9100, M100.2000, L3100.6900, L501.6710, L3100.5500, M300.2000, M100.2400 ####[facility] [address] [facility] [address] [place], [place], [address] Acid Fast Bacillus Smear/Flu oron 02-13-2025 tafb TESTING PERFORMED AT [facility]. ORIGINAL REPORT ON FILE IN LAB CONTAINS ADDITIONAL TEST SITE INFORMATION. Smear, Acid Fast Acid Fast Smear from Concentrated Specimen :Negative Normal [facility] Comment on above: Performed By: #### M 300.2000, M300.3000 #### [facility] [address] [place], [place], [address] tafb TESTING PERFORMED AT [facility]. ORIGINAL REPORT ON FILE IN LAB CONTAINS ADDITIONAL TEST SITE INFORMATION. Smear, Acid Fast Acid Fast Smear from Concentrated Specimen :Negative Normal [facility] Comment on above: Performed By: #### M 300.3000, M300.1999 ####[facility] [address] [place], [place], [address] tafb TESTING PERFORMED AT [facility]. ORIGINAL REPORT ON FILE IN LAB CONTAINS ADDITIONAL TEST SITE INFORMATION. Smear, Acid Fast Acid Fast Smear from Concentrated Specimen :Negative Normal [facility] Comment on above: Performed By: #### M 300.3000, L3410.9998, L4600.0100, L3400.8000, L3300.1200, L803.2200, L3100.9100, M100.2000, L3100.6900, L501.6710, L3100.5500, M300.2000, M100.2400 ####[facility] [address] [place], [address] Head/Neck Soft Tissueon 04-2 Head/Neck Soft Tissue [facility] Imaging Services [address] [place] [address] Head/Neck Soft Tissue MR#: [id number] Acct: [id number] Name: YOUNG AGARWAL Rep #: [id number] : 1955 F 69 From: Arthur Walsh MD PCP: Dr. Reagan Rosen MD Status: REG CLI Study: Head/Neck Soft Tissue Date of Exam: 02/04/25 Exam# [id number] Ordering Dr: Reagan Rosen MD EXAM: Soft [...] follow-up thyroid ultrasound is recommended. Reading Location: [facility] CC: Dr. Reagan Rosen MD Choir Director: Signed Normal [facility] Normal . [facility] Comment on above: Order Comment: [id number] 3RDL PROFILE RED RF Result Comment: Test Ordered: [id number] Anti-Synthetase Profile (RDL) Test(s) 614456-Xtdf-LC-3 Ab (RDL); 194410- Anti-PL-12 Ab (RDL); 460260-Ghqv-GM Ab (RDL); 669976- Anti-OJ Ab (RDL) was developed and its performance characteristics determined by [facility]. It has not been cleared or approved [...] clinical and other laboratory findings. Performed at: [facility] [address] [place] [id number] Draw Furnace Tender: Petr Cho MD, Phone: [phone] Performed at: [address] [id number] Draw Furnace Tender: Giancarlo Crowell PhD, Phone: [phone] Performed By: #### M 300.3000, L3410.9998, L4600.0100, L3400.8000, L3300.1200, L803.2200, L3100.9100, M100.2000, L3100.6900, L501.6710, L3100.5500, M300.2000, M100.2400 ####[facility] [address] [place], [address] [facility]. COMMENT Normal . [facility] Comment on above: Order Comment: [id number] 9RNP ANTIBODY RED RF Result Comment: Test Ordered: [id number] Anti-U3 BEAM DOFFER (Fibrillarin)(RDL) Test(s) 133344-Jkvi-K0 BEAM DOFFER (Fibrillarin)(RDL) was developed and its performance characteristics determined by [facility]. It has not been cleared or approved by the Food and Drug Administration. Anti-U3 BEAM DOFFER (Fibrillarin)(RDL) Negative ESECF Reference Range: Negative Performed at: [facility] [address] [place] [id number] Draw Furnace Tender: Petr Cho MD, Phone: [phone] Performed at: [address] [id number] Draw Furnace Tender: Giancarlo Crowell PhD, Phone: [phone] Performed By: #### L 3410.9998 ####[facility] [address] [place], [address] ANCAon 01-02-2025 Atypical pANCA <1:20 Normal Neg:<1:20 [facility] Comment on above: Result Comment: The atypical pANCA pattern has been observed in a significant percentage of patients with ulcerative colitis, primary sclerosing cholangitis and autoimmune hepatitis. Performed By: #### M 300.3000, L3410.9998, L4600.0100, L3400.8000, L3300.1200, L803.2200, L3100.9100, M100.2000, L3100.6900, L501.6710, L3100.5500, M300.2000, M100.2400 ####[facility] [address] [place], [address] Cytoplasmic Ab <1:20 Normal Neg:<1:20 [facility] Comment on above: Performed By: #### M 300.3000, L3410.9998, L4600.0100, L3400.8000, L3300.1200, L803.2200, L3100.9100, M100.2000, L3100.6900, L501.6710, L3100.5500, M300.2000, M100.2400 ####[facility] [address] [place], [address] Perinuclear Ab. <1:20 Normal Neg:<1:20 [facility] Comment on above: Result Comment: The presence of positive fluorescence exhibiting P-ANCA or C-ANCA patterns alone is not specific for the diagnosis of Hua's Granulomatosis (WG) or microscopic polyangiitis. Decisions about treatment should not be based solely on ANCA IFA results. The [employer] ANCA [employer] Consensus recommends follow up testing of positive sera with both MI- 3 and MPO-ANCA enzyme immunoassays. As many as 5% serum samples are positive only by EIA. Ref. AM J Clin Pathol 1999;111:507-513. Performed By: #### M 300.3000, L3410.9998, L4600.0100, L3400.8000, L3300.1200, L803.2200, L3100.9100, M100.2000, L3100.6900, L501.6710, L3100.5500, M300.2000, M100.2400 ####[facility] [address] [place], [place], [address] Angiotensin Convert Enzymeon 01-02-2025 ANGIOT-CONV.ENZ 41 U/L Normal 14-82 [facility] Comment on above: Performed By: #### M 300.3000, L3410.9998, L4600.0100, L3400.8000, L3300.1200, L803.2200, L3100.9100, M100.2000, L3100.6900, L501.6710, L3100.5500, M300.2000, M100.2400 ####[facility] [address] [place], [place], [phone] Anti-Smooth Muscle ABSon ANTISMOOTH MUSC 5 Units Normal 0-19 [facility] Comment on above: Result Comment: Nega tive 0 - 19 Weak positive 20 - 30 Moderate to strong positive >30 Actin Antibodies are found in 52-85% of patients with autoimmune hepatitis or chronic active hepatitis and in 22% of patients with primary biliary cirrhosis. Performed By: #### M 300.3000, L3410.9998, L4600.0100, L3400.8000, L3300.1200, L803.2200, L3100.9100, M100.2000, L3100.6900, L501.6710, L3100.5500, M300.2000, M100.2400 ####[facility] [address] [place], [place], [phone] CCP IgG Antibodieson 025 CCP IgG Ab. 5 units Normal 0-19 [facility] Comment on above: Result Comment: Nega tive <20 Weak positive 20 - 39 Moderate positive 40 - 59 Strong positive >59 Performed By: #### M 300.3000, L3410.9998, L4600.0100, L3400.8000, L3300.1200, L803.2200, L3100.9100, M100.2000, L3100.6900, L501.6710, L3100.5500, M300.2000, M100.2400 ####[facility] [address] [place], [address] Respiratory Cultureon 2024 RESPC Mixed normal respira tory rea. No Haemophilus, Streptococcus pneumoniae, beta-hemolytic Streptococcus or Staphylococcus aureus isolated. Normal [facility] Comment on above: Performed By: #### M 300.3000, L3410.9998, L4600.0100, L3400.8000, L3300.1200, L803.2200, L3100.9100, M100.2000, L3100.6900, L501.6710, L3100.5500, M300.2000, M100.2400 ####[facility] [address] [place], [address] Acid fast bacillus (AFB) cul tureOrdered By: Edmundo Buenrostro on 12-30-2024 Mycobacterium sp identified Org specific cx Nom (Unsp spec) [facility] Quantiferon TB-Gold+on 12-30 QFT MITOGEN CARMEN > 10.00 Normal . [facility] Comment on above: Performed By: #### M 300.3000, L3410.9998, L4600.0100, L3400.8000, L3300.1200, L803.2200, L3100.9100, M100.2000, L3100.6900, L501.6710, L3100.5500, M300.2000, M100.2400 ####[facility] [address] [place], [address] QFT NIL VALUE 0.05 IU/mL Normal . [facility] Comment on above: Performed By: #### M 300.3000, L3410.9998, L4600.0100, L3400.8000, L3300.1200, L803.2200, L3100.9100, M100.2000, L3100.6900, L501.6710, L3100.5500, M300.2000, M100.2400 ####[facility] [address] [facility] [place], [place], [phone] QFT TB GOLD+ Comment Normal . [facility] Comment on above: Result Comment: Robbie tiFERON-TB [...] L3100.9100, M100.2000, L3100.6900, L501.6710, L3100.5500, M300.2000, M100.2400 ####[facility] [address] [facility] [place], [address] QFT TB POS CRIT Negative Normal Negative [facility] Comment on above: Result Comment: No r [...] interferon gamma. Chemiluminescence immunoassay methodology Performed at: [facility] [address] [id number] Draw Furnace Tender: Giancarlo Crowell PhD, Phone: [phone] Performed By: #### M 300.3000, L3410.9998, L4600.0100, L3400.8000, L3300.1200, L803.2200, L3100.9100, M100.2000, L3100.6900, L501.6710, L3100.5500, M300.2000, M100.2400 ####[facility] [address] [place], [place], [phone](287) QFT TB1+ AG CARMEN 0.07 IU/mL Normal . [facility] Comment on above: Performed By: #### M 300.3000, L3410.9998, L4600.0100, L3400.8000, L3300.1200, L803.2200, L3100.9100, M100.2000, L3100.6900, L501.6710, L3100.5500, M300.2000, M100.2400 ####[facility] [address] [place], [address](101) QFT TB2+ AG CARMEN 0.04 IU/mL Normal . [facility] Comment on above: Performed By: #### M 300.3000, L3410.9998, L4600.0100, L3400.8000, L3300.1200, L803.2200, L3100.9100, M100.2000, L3100.6900, L501.6710, L3100.5500, M300.2000, M100.2400 ####[facility] [address] [place], [phone]) Acid fast bacillus (AFB) cul tureOrdered By: Edmundo Buenrostro on 12-29-2024 Mycobacterium sp identified Org specific cx Nom (Unsp spec) [facility] Anti-dsDNA Abon 12-29-2024 ANTI-DNA (DS)AB <1 Normal 0-9 [facility] Comment on above: Result Comment: Nega tive <5 Equivocal 5 - 9 Positive >9 Performed at: [address] [id number] Draw Furnace Tender: Giancarlo Crowell PhD, Phone: [phone] Performed By: #### M 300.3000, L3410.9998, L4600.0100, L3400.8000, L3300.1200, L803.2200, L3100.9100, M100.2000, L3100.6900, L501.6710, L3100.5500, M300.2000, M100.2400 ####[facility] [address] [place], [place], [phone] Gram Stainon 12-29-2024 GS Gram Stain 2+ Gram positive cocci 1+ Gram positive rods 1+ Gram negative rods 1+ Epithelial cells Normal [facility] Comment on above: Performed By: #### M 300.3000, L3410.9998, L4600.0100, L3400.8000, L3300.1200, L803.2200, L3100.9100, M100.2000, L3100.6900, L501.6710, L3100.5500, M300.2000, M100.2400 ####[facility] [address] [facility]. [place], [place], [phone] Sjogren's Antibodies A/Bon 0 12-29-2024 ANTI-SS-A < 0.2 Normal 0.0-0.9 [facility] Comment on above: Result Comment: AMENDED REPORT 12/29/241307 Anti-SS-A previously reported as: Test not performed Performed By: #### M 300.3000, L3410.9998, L4600.0100, L3400.8000, L3300.1200, L803.2200, L3100.9100, M100.2000, L3100.6900, L501.6710, L3100.5500, M300.2000, M100.2400 ####[facility] [address] [facility] [place], [place], [phone] ANTI-SS-B < 0.2 Normal 0.0-0.9 [facility] Comment on above: Result Comment: AMENDED REPORT 12/29/241307 Anti-SS-B previously reported as: Test not performed Performed By: #### M 300.3000, L3410.9998, L4600.0100, L3400.8000, L3300.1200, L803.2200, L3100.9100, M100.2000, L3100.6900, L501.6710, L3100.5500, M300.2000, M100.2400 ####[facility] [address] [place], [place], [id number] Acid fast bacillus (AFB) cul tureOrdered By: Edmundo Buenrostro on 12-28-2024 Mycobacterium sp identified Org specific cx Nom (Unsp spec) [facility] Actin IgG QnOrdered By: Nicholas Buenrostro on 12-28-2024 Anti-Smooth Muscle Antibody 5 Units 0- [facility] Comment on above: Negative 0 - 19 Weak positive 20 - 30 Moderate to strong positive >30 Actin Antibodies are found in 52-85% of patients with autoimmune hepatitis or chronic active hepatitis and in 22% of patients with primary biliary cirrhosis. Atypical perinuclear antineu trophil cytoplasmic antibodies measurementOrdered By: Edmundo Buenrostro on 12-28-2024 Atypical p-ANCA <1:20 titer Neg:<1:20 [facility] Comment on above: The atypical pANCA p attern has been observed in asignificant percentage of patients with ulcerative colitis,primary sclerosing cholangitis and autoimmune hepatitis. CRPon 12-28-2024 C-REACTIVE PROT < 3.00 Normal 0.0-3.0 [facility] Comment on above: Performed By: #### M 300.3000, L3410.9998, L4600.0100, L3400.8000, L3300.1200, L803.2200, L3100.9100, M100.2000, L3100.6900, L501.6710, L3100.5500, M300.2000, M100.2400 ####[facility] [address] [place], [place], [phone] CRP [Mass/Vol]Ordered By: Chantal Buenrostro on 12-28-2024 C-Reactive Protein Extended Range < 3.00 mg/L 0.0-3.0 [facility] Cyclic citrullinated peptide IgG QnOrdered By: Edmundo Buenrostro on 12-28-2024 Cyclic Citrullinated Peptide IgG Ab 5 units 0- [facility] Comment on above: Negative <20 Weak po sitive 20 - 39 Moderate positive 40 - 59 Strong positive >59 DNA double strand Ab Qn (S)O rdered By: Edmundo Buenrostro on 12-28-2024 Anti-Double Strand DNA Antibody <1 IU/mL 0-9 [facility] Comment on above: Negative <5 Equivoca l 5 - 9 Positive >9Performed at: [facility] [address] [id number] Director: Giancarlo Crowell PhD, Phone: [phone] Gram stainOrdered By: Edmundo Buenrostro on 12-28-2024 Microscopic observation Gram stain Nom (Unsp spec) [facility] M. tuberculosis tuberculin s joel IFN-g Ql (Bld)Ordered By: Edmundo Buenrostro on 12-28-2024 TB Test (QFT) Antigen 1 0.07 IU/mL . [facility] Microbial respiratory cultur eOrdered By: Edmundo Buenrostro on 12-28-2024 Microorganism identified Cx Nom (Unsp spec) [facility] Microorganism identified Cx Nom (Unsp spec)Ordered By: Edmundo Buenrostro on 12-28-2024 Respiratory Culture [facility] Neutrophil cytoplasmic Ab.cl assic Qn (S)Ordered By: Edmundo Buenrostro on 12-28-2024 Cytoplasmic ANCA (c-ANCA) Antibody <1:20 titer Neg:<1:20 [facility] Neutrophil cytoplasmic Ab.pe rinuclear IF (S) [Titer]Ordered By: Edmundo Buenrostro on 12-28-2024 Perinuclear ANCA (p-ANCA) Antibody <1:20 titer Neg:<1:20 [facility] Comment on above: The presence of posi tive fluorescence exhibiting P-ANCA orC-ANCA patterns alone is not specific for the diagnosis ofWegener's Granulomatosis (WG) or microscopic polyangiitis.Decisions about treatment should not be based solely onANCA IFA results. The International ANCA Group Consensusrecommends follow up testing of positive sera with both MI-3 and MPO-ANCA enzyme immunoassays. As many as 5% serumsamples are positive only by EIA. Ref. AM J Clin Qpjlnd9179;111:507-513. No Panel InformationOrdered By: Edmundo Buenrostro on 12-28-2024 Miscellaneous Test COMMENT . [facility] Comment on above: Test Ordered: [id number] Anti-U3 BEAM DOFFER (Fibrillarin)(RDL)Test(s) 301856-Qeuv-M1 BEAM DOFFER (Fibrillarin)(RDL)was developed and its performance characteristicsdetermined by [employer]. It has not been cleared or approvedby the Food and Drug Administration.Anti-U3 BEAM DOFFER (Fibrillarin)(RDL) Negative [facility] Reference Range: NegativePerformed at: [facility] [address] [place], [place] [id number] Director: Petr Cho MD, Phone: [phone] at: [facility] [address] [id number] Director: Giancarlo Crowell PhD, Phone: [phone] Qualitative QuantiFERON-TB g old in tube testOrdered By: Edmundo Buenrostro on 12-28-2024 M. tuberculosis tuberculin stim IFN-g Ql (Bld) 0.07 IU/mL . [facility] Quantiferon-TB Gold Plus javan tOrdered By: Edmundo Buenrostro on 12-28-2024 TB Test (QFT) Comment . [facility] Comment on above: QuantiFERON-TB Gold Plus is [...] (QFT) Antigen 2 0.04 IU/mL . [facility] TB Test (QFT) Mitogen > 10.00 IU/mL . [facility] TB Test (QFT) Nil 0.05 IU/mL . [facility] TB Test (QFT) Positive Criteria Negative Negative [facility] Comment on above: No response to M [...] the productionof interferon gamma. Chemiluminescence immunoassaymethodologyPerformed at: [facility] [place] [id number] Director: Giancarlo Crowell PhD, Phone: [phone] SS-A IgG antibody assayOrder ed By: Edmundo Buenrostro on 12-28-2024 SS-A/Ro IgG Antibody TNP [facility] Comment on above: Test not performed SS-A/Ro IgG Antibody < 0.2 AI 0.0-0.9 [facility] Comment on above: Previous reported re sult: TNP AIEdited by: MONTRELL on 12/29/24:1308 AMENDED REPORT 12/29/24 1308 Anti-SS-A previously reported as: Test not performed SS-B IgG antibody assayOrder ed By: Edmundo Buenrostro on 12-28-2024 SS-B/La IgG Antibody TNP [facility] Comment on above: Test not performed SS-B/La IgG Antibody < 0.2 AI 0.0-0.9 [facility] Comment on above: Previous reported re sult: TNP AIEdited by: MONTRELL on 12/29/24:1308 AMENDED REPORT 12/29/24 1308 Anti-SS-B previously reported as: Test not performed Serum DNA double strand anti body assay (units/volume)Ordered By: Edmundo Buenrostro on 12-28-2024 DNA double strand Ab Qn (S) [IU]/mL 0-9 [facility] Comment on above: Negative <5 Equivoca l 5 - 9 Positive >9Performed at: [facility] [place], [place] [id number] Director: Giancarlo Crowell PhD, Phone: [phone] Serum classic neutrophil cyt oplasmic antibody assay (units/volume)Ordered By: Edmundo Buenrostro on 12-28-2024 Neutrophil cytoplasmic Ab.classic Qn (S) <1:20 titer Neg:<1:20 [facility] Serum or plasma C reactive p rotein measurement (mass/volume)Ordered By: Edmundo Buenrostro on 12-28-2024 CRP [Mass/Vol] mg/L 0.0-3.0 [facility] Serum or plasma actin IgG an tibody assay (units/volume)Ordered By: Edmundo Buenrostro on 12-28-2024 Actin IgG Qn 5 Units 0 [facility] Comment on above: Negative 0 - 19 Weak positive 20 - 30 Moderate to strong positive >30 Actin Antibodies are found in 52-85% of patients with autoimmune hepatitis or chronic active hepatitis and in 22% of patients with primary biliary cirrhosis. Serum or plasma angiotensin converting enzyme measurement (enzymatic activity/volume)Ordered By: Edmundo Buenrostro on 12-28-2024 Angiotensin converting enzyme [Catalytic activity/Vol] 41 U/L 14- [facility] Serum or plasma cyclic citru llinated peptide IgG antibody assay (units/volume)Ordered By: Edmundo Buenrostro on 12-28-2024 Cyclic citrullinated peptide IgG Qn 5 units 0 [facility] Comment on above: Negative <20 Weak po sitive 20 - 39 Moderate positive 40 - 59 Strong positive >59 Serum perinuclear neutrophil cytoplasmic antibody titer by immunofluorescenceOrdered By: Edmundo Buenrostro on 12-28-2024 Neutrophil cytoplasmic Ab.perinuclear IF (S) [Titer] <1:20 titer Neg:<1:20 [facility] Comment on above: The presence of posi tive fluorescence exhibiting P-ANCA orC-ANCA patterns alone is not specific for the diagnosis ofWegener's Granulomatosis (WG) or microscopic polyangiitis.Decisions about treatment should not be based solely onANCA IFA results. The International ANCA Group Consensusrecommends follow up testing of positive sera with both MI-3 and MPO-ANCA enzyme immunoassays. As many as 5% serumsamples are positive only by EIA. Ref. AM J Clin Yjbbju5754;111:507-513. Chest PA and Lateralon 12-20 Chest PA and Lateral [facility] [address] [place] [place], [place] [id number] Chest PA and Lateral MR#: [id number] Acct: [id number] Name: YOUNG AGARWAL Rep #: [id number] : 1955 F 69 From: Manuelito Iraheta MD PCP: Dr. Reagan Rosen MD Status: REG CLI Study: Chest PA and Lateral Date of Exam: 12/20/24 Exam# [id number] Ordering Dr: Clinton Bautista MD EXAM: XR [...] Lateral IMPRESSION: Suggestion of COPD. Reading Location: [facility] CC: Dr. Clinton Bautista MD; Dr. Reagan Rosen MD Choir Director: Signed Normal [facility] SCRN MAMM (CAD)W/EDITH BILATo n 09-13-2024 SCRN MAMM (CAD)W/EDITH BILAT [facility] [address] [place] [address] SCRN MAMM (CAD)W/EDITH BILAT MR#: [id number] Acct: [id number] Name: YOUNG AGARWAL Rep #: [id number] : 1955 F 69 From: Matthew flannery MD PCP: Dr. Reagan Rosen MD Status: REG CLI Study: SCRN MAMM (CAD)W/EDITH BILAT Date of Exam: 01/02 Exam# [id number] Ordering Dr: Rashmi Tapia OPTICAL ASSISTANT OPTICAL ASSISTANT -C [id number] MAMMOGRAPHY - BILATERAL SCREENING REASON FOR EXAM: [...] delay biopsy of a clinically suspicious abnormality. [id number] Electronically Signed: Matthew Crockett MD at 8:34 EST , CC: JACLYN Tapia; Dr. Reagan Rosen MD Choir Director: Signed Normal [facility] US ANKLE LTon 06-23-2023 US ANKLE LT [...] AT THE AREA OF THE PATIENT'S SWELLING. Choir Director: PSCB Transcribe Date/Time: Jun 23 2023 1:15P Dictated by : ARTIE HERNÁNDEZ MD This examination was interpreted and the report reviewed and electronically signed by: ARTIE HERNÁNDEZ MD on Jun 23 2023 1:18PM EST [id number] Normal [facility] ----- YOUNG AGARWAL ([id number]) 1955 F Date Time Provider Department 06/04/23 STEPHEN ELLIS [facility] During your visit today, we recorded the following information about you: Stephen Ellis 06/04/2023 11:35 AM Signed Visit Type: ANY MSK Visit Length: 45, 50 OR 60 MINUTES Order Name/Protocol: PLEASE HAVE PT SIGN AUTH OF RELEASE FORM. US ANKLE LT; ACHILLES-EVAL FOR BENIGN SOFT TISSUE MASS VS POSSIBLE OLD TENDON TEAR/STRAIN/SPRAIN. OUTSIDE ORDER SCANNED INTO CHART/BUILT IN [employer]. Preferred Provider: N/A Comment: Please ask if [...] for their MSK US on 06/23 at [place]. Allergies As of Date: 06/04/2023 Noted Allergy [...] Encounter Status:Closed by [facility]RULTTB[facility] ----- YOUNG AGARWAL ([id number]) 1955 F Date Time Provider Department 05/28/23 [...] TEAR/STRAIN/SPRAIN. OUTSIDE ORDER SCANNED INTO CHART/BUILT IN [employer]. Preferred Provider: N/A Comment: Please ask if [...] PT indicated she was already scheduled at [facility] and no longer needs an appointment. [...] Status:Closed by STEPHEN ELLIS on 06/01/[address] [facility] Basophil percentageOrdered B y: Dr. Rosen on 01-01-2023 Chloride [Moles/Vol] 105 mmol/L 98-107 [facility] Cholesterol [Mass/Vol] 151 mg/dL <200 [facility] Comment on above: <200 mg/dL Desirable 200-240 mg/dL Borderline >240 mg/dL High Risk Glucose [Mass/Vol] 102 mg/dL 74-106 [facility] Comment on above: Fasting Glucose resu lt from 100 to 125 mg/dL suggests IMPAIRED HOMEOSTASIS per A.D.A. criteria. Potassium [Moles/Vol] 4.0 mmol/L 3.5-5.1 [facility] Sodium [Moles/Vol] 141 mmol/L 136-145 [facility] Triglyceride [Mass/Vol] 81 mg/dL <199 [facility] Comment on above: The drugs N-Acetylcy steine and Metamizole may falsely depress this assay.Serum Triglycerides Reference Interval Normal <150 mg/dL Borderline high 150 - 199 mg/dL High 200 - 499 mg/dL Very High > or = 500 mg/dL Laboratory - Chemistry and C hemistry - challengeOrdered By: Dr. Rosen on 01-01-2023 CO2 [Moles/Vol] 30.0 mmol/L 21.0-32.0 [facility] Urea nitrogen/Creatinine [Mass ratio] 25.9 mg/mg 10-20 [facility] No Panel InformationOrdered By: Dr. Rosen on 01-01-2023 Estimated GFR (MDRD) Amer 108 mL/min >60 [facility] Comment on above: GFR Calc Estimated GFR (MDRD) Non-Af Amer 89 mL/min >60 [facility] Comment on above: Non- GFR Calc Vitamin D 25-Hydroxy 34.2 ng/mL [facility] Comment on above: Vitamin D 25(OH) Sta tus Range Deficiency <20 ng/mL (50nmol/L) Insufficiency 20 - 30 ng/mL (50 - 75 nmol/L) Sufficiency 30 - 100 ng/mL (75 - 250 nmol/L) Toxicity >100 ng/mL (>250 nmol/L) Serum or plasma calcium kelsey urement (mass/volume)Ordered By: Dr. Rosen on 01-01-2023 Calcium [Mass/Vol] 9.4 mg/dL 8.5-10.1 [facility] Serum or plasma cholesterol in HDL measurement (mass/volume)Ordered By: Dr. Rosen on 01-01-2023 Cholesterol in HDL [Mass/Vol] 56 mg/dL >40 [facility] Comment on above: The drugs N-Acetylcy steine and Metamizole may falsely depress this assay. Reference Range HDL <40 mg/dL Low HDL Cholesterol HDL >or= 60 mg/dL High HDL Cholesterol Serum or plasma cholesterol in VLDL measurement (mass/volume)Ordered By: Dr. Rosen on 01-01-2023 Cholesterol in VLDL [Mass/Vol] 16 mg/dL 5-40 [facility] Serum or plasma creatinine m easurement (mass/volume)Ordered By: Dr. Rosen on 01-01-2023 Creatinine [Mass/Vol] 0.69 mg/dL 0.55-1.02 [facility] Comment on above: The validity of the calculated GFR & GFRAA in patients over 70 years has not been determined. Clinical correlation is essential. Serum or plasma low density lipoprotein (LDL) cholesterol measurement (mass/volume)Ordered By: Dr. Rosen on 01-01-2023 Cholesterol in LDL [Mass/Vol] 79 mg/dL 0-130 [facility] Serum or plasma urea nitroge n measurement (mass/volume)Ordered By: Dr. Rosen on 01-01-2023 Urea nitrogen [Mass/Vol] 18 mg/dL 7-18 [facility] Thin prep Papanicolaou smear with manual screeningOrdered By: Dr. Rosen on 01-01-2023 Thin prep Papanicolaou smear with manual screening 6 5-15 [facility] Absolute lymphocyte counton 07-14-2022 Lymphocytes Auto (Unsp spec) [#/Vol] 2.44 10*3/uL 0.83-4.51 [facility] Work Phone: Basophil percentageon 2021 Basophil percentage < 0.9 mg/dL 0.55-1.02 [facility] Work Phone: [phone] Basophils/100 WBC (Bld) 0.5 % 0-1 [facility] Work Phone: [phone] Bilirubin [Mass/Vol] 0.60 mg/dL 0.20-1.00 [facility] Work Phone: Comment on above: For patients on eltr ombopag therapy, use of Dimension [place] TBIL is not recommended. Chloride [Moles/Vol] 104 mmol/L 98-107 [facility] Work Phone: Eosinophils/100 WBC (Bld) 5.3 % 0-5 [facility] Work Phone: [phone] Glucose [Mass/Vol] 74 mg/dL 74-106 [facility] Work Phone: Neutrophils (Bld) [#/Vol] 2.5 10*3/uL 2.0-7.7 [facility] Work Phone: Neutrophils/100 WBC (Bld) 43.0 % 47-70 [facility] Work Phone: Potassium [Moles/Vol] 3.8 mmol/L 3.5-5.1 [facility] Work Phone: Protein [Mass/Vol] 7.2 g/dL 6.4-8.2 [facility] Work Phone: Sodium [Moles/Vol] 142 mmol/L 136-145 [facility] Work Phone: WBC (Bld) [#/Vol] 5.8 10*3/uL 4.4-11.0 [facility] Work Phone: Blood erythrocytes count (nu mber/volume)on 07-14-2022 RBC (Bld) [#/Vol] 4.48 10*6/uL 4.2-5.4 [facility]: Blood hemoglobin measurement (mass/volume)on 07-14-2022 Hemoglobin (Bld) [Mass/Vol] 13.5 g/dL 12.0-15.0 [facility] Work Phone: Blood lymphocytes/100 leukoc yteson 07-14-2022 Lymphocytes/100 WBC (Bld) 41.9 % 19-41 [facility] Work Phone: Blood monocytes/100 leukocyt eson 07-14-2022 Monocytes/100 WBC (Bld) 9.1 % 0-10 [facility] Work Phone: Blood platelet mean volumeon 07-14-2022 Platelet mean volume (Bld) [Entitic vol] 9.4 fL 6.2-12.0 [facility] Work Phone: Determination of erythrocyte mean corpuscular volume (MCV)on 07-14-2022 MCV (RBC) [Entitic vol] 94.6 fL 81-99 [facility] Work Phone: Hematocrit Auto (Bld) [Volum e fraction]on 07-14-2022 Hematocrit (Bld) [Volume fraction] 42.4 % 37-47 [facility] Work Phone: [phone] Laboratory - Chemistry and C hemistry - challengeon 07-14-2022 ALP [Catalytic activity/Vol] 73 U/L 45-117 [facility] Work Phone: [phone] ALT [Catalytic activity/Vol] 31 U/L 13-56 [facility] Work Phone: CO2 [Moles/Vol] 32.0 mmol/L 21.0-32.0 [facility] Work Phone: [phone] Globulin (S) [Mass/Vol] 3.5 g/dL 2.2-4.2 [facility] Work Phone: [phone] Lipase [Catalytic activity/Vol] 185 U/L 73-393 [facility] Work Phone: [phone] Urea nitrogen/Creatinine [Mass ratio] 17.8 mg/mg 10-20 [facility] Work Phone: [phone] Laboratory - Hematology and Cell countson 07-14-2022 Erythrocyte distribution width (RBC) [Entitic vol] 48.0 fL 35.1-43.9 [facility] Work Phone: [phone] Erythrocyte distribution width (RBC) [Ratio] 13.8 % 11.6-14.6 [facility] Work Phone: [phone] Immature granulocytes/100 WBC (Bld) 0.200 % 0.0-0.9 [facility] Work Phone: [phone] Comment on above: IG% - Immature Granu locytes (promyelocytes, myelocytes and metamyelocytes) > 1% indicates that a LEFT SHIFT is Present. MCH (RBC) [Entitic mass] 30.1 pg 27.0-32.0 [facility] Work Phone: [phone] Nucleated RBC/100 WBC (Bld) [Ratio] 0 % 0-5 [facility] Work Phone: [phone] MCHC Auto (RBC) [Mass/Vol]on 07-14-2022 MCHC (RBC) [Mass/Vol] 31.8 g/dL 32-36 [facility] Work Phone: No Panel Informationon 07-14 Bedside Estimated GFR (eGFR) > 60.0000 mL/min >60 [facility] Work Phone: Estimated GFR (MDRD) Amer 102 mL/min >60 [facility] Work Phone: Comment on above: GFR Calc Estimated GFR (MDRD) Non-Af Amer 85 mL/min >60 [facility] Work Phone: Comment on above: Non- GFR Calc Platelets bldon 07-14-2022 Platelets (Bld) [#/Vol] 314 10*3/uL 150-450 [facility] Work Phone: Serum or plasma albumin kelsey urement (mass/volume)on 07-14-2022 Albumin [Mass/Vol] 3.7 g/dL 3.2-5.0 [facility] Work Phone: Serum or plasma albumin/glob ulin mass ratioon 07-14-2022 Albumin/Globulin [Mass ratio] 1.1 {ratio} 0.9-2.4 [facility] Work Phone: Serum or plasma calcium kelsey urement (mass/volume)on 07-14-2022 Calcium [Mass/Vol] 9.9 mg/dL 8.5-10.1 [facility] Work Phone: Serum or plasma creatinine m easurement (mass/volume)on 07-14-2022 Creatinine [Mass/Vol] 0.73 mg/dL 0.55-1.02 [facility] Work Phone: Comment on above: The validity of the calculated GFR & GFRAA in patients over 70 years has not been determined. Clinical correlation is essential. Serum or plasma urea nitroge n measurement (mass/volume)on 07-14-2022 Urea nitrogen [Mass/Vol] 13 mg/dL 7-18 [facility] Work Phone: Thin prep Papanicolaou smear with manual screeningon 07-14-2022 Thin prep Papanicolaou smear with manual screening 19 U/L 15-37 [facility] Work Phone: Thin prep Papanicolaou smear with manual screening 6 5-15 [facility] Work Phone: Basophil percentageon 2021 Chloride [Moles/Vol] 106 mmol/L 98-107 [facility] Work Phone: Cholesterol [Mass/Vol] 156 mg/dL <200 [facility] Work Phone: Comment on above: <200 mg/dL Desirable 200-240 mg/dL Borderline >240 mg/dL High Risk Glucose [Mass/Vol] 89 mg/dL 74-106 [facility] Work Phone: Potassium [Moles/Vol] 4.2 mmol/L 3.5-5.1 [facility] Work Phone: Sodium [Moles/Vol] 141 mmol/L 136-145 [facility] Work Phone: Triglyceride [Mass/Vol] 71 mg/dL [facility] Work Phone: Comment on above: The drugs N-Acetylcy steine and Metamizole may falsely depress this assay.Serum Triglycerides Reference Interval Normal <150 mg/dL Borderline high 150 - 199 mg/dL High 200 - 499 mg/dL Very High > or = 500 mg/dL Laboratory - Chemistry and C hemistry - challengeon 12-26-2021 CO2 [Moles/Vol] 30.0 mmol/L 21.0-32.0 [facility] Work Phone: Urea nitrogen/Creatinine [Mass ratio] 20.5 mg/mg 10-20 [facility] Work Phone: No Panel Informationon 12-26 Estimated GFR (MDRD) Amer 102 mL/min >60 [facility] Work Phone: Comment on above: GFR Calc Estimated GFR (MDRD) Non-Af Amer 85 mL/min >60 [facility] Work Phone: Comment on above: Non- GFR Calc Thyroid Stimulating Hormone (TSH) 1.57 uIU/mL 0.358-3.74 [facility] Work Phone: Vitamin D 25-Hydroxy 33.8 ng/mL [facility] Work Phone: Comment on above: Vitamin D 25(OH) Sta tus Range Deficiency <20 ng/mL (50nmol/L) Insufficiency 20 - 30 ng/mL (50 - 75 nmol/L) Sufficiency 30 - 100 ng/mL (75 - 250 nmol/L) Toxicity >100 ng/mL (>250 nmol/L) Serum or plasma calcium kelsey urement (mass/volume)on 12-26-2021 Calcium [Mass/Vol] 9.6 mg/dL 8.5-10.1 [facility] Work Phone: Serum or plasma cholesterol in HDL measurement (mass/volume)on 12-26-2021 Cholesterol in HDL [Mass/Vol] 59 mg/dL [facility] Work Phone: Comment on above: The drugs N-Acetylcy steine and Metamizole may falsely depress this assay. Reference Range HDL <40 mg/dL Low HDL Cholesterol HDL >or= 60 mg/dL High HDL Cholesterol Serum or plasma cholesterol in VLDL measurement (mass/volume)on 12-26-2021 Cholesterol in VLDL [Mass/Vol] 14 mg/dL 5-40 [facility] Work Phone: Serum or plasma creatinine m easurement (mass/volume)on 12-26-2021 Creatinine [Mass/Vol] 0.73 mg/dL 0.55-1.02 [facility] Work Phone: Comment on above: The validity of the calculated GFR & GFRAA in patients over 70 years has not been determined. Clinical correlation is essential. Serum or plasma low density lipoprotein (LDL) cholesterol measurement (mass/volume)on 12-26-2021 Cholesterol in LDL [Mass/Vol] 83 mg/dL 0-130 [facility] Work Phone: Serum or plasma urea nitroge n measurement (mass/volume)on 12-26-2021 Urea nitrogen [Mass/Vol] 15 mg/dL 7-18 [facility] Work Phone: Thin prep Papanicolaou smear with manual screeningon 12-26-2021 Thin prep Papanicolaou smear with manual screening 02-23 [facility] Work Phone: Vital Signs Date Time Vital Sign Value Performing Clinician Faci lity 06-14-2025 10:56-0400 Body height 172.[address] Reagan Rosen MD Work Phone: [facility] 06-14-2025 10:56-0400 Body mass index (BMI) [Ratio] 27 kg/m2 Dr. Reagan Rosen MD Work Phone: [facility] 06-14-2025 10:56-0400 Body weight 80.[address] Reagan Rosen MD Work Phone: [facility] 06-14-2025 10:56-0400 Diastolic blood pressure 79 mm[Hg] Dr. Reagan Rosen MD Work Phone: [facility] 06-14-2025 10:56-0400 Heart rate 60 /min Dr. Reagan Rosen MD Work Phone: [facility] 06-14-2025 10:56-0400 Systolic blood pressure 128 mm[Hg] Dr. Reagan Rosen MD Work Phone: [facility] 05-06-2025 03:59-0400 Body temperature 97.8 [degF] Dr. Reagan Rosen MD Work Phone: [facility] 05-06-2025 03:59-0400 Diastolic blood pressure 78 mm[Hg] Dr. Reagan Rosen MD Work Phone: [facility] 05-06-2025 03:59-0400 Heart rate 81 /min Dr. Reagan Rosen MD Work Phone: [facility] 05-06-2025 03:59-0400 Respiratory rate 16 /min Dr. Reagan Rosen MD Work Phone: [facility] 05-06-2025 03:59-0400 SaO2% (BldA) [Mass fraction] 96 % Dr. Reagan Rosen MD Work Phone: [facility] 05-06-2025 03:59-0400 Systolic blood pressure 158 mm[Hg] Dr. Reagan Rosen MD Work Phone: [facility] 05-06-2025 02:04-0400 Body height 172.[address] Reagan Rosen MD Work Phone: [phone] [place] [address] 05-06-2025 02:04-0400 Body mass index (BMI) [Ratio] 27.4 kg/m2 Dr. Reagan Rosen MD Work Phone: [phone])[phone] [place] [address] 05-06-2025 02:04-0400 Body weight [address] Reagan Rosen MD Work Phone: [phone])695-521041 [place] [address] 02-20-2025 09:07-0400 Body height 172.[address] Clinton Bautista MD Work Phone: [phone])[phone] [place] [address] 02-20-2025 09:07-0400 Body mass index (BMI) [Ratio] 27 kg/m2 Dr. Clinton Bautista MD Work Phone: [phone] [place] [address] 02-20-2025 09:07-0400 Body weight 80.[address] Clinton Bautista MD Work Phone: [phone] [place] [address] 02-20-2025 09:07-0400 Diastolic blood pressure 75 mm[Hg] Dr. Clinton Bautista MD Work Phone: [phone] [place] [address] 02-20-2025 09:07-0400 Heart rate 58 /min Dr. Clinton Bautista MD Work Phone: [facility] 02-20-2025 09:07-0400 Respiratory rate 17 /min Dr. Clinton Bautista MD Work Phone: [phone] [address] 02-20-2025 09:07-0400 SaO2% (BldA) [Mass fraction] 97 % Dr. Clinton Bautista MD Work Phone: [phone] [place] [address] 02-20-2025 09:07-0400 Systolic blood pressure 127 mm[Hg] Dr. Clinton Bautista MD Work Phone: [facility] 01-27-2023 09:52-0400 Body height 172.[address] Reagan Rosen Work Phone: [facility] 01-13-2023 10:23-0400 Body mass index (BMI) [Ratio] 26.6 kg/m2 Dr. Reagan Rosen Work Phone: [facility] 01-13-2023 10:23-0400 Body weight 79.[address] Reagan Rosen Work Phone: [facility] 01-13-2023 10:23-0400 Diastolic blood pressure 73 mm[Hg] Dr. Reagan Rosen Work Phone: [facility] 01-13-2023 10:23-0400 Systolic blood pressure 111 mm[Hg] Dr. Reagan Rosen Work Phone: [facility] 12-17-2022 13:40-0500 Body height 173.[address] Reagan Rosen Work Phone: [facility] 12-17-2022 13:40-0500 Body mass index (BMI) [Ratio] 26 kg/m2 Dr. Reagan Rosen Work Phone: [facility] 12-17-2022 13:40-0500 Body weight 78.[address] Reagan Rosen Work Phone: [facility] 12-17-2022 13:40-0500 Diastolic blood pressure 68 mm[Hg] Dr. Reagan Rosen Work Phone: [facility] 12-17-2022 13:40-0500 Heart rate 52 /min Dr. Reagan Rosen Work Phone: [facility] 12-17-2022 13:40-0500 Respiratory rate 16 /min Dr. Reagan Rosen Work Phone: [facility] 12-17-2022 13:40-0500 Systolic blood pressure 148 mm[Hg] Dr. Reagan Rosen Work Phone: [phone] [place] [address] 11-08-2021 13:54-0500 Body height 173.[address] Reagan Rosen Work Phone: [facility] Work Phone: 11-08-2021 13:54-0500 Body mass index (BMI) [Ratio] 26.9 kg/m2 Dr. Reagan Rosen Work Phone: [facility] Work Phone: 11-08-2021 13:54-0500 Body weight 81.[address] Reagan Rosen Work Phone: [facility] Work Phone: 11-08-2021 13:54-0500 Diastolic blood pressure 84 mm[Hg] Dr. Reagan Rosen Work Phone: [facility] Work Phone: 11-08-2021 13:54-0500 Heart rate 60 /min Dr. Reagan Rosen Work Phone: [facility] Work Phone: 11-08-2021 13:54-0500 Respiratory rate 16 /min Dr. Reagan Rosen Work Phone: [facility] Work Phone: 11-08-2021 13:54-0500 Systolic blood pressure 156 mm[Hg] Dr. Reagan Rosen Work Phone: [facility] Work Phone: Encounters Encounter Date Encounter Type Care Provider Facility Start: 08-12-2025 ambulatory Mendez South Facility: [facility] Start: 08-05-2025 ambulatory Reagan Rosen Facility:[facility] Start: 06-14-2025 End: 06-14-[address] Nereyda Landin MD -[facility] Work Phone: Start: 06-14-2025 End: 06-14-[address] Reagan Rosen MD Work Phone: -[facility] Start: 06-08-2025 End: 06-08-[address] Reagan Rosen MD Work Phone: -[facility]iology [place] Start: 06-08-2025 End: 06-08-[address] Reagan Rosen MD -[facility] [place] Work Phone: Start: 06-07-2025 End: 06-08-[address] Reagan Rosen MD Work Phone: -Cardiovascular Services Start: 06-07-2025 End: 06-07-[address] Reagan Rosen MD -Cardiovascular Services Work Phone: Start: 06-07-2025 End: 06-07-2025 ambulatory Reagan Rosen Facility:[facility] Start: 05-10-2025 Encounter for genera l adult medical examination without abnormal findings [facility] Start: 05-06-2025 End: 05-06-2025 Emergency department patient visit Dr. Reagan Rosen MD Work Phone: -Emergency Department Work Phone: Start: 05-03-2025 End: 05-03-[address] Reagan Rosen MD Work Phone: -Outpatient Bone Densitometry Start: 05-03-2025 End: 05-03-[address] Reagan Rosen MD -[facility]patient [facility] Work Phone: Start: 05-02-2025 ambulatory Reagan Rosen Facility: [place] Start: 05-02-2025 Non-patient / Non-visit Dr. Earline kelly MD -[facility] Start: 05-02-2025 End: 05-03-[address] Reagan Rosen MD Work Phone: -Pulmonary Services/Neurology Start: 05-02-2025 End: 05-02-[address] Reagan Rosen MD -Pulmonary Services/Neurology Work Phone: Start: 05-02-2025 End: 05-02-2025 ambulatory Reagan Rosen Facility:[facility] Start: 04-25-2025 End: 04-25-[address] Reagan Rosen MD Work Phone: -Laboratory [facility] Start: 04-25-2025 End: 04-25-[address] Reagan Rosen MD -Laboratory [facility] Start: 04-25-2025 End: 04-25-2025 ambulatory Reagan Rosen Facility:[facility] Start: 03-30-2025 End: 03-30-[address] Clinton Bautista MD Work Phone: -Cardiovascular Services Start: 03-30-2025 End: 03-30-[address] Reagan Rosen MD -Cardiovascular Services Work Phone: Start: 03-30-2025 End: 03-30-2025 ambulatory Reagan Rosen Facility:[facility] Start: 02-20-2025 End: 02-20-[address] Clinton Bautista MD Work Phone: [facility] Work Phone: Start: 02-20-2025 End: 02-20-[address] [place]endez [place] [facility] [place]: 02-20-2025 End: 02-20-[address] Mendez South MD -[place] [facility] Work Phone: Start: 02-20-2025 End: 02-20-2025 ambulatory Mendez South [place] [place]: 02-20-2025 End: 02-20-2025 ambulatory Mendez South Facility:[facility] Start: 02-16-2025 End: 02-16-[address] Clinton Bautista MD Work Phone: [facility] Work Phone: Start: 02-16-2025 End: 02-16-[address] Mendez South MD -Ultrasound, [facility] Work Phone: Start: 02-16-2025 End: 02-16-2025 ambulatory Mendez South Facility:[facility] Start: 02-04-2025 End: 02-04-[address] Reagan Rosen MD -Ultrasound, [facility] Work Phone: Start: 02-04-2025 End: 02-04-2025 ambulatory Reagan Rosen Facility:[facility] Start: 12-30-2024 End: 12-30-[address] Reagan Rosen MD Work Phone: [facility] Work Phone: Start: 12-30-2024 End: 12-30-[address] Edmundo Buenrostro MD -Laboratory Work Phone: Start: 12-29-2024 End: 12-30-[address] Reagan Rosen MD Work Phone: [facility] Work Phone: Start: 12-29-2024 End: 12-29-[address] Edmundo Buenrostro MD -Laboratory Work Phone: Start: 12-28-2024 End: 12-29-[address] Reagan Rosen MD Work Phone: [facility] Work Phone: Start: 12-28-2024 End: 12-28-[address] Edmundo Buenrostro MD -Laboratory Work Phone: Start: 12-28-2024 End: 12-28-2024 ambulatory Reagan Rosen Facility:[facility] Start: 12-20-2024 End: 12-20-[address] Reagan Rosen MD Work Phone: [facility] Work Phone: Start: 12-20-2024 End: 12-20-[address] Clinton Bautista MD -Radiology, [place] Work Phone: Start: 12-20-2024 End: 12-20-2024 ambulatory Reagan Rosen Facility:[facility] Start: 09-13-2024 End: 09-13-2024 Patient encounter procedure Rashmi Tapia NP-[facility] -Outpatient Breast Imaging Work Phone: Start: 09-13-2024 End: 09-13-2024 ambulatory Reagan Rosen Facility:[facility] Start: 07-22-2023 End: 07-22-2023 ambulatory [facility] Work Phone: Start: 07-22-2023 End: 07-22-2023 Patient encounter procedure [facility]-Outpatient Breast Imaging Work Phone: Start: 06-23-2023 End: 06-23-2023 ambulatory REAGAN ROSEN Facility:[facility] Start: 01-27-2023 End: 01-27-[address] Reagan Rosen Work Phone: [facility] Work Phone: Start: 01-27-2023 End: 01-27-[address] Reagan Rosen Work Phone: [facility]-Outpatient Bone Densitometry Start: 01-13-2023 End: 01-13-[address] Reagan Rosen Work Phone: [facility] Start: 01-01-2023 End: 01-01-[address] Reagan Rosen Work Phone: [facility] Work Phone: Start: 01-01-2023 End: 01-01-[address] Reagan Rosen Work Phone: [facility] Start: 12-17-2022 End: 12-17-[address] Reagan Rosen Work Phone: [facility] Start: 11-26-[address] Reagan Rosen Work Phone: [facility]-Physical Therapy Start: 11-19-2022 Registered Recurring [facility] Start: 11-06-2022 End: 11-06-2022 ambulatory [facility] Work Phone: Start: 11-06-2022 End: 11-06-2022 Patient encounter procedure [facility]-Cat Scan, [facility] Start: 09-22-2022 End: 09-22-2022 ambulatory [facility] Work Phone: Start: 09-22-2022 End: 09-22-2022 Patient encounter procedure [facility] Start: 07-18-2022 End: 07-18-2022 ambulatory [facility] Work Phone: Start: 07-18-2022 End: 07-18-2022 Patient encounter procedure [facility]-Outpatient Breast Imaging Start: 07-14-2022 End: 07-14-2022 ambulatory [facility] Work Phone: Start: 07-14-2022 End: 07-14-2022 Patient encounter procedure [facility]-Cat Scan, [facility] Start: 07-14-2022 End: 07-14-2022 ambulatory [facility] Work Phone: Start: 07-14-2022 End: 07-14-2022 Patient encounter procedure [facility] Start: 01-24-2022 End: 01-24-[address] Reagan Rosen Work Phone: [facility] Start: 12-26-2021 End: 12-26-[address] Reagan Rosen Work Phone: [facility] Start: 11-08-2021 End: 11-08-[address] Reagan Rosen Work Phone: [facility] Procedures Date Procedure Procedure Detail Performing Clinician Start: 06-08-2025 X-ray of knee, four or more views Dr. Miguel Ángel Rosen MD Work Phone: Start: 05-06-[address] Reagan Rosen MD Work Phone: Start: 05-06-2025 Urnls dip stick/tablet reagent auto microscopy Dr. Reagan Rosen MD Work Phone: Start: 05-03-2025 Dual energy X-ray absorptiometry Dr. Zoë Rosen MD Work Phone: Start: 04-25-2025 Vitamin D, 25-hydroxy measurement Dr. Miguel nÁgel Rosen MD Work Phone: Comment on above: [...] the productionof interferon gamma. Chemiluminescence immunoassaymethodologyPerformed at: [facility] [address] [id number] Director: Giancarlo Crowell PhD, Phone: [phone] Start: 12-20-2024 X-ray of chest, PA and [...] Treatment Date Care Activity Detail Author Start: 05-06-2025 Bacteria identified in Urine by Culture Urine Culture [facility] Start: 05-06-2025 [facility] Start: 05-06-2025 [facility] Start: 12-30-2024 Acid Fast Bacilli Culture Acid Fast Bacilli Culture [facility] Start: 12-30-2024 Acid Fast Bacilli Smear Acid Fast Bacilli Smear [facility] Start: 12-30-2024 Acid fast bacilli culture [facility] Start: 12-29-2024 Acid Fast Bacilli Culture Acid Fast Bacilli Culture [facility] Start: 12-29-2024 Acid Fast Bacilli Smear Acid Fast Bacilli Smear [facility] Start: 12-29-2024 Acid fast bacilli culture [facility] Start: 12-28-2024 Acid Fast Bacilli Culture Acid Fast Bacilli Culture [facility] Start: 12-28-2024 Acid Fast Bacilli Smear Acid Fast Bacilli Smear [facility] Start: 12-28-2024 Microscopic observation [Identifier] in Unspecified specimen by Gram stain [facility] Start: 12-28-2024 Respiratory Culture Respiratory Culture [facility] Start: 12-28-2024 Acid fast bacilli culture [facility] Start: 12-28-2024 In-vitro immunologic test [facility] Start: 12-28-2024 [facility] Angiotensin converti ng enzyme [Enzymatic activity/volume] in Serum or Plasma [facility] Bacteria identified in Sputum by Respiratory culture [facility] C reactive protein [Mass/volume] in Serum or Plasma [facility] Cyclic citrullinated peptide IgG Ab [Units/volume] in Serum or Plasma [facility] DNA double strand Ab [Units/volume] in Serum [facility] Mycobacterium sp identified in Unspecified specimen by Organism specific culture [facility] Mycobacterium sp identified in Unspecified specimen by Organism specific culture [facility] Mycobacterium sp identified in Unspecified specimen by Organism specific culture [facility] Mycobacterium tuberculosis tuberculin stimulated gamma interferon [Presence] in Blood [facility] Neutrophil cytoplasm ic Ab.classic [Units/volume] in Serum [facility] P-ANCA measurement [facility] Patient Education UTIs [facility] Work Phone: Smooth muscle Ab [Presence] in Serum [facility] Urine culture [facility] Payers Date Payer Category Payer Medicare [id number] 2024 Self-pay [id number] 2020 Private Health Insurance 101 [id number] Unknown [id number] Unknown [id number] 2.16.8 40.1.594594.3.579.2.462 Unknown [id number] 2.16.8 40.1.413125.3.579.2.462 Unknown [id number] 2.16.8 40.1.588041.3.579.2.462 Unknown [id number] 2.16.8 40.1.729238.3.579.2.462 Unknown [id number] 2.16.8 40.1.642414.3.579.2.462 Unknown [id number] 2.16.8 40.1.437156.3.579.2.462 Unknown [id number] 2.16.8 40.1.359323.3.579.2.462 Unknown [id number] 2.16.8 40.1.514945.3.579.2.462 Unknown [id number] 2.16.8 40.1.868284.3.579.2.462 Unknown [id number] 2.16.8 40.1.087075.3.579.2.462 Unknown [id number] 2.16.8 40.1.289458.3.579.2.462 Unknown [id number] 2.16.8 40.1.765188.3.579.2.462 Unknown [id number] 2.16.8 40.1.149841.3.579.2.462 Unknown [id number] 2.16.8 40.1.505542.3.579.2.462 Unknown [id number] 2.16.8 40.1.050736.3.579.2.462 Unknown [id number] 2.16.8 40.1.572196.3.579.2.462 Unknown [id number] 2.16.8 40.1.838226.3.579.2.462 Unknown [id number] 2.16.8 40.1.392058.3.579.2.462 Unknown [id number] 2.16.8 40.1.777966.3.579.2.462 Unknown [id number] 2.16.8 40.1.738770.3.579.2.462 Social History Date Type Detail Facility Start: 11-08-2021 End: 01-13-2023 Tobacco smoking status MNIS Unknown if ever smoked [facility] Start: 1955 Sex Assigned At Female [facility] Start: 01-22-2024 End: 05-06-2025 Tobacco smoking status NHIS Ex-smoker (finding) [facility] Start: 12-28-2024 End: 01-06-2025 Sex Female (finding) [facility] Clinical Notes 12-20-2024 to 06-09-2025 Note Date & Type Note Facility 06-09-2025 Radiology Diagnostic study note [facility] Imaging Services [address] [place] [address] Knee 4 or More Views MR#: [id number] Acct: [id number] Name: YOUNG AGARWAL Rep #: [id number] : 1955 F 70 From: Dary Iraheta MD PCP: Dr. Reagan Rosen MD Status: CATRACHITO YANCEY Study:Knee 4 or More Views Date of Exam: 06/08/25 Exam# [id number] Ordering Dr: Reagan Rosen MD EXAM: XR Left Knee Complete, 4 or More Views CLINICAL INDICATION: LEFT KNEE PAIN TECHNIQUE: Four or more views of the left knee. COMPARISON: No relevant prior studies available. FINDINGS: BONES/JOINTS: Unremarkable. No acute fracture. No dislocation. SOFT TISSUES: Unremarkable. RAD/Knee 4 or More Views IMPRESSION: No acute fracture. Reading Location: [facility] CC: Dr. Reagan Rosen MD ~ Choir Director: Signed [facility] 05-06-2025 Hospital Discharg e instructions Additional Instructions Please take the antibiotic as directed to help resolve your urinary tract infection. It would typically take 2 to 3 days for the antibiotic to take effect and help resolve symptoms. If you develop a fever or have increasing pain or any further concerns please return to the ER for repeat evaluation. [facility] Work Phone: 05-06-2025 Discharge summary [facility] 05-02-2025 Procedure note [facility] 02-20-2025 Radiology Diagnostic study note [facility] Imaging Services [address] [place] [address] Thyroid MR#: [id number] Acct: [id number] Name: YOUNG AGARWAL Rep #: [id number] : 1955 F 69 From: Modesto Crockett MD PCP: Dr. Reagan Rosen MD Status: REG C NAYE Study:Thyroid Date of Exam: 02/16/25 Exam# [id number] Ordering Dr: Hyun South MD PROCEDURE: THYROID 02/16/2025 REASON FOR EXAM: THYROID ULTRASOUND TECHNIQUE: High-frequency thyroid ultrasound, including grayscale and color-flow images. REFERENCE LINKS: TI-RADS Chart: [email or web address]-rads/ti-rads TI-RADS Calculator Tool with Reference Images: [email or web address]://radEasy Taxid[employer]/radiology-calculators/body-imaging/tirads-calculator/ COMPARISON: Comparison is made with prior sonogram [...] no more than 2 nodules. Reading Location: [facility] CC: Dr. Mendez South MD; Dr. Reagan Rosen MD ~ Choir Director: Signed [facility] 02-20-2025 Evaluation note Diagnosis Onset Date Resolution Thyroid nodule acute February 20, 2025 8:46am [facility] Work Phone: 1(245) 866-474905-12-2025 Evaluation note* Diagnosis Onset Date Resolution Status Admit Date Thyroid nodule acute February 20, 2025 8:46am Overactive bladder acute Septem 2024 10:40am Urge incontinence acute Septemb er 2024 10:40am Uterovaginal prolapse, incomplete acute June 14, 025 10:40am UTI (urinary tract infection) acute June 14, 2025 10:40am Vaginal atrophy acute June 14, 2025 10:40am [facility] Work Phone: 1(220) 263-928103-11-2025 Radiology Diagnostic study note [facility] Imaging Services [address] [place], [place] [address] Chest PA and Lateral MR#: [id number] Acct: [id number] Name: YOUNG AGARWAL Rep #: [id number] : 1955 F 69 From: Dary Iraheta MD PCP: Dr. Reagan Rosen MD Status: REG C LI Study:Chest PA and Lateral Date of Exam: 12/20/24 Exam# [id number] Ordering Dr: Clinton Bautista MD EXAM: XR [...] Lateral IMPRESSION: Suggestion of COPD. Reading Location: [facility] CC: Dr. Clinton Bautista MD; Dr. Reagan Rosen MD ~ Choir Director: Signed [facility] Author Froilan [facility] Note Date/Time May 06, 2025 3:48 am [facility] Medical Records Department [address] [place] [address] Emergency Department Summary 05/06/25 MR#: [id number] Acct: [id number] Name: YOUNG AGARWAL Rep #:[id number] : 1955 70 From: Froilan Nelson DO PCP: Dr. Reagan Rosen MD Status:REG E R Location: ED HPI History of Present Illness Chief Complaint: Complaint Informant: patient and spouse/S.O. Narrative Narrative: Patient is a 70-year-old female with past medical history of hypertension and hyperlipidemia prolapsed bladder and reportedly recurrent urinary tract infection. She states however it has been almost 7 years since her last UTI. She states that this afternoon she began noticing symptoms of urinary frequency urgency and dysuria. She states she sent a message to her family doctor with concern that her symptoms may worsen over the weekend and that she might requireantibiotic. She states that she did not hear back from them today and she has continued to have symptoms. She denies any fevers or chills or history of immunosuppression but with concern for worsening infection presents for evaluation. [facility] Medical History Thyroid nodule Premature ventricular contraction SVT (supraventricular tachycardia) Essential hypertension Mixed hyperlipidemia UTI (urinary tract infection) Mitral valve prolapse Home Medications ?Medication ?Instructions ?Recorded ?Last Taken ?Type metoprolol tartrate 50 mg tablet 50 mg PO BID 09/16/16 Unknown History ascorbic acid (vitamin C) 500 mg 500 mg PO DAILY 11/11 Unknown History capsule rosuvastatin 5 mg tablet (Crestor) 5 mg PO DAILY 11/11 Unknown History glucosamine-chondroitin 500 mg-400 1 tab PO DAILY 10/13 06/02 Unknown History mg tablet (Cosamin DS) albuterol sulfate 2.5 mg/3 mL 2.5 mg inhalation QDAY 0 02/20/25 Unknown History (0.083 %) solution for nebulization lactobacillus combination no.4 3 3,000 mmu cells PO QD AY 02/20/25 Unknown History billion cell capsule (Probiotic) amoxicillin 875 mg-potassium 1 tab PO BID 7 days #14 t abs 05/06/25 Unknown Rx clavulanate 125 mg tablet phenazopyridine 200 mg tablet 200 mg PO TID PRN pain 3 days #9 05/06/25 Unknown Rx (Pyridium) tabs Allergy/AdvReac Type Severity Reaction Status Date / Time cephalexin (From Keflex) Allergy Angioedema Verified 05/06/25 02:06 nitrofurantoin (From Allergy Angioedema Verified 05/06/25 02:06 Macrobid) Sulfa (Sulfonamide Allergy Angioedema Verified 05/06/25 02:06 Antibiotics) sulfamethoxazole (From Allergy Angioedema Verified 05/06/25 02:06 Bactrim) trimethoprim (From Bactrim) Allergy Angioedema Verified 05/06/25 02:06 ciprofloxacin (From Cipro) AdvReac rash Verified 05/06/25 02:06 Family History Father Myocardial infarction, Onset Age: 65 Sister Mitral valve prolapse Bladder cancer Bladder cancer, cancer cells found in breast also Brother Cancer Liver Mother No problems noted. Surgical History rectal tumor removal History of endometrial ablation Salivary cyst Social History number of children: 3 current occupational status: employed current occupation: Retired Smoking Status: Former smoker alcohol intake: current alcohol intake frequency: holidays/special occasions only details: occasional substance use type: does not use caffeine: No seatbelt use: always do you feel safe at home: Yes additional social history: Khris Retired ROS ROS ED Constitutional Constitutional ED: Denies chills or fever(s) ENT ENT ED: Denies sore throat Cardiovascular Cardiovascular: Denies chest pain Respiratory/Chest Respiratory/Chest: Denies cough or dyspnea Gastrointestinal Gastrointestinal: Denies abdominal pain, diarrhea, nausea or vomiting Genitourinary Genitourinary ED: Reports dysuria and urinary frequency; Denies hematuria Musculoskeletal Musculoskeletal: Denies back pain Integumentary Denies rash Neurologic Neurologic: Denies headache(s) Hematologic/Lymphatic Hematologic/Lymphatic: Denies easy bleeding or easy bruising EXAM Physical Exam Const Vital Signs: 05/06/25 02:04 Temperature 97.7 F L Temperature Source Oral Pulse Rate 71 Respiratory Rate 16 Blood Pressure 180/83 H Blood Pressure Mean 115 Pulse Ox 99 Oxygen Delivery Method Room Air Positive well nourished and well developed General Appearance ED: well developed; Negative for pallor HEENT HEENT Narrative: Normocephalic atraumatic Eyes PERRL and EOMs intact bilaterally General Eye ED: Negative for scleral icterus Neck supple Resp normal respiratory effort and clear to auscultation bilaterally Cardio regular rate and regular rhythm GI non-distended and no masses GI Narrative: There is pain on palpation in the suprapubic region without voluntary guarding or rigidity or pulsatile mass No organomegaly noted to suggest acute urinary retention Auscultation: normoactive bowel sounds Palpation: soft Back/Spine no CVA tenderness Extremity normal to inspection Neuro oriented x3, CN's II-XII intact bilaterally and no sensory deficits noted Sensorium / Orientation: alert Motor Exam: strength 5/5 throughout Psych mental status grossly normal Skin no rashes or lesions noted and no wounds General Skin Exam: Negative for jaundice or pallor MDM MDM MDM Narrative Medical decision making narrative: Patient arrived to the ER hypertensive but has a past medical history of this and is with stable vitals. She reported roughly 24 hours of increased urinary frequency urgency and dysuria. Differential diagnosis is for UTI versus pyelonephritis versus interstitial cystitis. As she is afebrile and does not have findings of systemic symptoms concern for urosepsis is low. Also she does not have back pain going against concern for pyelonephritis and therefore do notfeel the need for blood work. A urine sample will be obtained to check for changes consistent with infection. As she does have a history of recurrent UTIsI will also send the urine for culture. The sample is consistent with UTI. Thepatient has multiple medical allergies but states she can take penicillin. Therefore I will start the patient on Augmentin while urine culture is pending. However at this time she is afebrile she is not hypotensive she does not have back/flank pain and therefore I do not feel there is need for further workup in the ER and she can be discharged home on her medication. History & Record Review Discussion w/independent historian: Patient and Significant other Lab Data Attestation: I reviewed the patient's lab results. Labs: Laboratory Results - last 24 hr 05/06/25 02:20 Urine Color Straw Urine Clarity Sl. Cloudy Urine pH 7.0 Ur Specific [place] 1.010 Urine Protein 30 H Urine Glucose (UA) Normal Urine Ketones Negative Urine Occult Blood 250 H Urine Nitrite Negative Urine Bilirubin Negative Urine Urobilinogen Normal Ur Leukocyte Esterase 500 H Urine RBC 10-25 SEEN Urine WBC >100 SEEN Ur Squamous Epith Cells 0-5 SEEN Urine Bacteria 1+ Urine Mucus 0 SEEN Discharge Plan Triage Chief Complaint: Complaint ED Provider: Froilan Nelson Dx/Rx/DC Orders Clinical Impression: UTI (urinary tract infection), Essential hypertension, Hyperlipidemia Instructions: UTIs Prescriptions: New amoxicillin-pot clavulanate 875-125 mg tablet 1 tab PO BID 7 Days Qty: 14 0RF phenazopyridine [Pyridium] 200 mg tablet 200 mg PO TID PRN (Reason: pain) 3 Days Qty: 9 0RF No Action ascorbic acid (vitamin C) 500 mg capsule 500 mg PO DAILY rosuvastatin [Crestor] 5 mg tablet 5 mg PO DAILY glucosamine-chondroitin [Cosamin DS] 500-400 mg tablet 1 tab PO DAILY Probiotic 3 billion cell capsule 3,000 mmu cells PO QDAY Rx Instructions: administer with a meal albuterol sulfate 2.5 mg /3 mL (0.083 %) solution for nebulization 2.5 mg inhalation QDAY metoprolol tartrate 50 MG tablet 50 mg PO BID Primary Care Provider: Reagan Rosen Referrals: Reagan Rosen MD [Primary Care Provider] - Activity Restrictions/Additional Instructions: Please take the antibiotic as directed to help resolve your urinary tract infection. It would typically take 2 to 3 days for the antibiotic to take effect and help resolve symptoms. If you develop a fever or have increasing pain or any further concerns please return to the ER for repeat evaluation. Print Language: Citizen Of [place] Disposition Disposition: Home, Self Care What to do if you have Problems For any increased pain, shortness of breath, bleeding, nausea or vomiting, chestpain, or any unexpected problems, contact your Primary Care Provider. Call [facility] ([phone]) or report to the closest Emergency Room. Call 911 if necessary. 05/06/25 0348 <Electronically signed by Froilan Nelson DO> Cosigner Signature (if applicable): CC: Dr. Reagan Rosen MD ~ Signed [facility] Work Phone: Evaluation note* Diagnosis Onset Date Resolution Status Premature ventricular contraction acute SVT (supraventricular tachycardia) acute Essential hypertension chron ic Mixed hyperlipidemia chronic [facility] Work Phone: Evaluation noteNo assessment information available [facility] Work Phone: Evaluation note* Diagnosis Onset Date Resolution Status Premature ventricular contraction acute SVT (supraventricular tachycardia) acute Essential hypertension chron ic Mixed hyperlipidemia chronic Cystocele acute Encounter for routine gynecological examination noneactive [facility] Work Phone: Evaluation note* Diagnosis Onset Date Resolution Status Cystocele acute Encounter for routine gynecological examination noneactive [facility] Work Phone: Reason for referral (narrative)No reason for referral [facility] Work Phone: Chief Complaint and Reason for [...] BACK PAIN/RX HERE 1 Y FU 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 Reason for Visit Premature ventricula r contraction SVT (supraventricular tachycardia) Essential hypertension Mixed hyperlipidemia Cystocele Encounter for routine gynecological examination Chief Complaint 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 Reason for Visit Cystocele Encounter [...] AND TINGLING March 30, 2025 2: 56pm NUMBNESS/TINGLING March 30, 2025 3:04 pm LT ARM PAIN May 02, 2025 10:2 1am LT ARM PAIN May 02, 2025 11:3 7am WELLNESS EXAM May 03, 2025 1:20 pm uti May 06, 2025 2:03 am Chief Complaint Admit Date NODULE February 16, 2025 11:46a m THYROID NODULE February 20, 2025 8:46a m FNA THYROID NODULE February 20, 2025 10:16 am NUMBNESS AND TINGLING March 30, 2025 2: 56pm NUMBNESS/TINGLING March 30, 2025 3:04 pm LT ARM PAIN May 02, 2025 10:2 1am LT ARM PAIN May 02, 2025 11:3 7am WELLNESS EXAM May 03, 2025 1:20 pm uti May 06, 2025 2:03 am LEFT LEG June 07, 2025 3: 42pm prolapse June 14, 2025 10:40am Reason for Visit Admit Date Thyroid nodule February 20, 2025 8:46a m Overactive bladder June 14, 2025 10:40am Urge incontinence June 14, 2025 10:40am Uterovaginal prolapse, incomplete Septem 2024 10:40am UTI (urinary tract infection) June 14, 2025 10:40am Vaginal atrophy June 14, 2025 10:40am Chief Complaint Admit Date THYROID NODULE February 20, 2025 8:46a m FNA THYROID NODULE February 20, 2025 10:16 am NUMBNESS AND TINGLING March 30, 2025 2: 56pm NUMBNESS/TINGLING March 30, 2025 3:04 pm LT ARM PAIN May 02, 2025 10:2 1am LT ARM PAIN May 02, 2025 11:3 7am WELLNESS EXAM May 03, 2025 1:20 pm uti May 06, 2025 2:03 am LEFT LEG June 07, 2025 3: 42pm prolapse June 14, 2025 10:40am Family History No Family History Records Found [...] Purpose Advance Directives No Advanced Directives Records Found Advance Directive Response Recorded Date/ Time Do you have a Healthcare Power of Featheredge Machine Operator? No May 06, 2025 2:06am Additional Source Comments Goals (unrecognized section and [...] 2024 End: September 13, 2024 Rashmi Tapia OPTICAL ASSISTANT, OPTICAL ASSISTANT-C Attending Provider Active Start: September 13, 2024 End: September 13, 2024 Rashmi Tapia OPTICAL ASSISTANT, OPTICAL ASSISTANT-C Referring Provider Active Start: September 13, 2024 [...] April 25, 2025 End: April 25, 2025 Team Status: Active Member Role/Relationship Status Dates Dr. Roderick Christine MD Attending Provider Active Start: March 30, 2025 Dr. Reagan Rosen MD Referring Provider Active Start: March 30, 2025 Team Status: Inactive Member Role/Relationship Status Dates Dr. Reagan Rosen MD Primary Care Provider Active Start: April 25, 2025 End: April 25, 2025 Dr. Reagan Rosen MD Attending Provider Active Start: April 25, 2025 End: April 25, 2025 Team Status: Active Member Role/Relationship Status Dates Dr. Reagan Rosen MD Primary Care Provider Active Start: May 02, 2025 Dr. Reagan Rosen MD Attending Provider Active Start: May 02, 2025 Dr. Reagan Rosen MD Referring Provider Active Start: May 02, 2025 Team Status: Active Member Role/Relationship Status Dates Dr. Reagan Rosen MD Primary Care Provider Active Start: May 02, 2025 Dr. Reagan Rosen MD Referring Provider Active Start: May 02, 2025 Dr. Reagan Rosen MD Other Provider Active Star t: May 02, 2025 Dr. Earline Alanis MD Attending Provider Active Start: May 02, 2025 Team Status: Active Member Role/Relationship Status Dates Dr. Reagan Rosen MD Primary Care Provider Active Start: May 03, 2025 Dr. Reagan Rosen MD Attending Provider Active Start: May 03, 2025 Dr. Reagan Rosen MD Referring Provider Active Start: May 03, 2025 Team Status: Inactive Member Role/Relationship Status Dates Dr. Reagan Rosen MD Primary Care Provider Active Start: May 06, 2025 End: May 06, 2025 Dr. Froilan Nelson DO Emergency Provider Active Start: May 06, 2025 End: May 06, 2025 Team Status: Inactive Member Role/Relationship Status Dates Dr. Reagan Rosen MD Primary Care Provider Active Start: May 02, 2025 End: May 02, 2025 Dr. Reagan Rosen MD Attending Provider Active Start: May 02, 2025 End: May 02, 2025 Dr. Reagan Rosen MD Referring Provider Active Start: May 02, 2025 End: May 02, 2025 Team Status: Inactive Member Role/Relationship Status Dates Dr. Reagan Rosen MD Primary Care Provider Active Start: May 03, 2025 End: May 03, 2025 Dr. Reagan Rosen MD Attending Provider Active Start: May 03, 2025 End: May 03, 2025 Dr. Reagan Rosen MD Referring Provider Active Start: May 03, 2025 End: May 03, 2025 Team Status: Inactive Member Role/Relationship Status [...] 2025 End: March 30, 2025 Team Status: Active Member Role/Relationship Status Dates Dr. Roderick Christine MD Attending Provider Active Start: March 30, 2025 Dr. Reagan Rosen MD Referring Provider Active Start: March 30, 2025 Team Status: Inactive Member Role/Relationship Status Dates Dr. Reagan Rosen MD Primary Care Provider Active Start: May 02, 2025 End: May 02, 2025 Dr. Reagan Rosen MD Attending Provider Active Start: May 02, 2025 End: May 02, 2025 Dr. Reagan Rosen MD Referring Provider Active Start: May 02, 2025 End: May 02, 2025 Team Status: Active Member Role/Relationship Status Dates Dr. Reagan Rosen MD Primary Care Provider Active Start: May 02, 2025 Dr. Reagan Rosen MD Referring Provider Active Start: May 02, 2025 Dr. Reagan Rosen MD Other Provider Active Star t: May 02, 2025 Dr. Earline Alanis MD Attending Provider Active Start: May 02, 2025 Team Status: Inactive Member Role/Relationship Status Dates Dr. Reagan Rosen MD Primary Care Provider Active Start: May 03, 2025 End: May 03, 2025 Dr. Reagan Rosen MD Attending Provider Active Start: May 03, 2025 End: May 03, 2025 Dr. Reagan Rosen MD Referring Provider Active Start: May 03, 2025 End: May 03, 2025 Team Status: Inactive Member Role/Relationship Status Dates Dr. Reagan Rosen MD Primary Care Provider Active Start: May 06, 2025 End: May 06, 2025 Dr. Froilan Nelson DO Attending Provider Active Start: May 06, 2025 End: May 06, 2025 Dr. Froilan Nelson DO Emergency Provider Active Start: May 06, 2025 End: May 06, 2025 Team Status: Active Member Role/Relationship Status Dates Dr. Reagan Rosen MD Primary Care Provider Active Start: June 07, 2025 Dr. Reagan Rosen MD Attending Provider Active Start: June 07, 2025 Dr. Reagan Rosen MD Referring Provider Active Start: June 07, 2025 Team Status: Active Member Role/Relationship Status Dates Dr. Reagan Rosen MD Primary Care Provider Active Start: June 08, 2025 Dr. Reagan Rosen MD Attending Provider Active Start: June 08, 2025 Dr. Reagan Rosen MD Referring Provider Active Start: June 08, 2025 Team Status: Inactive Member Role/Relationship Status Dates Dr. Reagan Rosen MD Primary Care Provider Active Start: June 14, 2025 End: June 14, 2025 Dr. Reagan Rosen MD Referring Provider Active Start: June 14, 2025 End: June 14, 2025 Dr. Nereyda Landin MD Attending Provider Active Start: June 14, 2025 End: June 14, 2025 Team Status: Inactive Member Role/Relationship Status Dates Dr. Reagan Rosen MD Primary Care Provider Active Start: June 07, 2025 End: June 07, 2025 Dr. Reagan Rosen MD Attending Provider Active Start: June 07, 2025 End: June 07, 2025 Dr. Reagan Rosen MD Referring Provider Active Start: June 07, 2025 End: June 07, 2025 Team Status: Inactive Member Role/Relationship Status [...] 2025 End: March 30, 2025 Team Status: Active Member Role/Relationship Status Dates Dr. Roderick Christine MD Attending Provider Active Start: March 30, 2025 Dr. Reagan Rosen MD Referring Provider Active Start: March 30, 2025 Team Status: Inactive Member Role/Relationship Status Dates Dr. Reagan Rosen MD Primary Care Provider Active Start: April 25, 2025 End: April 25, 2025 Dr. Reagan Rosen MD Attending Provider Active Start: April 25, 2025 End: April 25, 2025 Team Status: Inactive Member Role/Relationship Status Dates Dr. Reagan Rosen MD Primary Care Provider Active Start: May 02, 2025 End: May 02, 2025 Dr. Reagan Rosen MD Attending Provider Active Start: May 02, 2025 End: May 02, 2025 Dr. Regaan Rosen MD Referring Provider Active Start: May 02, 2025 End: May 02, 2025 Team Status: Active Member Role/Relationship Status Dates Dr. Reagan Rosen MD Primary Care Provider Active Start: May 02, 2025 Dr. Reagan Rosen MD Referring Provider Active Start: May 02, 2025 Dr. Reagan Rosen MD Other Provider Active Star t: May 02, 2025 Dr. Earline Alanis MD Attending Provider Active Start: May 02, 2025 Team Status: Inactive Member Role/Relationship Status Dates Dr. Reagan Rosen MD Primary Care Provider Active Start: May 03, 2025 End: May 03, 2025 Dr. Reagan Rosen MD Attending Provider Active Start: May 03, 2025 End: May 03, 2025 Dr. Reagan Rosen MD Referring Provider Active Start: May 03, 2025 End: May 03, 2025 Team Status: Inactive Member Role/Relationship Status Dates Dr. Reagan Rosen MD Primary Care Provider Active Start: May 06, 2025 End: May 06, 2025 Dr. Froilan Nelson DO Attending Provider Active Start: May 06, 2025 End: May 06, 2025 Dr. Froialn Nelson DO Emergency Provider Active Start: May 06, 2025 End: May 06, 2025 Team Status: Inactive Member Role/Relationship Status Dates Dr. Reagan Rosen MD Primary Care Provider Active Start: June 07, 2025 End: June 07, 2025 Dr. Reagan Rosen MD Attending Provider Active Start: June 07, 2025 End: June 07, 2025 Dr. Reagan Rosen MD Referring Provider Active Start: June 07, 2025 End: June 07, 2025 Team Status: Inactive Member Role/Relationship Status Dates Dr. Reagan Rosen MD Primary Care Provider Active Start: June 08, 2025 End: June 08, 2025 Dr. Reagan Rosen MD Attending Provider Active Start: June 08, 2025 End: June 08, 2025 Dr. Reagan Rosen MD Referring Provider Active Start: June 08, 2025 End: June 08, 2025 Team Status: Inactive Member Role/Relationship Status Dates Dr. Reagan Rosne MD Primary Care Provider Active Start: June 14, 2025 End: June 14, 2025 Dr. Reagan Rosen MD Referring Provider Active Start: June 14, 2025 End: June 14, 2025 Dr. Nereyda Landin MD Attending Provider Active Start: June 14, 2025 End: June 14, 2025 INFORMATION SOURCE (unrecogn ized section and content) DATE CREATED AUTHOR 06/24/2023 [facility] DATE CREATED AUTHOR AUTHOR'S ORGANIZ ATION 07/29/2025 [facility] FOR RECORDS PERTAINING TO PATIENTS WHO [...] BE BASED ON THE PRIMARY CLINICAL RECORDS. [email or web address] provides no warranty or guarantee of the accuracy or completeness of information in this document.
--- NOTE | 2025-08-05 08:52 | CT_ITS ---
PROCEDURE: LOW DOSE CT LUNG SCREENING 08/05/2025 REASON FOR EXAM: SMOKER TECHNIQUE: Procedure Code: [id number] Modality: CT Procedure: LOW DOSE CT LUNG SCREENING Coronal and Sagittal reconstruction series were provided. One or more dose reduction techniques were used (e.g., Automated exposure control, adjustment of the mA and/or kV according to patient size, use of iterative reconstruction technique). REFERENCE LINK: [employer] Lung-RADS RADIATION DOSE SUMMARY: CTDlvol: 3.02 mGy DLP: 110.23 mGycm COMPARISON: CT lung screen, 05/23/2024. FINDINGS: PULMONARY NODULES: (Only nodules >3mm are reported) Lower neck:The thyroid gland is normal. There is no supraclavicular lymphadenopathy. Mediastinum:No abnormal masses or lymphadenopathy. There are benign calcified right paratracheal, subcarinal and right hilar lymph nodes. Heart and Aorta:The heart is enlarged. There is a minimal pericardial effusion. There is calcific vascular disease of the thoracic aorta and coronary arteries. Esophagus:Normal. Upper Abdomen:There is calcific vascular disease of the visualized abdominal aorta. Chest wall:The soft tissues of the chest wall appear unremarkable. There is no axillary lymphadenopathy. There is mild dextroscoliosis of the thoracic spine. Lungs, airways and pleura: There is stable pleural-parenchymal scarring in both lung apices. There is mild upper lobe predominant centrilobular emphysema. There are areas of traction bronchiectasis with peribronchial scarring in the upper lobe of the right lung, lower lobe of the right lung, the middle lobe of the right lung, the lower lobe of the left lung in the inferior segment of the lingula. There is no significant change. There are no pulmonary nodules or masses. There are no pleural effusions. CT/Low Dose CT Lung Screening IMPRESSION: 1. Emphysema. 2. Stable foci of bronchiectasis with peribronchial scarring in both lungs as described. 3. There are no new pulmonary nodules. 4. There is cardiomegaly and calcific vascular disease. 4. Other findings as noted. Lung-RADS Category: 2 S: Benign behavior. Emphysema. Pulmonary parenchymal sc arring. Calcific vascular disease. Recommendation: Follow up low-dose chest CT in 12 months. Reading Location: [id number]
== END | disposition home or self-care (01) ==
LOC: CT 08:48
PROVIDERS: PCP Family Medicine; Referring Provider Internal Medicine Pulmonary Disease; Visit Provider Internal Medicine Pulmonary Disease
DX: Z87.891 Personal history of nicotine dependence (principal)
CPT/HCPCS: 71271

== ENCOUNTER → 2025-08-12 | Outpatient (CLI) | payer MEDICARE, SELFPAY ==
--- NOTE | 2025-08-12 10:18 | US_ITS ---
PROCEDURE: US/Thyroid
== END | disposition home or self-care (01) ==
LOC: US 10:17
PROVIDERS: PCP Family Medicine; Referring Provider Surgery; Visit Provider Surgery
DX: E04.1 Nontoxic single thyroid nodule (principal)
CPT/HCPCS: 76536

== ENCOUNTER → 2025-08-31 | Outpatient (CLI) | payer MEDICARE, SELFPAY ==
--- NOTE | 2025-08-31 09:08 | CYSPIN_PTH ---
PATIENT: YOUNG AGARWAL [facility] U#:[id number] AGE/SX: 70/F ROOM: RE08/31/[address]: Dr. Mendez South MD : 1955 BED: DIS: 08/31/2025 SPEC #: [id number] RECD: 08/31/25 11:35 STATUS: SHELIA REQ #: [id number] ANNIE: 08/31/25 09:[address]: Mendez South DEPT: CYTOLOGY RECD BY: José Malhotra ENTERED: 08/31/25 14:16 SP TYPE: CYSPIN FL OTHR DR: Dr. Reagan Santa MD Tissues: A - Thyroid gland, NOS Procedures: Pap Stain (control) Special Stain Group II Diff Quik Stain (control) Cytospin Fluid Cytology Other HEADER OPERATION: Fine needle aspiration of left thyroid nodule PRE-OP DIAGNOSIS: Left thyroid nodule TISSUE SUBMITTED: A- Left inferior thyroid nodule DIAGNOSIS CYTOLOGY A. Left thyroid, nodule, FNA (cytospin, smear x4): - Non-diagnostic (TBS I). - Insufficient cellularity. CYTOLOGY STUDY Slides are reviewed. CYTOLOGY GROSS A. Received is 30.5 ml of pink-cloudy cytolyt with particles and 4 smears labeled with the patient's name and and designated per the requisition as Left inferior thyroid nodule. Submitted for cytology and cytospin. Mr 08/31/2025 CPT: 42040
== END | disposition home or self-care (01) ==
LOC: LABSPEC 11:45
PROVIDERS: PCP Family Medicine; Visit Provider Surgery
DX: E04.1 Nontoxic single thyroid nodule (principal)
CPT/HCPCS: 88108; 88161; 88313

== ENCOUNTER → 2025-09-12 | Outpatient (CLI) | payer MEDICARE, SELFPAY ==
--- NOTE | 2025-09-12 13:54 | ECHOD_ITS ---
Reason For Study Reason For Study: ENLARGED HEART Procedure This was a 2D Doppler, Color Flow transthoracic echocardiogram. Exam performed in department. Left Ventricle Normal size and thickness. The left ventricular ejection fraction is 65 %. Normal diastology for age. Right Ventricle Normal right ventricle. Atria The left and right atria are normal. Mitral Valve Trivial mitral valve insufficiency. Tricuspid Valve Trivial tricuspid valve insufficiency. Normal pulmonary artery pressure. Aortic Valve Trisinus/trileaflet aortic valve. Mild-Moderate (1-2+) aortic valve insufficiency. Pulmonic Valve The pulmonic valve is not well visualized. Great Vessels Normal sized aortic root. Pericardium/Pleural No pericardial effusion. MMode/2D Measurements & Calculations LVIDd: 4.7 cm IVSd: 0.74 cm asc Aorta Diam: 3.4 cm LVIDs: 3.1 cm LVPWd: 0.74 cm RVDd: 3.3 cm FS: 35.2 % LAV(MOD-bp): 45.6 ml LVAd ap4: 28.2 cm2 LVAd ap2: 27.1 cm2 LAV(MOD-bp) Indexed: 23.9 ml/m2 LVLd ap4: 7.8 cm LVLd ap2: 8.0 cm LAV(MOD-sp2): 45.8 ml EDV(MOD-sp4): 83.5 ml EDV(MOD-sp2): 78.0 ml LAV(MOD-sp4): 45.0 ml EDV(sp4-el): 86.7 ml EDV(sp2-el): 77.3 ml LVAs ap4: 15.1 cm2 LVAs ap2: 13.5 cm2 LVLs ap4: 6.2 cm LVLs ap2: 6.1 cm ESV(MOD-sp4): 31.2 ml ESV(MOD-sp2): 25.5 ml ESV(sp4-el): 31.1 ml ESV(sp2-el): 25.5 ml EF(MOD-sp4): 62.7 % EF(MOD-sp2): 67.3 % EF(sp4-el): 64.1 % SV(MOD-sp4): 52.3 ml SV(MOD-sp2): 52.5 ml SV(sp4-el): 55.6 ml SI(MOD-sp4): 27.4 ml/m2 SI(MOD-sp2): 27.5 ml/m2 LA A4 area: 17.4 cm2 LA dimension(2D): 3.5 cm RA A4 area: 12.6 cm2 TAPSE: 2.3 cm Time Measurements MV dec time: 0.21 sec Doppler Measurements & Calculations MV E max bonifacio: 69.5 cm/sec Lat Peak E' Bonifacio: 9.1 cm/sec Med Peak E' Bonifacio: 9.1 cm/sec MV A max bonifacio: 82.2 cm/sec E/E' lat: 7.6 E/E' med: 7.6 MV E/A: 0.85 Ao V2 max: 121.8 cm/sec AI max bonifacio: 500.0 cm/sec MV dec slope: 323.6 cm/sec2 Ao max P.9 mmHg AI max P.0 mmHg Ao V2 mean: 76.1 cm/sec Ao mean P.7 mmHg AI dec slope: 263.6 cm/sec2 Ao V2 VTI: 26.9 cm AI P1/2t: 555.5 msec AV (velocity ratio): 0.66 LV V1 max: 80.4 cm/sec PA V2 max: 91.0 cm/sec TR max bonifacio: 187.2 cm/sec LV V1 max P.6 mmHg TR max P.0 mmHg LV V1 mean P.3 mmHg LV V1 mean: 52.4 cm/sec LV V1 VTI: 17.7 cm ECHO/Echo Complete Interpretation Summary The left ventricular ejection fraction is 65 %. Mild-Moderate (1-2+) aortic valve insufficiency. Ordering Physician: Reagan Santa Referring Physician: Reagan Santa Performed By: Woo Diaz, [facility]
== END | disposition home or self-care (01) ==
LOC: CVS 13:51
PROVIDERS: PCP Family Medicine; Referring Provider Family Medicine; Visit Provider Family Medicine
DX: I51.7 Cardiomegaly (principal)
CPT/HCPCS: 93306

== ENCOUNTER → 2025-09-25 | Outpatient (CLI) | payer MEDICARE, SELFPAY ==
--- NOTE | 2025-09-25 12:23 | BI_ITS ---
EXAM: SCRN MAMM (CAD)W/EDITH BILAT DATE: 09/25/2025 CLINICAL HISTORY: F, Age 70 y/o , SCREENING TECHNIQUE: Procedure Code: [id number] Modality: MG Procedure: SCRN MAMM (CAD)W/EDITH BILAT COMPARISON: Prior exam(s) were compared FINDINGS: TISSUE DENSITY: The breasts are heterogeneously dense, which may obscure small masses. Bilateral Breast Mammographic Findings: No significant masses, calcifications or other abnormalities are identified. BI/SCRN MAMM (CAD)W/EDITH BILAT IMPRESSION: No mammographic evidence of malignancy. OVERALL FINAL ASSESSMENT BI-RADS 1: NEGATIVE. RECOMMENDATION: Routine annual follow-up in 1 Year Additional Recommendation none A letter with findings and recommendations will be mailed to the patient. Reading Location: [id number]
== END | disposition home or self-care (01) ==
PROVIDERS: PCP Family Medicine; Referring Provider Family Medicine; Visit Provider Family Medicine
DX: Z12.31 Encounter for screening mammogram for malignant neoplasm of breast (principal)
CPT/HCPCS: 77063; 77067

== ENCOUNTER 2025-10-07 07:11 | Emergency (ER) | payer MEDICARE, SELFPAY ==
[2025-10-07 07:12] VITALS: BP 191/81; PULSE 75; RESP 16; TEMP 36.6; O2SAT 100; BMI 26.9
--- NOTE | 2025-10-07 07:19 | EKG12_ITS ---
Test Reason : Blood Pressure : */* mmHG Vent. Rate : 72 BPM Atrial Rate : 72 BPM P-R Int : 176 ms QRS Dur : 84 ms QT Int : 384 ms P-R-T Axes : 72 41 59 degrees QTcB Int : 420 ms Normal sinus rhythm Normal ECG When compared with ECG of 27-Sep-2025 10:09, MANUAL COMPARISON REQUIRED DATA IS UNCONFIRMED Confirmed by Ricardo Mcarthur ([id number]), scientific editor CATHRYN MCGILL ([id number]) on 10/16/2025 10:59:04 AM Referred By: Confirmed By: Ricardo Mcarthur
--- NOTE | 2025-10-07 07:19 | RAD_ITS ---
PROCEDURE: CHEST 1 VIEW (PORTABLE) 10/07/2025 REASON FOR EXAM: CHEST PAIN TECHNIQUE: Frontal view of the chest. COMPARISON: Chest x-ray dated 12/20/2024 FINDINGS: Hardware: None Heart: Cardiac and mediastinal contours are stable. Lungs: No significant change in the appearance of the lungs. Bones: The bones are unremarkable. RAD/Chest 1 View (Portable) IMPRESSION: No Acute Findings. Reading Location: [facility]
[2025-10-07 07:41] VITALS: O2SAT 100
[2025-10-07 07:44] LABS: Hematocrit 42.4 % (37-47); Hemoglobin 14.0 g/dL (12.0-15.0); Immature Granulocytes Count 0.010 X10^3/uL (0.0-0.0); Mean Corp Hgb Conc 33.0 g/dL (32-36); Mean Corpuscular Volume 90.6 fL (81-99); Mean Platelet Vol. 8.5 fl (6.2-12.0); NRBC Flagged by Analyzer 0 % (0-5); Platelet Count 271 K/mm3 (150-450); RBC Distribution Width CV 13.5 % (11.6-14.6); RBC Distribution Width SD 44.9 fl (35.1-43.9); Red Blood Count 4.68 M/mm3 (4.2-5.4); White Blood Count 5.6 K/mm3 (4.4-11.0)
--- OUTSIDE RECORDS SUMMARY | 2025-10-07 08:02 | XMS RPT_ITS | CCD ---
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 Reagan Rosen Primary [...] RHODES, Dr. Kirk Primary Care Provider Regina ACCOUNT SUPPORT ASSOCIATE-CRashmi Attending Provider Regnia ACCOUNT SUPPORT ASSOCIATE-CRashmi Referring Provider Dr. Clinton Bautista MD Attending Provider [phone] Dr. Clinton Bautista MD Referring Provider Porter RHODES, Dr. Edmundo Fam Attending Provider Dr. Edmundo Buenrostro MD, V Referring Provider Dr. Reagan Rosen MD Primary Care Provider Dr. Reagan Rosen MD Attending Provider Dr. Reagan Rosen MD Referring Provider Dr. Mendez South MD Attending Provider Akosua RHODES, Dr. Simms Referring Provider Kiet RHODES, Dr. Kirk Primary Care Provider Nanci RHODES, Dr. Roderick Nichols Attending Provider Kiet RHODES, Dr. Kirk Other Provider Zeke RHODES, Dr. Patten Attending Provider Leslie THORNE, Dr. Mcgovern Emergency Provider Kiet RHOEDS, Dr. Kirk Primary Care Provider [phone] Kiet RHODES, Dr. Kirk Referring Provider Kiet RHODES, Dr. Kirk Attending Provider Leslie THORNE, Dr. Mcgovern Attending Provider Mushtaq RHODES, Dr. Dawn Attending Provider Kiet RHODES, Dr. Kirk Primary Care Provider Akosua RHODES, Dr. Simms Attending Provider Akosua RHODES, Dr. Simms Referring Provider Reagan Rosen Attending Unavailable Rosen, Reagan Referring Unavailable Rosen, Reagan Primary Care Unavailable Rosen, Reagan Consulting Unavailable Rosen, Reagan Referring Unavailable ZekeEarline batista Attending Unavailable Rosen, Reagan Primary Care Unavailable Nereyda Landin Attending Unavailable Rosen, Reagan Primary Care Unavailable Rosen, Reagan Referring Unavailable Bortz, Mendez Referring Unavailable Mendez South Attending Unavailable Rosen, Reagan Primary Care Unavailable Rosen, Reagan Attending Unavailable Rosen, Reagan Primary Care Unavailable Rosen, Reagan Attending Unavailable Rosen, Reagan Referring Unavailable Rosen, Reagan Primary Care Unavailable Rosen, Reagan Primary Care Unavailable Froilan Nelson Attending Unavailable Rosen, Reagan Primary Care Unavailable Rosen, Reagan Referring Unavailable Rosen, Reagan Attending Unavailable Rosen, Reagan Primary Care Unavailable Rosen, Reagan Referring Unavailable Nereyda Landin Attending Unavailable Rosen, Reagan Primary Care Unavailable SchinnerClinton Referring Unavailable SchinnerClinton Attending Unavailable Bortz, Mendez Attending Unavailable Rosen, Reagan Referring Unavailable Rosen, Reagan Primary Care Unavailable Rosen, Reagan Primary Care Unavailable Sibilia, Edmundo V Referring Unavailable Sibilia, Edmundo V Attending Unavailable Rosen, Reagan Primary Care Unavailable Sibilia, Edmundo V Referring Unavailable Sibilia, Edmundo V Attending Unavailable Rosen, Reagan Primary Care Unavailable Sibilia, Edmundo V Attending Unavailable Sibilia, Edmundo V Referring Unavailable Rosen, Reagan Primary Care Unavailable Sibilia, Edmundo V Referring Unavailable Sibilia, Edmundo V Attending Unavailable Bortz, Mendez Referring Unavailable Bortz, Mendez Attending Unavailable Rosen, Reagan Primary Care Unavailable Bortz, Mendez Referring Unavailable Bortz, Mendez Attending Unavailable Rosen, Reagan Primary Care Unavailable Rosen, Reagan Attending Unavailable Rosen, Reagan Primary Care Unavailable Rosen, Reagan Referring Unavailable Rosen, Reagan Primary Care Unavailable Regina ACCOUNT SUPPORT ASSOCIATE, Rashmi Referring Unavailable Regina ACCOUNT SUPPORT ASSOCIATE, Rashmi Attending Unavailable Rosen, Reagan Referring Unavailable Rosen, Reagan Attending Unavailable Rosen, Reagan Primary Care Unavailable Rosen, Reagan Referring Unavailable Rosen, Reagan Primary Care Unavailable Rosen, Reagan Attending Unavailable Allergies Allergy Classification Reported Allergen(s) Allergy Type Date of Onset Reaction(s) Facility (20 sources) Cephalexin; Translations: [CEPHALEXIN] Drug Allergy 12-19-19 16 [facility] (20 sources) Ciprofloxacin; Translations: [CIPROFLOXACIN] Drug Allergy 10-20-19 15 rash [facility] (20 sources) Nitrofurantoin Drug Allergy 11-08-19 22 [facility] (20 sources) Sulfamethoxazole Drug Allergy 11-08-19 22 [facility] (20 sources) Sulfonamides (Antibiotic); Translations: [SULFA (SULFONAMIDE ANTIBIOTICS)] Allergy to substance 04-06-20 07 [facility] (20 sources) Trimethoprim Drug Allergy 11-08-19 22 [facility] (1 source) Clarithromycin; Translations: [CLARITHROMYCIN] Drug Allergy 05-26-20 07 [facility] (1 source) Nitrofurantoin; Translations: [NITROFURANTOIN MACROCRYSTAL] Drug Allergy 04-27-20 18 [facility] (1 source) NITROFURANTOIN MONOHYD/M-CRYST; Translations: [NITROFURANTOIN MONOHYD/M-CRYST] Propensity to adverse reactions to drug (disorder) 08-30-20 13 [facility] (1 source) Cephalexin Drug Allergy 08-23-20 [facility] Repository (1 source) Ciprofloxacin Drug Allergy 08-23-20 [facility] Repository (1 source) Nitrofurantoin Drug Allergy 08-23-20 [facility] Repository (1 source) Sulfamethoxazole Drug Allergy 08-23-20 [facility] Repository (1 source) Trimethoprim Drug Allergy 08-23-20 [facility] Repository Medications Current Medications Medication Drug Class(es) [...] PO DAILY 0 November 11, 2019 4:05pm aspirin 81 mg [...] cre am, pelvic floor physical therapy Other non-traumatic joint disorders (1 source) Pain in left knee; Translations: [Pain in left knee] Onset: 06-19-2025 Episodic Prolapse of female genital organs (6 sources) Incomplete uterovaginal prolapse; Translations: [Incomplete uterovaginal prolapse] Onset: 08-23-2025 06-14-2025 Chronic Screening and history of mental health and substance abuse codes (1 source) Personal history of nicotine dependence; Translations: [Personal history of nicotine dependence] Onset: 08-15-2025 Episodic Thyroid disorders (20 sources) Thyroid nodule; Translations: [Nontoxic single thyroid nodule] Onset: 08-22-2025 02-20-2025 Chronic Comment on above: Patient is [...] Problem Date Documented Da te Episodic/Chronic Other female genital disorders (1 source) Unspecified condition associated with female genital organs and menstrual cycle; Translations: [Unspecified condition associated with female genital organs and menstrual cycle] Onset: 05-11-2025 Episodic Other lower respiratory disease (1 source) Hemoptysis; [...] Test Name Value Interpretation Reference Range Facility Thyroidon 08-12-2025 Thyroid [facility] Imaging Services [address] [place] [address] Thyroid MR#: [id number] Acct: [id number] Name: YOUNG AGARWAL Rep #: [id number] : 1955 F 70 From: Sekou Willoughby DO PCP: Dr. Reagan Rosen MD Status: REG CLI Study: Thyroid Date of Exam: 08/12/25 Exam# [id number] Ordering Dr: Mendez South MD PROCEDURE: THYROID 08/12/2025 REASON FOR EXAM: THYROID NODULE TECHNIQUE: Procedure Code: USTHY Modality: US Procedure: THYROID COMPARISON: 16 Feb 2025. FINDINGS: MEASUREMENTS: Right lobe: 4.9 x 2.8 x 2 cm. Left lobe: 4.2 x 1.4 x 1.3 cm. Isthmus: 1 mm. RIGHT SIDE: Heterogeneous echotexture. The interpolar right thyroid contains a mixed cystic and solid, hypoechoic, wider than tall, smooth nodule measuring 3.8 x 2.3 x 2.1 cm without evidence foci. (TR 3) LEFT SIDE: Heterogeneous echotexture. The interpolar left thyroid contains a mixed cystic and solid, hypoechoic, wider than tall, smooth nodule measuring 6 x 4 x 3 mm without evidence of echogenic foci. (TR 4) The inferior left thyroid contains a mixed cystic and solid, hypoechoic, wider than tall, smooth nodule measuring 1.6 x 0.9 x 0.8 cm without evidence of echogenic foci. (TR 4) ISTHMUS: No evidence of nodule or mass. Normal vascularity without microcalcification. No enlarged lymph nodes within the visualized neck. US/Thyroid IMPRESSION: Multinodular thyroid. TI-RADS 4, MODERATELY SUSPICIOUS. RECOMMENDATIONS: If not already performed, recommend image guided fine needle aspiration of the right and T4 left thyroid nodule. ACR TI-RADS Guidelines TI RADS 1 - Benign; No FNA TI RADS 2- Not Suspicious; No FNA TI RADS 3- Mildly Suspicious; FNA if >2.5cm or Follow if >1.5cm at 1, 3 and 5 years. TI RADS 4- Moderately Suspicious; FNA if >1.5cm or Follow if >1cm at 1, 2, 3 and 5 years. TI RADS 5- Highly Suspicious; FNA if >1cm or Follow if >0.5cm yearly for up to 5 years. Reference: Nessa FN, Luzma WD, Chris EG et al. ACR Thyroid Imaging, Reporting and Data System (TI-RADS): White Paper of the ACR TI-RADS Committee. J Am Reading Location: [id number] CC: Dr. Mendez South MD; Dr. Reagan Rosen MD Traffic Operations Manager: Signed Normal [facility] Low Dose CT Lung Screeningon 08-05-[address] Lung Screening [facility] Imaging Services [address] [place] [address] Lung Screening MR#: [id number] Acct: [id number] Name: YOUNG AGARWAL Rep #: [id number] : 1955 F 70 From: Abdullahi Marie MD PCP: Dr. Reagan Rosen MD Status: REG CLI Study: Low Dose CT Lung Screening Date of Exam: 08/05 Exam# [id number] Ordering Dr: Edmundo Buenrostro MD PROCEDURE: LOW DOSE CT LUNG SCREENING 08/05/2025 REASON FOR EXAM: SMOKER TECHNIQUE: Procedure Code: CTLUNGSCREEN Modality: CT Procedure: LOW DOSE CT LUNG SCREENING Coronal and Sagittal reconstruction series were provided. One or more dose reduction techniques were used (e.g., Automated exposure control, adjustment of the mA and/or kV according to patient size, use of iterative reconstruction technique). REFERENCE LINK: [employer] Lung-RADS RADIATION DOSE SUMMARY: CTDlvol: 3.02 mGy DLP: 110.23 mGycm COMPARISON: CT lung screen, 05/23/2024. FINDINGS: PULMONARY NODULES: (Only nodules >3mm are reported) Lower neck:The thyroid gland is normal. There is no supraclavicular lymphadenopathy. Mediastinum:No abnormal masses or lymphadenopathy. There are benign calcified right paratracheal, subcarinal and right hilar lymph nodes. Heart and Aorta:The heart is enlarged. There is a minimal pericardial effusion. There is calcific vascular disease of the thoracic aorta and coronary arteries. Esophagus:Normal. Upper Abdomen:There is calcific vascular disease of the visualized abdominal aorta. Chest wall:The soft tissues of the chest wall appear unremarkable. There is no axillary lymphadenopathy. There is mild dextroscoliosis of the thoracic spine. Lungs, airways and pleura: There is stable pleural-parenchymal scarring in both lung apices. There is mild upper lobe predominant centrilobular emphysema. There are areas of traction bronchiectasis with peribronchial scarring in the upper lobe of the right lung, lower lobe of the right lung, the middle lobe of the right lung, the lower lobe of the left lung in the inferior segment of the lingula. There is no significant change. There are no pulmonary nodules or masses. There are no pleural effusions. CT/Low Dose CT Lung Screening IMPRESSION: 1. Emphysema. 2. Stable foci of bronchiectasis with peribronchial scarring in both lungs as described. 3. There are no new pulmonary nodules. 4. There is cardiomegaly and calcific vascular disease. 4. Other findings as noted. Lung-RADS Category: 2 S: Benign behavior. Emphysema. Pulmonary parenchymal scarring. Calcific vascular disease. Recommendation: Follow up low-dose chest CT in 12 months. Reading Location: [id number] CC: Dr. Reagan Rosen MD; Dr. Edmundo Buenrostro MD Traffic Operations Manager: Signed Normal [facility] Laboratory - Chemistry and C hemistry - challengeOrdered By: Nereyda Landin on 06-14-2025 Bilirubin Ql (U) Negative [facility] Glucose Ql (U) Negative [facility] Ketones Ql (U) Negative [facility] pH (U) 6 [pH] [facility] Specific gravity (U) [Rel density] 1.010 [facility] Urobilinogen (U) [Mass/Vol] Negative [facility] Laboratory - Hematology and Cell countsOrdered By: Nereyda Landin on 06-14-2025 Hemoglobin Ql (U) Negative [facility] Laboratory - UrinalysisOrder ed By: Nereyda Landin on 06-14-2025 Nitrite Ql (U) Negative [facility] Protein Ql (U) Negative [facility] MR/Willis 06-14-2025 MR/PASCUAL [facility] [address], [address] [place] [address] OFFICE VISIT Date of Service: 06/14/25 MR#: [id number] Acct: [id number] Name: YOUNG AGARWAL Rep #: [id number] : 1955 Provider: Dr. Nereyda Graham i, MD Age/Sex: 70/F Location: [facility] Status: Signed Intake Vital Signs 05/06/25 02:04 06/14/25 10:56 Height 5 ft 8 in 5 ft 8 in Weight: 178 lb BMI 27.0 BP 128/79 H Pulse 60 Intake Visit Reasons: prolapse Chief Complaint: new- prolapse and recurrent UTI Lpn Cma Required: No Accompanied by: Self Is patient [...] was May 06 Bladder scan PVR 18cc. [facility] Medical History (Updated 06/14/25 @ 12:17 by [...] home: Yes additional social history: Khris Retired [employer] [facility] Chief Complaint: new- prolapse and recurrent [...] weight ch (more content not included)... Normal [facility] No Panel InformationOrdered By: Nereyda Landin on 06-14-2025 Urine Leukocytes Positive [facility] Urine Non-Hemolyzed Blood Negative [facility] Knee 4 or More Viewson 06-08 Knee 4 or More Views [facility] Imaging Services [address] [place] [address] Knee 4 or More Views MR#: [id number] Acct: [id number] Name: YOUNG AGARWAL Rep #: [id number] : 1955 F 70 From: Manuelito Iraheta MD PCP: Dr. Reagan Rosen MD Status: REG CLI Study: Knee 4 or More Views Date of Exam: 06/08/25 Exam# [id number] Ordering Dr: Reagan Rosen MD EXAM: XR Left Knee Complete, 4 or More Views CLINICAL INDICATION: LEFT KNEE PAIN TECHNIQUE: Four or more views of the left knee. COMPARISON: No relevant prior studies available. FINDINGS: BONES/JOINTS: Unremarkable. No acute fracture. No dislocation. SOFT TISSUES: Unremarkable. RAD/Knee 4 or More Views IMPRESSION: No acute fracture. Reading Location: [facility] CC: Dr. Reagan Rosen MD Traffic Operations Manager: Signed Normal [facility] Venous duplex ultrasound rep ortOrdered By: Roderick Christine on 06-08-2025 US Vein [facility] [address] [place] [address] Venous Duplex US, Unilateral 06/07/25 1558 MR#: [id number] Acct: [id number] Name: YOUNG AGARWAL Rep #:[id number] : 1955 70 From: Roderick Christine [...] Physician: Reagan Rosen Performed By: Elie Elliott, T 06/08/25 1113 Date _ Roderick Christine MD CC: Dr. Reagan Rosen MD ~ Date Dictated: 06/07/25 1558 Date Transcribed: 06/08/25 111 Traffic Operations Manager: Signed [facility] Work Phone: Venous Duplex US, Unilateral on 06-07-2025 Venous Duplex US, Unilateral [facility] [address] [place] [address] Venous Duplex US, Unilateral 06/07/25 1558 MR#: [id number] Acct: [id number] Name: YOUNG AGARWAL Rep #: [id number] : 1955 70 From: Roderick Christine MD [...] patent and compressible. ___ Ordering Physician: Reagan oRsen Referring Physician: Reagan Rosen Performed By: Elie Elliott RVT 06/08/25 1113 Date Roderick Christine MD CC: Dr. Reagan Rosen MD Date Dictated: 06/07/25 1558 Date Transcribed: 06/08/25 1113 Traffic Operations Manager: Signed Normal [facility] Urine Cultureon 05-08-2025 URC Klebsiella pneumonia e sp pneum [place] Count 50,000-80,000 Klebsiella pneumoniae sp pneum: REACTION [...] TMP SMX Islt ANDRÉS <=20 S Normal [facility] Comment on above: Performed By: #### M 100.2200, L400.0001 ####[facility] [address] [place], [place], [id number] Bilirubin Test strip Ql (U)O rdered By: Froilan Nelson on 05-06-2025 Bilirubin Ql (U) Negative Negative [facility] Emergency Department Summary on 05-06-2025 Emergency Department Summary [facility] Medical Records Department [address] [place] [address] Emergency Department Summary 05/06/25 MR#: [id number] Acct: [id number] Name: YOUNG AGARWAL Rep #: [id number] : 1955 70 From: Froilan Nelson DO [...] concern for worsening infection presents for evaluation. [facility] Medical History Thyroid nodule Premature ventricular contraction [...] ED: Negativ (more content not included)... Normal [facility] Ketones Test strip Ql (U)Ord ered By: Froilan Nelson on 05-06-2025 Ketones Ql (U) Negative Negative [facility] Microscopic analysis of urin e for red blood cells (RBC)Ordered By: Froilan Nelson on 05-06-2025 Microscopic analysis of urine for red blood cells (RBC) 10-25 SEEN /hpf 0-5 [facility] Mucus LM Ql (Urine sed)Order ed By: Froilan Nelson on 05-06-2025 Mucus Ql (Urine sed) 0 SEEN /hpf [facility] Nitrite Test strip Ql (U)Ord ered By: Froilan Nelson on 05-06-2025 Nitrite Ql (U) Negative Negative [facility] Protein Test strip Ql (U)Ord ered By: Froilan Nelson on 05-06-2025 Protein Ql (U) 30 mg/dl High Negative [facility] Squamous epithelial cells de tection in urine sediment by light microscopyOrdered By: Froilan Nelson on 05-06-2025 Epithelial cells.squamous LM Ql (Urine sed) 0-5 SEEN /hpf 5-10 [facility] Urinalysis, Completeon 05-06 BACTERIA 1+ /hpf Normal None Seen [facility] Comment on above: Order Comment: JONY KITCHENOR TO SPECIFY Performed By: #### M 100.2200, L400.0001 ####[facility] [address] [place], [address] EPI,SQUAMOUS 0-5 SEEN Normal - [facility] Comment on above: Order Comment: JONY CTOR TO SPECIFY Performed By: #### M 100.2200, L400.0001 ####[facility] [address] [place], [address] RBC 10-25 SEEN Normal 0-5 [facility] Comment on above: Order Comment: JONY CTOR TO SPECIFY Performed By: #### M 100.2200, L400.0001 ####[facility] [address] [place], [address] WBC >100 SEEN Normal 0-5 [facility] Comment on above: Order Comment: [facility] CTOR TO SPECIFY Performed By: #### M 100.2200, L400.0001 ####[facility] [address] [place], [address] BILIRUBIN URINE Negative Normal Negative [facility] Comment on above: Order Comment: JONY CTOR TO SPECIFY Performed By: #### M 100.2200, L400.0001 ####[facility] [address] [place], [address] Clarity (U) Sl. Cloudy Normal Clear [facility] Comment on above: Order Comment: JONY CTOR TO SPECIFY Performed By: #### M 100.2200, L400.0001 ####[facility] [address] [place], [address] Color (U) Straw Normal Yellow [facility] Comment on above: Order Comment: [facility] CTOR TO SPECIFY Performed By: #### M 100.2200, L400.0001 ####[facility] [address] [place], [address] GLUCOSE, UR Normal Normal Normal [facility] Comment on above: Order Comment: [facility] CTOR TO SPECIFY Performed By: #### M 100.2200, L400.0001 ####[facility] [address] [place], [address] KETONE UR Negative Normal Negative [facility] Comment on above: Order Comment: JONY CTOR TO SPECIFY Performed By: #### M 100.2200, L400.0001 ####[facility] [address] [place], [address] LEUK ESTERASE 500 /ul Abnormal Negative [facility] Comment on above: Order Comment: COLLE CTOR TO SPECIFY Performed By: #### M 100.2200, L400.0001 ####[facility] [address] [place], [address] Nitrite Ql (U) Negative Normal Negative [facility] Comment on above: Order Comment: COLLE CTOR TO SPECIFY Performed By: #### M 100.2200, L400.0001 ####[facility] [address] [place], [address] OCCULT BLOOD-UR 250 /ul Abnormal Negative [facility] Comment on above: Order Comment: JONY CTOR TO SPECIFY Performed By: #### M 100.2200, L400.0001 ####[facility] [address] [place], [address] pH UR 7.0 Normal 5.0 - 8.0 [facility] Comment on above: Order Comment: JONY CTOR TO SPECIFY Performed By: #### M 100.2200, L400.0001 ####[facility] [address] [place], [address] PROT DIPSTX 30 mg/dl Abnormal Negative [facility] Comment on above: Order Comment: [facility] CTOR TO SPECIFY Performed By: #### M 100.2200, L400.0001 ####[facility] [address] [place], [address] SP.GR. DIPSTX 1.010 Normal 1.002-1.03 0 [facility] Comment on above: Order Comment: [facility] CTOR TO SPECIFY Performed By: #### M 100.2200, L400.0001 ####[facility] [address] [place], [address] UROBILI Normal Normal Normal [facility] Comment on above: Order Comment: [facility] CTOR TO SPECIFY Performed By: #### M 100.2200, L400.0001 ####[facility] [address] [place], [place], [address] Mucus Ql (Urine sed) 0 SEEN Normal [facility] Comment on above: Order Comment: COLLE CTOR TO SPECIFY Performed By: #### M 100.2200, L400.0001 ####[facility] [address] [place], [place], [address] Urine clarityOrdered By: Reno Nelson on 05-06-2025 Clarity (U) Sl. Cloudy Clear [facility] Urine color determinationOrd ered By: Froilan Nelson on 05-06-2025 Color (U) Straw Yellow [facility] Urine cultureOrdered By: Reno Nelson on 05-06-2025 Bacteria identified Cx Nom (U) Klebsiella pneumoniae sp pneum Abnormal [facility] Urine glucose detectionOrder ed By: Froilan Nelson on 05-06-2025 Glucose Ql (U) Normal mg/dl Normal [facility] Urine leukocyte esterase det ection by dipstickOrdered By: Froilan Nelson on 05-06-2025 Leukocyte esterase Test strip Ql (U) 500 /ul High Negative [facility] Urine pHOrdered By: Froilan clark on 05-06-2025 pH (U) 7.0 [pH] 5.0 - 8.0 [facility] Urine sediment bacteria coun t by microscopy (number/high power field)Ordered By: Froilan Nelson on 05-06-2025 Bacteria LM.HPF (Urine sed) [#/Area] 1 /[HPF] None Seen [facility] Urine specific gravity measu rementOrdered By: Froilan Nelson on 05-06-2025 Specific gravity (U) [Rel density] 1.010 1.002-1.03 0 [facility] Urine urobilinogen measureme ntOrdered By: Froilan Nelson on 05-06-2025 Urobilinogen Ql (U) Normal mg/dl Normal [facility] White blood cell countOrdere d By: Froilan Nelson on 05-06-2025 White blood cell count >100 SEEN /hpf 0-5 [facility] Bone density reportOrdered B y: Chuyita Bran on 05-05-2025 Study report Skeletal system DXA [facility] Imaging Services [address] [place], [place] [address] Dexa Bone Density Study MR#: [id number] Acct: [id number] Name: YOUNG AGARWAL Rep #: [id number] : 1955 F 70 From: Colby Estrada MD PCP: Dr. Reagan Rosen MD Status: REG C LI Study:Dexa Bone Density Study Date of Exam: 05/03/25 Exam# [id number] Ordering Dr: Reagan Rosen MD PROCEDURE: DEXA [...] calculated using FRAX version 3.08. Reading Location: [id number] CC: Dr. Reagan Rosen MD ~ Traffic Operations Manager: Signed [facility] Dexa Bone Density Studyon Dexa Bone Density Study [facility] Imaging Services [address] [facility] [place] [address] Dexa Bone Density Study MR#: [id number] Acct: [id number] Name: YOUNG AGARWAL Rep #: [id number] : 1955 F 70 From: Chuyita Forman i, MD PCP: Dr. Reagan Rosen MD Status: REG CLI Study: Dexa Bone Density Study Date of Exam: 05/03/25 Exam# [id number] Ordering Dr: Reagan Rosen MD PROCEDURE: DEXA [...] calculated using FRAX version 3.08. Reading Location: [facility] CC: Dr. Reagan Rosen MD Traffic Operations Manager: Signed Normal [facility] NCS and/or EMG Patienton NCS and/or EMG Patient [facility] Pulmonary Services/Neurology [address] [id number] MR#: [id number] Acct: [id number] Name: YOUNG AGARWAL Rep #: [id number] : 1955 70 From: Earline Alanis MD Referring Dr: Reagan Rosen MD Status: REG CLI Location: [facility] Date: 05/02/25 Sex: [...] Multi Select Codes Neurology Neurology Interp Codes: 50826-72 Musc test done w/n test comp (interp) (1) and 85306-51 Nrv cndj test 7-8 studies (interp) 05/02/25 1249 Date Earline Alanis MD CC: Dr. Earline Alanis MD; Dr. Reagan Rosen MD Date Dictated: 05/02/251136 Date Transcribed: 05/02/251136 Traffic Operations Manager: Signed Normal [facility] Absolute lymphocyte countOrd ered By: Reagan Rosen on 04-25-2025 Lymphocytes Auto (Unsp spec) [#/Vol] 2.10 10*3/uL 0.83-4.51 [facility] Absolute neutrophil countOrd ered By: Reagan Rosen on 04-25-2025 Neutrophils (Bld) [#/Vol] 2.0 10*3/uL 2.0-7.7 [facility] Anion gap in Serum or Plasma Ordered By: Reagan Rosen on 04-25-2025 Anion gap [Moles/Vol] 10 mmol/L 02-23 [facility] Automated lymphocyte count a s percentage of total leukocytesOrdered By: Reagan Rosen on 04-25-2025 Lymphocytes/100 WBC Auto (Unsp spec) 42.7 % High 19-41 [facility] BUN/creatinine ratioOrdered By: Reagan Rosen on 04-25-2025 Urea nitrogen/Creatinine [Mass ratio] 28.5 mg/mg High 10-20 [facility] Basophil percentageOrdered B y: Reagan Rosen on 04-25-2025 Basophils/100 WBC (Bld) 0.4 % 0-1 [facility] Bilirubin, totalOrdered By: Reagan Rosen on 04-25-2025 Bilirubin [Mass/Vol] 0.56 mg/dL 0.00-1.30 [facility] CBC W/Diff, Automatedon 04-11 Absolute Lymph 2.10 X10 3/uL Normal 0.83-4.51 [facility] Comment on above: Performed By: #### L 506.1001, L501.9520, L500.4050, L501.9985, L100.0100, L500.4100 #### [facility] Laboratory [address] [place], [address] Absolute Neut 2.0 X10 3/uL Normal 2.0-7.7 [facility] Comment on above: Performed By: #### L 506.1001, L501.9520, L500.4050, L501.9985, L100.0100, L500.4100 #### [facility] Laboratory [address] [place], [address] Basophils/100 WBC (Bld) 0.4 % Normal 0-1 [facility] Comment on above: Performed By: #### L 506.1001, L501.9520, L500.4050, L501.9985, L100.0100, L500.4100 #### [facility] Laboratory [address] [place], [address] Eosinophils/100 WBC (Bld) 4.9 % Normal 0-5 [facility] Comment on above: Performed By: #### L 506.1001, L501.9520, L500.4050, L501.9985, L100.0100, L500.4100 #### [facility] Laboratory [address] [place], [address] Erythrocyte distribution width (RBC) [Ratio] 14.1 % Normal 11.6-14.6 [facility] Comment on above: Performed By: #### L 506.1001, L501.9520, L500.4050, L501.9985, L100.0100, L500.4100 #### [facility] Laboratory [address] [place], [address] Hematocrit (Bld) [Volume fraction] 40.9 % Normal 37-47 [facility] Comment on above: Performed By: #### L 506.1001, L501.9520, L500.4050, L501.9985, L100.0100, L500.4100 #### [facility] Laboratory [address] [place], [address] Hemoglobin (Bld) [Mass/Vol] 13.3 g/dL Normal 12.0-15.0 [facility] Comment on above: Performed By: #### L 506.1001, L501.9520, L500.4050, L501.9985, L100.0100, L500.4100 #### [facility] Laboratory [address] [place], [address] IG% 0.200 Normal 0.0-0.9 [facility] Comment on above: Result Comment: IG% - Immature Granulocytes (promyelocytes, myelocytes and metamyelocytes) > 1% indicates that a LEFT SHIFT is Present. Performed By: #### L 506.1001, L501.9520, L500.4050, L501.9985, L100.0100, L500.4100 #### [facility] Laboratory [address] [place], [address] Lymphocytes/100 WBC (Bld) 42.7 % High 19-41 [facility] Comment on above: Performed By: #### L 506.1001, L501.9520, L500.4050, L501.9985, L100.0100, L500.4100 #### [facility] Laboratory [address] [facility] [place], [address] MCH (RBC) [Entitic mass] 30.0 pg Normal 27.0-32.0 [facility] Comment on above: Performed By: #### L 506.1001, L501.9520, L500.4050, L501.9985, L100.0100, L500.4100 #### [facility] Laboratory [address] [place], [address] MCHC (RBC) [Mass/Vol] 32.5 g/dL Normal 32-36 [facility] Comment on above: Performed By: #### L 506.1001, L501.9520, L500.4050, L501.9985, L100.0100, L500.4100 #### [facility] Laboratory [address] [place], [address] MCV (RBC) [Entitic vol] 92.3 fL Normal 81-99 [facility] Comment on above: Performed By: #### L 506.1001, L501.9520, L500.4050, L501.9985, L100.0100, L500.4100 #### [facility] Laboratory [address] [place], [address] Monocytes/100 WBC (Bld) 10.4 % High 0-10 [facility] Comment on above: Performed By: #### L 506.1001, L501.9520, L500.4050, L501.9985, L100.0100, L500.4100 #### [facility] Laboratory [address] [place], [address] Neutrophils/100 WBC (Bld) 41.4 % Low 47-70 [facility] Comment on above: Performed By: #### L 506.1001, L501.9520, L500.4050, L501.9985, L100.0100, L500.4100 #### [facility] Laboratory [address] [place], [address] Nucleated RBC (Bld) [#/Vol] 0 10*3/uL Normal 0-5 [facility] Comment on above: Performed By: #### L 506.1001, L501.9520, L500.4050, L501.9985, L100.0100, L500.4100 #### [facility] Laboratory [address] [place], [address] Platelet mean volume (Bld) [Entitic vol] 9.0 fL Normal 6.2-12.0 [facility] Comment on above: Performed By: #### L 506.1001, L501.9520, L500.4050, L501.9985, L100.0100, L500.4100 #### [facility] Laboratory [address] [place], [address] Platelets (Bld) [#/Vol] 272 10*3/uL Normal 150-450 [facility] Comment on above: Performed By: #### L 506.1001, L501.9520, L500.4050, L501.9985, L100.0100, L500.4100 #### [facility] Laboratory [address] [place], [address] RBC (Bld) [#/Vol] 4.43 10*6/uL Normal 4.2-5.4 [facility] Comment on above: Performed By: #### L 506.1001, L501.9520, L500.4050, L501.9985, L100.0100, L500.4100 #### [facility] Laboratory [address] [place], [address] RDW SD 48.2 fl High 35.1-43.9 [facility] Comment on above: Performed By: #### L 506.1001, L501.9520, L500.4050, L501.9985, L100.0100, L500.4100 #### [facility] Laboratory [address] [place], [address] WBC (Bld) [#/Vol] 4.9 10*3/uL Normal 4.4-11.0 [facility] Comment on above: Performed By: #### L 506.1001, L501.9520, L500.4050, L501.9985, L100.0100, L500.4100 #### [facility] Laboratory [address] [place], [address] Calculated very low density lipoprotein (VLDL) cholesterol measurementOrdered By: Reagan Rosen on 04-25-2025 Calculated very low density lipoprotein (VLDL) cholesterol measurement 16 mg/dL 5-40 [facility] Carbon dioxide, total [Moles /volume] in Central venous bloodOrdered By: Reagan Roesn on 04-25-2025 CO2 [Moles/Vol] 26.2 mmol/L 21.0-32.0 [facility] Chloride assayOrdered By: Miguel Ángel Rosen on 04-25-2025 Chloride [Moles/Vol] 103 mmol/L 98-108 [facility] Comprehensive Metabolic Prof ilon 04-25-2025 Albumin [Mass/Vol] 4.1 g/dL Normal 3.4-4.8 [facility] Comment on above: Performed By: #### L 506.1001, L501.9520, L500.4050, L501.9985, L100.0100, L500.4100 #### [facility] Laboratory [address] [place], [address] Albumin/Globulin [Mass ratio] 1.5 {ratio} Normal 0.9-2.4 [facility] Comment on above: Performed By: #### L 506.1001, L501.9520, L500.4050, L501.9985, L100.0100, L500.4100 #### [facility] Laboratory [address] [place], [address] ALK PHOS 72 U/L Normal 35-104 [facility] Comment on above: Performed By: #### L 506.1001, L501.9520, L500.4050, L501.9985, L100.0100, L500.4100 #### [facility] Laboratory [address] [place], [address] ALT [Catalytic activity/Vol] 14 U/L Normal <=34 [facility] Comment on above: Performed By: #### L 506.1001, L501.9520, L500.4050, L501.9985, L100.0100, L500.4100 #### [facility] Laboratory [address] [place], [address] AST [Catalytic activity/Vol] 19 U/L Normal <=31 [facility] Comment on above: Performed By: #### L 506.1001, L501.9520, L500.4050, L501.9985, L100.0100, L500.4100 #### [facility] Laboratory [address] [place], [address] Bilirubin [Mass/Vol] 0.56 mg/dL Normal 0.00-1.30 [facility] Comment on above: Performed By: #### L 506.1001, L501.9520, L500.4050, L501.9985, L100.0100, L500.4100 #### [facility] Laboratory [address] [place], [address] BUN/CRE 28.5 RATIO High 10-20 [facility] Comment on above: Performed By: #### L 506.1001, L501.9520, L500.4050, L501.9985, L100.0100, L500.4100 #### [facility] Laboratory [address] [place], [address] Calcium [Mass/Vol] 9.8 mg/dL Normal 7.6-11.0 [facility] Comment on above: Performed By: #### L 506.1001, L501.9520, L500.4050, L501.9985, L100.0100, L500.4100 #### [facility] Laboratory [address] [place], [address] Chloride [Moles/Vol] 103 mmol/L Normal 98-108 [facility] Comment on above: Performed By: #### L 506.1001, L501.9520, L500.4050, L501.9985, L100.0100, L500.4100 #### [facility] Laboratory [address] [place], [address] CO2 [Moles/Vol] 26.2 mmol/L Normal 21.0-32.0 [facility] Comment on above: Performed By: #### L 506.1001, L501.9520, L500.4050, L501.9985, L100.0100, L500.4100 #### [facility] Laboratory [address] [place], [address] Creatinine [Mass/Vol] 0.67 mg/dL Low 0.70-1.20 [facility] Comment on above: Performed By: #### L 506.1001, L501.9520, L500.4050, L501.9985, L100.0100, L500.4100 #### [facility] Laboratory [address] [place], [address] GAP 10 Normal 5-15 [facility] Comment on above: Performed By: #### L 506.1001, L501.9520, L500.4050, L501.9985, L100.0100, L500.4100 #### [facility] Laboratory [address] [place], [address] GFR/1.73 sq M.predicted among non-blacks MDRD (S/P/Bld) [Vol rate/Area] 94 mL/min/{1.73_m2} Normal >60 [facility] Comment on above: Result Comment: mL/m in/1.73m2 CKD-EPI Creatinine Equation (2020) Performed By: #### L 506.1001, L501.9520, L500.4050, L501.9985, L100.0100, L500.4100 #### [facility] Laboratory [address] [place], [address] Globulin (S) [Mass/Vol] 2.7 g/dL Normal 2.2-4.2 [facility] Comment on above: Performed By: #### L 506.1001, L501.9520, L500.4050, L501.9985, L100.0100, L500.4100 #### [facility] Laboratory [address] [place], [address] Glucose [Mass/Vol] 92 mg/dL Normal 70-99 [facility] Comment on above: Performed By: #### L 506.1001, L501.9520, L500.4050, L501.9985, L100.0100, L500.4100 #### [facility] Laboratory [address] [place], [address] Potassium [Moles/Vol] 3.9 mmol/L Normal 3.3-5.1 [facility] Comment on above: Performed By: #### L 506.1001, L501.9520, L500.4050, L501.9985, L100.0100, L500.4100 #### [facility] Laboratory [address] [place], [address] Sodium [Moles/Vol] 139 mmol/L Normal 133-145 [facility] Comment on above: Performed By: #### L 506.1001, L501.9520, L500.4050, L501.9985, L100.0100, L500.4100 #### [facility] Laboratory [address] [place], [address] T PROT 6.9 g/dL Normal 5.9-8.4 [facility] Comment on above: Performed By: #### L 506.1001, L501.9520, L500.4050, L501.9985, L100.0100, L500.4100 #### [facility] Laboratory [address] [place], [address] Urea nitrogen [Mass/Vol] 19 mg/dL Normal 4-19 [facility] Comment on above: Performed By: #### L 506.1001, L501.9520, L500.4050, L501.9985, L100.0100, L500.4100 #### [facility] Laboratory [address] [place], [address] Eosinophil percentageOrdered By: Reagan Rosen on 04-25-2025 Eosinophils/100 WBC (Bld) 4.9 % 0-5 [facility] Erythrocyte distribution wid th ratioOrdered By: Reagan Rosen on 04-25-2025 Erythrocyte distribution width (RBC) [Ratio] 14.1 % 11.6-14.6 [facility] Erythrocyte distribution wid th standard deviationOrdered By: Reagan Rosen on 04-25-2025 Erythrocyte distribution width (RBC) [Ratio] 48.2 fl High 35.1-43.9 [facility] Glomerular filtration rate ( GFR) estimation/1.73 sq m using serum, plasma, or whole bOrdered By: Reagan Rosen on 04-25-2025 GFR/1.73 sq M.predicted among non-blacks MDRD (S/P/Bld) [Vol rate/Area] 94 mL/min/{1.73_m2} >60 [facility] Comment on above: mL/min/1.73m2 CKD-EP I Creatinine Equation (2020) Hematocrit Auto (Bld) [Volum e fraction]Ordered By: Reagan Rosen on 04-25-2025 Hematocrit (Bld) [Volume fraction] 40.9 % 37-47 [facility] Hemoglobin A1con 04-25-2025 HbA1c (Bld) [Mass fraction] 5.4 % Normal <=5.6 [facility] Comment on above: Result Comment: Norm al < 5.7 % Prediabetic 5.7 - 6.4 % Diabetic >or= 6.5 % Please note range changes. Performed By: #### L 506.1001, L501.9520, L500.4050, L501.9985, L100.0100, L500.4100 ####[facility] [id number] [place], [place], [address] Hemoglobin A1c percentageOrd ered By: Reagan Rosen on 04-25-2025 HbA1c (Bld) [Mass fraction] 5.4 % <5.7 [facility] Comment on above: Normal < 5.7 % Predi abetic 5.7 - 6.4 % Diabetic >or= 6.5 % Please note range changes. Hemoglobin measurementOrdere d By: Reagan Rosen on 04-25-2025 Hemoglobin (Bld) [Mass/Vol] 13.3 g/dL 12.0-15.0 [facility] Immature granulocytes/100 WB C Auto (Bld)Ordered By: Reagan Rosen on 04-25-2025 Immature granulocytes/100 WBC (Bld) 0.200 % 0.0-0.9 [facility] Comment on above: IG% - Immature Granu locytes (promyelocytes, myelocytes and metamyelocytes) > 1% indicates that a LEFT SHIFT is Present. LDL calc ser/plasOrdered By: Reagan Rosen on 04-25-2025 Cholesterol in LDL [Mass/Vol] 93 mg/dL [facility] Comment on above: Jxbvndijyk=355-243 m g/dL & Higher [facility]=855 mg/dL or greater Laboratory - Chemistry and C hemistry - challengeOrdered By: Reagan Rosen on 04-25-2025 AST [Catalytic activity/Vol] 19 U/L <32 [facility] Lipid Profileon 04-25-2025 CHOL:HDL 2.78 Normal [facility] Comment on above: Performed By: #### L 506.1001, L501.9520, L500.4050, L501.9985, L100.0100, L500.4100 #### [facility] Laboratory [address] [place], [address] Cholesterol [Mass/Vol] 170 mg/dL Normal <=200 [facility] Comment on above: Result Comment: Chol esterol level, Desirable <200 mg/dL Borderline high cholesterol 200-239 mg/dL High cholesterol >=240 mg/dL Recommendations of the NCEP Adult Treatment Panel for the following risk-cutoff thresholds for the [place] population. Performed By: #### L 506.1001, L501.9520, L500.4050, L501.9985, L100.0100, L500.4100 #### [facility] Laboratory [address] [place], [address] Cholesterol in HDL [Mass/Vol] 61 mg/dL Normal [facility] Comment on above: Result Comment: Jessica onal Cholesterol Education Program (NCEP) guidelines: <40 mg/dL: Low HDL-cholesterol (major risk factor for CHD) >= 60 mg/dL: High HDL-cholesterol (negative risk factor for CHD) HDL-cholesterol is affected by a number of factors, e.g. smoking, exercise, hormones, sex and age. Performed By: #### L 506.1001, L501.9520, L500.4050, L501.9985, L100.0100, L500.4100 #### [facility] Laboratory [address] [place], [address] Cholesterol in LDL [Mass/Vol] 93 mg/dL Normal [facility] Comment on above: Result Comment: Bord oegcgt=587-853 mg/dL Higher Iwyk=450 mg/dL or greater Performed By: #### L 506.1001, L501.9520, L500.4050, L501.9985, L100.0100, L500.4100 #### [facility] Laboratory [address] [place], [address] Cholesterol in VLDL [Mass/Vol] 16 mg/dL Normal 5-40 [facility] Comment on above: Performed By: #### L 506.1001, L501.9520, L500.4050, L501.9985, L100.0100, L500.4100 #### [facility] Laboratory [address] [place], [address] Triglyceride [Mass/Vol] 79 mg/dL Normal [facility] Comment on above: Result Comment: The drugs N-Acetylcysteine and Metamizole may falsely depress this assay. Normal range: <150 mg/dL Borderline High: 150-199 mg/dL High: 200-499 mg/dL Very High: >500 mg/dL Performed By: #### L 506.1001, L501.9520, L500.4050, L501.9985, L100.0100, L500.4100 #### [facility] Laboratory [address] [place], [address] MCV (mean corpuscular volume ) determinationOrdered By: Reagan Rosen on 04-25-2025 MCV (RBC) [Entitic vol] 92.3 fL 81-99 [facility] Mean corpuscular hemoglobin (MCH) determinationOrdered By: Reagan Rosen on 04-25-2025 MCH (RBC) [Entitic mass] 30.0 pg 27.0-32.0 [facility] Mean corpuscular hemoglobin concentration (MCHC) determinationOrdered By: Reagan Rosen on 04-25-2025 MCHC (RBC) [Mass/Vol] 32.5 g/dL 32-36 [facility] Mean platelet volume determi nationOrdered By: Reagan Rosen on 04-25-2025 Platelet mean volume (Bld) [Entitic vol] 9.0 fL 6.2-12.0 [facility] Monocyte percentageOrdered B y: Reagan Rosen on 04-25-2025 Monocytes/100 WBC (Bld) 10.4 % High 0-10 [facility] Neutrophil percentageOrdered By: Reagan Rosen on 04-25-2025 Neutrophils/100 WBC (Bld) 41.4 % Low 47-70 [facility] Nucleated red blood cell per centageOrdered By: Reagan Rosen on 04-25-2025 Nucleated RBC/100 WBC (Bld) [Ratio] 0 % 0-5 [facility] Platelet countOrdered By: Miguel Ángel Rosen on 04-25-2025 Platelets (Bld) [#/Vol] 272 10*3/uL 150-450 [facility] Potassium measurement (mass/ volume)Ordered By: Reagan Rosen on 04-25-2025 Potassium (Unsp spec) [Mass/Vol] 3.9 mmol/L 3.3-5.1 [facility] RBC Auto (Bld) [#/Vol]Ordere d By: Reagan Rosen on 04-25-2025 RBC (Bld) [#/Vol] 4.43 10*6/uL 4.2-5.4 [facility] Screening total cholesterol/ high density lipoprotein (HDL) cholesterol ratioOrdered By: Reagan Rosen on 04-25-2025 Cholesterol.total/Cholest sheryl in HDL [Mass ratio] 2.78 {ratio} [facility] Serum creatinine measurement (mass/volume)Ordered By: Reagan Rosen on 04-25-2025 Creatinine [Mass/Vol] 0.67 mg/dL Low 0.70-1.20 [facility] Serum globulin measurementOr dered By: Reagan Rosen on 04-25-2025 Globulin (S) [Mass/Vol] 2.7 g/dL 2.2-4.2 [facility] Serum glucose measurement (m ass/volume)Ordered By: Reagan Rosen on 04-25-2025 Glucose [Mass/Vol] 92 mg/dL 70-99 [facility] Serum or plasma alanine leon otransferase (ALT) measurementOrdered By: Reagan Rosen on 04-25-2025 ALT [Catalytic activity/Vol] 14 U/L <35 [facility] Serum or plasma albumin kelsey urement (mass/volume)Ordered By: Reagan Rosen on 04-25-2025 Albumin [Mass/Vol] 4.1 g/dL 3.4-4.8 [facility] Serum or plasma albumin/glob ulin mass ratioOrdered By: Reagan Rosen on 04-25-2025 Albumin/Globulin [Mass ratio] 1.5 {ratio} 0.9-2.4 [facility] Serum or plasma alkaline chandrakant sphatase measurementOrdered By: Reagan Rosen on 04-25-2025 ALP [Catalytic activity/Vol] 72 U/L 35-104 [facility] Serum or plasma calcium kelsey urement (mass/volume)Ordered By: Reagan Rosen on 04-25-2025 Calcium [Mass/Vol] 9.8 mg/dL 7.6-11.0 [facility] Serum or plasma cholesterol in HDL measurement (mass/volume)Ordered By: Reagan Rosen on 04-25-2025 Cholesterol in HDL [Mass/Vol] 61 mg/dL >40 [facility] Comment on above: National Cholesterol Education Program (NCEP) guidelines:<40 mg/dL: Low HDL-cholesterol (major risk factor for CHD)>= 60 mg/dL: High HDL-cholesterol (negative risk factor for CHD)HDL-cholesterol is affected by a number of factors, e.g. smoking, exercise, hormones, sex and age. Serum or plasma cholesterol measurement (mass/volume)Ordered By: Reagan Rosen on 04-25-2025 Cholesterol [Mass/Vol] 170 mg/dL <201 [facility] Comment on above: Cholesterol level, D esirable <200 mg/dLBorderline high cholesterol 200-239 mg/dLHigh cholesterol >=240 mg/dLRecommendations of the NCEP Adult Treatment Panel for the following risk-cutoff thresholds for the [place] population. Serum or plasma urea nitroge n measurement (mass/volume)Ordered By: Reagan Rosen on 04-25-2025 Urea nitrogen [Mass/Vol] 19 mg/dL 4-19 [facility] Sodium levelOrdered By: Reagan Rosen on 04-25-2025 Sodium [Moles/Vol] 139 mmol/L 133-145 [facility] TSH DL <= 0.005 mIU/L QnOrde red By: Reagan Rosen on 04-25-2025 TSH Qn 1.710 uIU/mL 0.300-4.20 0 [facility] Thyroid Stim Hormone (TSH)on 04-25-2025 TSH 1.710 uIU/mL Normal 0.300-4.20 0 [facility] Comment on above: Performed By: #### L 506.1001, L501.9520, L500.4050, L501.9985, L100.0100, L500.4100 #### [facility] Laboratory [address] [place], [address] Total proteinOrdered By: Zoë Rosen on 04-25-2025 Protein [Mass/Vol] 6.9 g/dL 5.9-8.4 [facility] Triglycerides measurementOrd ered By: Reagan Rosen on 04-25-2025 Triglyceride [Mass/Vol] 79 mg/dL <199 [facility] Comment on above: The drugs N-Acetylcy steine and Metamizole may falsely depress this assay. Normal range: <150 mg/dLBorderline High: 150-199 mg/dLHigh: 200-499 mg/dLVery High: >500 mg/dL Vitamin D,25 Hydroxyon 04-25 Vitamin D 25-OH 31.3 ng/mL Normal 30-100 [facility] Comment on above: Result Comment: Stephany min D Status Deficiency: <20 ng/mL (50nmol/L) Insufficiency: 20-30 ng/mL (50-75 nmol/L) Sufficiency: 30-100 ng/mL (75-250 nmol/L) Toxicity: >100 ng/mL (>250 nmol/L) Performed By: #### L 506.1001, L501.9520, L500.4050, L501.9985, L100.0100, L500.4100 ####[facility] [address] [place], [address] White blood cell (WBC) count Ordered By: Reagan Rosen on 04-25-2025 WBC (Bld) [#/Vol] 4.9 10*3/uL 4.4-11.0 [facility] Ankle Brachial Indexon 03-30 Ankle Brachial Index [facility] [address] [place] [address] Ankle Brachial Index 03/30/25 1504 MR#: [id number] Acct: [id number] Name: YOUNG AGARWAL Rep #: [id number] : 1955 70 From: Roderick Christine MD Attending Dr: Dr. Reagan Rosen MD Status: REG CLI Ordering Dr: Reagan Rosen MD Date: 03/30/25 Location: [facility] Sex: F C Admitted: Reason For Study [...] Date Dictated: 03/30/25 1504 Date Transcribed: 03/30/252351 Traffic Operations Manager: Signed Normal [facility] Arterial study reportOrdered By: Roderick Christine on 03-30-2025 Noninvasive arteriosclerosis study report [facility] [address] [place] [address] Ankle Brachial Index 03/30/25 1504 MR#: [id number] Acct: [id number] Name: YOUNG AGARWAL Rep #:[id number] : 1955 70 From: Roderick Christine [...] Performed By: Kateryna Garay RVT, RDCS 03/30/25 6579 Date _ Roderick Christine MD CC: Dr. Reagan Rosen MD ~ Date Dictated: 03/30/25 1504 Date Transcribed: 03/30/252351 Traffic Operations Manager: Signed [facility] Other Phone: Free T3on 02-20-2025 Free T3 [Mass/Vol] 2.9 pg/mL Normal 2.18-3.98 [facility] Comment on above: Performed By: #### L 501.12826, L501.9520, L501.9310 ####[facility] [address] [place], [address] Free L4Sfdiwfq By: Mendez iverson on 02-20-2025 Free T3 [Mass/Vol] 2.9 pg/mL 2.18-3.98 [facility] Special Stain Group IIon Special Stain Group II -------- Patient Age/Sex Location Account Attending Physician YOUNG AGARWAL 69/F PAV[facility] [id number] Dr. Mendez South MD Specimen: [id number] Received: 02/20/25 Status: SHELIA Ott Num: [id number] Spec Type: ASP OUT Subm Dr: Dr. [...] and cell block preparation. Mr 02/20/2025 CPT: 93504i3 Signed (signature on file) Dr. Ely Mcrae DO 02/24/25 1246 Normal [facility] Comment on above: Performed By: #### P SSII ####[facility] [address] [place], [place], [id number] Surgery Visit Reporton 02-20 Surgery Visit Report [facility] [address] [place] [address] OFFICE VISIT Date of Service: 02/20/25 MR#: [id number] Acct: [id number] Name: YOUNG AGARWAL Rep #: [id number] : 1955 Provider: Dr. Mendez savage MD Age/Sex: 69/F Location: [facility] Status: Signed Intake Vital Signs 02/18/24 13:58 [...] was performed (more content not included)... Normal [facility] T4 Total, Thyroxinon 025 T4 [Mass/Vol] 7.1 ug/dL Normal 4.8-13.9 [facility] Comment on above: Performed By: #### L 501.61525, L501.9520, L501.9310 ####[facility] [address] [place], [address] TSH DL <= 0.005 mIU/L QnOrde red By: Mendez South on 02-20-2025 TSH Qn 1.630 uIU/mL 0.300-4.20 0 [facility] Thyroid Stim Hormone (TSH)on 02-20-2025 TSH 1.630 uIU/mL Normal 0.300-4.20 0 [facility] Comment on above: Performed By: #### L 501.10202, L501.9520, L501.9310 ####[facility] [address] [place], [address] ThyroxineOrdered By: Mendez South on 02-20-2025 T4 [Mass/Vol] 7.1 ug/dL 4.8-13.9 [facility] Thyroidon 02-16-2025 Thyroid [facility] Services [address] [place], [place] [address] Thyroid MR#: [id number] Acct: [id number] Name: YOUNG AGARWAL Rep #: [id number] : 1955 F 69 From: Matthew flannery MD PCP: Dr. Reagan Rosen MD Status: [facility] CLI Study: Thyroid Date of Exam: 02/16/25 Exam# [id number] Ordering Dr: Mendez South MD PROCEDURE: THYROID 02/16/2025 REASON FOR EXAM: THYROID ULTRASOUND TECHNIQUE: High-frequency thyroid ultrasound, including grayscale and color-flow images. REFERENCE LINKS: TI-RADS Chart: [email or web address] [email or web address]/head-neck/ti-rads/ti -rads TI-RADS Calculator Tool with Reference Images: [email or web address]/rad iology-calculators/body-i maging/tirads-calculator/ COMPARISON: Comparison is made with [...] no more than 2 nodules. Reading Location: [facility] CC: Dr. Mendez South MD; Dr. Reagan Rosen MD Traffic Operations Manager: Signed [facility] Acid Fast Bacillus Cultureon 02-13-2025 tAFBC TESTING PERFORMED AT [facility]. ORIGINAL REPORT ON FILE IN LAB CONTAINS ADDITIONAL TEST SITE INFORMATION. Culture, Acid Fast NO ACID-FAST BACILLI ISOLATED AFTER 6 WEEKS. [facility] Comment on above: Performed By: #### M 300.1999, M300.3000 ####[facility] [address] [place], [address] tAFBC TESTING PERFORMED AT [facility]. ORIGINAL REPORT ON FILE IN LAB CONTAINS ADDITIONAL TEST SITE INFORMATION. Culture, Acid Fast NO ACID-FAST BACILLI ISOLATED AFTER 6 WEEKS. [facility] Comment on above: Performed By: #### M 300.3000, M300.1999 #### [facility] Laboratory [address] [place], [place], [address] tAFBC TESTING PERFORMED AT [facility]. ORIGINAL REPORT ON FILE IN LAB CONTAINS ADDITIONAL TEST SITE INFORMATION. Culture, Acid Fast NO ACID-FAST BACILLI ISOLATED AFTER 6 WEEKS. [facility] Comment on above: Performed By: #### M 300.3000, L3410.9998, L4600.0100, L3400.8000, L3300.1200, L803.2200, L3100.9100, M100.2000, L3100.6900, L501.6710, L3100.5500, M300.2000, M100.2400 ####[facility] [address] [place], [address] Acid Fast Bacillus Smear/Flu oron 02-13-2025 tafb TESTING PERFORMED AT [facility]. ORIGINAL REPORT ON FILE IN LAB CONTAINS ADDITIONAL TEST SITE INFORMATION. Smear, Acid Fast Acid Fast Smear from Concentrated Specimen :Negative [facility] Comment on above: Performed By: #### M 300.2000, M300.3000 ####[facility] [address] [place], [address] tafb TESTING PERFORMED AT [facility]. ORIGINAL REPORT ON FILE IN LAB CONTAINS ADDITIONAL TEST SITE INFORMATION. Smear, Acid Fast Acid Fast Smear from Concentrated Specimen :Negative Normal [facility] Comment on above: Performed By: #### M 300.3000, M300.2000 #### [facility] Laboratory [address] [place], [address] tafb TESTING PERFORMED AT [facility]. ORIGINAL REPORT ON FILE IN LAB CONTAINS ADDITIONAL TEST SITE INFORMATION. Smear, Acid Fast Acid Fast Smear from Concentrated Specimen :Negative Normal [facility] Comment on above: Performed By: #### M 300.3000, L3410.9998, L4600.0100, L3400.8000, L3300.1200, L803.2200, L3100.9100, M100.2000, L3100.6900, L501.6710, L3100.5500, M300.2000, M100.2400 ####[facility] [address] [facility] [facility] [address] [place], [place], [address] Head/Neck Soft Tissueon 04-2 Head/Neck Soft Tissue [facility] Imaging Services [address] [place], [place] [id number] Head/Neck Soft Tissue MR#: [id number] Acct: [id number] Name: YOUNG AGARWAL Rep #: [id number] : 1955 F 69 From: Arthur Walsh MD PCP: Dr. Reagan Rosen MD Status: REG CLI Study: Head/Neck Soft Tissue Date of Exam: 02/04/25 Exam# [id number] Ordering Dr: Reagan Rosen MD EXAM: Soft [...] follow-up thyroid ultrasound is recommended. Reading Location: [id number] CC: Dr. Reagan Rosen MD Traffic Operations Manager: Signed Normal [facility] Misc.on 01-26-2025 [facility] Mis. COMMENT Normal . [facility] Comment on above: Order Comment: 12760 3RDL PROFILE RED RF Result Comment: Test Ordered: 520240 Anti-Synthetase Profile (RDL) Test(s) 932810-Ugmo-XZ-4 Ab (RDL); 878284- Anti-PL-12 Ab (RDL); 131720-Uhyn-PJ Ab (RDL); 083039- Anti-OJ Ab (RDL) was developed and its [...] clinical and other laboratory findings. Performed at: [facility] [address] [place] [id number] Ranger Aide: Petr Cho MD, Phone: [phone] Performed at: [address] [id number] Ranger Aide: Giancarlo Crowell PhD, Phone: [phone] Performed By: #### M 300.3000, L3410.9998, L4600.0100, L3400.8000, L3300.1200, L803.2200, L3100.9100, M100.2000, L3100.6900, L501.6710, L3100.5500, M300.2000, M100.2400 ####[facility] [address] [place], [address] [facility]. COMMENT Normal . [facility] Comment on above: Order Comment: 84276 9RNP ANTIBODY RED RF Result Comment: Test Ordered: 994918 Anti-U3 ANODIZING LINE OPERATOR (Fibrillarin)(RDL) Test(s) 577233-Ynwu-E7 ANODIZING LINE OPERATOR (Fibrillarin)(RDL) was developed and its performance characteristics determined by [facility]. It has not been cleared or approved by the Food and Drug Administration. Anti-U3 ANODIZING LINE OPERATOR (Fibrillarin)(RDL) Negative [facility] Reference Range: Negative Performed at: [facility] [address] [id number] Ranger Aide: Petr Cho MD, Phone: [phone] Performed at: [address] [id number] Ranger Aide: Giancarlo Crowell PhD, Phone: [phone] Performed By: #### L 3410.9998 ####[facility] [address] [facility] [place], [address] ANCAon 01-02-2025 Atypical pANCA <1:20 Normal Neg:<1:20 [facility] Comment on above: Result Comment: The atypical pANCA pattern has been observed in a significant percentage of patients with ulcerative colitis, primary sclerosing cholangitis and autoimmune hepatitis. Performed By: #### M 300.3000, L3410.9998, L4600.0100, L3400.8000, L3300.1200, L803.2200, L3100.9100, M100.2000, L3100.6900, L501.6710, L3100.5500, M300.2000, M100.2400 ####[facility] [address] [place], [place], [address] Cytoplasmic Ab <1:20 Normal Neg:<1:20 [facility] Comment on above: Performed By: #### M 300.3000, L3410.9998, L4600.0100, L3400.8000, L3300.1200, L803.2200, L3100.9100, M100.2000, L3100.6900, L501.6710, L3100.5500, M300.2000, M100.2400 ####[facility] [address] [place], [place], [address] Perinuclear Ab. <1:20 Normal Neg:<1:20 [facility] Comment on above: Result Comment: The presence of positive fluorescence exhibiting P-ANCA or C-ANCA patterns alone is not specific for the diagnosis of Hua's Granulomatosis (WG) or microscopic polyangiitis. Decisions about treatment should not be based solely on ANCA IFA results. The International ANCA Group Consensus recommends follow up testing of positive sera with both TX- 3 and MPO-ANCA enzyme immunoassays. As many as 5% serum samples are positive only by EIA. Ref. AM J Clin Pathol 1999;111:507-513. Performed By: #### M 300.3000, L3410.9998, L4600.0100, L3400.8000, L3300.1200, L803.2200, L3100.9100, M100.2000, L3100.6900, L501.6710, L3100.5500, M300.2000, M100.2400 ####[facility] [address] [place], [place], [phone] Angiotensin Convert Enzymeon 01-02-2025 ANGIOT-CONV.ENZ 41 U/L Normal 14-82 [facility] Comment on above: Performed By: #### M 300.3000, L3410.9998, L4600.0100, L3400.8000, L3300.1200, L803.2200, L3100.9100, M100.2000, L3100.6900, L501.6710, L3100.5500, M300.2000, M100.2400 ####[facility] [address] [place], [address] Anti-Smooth Muscle ABSon ANTISMOOTH MUSC 5 Units Normal 0-19 [facility] Comment on above: Result Comment: Nega tive 0 - 19 Weak positive 20 - 30 Moderate to strong positive >30 Actin Antibodies are found in 52-85% of patients with autoimmune hepatitis or chronic active hepatitis and in 22% of patients with primary biliary cirrhosis. Performed By: #### M 300.3000, L3410.9998, L4600.0100, L3400.8000, L3300.1200, L803.2200, L3100.9100, M100.2000, L3100.6900, L501.6710, L3100.5500, M300.2000, M100.2400 ####[facility] [address] [place], [address] CCP IgG Antibodieson 025 CCP IgG Ab. 5 units Normal 0-19 [facility] Comment on above: Result Comment: Nega tive <20 Weak positive 20 - 39 Moderate positive 40 - 59 Strong positive >59 Performed By: #### M 300.3000, L3410.9998, L4600.0100, L3400.8000, L3300.1200, L803.2200, L3100.9100, M100.2000, L3100.6900, L501.6710, L3100.5500, M300.2000, M100.2400 ####[facility] [address] [place], [place], [address] Respiratory Cultureon 2024 [facility] Mixed normal respira tory rea. No Haemophilus, Streptococcus pneumoniae, beta-hemolytic Streptococcus or Staphylococcus aureus isolated. Normal [facility] Comment on above: Performed By: #### M 300.3000, L3410.9998, L4600.0100, L3400.8000, L3300.1200, L803.2200, L3100.9100, M100.2000, L3100.6900, L501.6710, L3100.5500, M300.2000, M100.2400 ####[facility] [address] [place], [place], [phone]) Acid fast bacillus (AFB) cul tureOrdered By: Edmundo Buenrostro on 12-30-2024 Mycobacterium sp identified Org specific cx Nom (Unsp spec) [facility] Quantiferon TB-Gold+on 12-30 QFT MITOGEN CARMEN > 10.00 Normal . [facility] Comment on above: Performed By: #### M 300.3000, L3410.9998, L4600.0100, L3400.8000, L3300.1200, L803.2200, L3100.9100, M100.2000, L3100.6900, L501.6710, L3100.5500, M300.2000, M100.2400 ####[facility] [address] [place], [place], [phone]) QFT NIL VALUE 0.05 IU/mL Normal . [facility] Comment on above: Performed By: #### M 300.3000, L3410.9998, L4600.0100, L3400.8000, L3300.1200, L803.2200, L3100.9100, M100.2000, L3100.6900, L501.6710, L3100.5500, M300.2000, M100.2400 ####[facility] [address] [place], [address](081) QFT TB GOLD+ Comment Normal . [facility] Comment on above: Result Comment: Robbie tiFERON-TB [...] L3100.9100, M100.2000, L3100.6900, L501.6710, L3100.5500, M300.2000, M100.2400 ####[facility] [address] [facility] [place], [address] QFT TB POS CRIT Negative Normal Negative [facility] Comment on above: Result Comment: No r [...] interferon gamma. Chemiluminescence immunoassay methodology Performed at: [facility] [id number] Ranger Aide: Giancarlo Crowell PhD, Phone: [phone] Performed By: #### M 300.3000, L3410.9998, L4600.0100, L3400.8000, L3300.1200, L803.2200, L3100.9100, M100.2000, L3100.6900, L501.6710, L3100.5500, M300.2000, M100.2400 ####[facility] [address] [facility] [place], [address] QFT TB1+ AG CARMEN 0.07 IU/mL Normal . [facility] Comment on above: Performed By: #### M 300.3000, L3410.9998, L4600.0100, L3400.8000, L3300.1200, L803.2200, L3100.9100, M100.2000, L3100.6900, L501.6710, L3100.5500, M300.2000, M100.2400 ####[facility] [address] [place], [place], [phone] QFT TB2+ AG CARMEN 0.04 IU/mL Normal . [facility] Comment on above: Performed By: #### M 300.3000, L3410.9998, L4600.0100, L3400.8000, L3300.1200, L803.2200, L3100.9100, M100.2000, L3100.6900, L501.6710, L3100.5500, M300.2000, M100.2400 ####[facility] [address] [place], [address] Acid fast bacillus (AFB) cul tureOrdered By: Edmundo Buenrostro on 12-29-2024 Mycobacterium sp identified Org specific cx Nom (Unsp spec) [facility] Anti-dsDNA Abon 12-29-2024 ANTI-DNA (DS)AB <1 Normal 0-9 [facility] Comment on above: Result Comment: Nega tive <5 Equivocal 5 - 9 Positive >9 Performed at: [facility] [address] [id number] Ranger Aide: Giancarlo Crowell PhD, Phone: [phone] Performed By: #### M 300.3000, L3410.9998, L4600.0100, L3400.8000, L3300.1200, L803.2200, L3100.9100, M100.2000, L3100.6900, L501.6710, L3100.5500, M300.2000, M100.2400 ####[facility] [address] [place], [address] Gram Stainon 12-29-2024 GS Gram Stain 2+ Gram positive cocci 1+ Gram positive rods 1+ Gram negative rods 1+ Epithelial cells Normal [facility] Comment on above: Performed By: #### M 300.3000, L3410.9998, L4600.0100, L3400.8000, L3300.1200, L803.2200, L3100.9100, M100.2000, L3100.6900, L501.6710, L3100.5500, M300.2000, M100.2400 ####[facility] [address] [place], [place], [address] Sjogren's Antibodies A/Bon 0 12-29-2024 ANTI-SS-A < 0.2 Normal 0.0-0.9 [facility] Comment on above: Result Comment: AMENDED REPORT 12/29/241307 Anti-SS-A previously reported as: Test not performed Performed By: #### M 300.3000, L3410.9998, L4600.0100, L3400.8000, L3300.1200, L803.2200, L3100.9100, M100.2000, L3100.6900, L501.6710, L3100.5500, M300.2000, M100.2400 ####[facility] [address] [place], [place], [id number] ANTI-SS-B < 0.2 Normal 0.0-0.9 [facility] Comment on above: Result Comment: AMENDED REPORT 12/29/241307 Anti-SS-B previously reported as: Test not performed Performed By: #### M 300.3000, L3410.9998, L4600.0100, L3400.8000, L3300.1200, L803.2200, L3100.9100, M100.2000, L3100.6900, L501.6710, L3100.5500, M300.2000, M100.2400 ####[facility] [address] [place], [place], [address] Acid fast bacillus (AFB) cul tureOrdered By: Edmundo Buenrostro on 12-28-2024 Mycobacterium sp identified Org specific cx Nom (Unsp spec) [facility] Actin IgG QnOrdered By: Nicholas Buenrostro on 12-28-2024 Anti-Smooth Muscle Antibody 5 Units 0-19 [facility] Comment on above: Negative 0 - 19 Weak positive 20 - 30 Moderate to strong positive >30 Actin Antibodies are found in 52-85% of patients with autoimmune hepatitis or chronic active hepatitis and in 22% of patients with primary biliary cirrhosis. Atypical perinuclear antineu trophil cytoplasmic antibodies measurementOrdered By: Edmundo Buenrostro on 12-28-2024 Atypical p-ANCA <1:20 titer Neg:<1:20 [facility] Comment on above: The atypical pANCA p attern has been observed in asignificant percentage of patients with ulcerative colitis,primary sclerosing cholangitis and autoimmune hepatitis. CRPon 12-28-2024 C-REACTIVE PROT < 3.00 Normal 0.0-3.0 [facility] Comment on above: Performed By: #### M 300.3000, L3410.9998, L4600.0100, L3400.8000, L3300.1200, L803.2200, L3100.9100, M100.2000, L3100.6900, L501.6710, L3100.5500, M300.2000, M100.2400 ####[facility] [address] [place], [place], [address] CRP [Mass/Vol]Ordered By: Chantal Buenrostro on 12-28-2024 C-Reactive Protein Extended Range < 3.00 mg/L 0.0-3.0 [facility] Cyclic citrullinated peptide IgG QnOrdered By: Edmundo Buenrostro on 12-28-2024 Cyclic Citrullinated Peptide IgG Ab 5 units 0-19 [facility] Comment on above: Negative <20 Weak po sitive 20 - 39 Moderate positive 40 - 59 Strong positive >59 DNA double strand Ab Qn (S)O rdered By: Edmundo Buenrostro on 12-28-2024 Anti-Double Strand DNA Antibody <1 IU/mL 0-9 [facility] Comment on above: Negative <5 Equivoca l 5 - 9 Positive >9Performed at: [facility] [id number] Director: Giancarlo Crowell PhD, Phone: [phone] Gram stainOrdered By: Edmundo Buenrostro on 12-28-2024 Microscopic observation Gram stain Nom (Unsp spec) [facility] M. tuberculosis tuberculin s joel IFN-g Ql (Bld)Ordered By: Edmundo Buenrostro on 12-28-2024 TB Test (QFT) Antigen 1 0.07 IU/mL . [facility] Microbial respiratory cultur eOrdered By: Edmundo Buenrostro on 12-28-2024 Microorganism identified Cx Nom (Unsp spec) [facility] Microorganism identified Cx Nom (Unsp spec)Ordered By: Edmundo Buenrostro on 12-28-2024 Respiratory Culture [facility] Neutrophil cytoplasmic Ab.cl assic Qn (S)Ordered By: Edmundo Buenrostro on 12-28-2024 Cytoplasmic ANCA (c-ANCA) Antibody <1:20 titer Neg:<1:20 [facility] Neutrophil cytoplasmic Ab.pe rinuclear IF (S) [Titer]Ordered By: Edmundo Buenrostro on 12-28-2024 Perinuclear ANCA (p-ANCA) Antibody <1:20 titer Neg:<1:20 [facility] Comment on above: The presence of posi tive fluorescence exhibiting P-ANCA orC-ANCA patterns alone is not specific for the diagnosis ofWegener's Granulomatosis (WG) or microscopic polyangiitis.Decisions about treatment should not be based solely onANCA IFA results. The International ANCA Group Consensusrecommends follow up testing of positive sera with both TX-3 and MPO-ANCA enzyme immunoassays. As many as 5% serumsamples are positive only by EIA. Ref. AM J Clin Odvqsx8379;111:507-513. No Panel InformationOrdered By: Edmundo Buenrostro on 12-28-2024 Miscellaneous Test COMMENT . [facility] Comment on above: Test Ordered: [id number] Anti-U3 ANODIZING LINE OPERATOR (Fibrillarin)(RDL)Test(s) 747347-Cude-W8 ANODIZING LINE OPERATOR (Fibrillarin)(RDL)was developed and its performance characteristicsdetermined by [facility]. It has not been cleared or approvedby the Food and Drug Administration.Anti-U3 ANODIZING LINE OPERATOR (Fibrillarin)(RDL) Negative [facility] Reference Range: NegativePerformed at: [facility] [address] [place] [id number] Director: Petr Cho MD, Phone: [phone] at: [employer] [facility] [id number] Director: Giancarlo Crowell PhD, Phone: [phone] Qualitative QuantiFERON-TB g old in tube testOrdered By: Edmundo Buenrostro on 12-28-2024 M. tuberculosis tuberculin stim IFN-g Ql (Bld) 0.07 IU/mL . [facility] Quantiferon-TB Gold Plus javan tOrdered By: Edmundo Buenrostro on 12-28-2024 TB Test (QFT) Comment . [facility] Comment on above: QuantiFERON-TB Gold Plus is [...] (QFT) Antigen 2 0.04 IU/mL . [facility] TB Test (QFT) Mitogen > 10.00 IU/mL . [facility] TB Test (QFT) Nil 0.05 IU/mL . [facility] TB Test (QFT) Positive Criteria Negative Negative [facility] Comment on above: No response to M [...] the productionof interferon gamma. Chemiluminescence immunoassaymethodologyPerformed at: [facility] [address] [address] [id number] Director: Giancarlo Crowell PhD, Phone: [phone] SS-A IgG antibody assayOrder ed By: Edmundo Buenrostro on 12-28-2024 SS-A/Ro IgG Antibody TNP [facility] Comment on above: Test not performed SS-A/Ro IgG Antibody < 0.2 AI 0.0-0.9 [facility] Comment on above: Previous reported re sult: TNP AIEdited by: MONTRELL on 12/29/24:1308 AMENDED REPORT 12/29/24 1308 Anti-SS-A previously reported as: Test not performed SS-B IgG antibody assayOrder ed By: Edmundo Buenrostro on 12-28-2024 SS-B/La IgG Antibody TNP [facility] Comment on above: Test not performed SS-B/La IgG Antibody < 0.2 AI 0.0-0.9 [facility] Comment on above: Previous reported re sult: TNP AIEdited by: MONTRELL on 12/29/24:1308 AMENDED REPORT 12/29/24 1301 Anti-SS-B previously reported as: Test not performed Serum DNA double strand anti body assay (units/volume)Ordered By: Edmundo Buenrostro on 12-28-2024 DNA double strand Ab Qn (S) [IU]/mL 0-9 [facility] Comment on above: Negative <5 Equivoca l 5 - 9 Positive >9Performed at: [employer] [id number] Director: Giancarlo Crowell PhD, Phone: [phone] Serum classic neutrophil cyt oplasmic antibody assay (units/volume)Ordered By: Edmundo Buenrostro on 12-28-2024 Neutrophil cytoplasmic Ab.classic Qn (S) <1:20 titer Neg:<1:20 [facility] Serum or plasma C reactive p rotein measurement (mass/volume)Ordered By: Edmundo Buenrostro on 12-28-2024 CRP [Mass/Vol] mg/L 0.0-3.0 [facility] Serum or plasma actin IgG an tibody assay (units/volume)Ordered By: Edmundo Buenrostro on 12-28-2024 Actin IgG Qn 5 Units 0-19 [facility] Comment on above: Negative 0 - 19 Weak positive 20 - 30 Moderate to strong positive >30 Actin Antibodies are found in 52-85% of patients with autoimmune hepatitis or chronic active hepatitis and in 22% of patients with primary biliary cirrhosis. Serum or plasma angiotensin converting enzyme measurement (enzymatic activity/volume)Ordered By: Edmundo Buenrostro on 12-28-2024 Angiotensin converting enzyme [Catalytic activity/Vol] 41 U/L 14-82 [facility] Serum or plasma cyclic citru llinated peptide IgG antibody assay (units/volume)Ordered By: Edmundo Buenrostro on 12-28-2024 Cyclic citrullinated peptide IgG Qn 5 units 0-19 [facility] Comment on above: Negative <20 Weak po sitive 20 - 39 Moderate positive 40 - 59 Strong positive >59 Serum perinuclear neutrophil cytoplasmic antibody titer by immunofluorescenceOrdered By: Edmundo Buenrostro on 12-28-2024 Neutrophil cytoplasmic Ab.perinuclear IF (S) [Titer] <1:20 titer Neg:<1:20 [facility] Comment on above: The presence of posi tive fluorescence exhibiting P-ANCA orC-ANCA patterns alone is not specific for the diagnosis ofWegener's Granulomatosis (WG) or microscopic polyangiitis.Decisions about treatment should not be based solely onANCA IFA results. The International ANCA Group Consensusrecommends follow up testing of positive sera with both TX-3 and MPO-ANCA enzyme immunoassays. As many as 5% serumsamples are positive only by EIA. Ref. AM J Clin Onrkel8935;111:507-513. Chest PA and Lateralon 12-20 Chest PA and Lateral [facility] Imaging Services [address] [place], [place] [address] Chest PA and Lateral MR#: [id number] Acct: [id number] Name: YOUNG AGARWAL Rep #: [id number] : 1955 F 69 From: Manuelito Iraheta MD PCP: Dr. Reagan Rosen MD Status: REG CLI Study: Chest PA and Lateral Date of Exam: 12/20/24 Exam# [id number] Ordering Dr: Clinton Bautista MD EXAM: XR [...] Lateral IMPRESSION: Suggestion of COPD. Reading Location: [facility] CC: Dr. Clinton Bautista MD; Dr. Reagan Rosen MD Traffic Operations Manager: Signed Normal [facility] SCRN MAMM (CAD)W/EDITH BILATo n 09-13-2024 SCRN MAMM (CAD)W/EDITH BILAT [facility] Imaging Services [address] [place], [place] [address] SCRN MAMM (CAD)W/EDITH BILAT MR#: [id number] Acct: [id number] Name: YOUNG AGARWAL Rep #: [id number] : 1955 F 69 From: Matthew flannery MD PCP: Dr. Reagan Rosen MD Status: REG CL Study: SCRN MAMM (CAD)W/EDITH BILAT Date of Exam: 01/02 Exam# [id number] Ordering Dr: Rashmi Tapia ACCOUNT SUPPORT ASSOCIATE ACCOUNT SUPPORT ASSOCIATE -[id number] MAMMOGRAPHY - BILATERAL SCREENING REASON FOR EXAM: [...] delay biopsy of a clinically suspicious abnormality. [id number] Electronically Signed: Matthew Crockett MD at 8:34 EST Reading Location ID and State: [address] [place] [address] , Service support , CC: JACLYN Tapia; Dr. Reagan Rosen MD Traffic Operations Manager: Signed Normal [facility] US ANKLE LTon 06-23-2023 US ANKLE LT [...] AT THE AREA OF THE PATIENT'S SWELLING. Traffic Operations Manager: BANDAR Transcribe Date/Time: Jun 23 2023 1:15P Dictated by : ARTIE HERNÁNDEZ MD This examination was interpreted and the report reviewed and electronically signed by: ARTIE HERNÁNDEZ MD on Jun 23 2023 1:18PM EST [id number] Normal [facility] CNPNon 06-04-2023 CNPN Telephone (RULTTB) ----- YOUNG AGARWAL ([id number]) 1955 F Date Time Provider Department 06/04/23 STEPHEN LANGLEY RULTTB During your visit today, we recorded the following information about you: Stephen Langley 06/04/2023 11:35 AM Signed Visit Type: ANY MSK Visit Length: 45, 50 OR 60 MINUTES Order Name/Protocol: PLEASE HAVE PT SIGN AUTH OF RELEASE FORM. US ANKLE LT; ACHILLES-EVAL FOR BENIGN SOFT TISSUE MASS VS POSSIBLE OLD TENDON TEAR/STRAIN/SPRAIN. OUTSIDE ORDER SCANNED INTO CHART/BUILT IN [facility] [facility]. Preferred Provider: N/A Comment: Please ask if [...] for their MSK US on 06/23 at [place]. Allergies As of Date: 06/04/2023 Noted Allergy [...] Encounter Status:Closed by TY RAY on 06/04/23 [facility] YOUNG AGARWAL ([id number]) 1955 F Date Time Provider Department 05/28/23 STEPHEN LANGLEYTB During your visit today, we recorded the following information about you: Stephen Langley 05/28/2023 12:32 PM Addendum Visit Type: ANY MSK Visit Length: 45, 50 OR 60 MINUTES Order Name/Protocol: PLEASE HAVE PT SIGN AUTH OF RELEASE FORM. US ANKLE LT; ACHILLES-EVAL FOR BENIGN SOFT TISSUE MASS VS POSSIBLE OLD TENDON TEAR/STRAIN/SPRAIN. OUTSIDE ORDER SCANNED INTO CHART/BUILT IN [facility]. Preferred Provider: N/A Comment: Please ask if [...] our three locations. Slot held: N/A Stephen Langley 05/28/2023 12:40 PM Signed Called patient on 05/28/23 at 12:40 pm to schedule their MSK US exam. No answer, left VM, 1st attempt. Stephen Langley 05/29/2023 11:05 AM Signed Called patient on 05/29/23 at 11:05 am to schedule their MSK US exam. No answer, left VM, 2nd attempt. Stephen Langley 06/01/2023 9:15 AM Signed Called patient on 06/01/23 at 9:14 am to schedule their MSK US exam. PT indicated she was already scheduled at [facility] and no longer needs an appointment. Allergies [...] Colon [D12.6] 07/16/2009 Encounter Status:Closed by STEPHEN LANGLEY on 06/01/23 Normal [facility] Basophil percentageOrdered B y: Dr. Rosen on 01-01-2023 Chloride [Moles/Vol] 105 mmol/L 98-107 [facility] Cholesterol [Mass/Vol] 151 mg/dL <200 [facility] Comment on above: <200 mg/dL Desirable 200-240 mg/dL Borderline >240 mg/dL High Risk Glucose [Mass/Vol] 102 mg/dL 74-106 [facility] Comment on above: Fasting Glucose resu lt from 100 to 125 mg/dL suggests IMPAIRED HOMEOSTASIS per A.D.A. criteria. Potassium [Moles/Vol] 4.0 mmol/L 3.5-5.1 [facility] Sodium [Moles/Vol] 141 mmol/L 136-145 [facility] Triglyceride [Mass/Vol] 81 mg/dL <199 [facility] Comment on above: The drugs N-Acetylcy steine and Metamizole may falsely depress this assay.Serum Triglycerides Reference Interval Normal <150 mg/dL Borderline high 150 - 199 mg/dL High 200 - 499 mg/dL Very High > or = 500 mg/dL Laboratory - Chemistry and C hemistry - challengeOrdered By: Dr. Rosen on 01-01-2023 CO2 [Moles/Vol] 30.0 mmol/L 21.0-32.0 [facility] Urea nitrogen/Creatinine [Mass ratio] 25.9 mg/mg 10-20 [facility] No Panel InformationOrdered By: Dr. Rosen on 01-01-2023 Estimated GFR (MDRD) Amer 108 mL/min >60 [facility] Comment on above: GFR Calc Estimated GFR (MDRD) Non-Af Amer 89 mL/min >60 [facility] Comment on above: Non- GFR Calc Vitamin D 25-Hydroxy 34.2 ng/mL [facility] Comment on above: Vitamin D 25(OH) Sta tus Range Deficiency <20 ng/mL (50nmol/L) Insufficiency 20 - 30 ng/mL (50 - 75 nmol/L) Sufficiency 30 - 100 ng/mL (75 - 250 nmol/L) Toxicity >100 ng/mL (>250 nmol/L) Serum or plasma calcium kelsey urement (mass/volume)Ordered By: Dr. Rosen on 01-01-2023 Calcium [Mass/Vol] 9.4 mg/dL 8.5-10.1 [facility] Serum or plasma cholesterol in HDL measurement (mass/volume)Ordered By: Dr. Rosen on 01-01-2023 Cholesterol in HDL [Mass/Vol] 56 mg/dL >40 [facility] Comment on above: The drugs N-Acetylcy steine and Metamizole may falsely depress this assay. Reference Range HDL <40 mg/dL Low HDL Cholesterol HDL >or= 60 mg/dL High HDL Cholesterol Serum or plasma cholesterol in VLDL measurement (mass/volume)Ordered By: Dr. Rosen on 01-01-2023 Cholesterol in VLDL [Mass/Vol] 16 mg/dL 5-40 [facility] Serum or plasma creatinine m easurement (mass/volume)Ordered By: Dr. Rosen on 01-01-2023 Creatinine [Mass/Vol] 0.69 mg/dL 0.55-1.02 [facility] Comment on above: The validity of the calculated GFR & GFRAA in patients over 70 years has not been determined. Clinical correlation is essential. Serum or plasma low density lipoprotein (LDL) cholesterol measurement (mass/volume)Ordered By: Dr. Rosen on 01-01-2023 Cholesterol in LDL [Mass/Vol] 79 mg/dL 0-130 [facility] Serum or plasma urea nitroge n measurement (mass/volume)Ordered By: Dr. Rosen on 01-01-2023 Urea nitrogen [Mass/Vol] 18 mg/dL 7-18 [facility] Thin prep Papanicolaou smear with manual screeningOrdered By: Dr. Rosen on 01-01-2023 Thin prep Papanicolaou smear with manual screening 6 5-15 [facility] Absolute lymphocyte counton 07-14-2022 Lymphocytes Auto (Unsp spec) [#/Vol] 2.44 10*3/uL 0.83-4.51 [facility] Work Phone: Basophil percentageon 2021 Basophil percentage < 0.9 mg/dL 0.55-1.02 [facility] Work Phone: Basophils/100 WBC (Bld) 0.5 % 0-1 [facility] Work Phone: Bilirubin [Mass/Vol] 0.60 mg/dL 0.20-1.00 [facility] Work Phone: Comment on above: For patients on eltr ombopag therapy, use of Dimension [place] TBIL is not recommended. Chloride [Moles/Vol] 104 mmol/L 98-107 [facility] Work Phone: Eosinophils/100 WBC (Bld) 5.3 % 0-5 [facility] Work Phone: Glucose [Mass/Vol] 74 mg/dL 74-106 [facility] Work Phone: Neutrophils (Bld) [#/Vol] 2.5 10*3/uL 2.0-7.7 [facility] Work Phone: Neutrophils/100 WBC (Bld) 43.0 % 47-70 [facility] Work Phone: Potassium [Moles/Vol] 3.8 mmol/L 3.5-5.1 [facility] Work Phone: Protein [Mass/Vol] 7.2 g/dL 6.4-8.2 [facility] Work Phone: Sodium [Moles/Vol] 142 mmol/L 136-145 [facility] Work Phone: WBC (Bld) [#/Vol] 5.8 10*3/uL 4.4-11.0 [facility] Work Phone: Blood erythrocytes count (nu mber/volume)on 07-14-2022 RBC (Bld) [#/Vol] 4.48 10*6/uL 4.2-5.4 [facility]: Blood hemoglobin measurement (mass/volume)on 07-14-2022 Hemoglobin (Bld) [Mass/Vol] 13.5 g/dL 12.0-15.0 [facility] Work Phone: Blood lymphocytes/100 leukoc yteson 07-14-2022 Lymphocytes/100 WBC (Bld) 41.9 % 19-41 [facility] Work Phone: Blood monocytes/100 leukocyt eson 07-14-2022 Monocytes/100 WBC (Bld) 9.1 % 0-10 [facility] Work Phone: Blood platelet mean volumeon 07-14-2022 Platelet mean volume (Bld) [Entitic vol] 9.4 fL 6.2-12.0 [facility] Work Phone: [phone] Determination of erythrocyte mean corpuscular volume (MCV)on 07-14-2022 MCV (RBC) [Entitic vol] 94.6 fL 81-99 [facility] Work Phone: Hematocrit Auto (Bld) [Volum e fraction]on 07-14-2022 Hematocrit (Bld) [Volume fraction] 42.4 % 37-47 [facility] Work Phone: [phone] Laboratory - Chemistry and C hemistry - challengeon 07-14-2022 ALP [Catalytic activity/Vol] 73 U/L 45-117 [facility] Work Phone: ALT [Catalytic activity/Vol] 31 U/L 13-56 [facility] Work Phone: [phone] CO2 [Moles/Vol] 32.0 mmol/L 21.0-32.0 [facility] Work Phone: Globulin (S) [Mass/Vol] 3.5 g/dL 2.2-4.2 [facility] Work Phone: Lipase [Catalytic activity/Vol] 185 U/L 73-393 [facility] Work Phone: Urea nitrogen/Creatinine [Mass ratio] 17.8 mg/mg 10-20 [facility] Work Phone: Laboratory - Hematology and Cell countson 07-14-2022 Erythrocyte distribution width (RBC) [Entitic vol] 48.0 fL 35.1-43.9 [facility] Work Phone: Erythrocyte distribution width (RBC) [Ratio] 13.8 % 11.6-14.6 [facility] Work Phone: Immature granulocytes/100 WBC (Bld) 0.200 % 0.0-0.9 [facility] Work Phone: Comment on above: IG% - Immature Granu locytes (promyelocytes, myelocytes and metamyelocytes) > 1% indicates that a LEFT SHIFT is Present. MCH (RBC) [Entitic mass] 30.1 pg 27.0-32.0 [facility] Work Phone: Nucleated RBC/100 WBC (Bld) [Ratio] 0 % 0-5 [facility] Work Phone: MCHC Auto (RBC) [Mass/Vol]on 07-14-2022 MCHC (RBC) [Mass/Vol] 31.8 g/dL 32-36 [facility] Work Phone: No Panel Informationon 07-14 Bedside Estimated GFR (eGFR) > 60.0000 mL/min >60 [facility] Work Phone: Estimated GFR (MDRD) Amer 102 mL/min >60 [facility] Work Phone: Comment on above: GFR Calc Estimated GFR (MDRD) Non-Af Amer 85 mL/min >60 [facility] Work Phone: Comment on above: Non- GFR Calc Platelets bldon 07-14-2022 Platelets (Bld) [#/Vol] 314 10*3/uL 150-450 [facility] Work Phone: Serum or plasma albumin kelsey urement (mass/volume)on 07-14-2022 Albumin [Mass/Vol] 3.7 g/dL 3.2-5.0 [facility] Work Phone: Serum or plasma albumin/glob ulin mass ratioon 07-14-2022 Albumin/Globulin [Mass ratio] 1.1 {ratio} 0.9-2.4 [facility] Work Phone: Serum or plasma calcium kelsey urement (mass/volume)on 07-14-2022 Calcium [Mass/Vol] 9.9 mg/dL 8.5-10.1 [facility] Work Phone: Serum or plasma creatinine m easurement (mass/volume)on 07-14-2022 Creatinine [Mass/Vol] 0.73 mg/dL 0.55-1.02 [facility] Work Phone: Comment on above: The validity of the calculated GFR & GFRAA in patients over 70 years has not been determined. Clinical correlation is essential. Serum or plasma urea nitroge n measurement (mass/volume)on 07-14-2022 Urea nitrogen [Mass/Vol] 13 mg/dL 7-18 [facility] Work Phone: Thin prep Papanicolaou smear with manual screeningon 07-14-2022 Thin prep Papanicolaou smear with manual screening 19 U/L 15-37 [facility] Work Phone: Thin prep Papanicolaou smear with manual screening 6 5-15 [facility] Work Phone: Basophil percentageon 2021 Chloride [Moles/Vol] 106 mmol/L 98-107 [facility] Work Phone: Cholesterol [Mass/Vol] 156 mg/dL <200 [facility] Work Phone: Comment on above: <200 mg/dL Desirable 200-240 mg/dL Borderline >240 mg/dL High Risk Glucose [Mass/Vol] 89 mg/dL 74-106 [facility] Work Phone: Potassium [Moles/Vol] 4.2 mmol/L 3.5-5.1 [facility] Work Phone: Sodium [Moles/Vol] 141 mmol/L 136-145 [facility] Work Phone: Triglyceride [Mass/Vol] 71 mg/dL [facility] Work Phone: Comment on above: The drugs N-Acetylcy steine and Metamizole may falsely depress this assay.Serum Triglycerides Reference Interval Normal <150 mg/dL Borderline high 150 - 199 mg/dL High 200 - 499 mg/dL Very High > or = 500 mg/dL Laboratory - Chemistry and C hemistry - challengeon 12-26-2021 CO2 [Moles/Vol] 30.0 mmol/L 21.0-32.0 [facility] Work Phone: Urea nitrogen/Creatinine [Mass ratio] 20.5 mg/mg 10-20 [facility] Work Phone: No Panel Informationon 12-26 Estimated GFR (MDRD) Amer 102 mL/min >60 [facility] Work Phone: Comment on above: GFR Calc Estimated GFR (MDRD) Non-Af Amer 85 mL/min >60 [facility] Work Phone: Comment on above: Non- GFR Calc Thyroid Stimulating Hormone (TSH) 1.57 uIU/mL 0.358-3.74 [facility] Work Phone: Vitamin D 25-Hydroxy 33.8 ng/mL [facility] Work Phone: Comment on above: Vitamin D 25(OH) Sta tus Range Deficiency <20 ng/mL (50nmol/L) Insufficiency 20 - 30 ng/mL (50 - 75 nmol/L) Sufficiency 30 - 100 ng/mL (75 - 250 nmol/L) Toxicity >100 ng/mL (>250 nmol/L) Serum or plasma calcium kelsey urement (mass/volume)on 12-26-2021 Calcium [Mass/Vol] 9.6 mg/dL 8.5-10.1 [facility] Work Phone: Serum or plasma cholesterol in HDL measurement (mass/volume)on 12-26-2021 Cholesterol in HDL [Mass/Vol] 59 mg/dL [facility] Work Phone: Comment on above: The drugs N-Acetylcy steine and Metamizole may falsely depress this assay. Reference Range HDL <40 mg/dL Low HDL Cholesterol HDL >or= 60 mg/dL High HDL Cholesterol Serum or plasma cholesterol in VLDL measurement (mass/volume)on 12-26-2021 Cholesterol in VLDL [Mass/Vol] 14 mg/dL 5-40 [facility] Work Phone: Serum or plasma creatinine m easurement (mass/volume)on 12-26-2021 Creatinine [Mass/Vol] 0.73 mg/dL 0.55-1.02 [facility] Work Phone: Comment on above: The validity of the calculated GFR & GFRAA in patients over 70 years has not been determined. Clinical correlation is essential. Serum or plasma low density lipoprotein (LDL) cholesterol measurement (mass/volume)on 12-26-2021 Cholesterol in LDL [Mass/Vol] 83 mg/dL 0-130 [facility] Work Phone: Serum or plasma urea nitroge n measurement (mass/volume)on 12-26-2021 Urea nitrogen [Mass/Vol] 15 mg/dL 7-18 [facility] Work Phone: Thin prep Papanicolaou smear with manual screeningon 12-26-2021 Thin prep Papanicolaou smear with manual screening 5 5-15 [facility] Work Phone: Vital Signs Date Time Vital Sign Value Performing Clinician Val sharma 06-14-2025 10:56-0400 Body height 172.[address] Reagan Rosen MD Work Phone: [facility] 06-14-2025 10:56-0400 Body mass index (BMI) [Ratio] 27 kg/m2 Dr. Reagan Rosen MD Work Phone: [facility] 06-14-2025 10:56-0400 Body weight 80.[address] Reagan Rosen MD Work Phone: [facility] 06-14-2025 10:56-0400 Diastolic blood pressure 79 mm[Hg] Dr. Reagan Rosen MD Work Phone: [facility] 06-14-2025 10:56-0400 Heart rate 60 /min Dr. Reagan Rosen MD Work Phone: [facility] 06-14-2025 10:56-0400 Systolic blood pressure 128 mm[Hg] Dr. Reagan Rosen MD Work Phone: 1(890)114-863539 [address] 05-06-2025 03:59-0400 Body temperature 97.8 [degF] Dr. Reagan Rosen MD Work Phone: 5(333)539-527324 [place] [address] 05-06-2025 03:59-0400 Diastolic blood pressure 78 mm[Hg] Dr. Reagan Rosen MD Work Phone: 9(092)434-915324 [place] [address] 05-06-2025 03:59-0400 Heart rate 81 /min Dr. Reagan Rosen MD Work Phone: [facility] 05-06-2025 03:59-0400 Respiratory rate 16 /min Dr. Reagan Rosen MD Work Phone: [facility] 05-06-2025 03:59-0400 SaO2% (BldA) [Mass fraction] 96 % Dr. Reagan Rosen MD Work Phone: [facility] 05-06-2025 03:59-0400 Systolic blood pressure 158 mm[Hg] Dr. Reagan Rosen MD Work Phone: [facility] 05-06-2025 02:04-0400 Body height 172.[address] Reagan Rosen MD Work Phone: [facility] 05-06-2025 02:04-0400 Body mass index (BMI) [Ratio] 27.4 kg/m2 Dr. Regaan Rosen MD Work Phone: 7(437)020-322424 [place] [address] 05-06-2025 02:04-0400 Body weight [address] Reagan Rosen MD Work Phone: 6(647)401-895863 [place] [address] 02-20-2025 09:07-0400 Body height 172.[address] Clinton Bautista MD Work Phone: 5(854)458-224363 [place] [address] 02-20-2025 09:07-0400 Body mass index (BMI) [Ratio] 27 kg/m2 Dr. Clinton Bautista MD Work Phone: 3(371)188-294363 [place] [address] 02-20-2025 09:07-0400 Body weight 80.[address] Clinton Bautista MD Work Phone: 3(220)620-895063 [place] [address] 02-20-2025 09:07-0400 Diastolic blood pressure 75 mm[Hg] Dr. Clinton Bautista MD Work Phone: 4(742)377-907563 [place] [address] 02-20-2025 09:07-0400 Heart rate 58 /min Dr. Clinton Bautista MD Work Phone: 2(635)954-064063 [place] [address] 02-20-2025 09:07-0400 Respiratory rate 17 /min Dr. Clinton Bautista MD Work Phone: 3(719)374-727763 [place] [address] 02-20-2025 09:07-0400 SaO2% (BldA) [Mass fraction] 97 % Dr. Clinton Bautista MD Work Phone: 5(233)315-006824 [place] [address] 02-20-2025 09:07-0400 Systolic blood pressure 127 mm[Hg] Dr. Clinton Bautista MD Work Phone: 7(313)361-554324 [place] [address] 01-27-2023 09:52-0400 Body height 172.[address] Reagan Rosen Work Phone: 0(559)398-837263 [place] [address] 01-13-2023 10:23-0400 Body mass index (BMI) [Ratio] 26.6 kg/m2 Dr. Reagan Rosen Work Phone: 0(131)274-823624 [place] [address] 01-13-2023 10:23-0400 Body weight 79.[address] Reagan Rosen Work Phone: [facility] 01-13-2023 10:23-0400 Diastolic blood pressure 73 mm[Hg] Dr. Reagan Rosen Work Phone: [facility] 01-13-2023 10:23-0400 Systolic blood pressure 111 mm[Hg] Dr. Reagan Rosen Work Phone: [facility] 12-17-2022 13:40-0500 Body height 173.[address] Reagan Rosen Work Phone: [facility] 12-17-2022 13:40-0500 Body mass index (BMI) [Ratio] 26 kg/m2 Dr. Reagan Rosne Work Phone: [facility] 12-17-2022 13:40-0500 Body weight 78.[address] Reagan Rosen Work Phone: [facility] 12-17-2022 13:40-0500 Diastolic blood pressure 68 mm[Hg] Dr. Reagan Rosen Work Phone: [facility] 12-17-2022 13:40-0500 Heart rate 52 /min Dr. Reagan Rosen Work Phone: [facility] 12-17-2022 13:40-0500 Respiratory rate 16 /min Dr. Reagan Rosen Work Phone: [facility] 12-17-2022 13:40-0500 Systolic blood pressure 148 mm[Hg] Dr. Reagan Rosen Work Phone: [facility] 11-08-2021 13:54-0500 Body height 173.[address] Reagan Rosen Work Phone: [facility] Work Phone: 11-08-2021 13:54-0500 Body mass index (BMI) [Ratio] 26.9 kg/m2 Dr. Reagan Rosen Work Phone: [facility] [facility] Work Phone: 11-08-2021 13:54-0500 Body weight 81.[address] Reagan Rosen Work Phone: [facility] Work Phone: 11-08-2021 13:54-0500 Diastolic blood pressure 84 mm[Hg] Dr. Reagan Rosen Work Phone: [facility] Work Phone: 11-08-2021 13:54-0500 Heart rate 60 /min Dr. Reagan Rosen Work Phone: [facility] Work Phone: 11-08-2021 13:54-0500 Respiratory rate 16 /min Dr. Reagan Rosen Work Phone: [facility] Work Phone: 11-08-2021 13:54-0500 Systolic blood pressure 156 mm[Hg] Dr. Reagan Rosen Work Phone: [facility] Work Phone: Encounters Encounter Date Encounter Type Care Provider Facility Start: 08-23-2025 End: 08-23-2025 ambulatory Reagan Rosen Facility:[facility] Start: 08-12-2025 End: 08-12-2025 ambulatory Mendez South Facility:[facility] Start: 08-05-2025 End: 08-05-2025 ambulatory Reagan Rosen Facility:[facility] Start: 06-14-2025 End: 06-14-[address] Nereyda Landin MD -[facility] Work Phone: Start: 06-14-2025 End: 06-14-[address] Reagan Rosen MD Work Phone: -[facility] Start: 06-08-2025 End: 06-08-[address] Reagan Rosen MD Work Phone: -Radiology [place] Start: 06-08-2025 End: 06-08-[address] Reagan Rosen MD -Radiology [place] Work Phone: Start: 06-07-2025 End: 06-08-[address] Reagan Rosen MD Work Phone: -Cardiovascular Services Start: 06-07-2025 End: 06-07-[address] Reagan Rosen MD -Cardiovascular Services Work Phone: Start: 06-07-2025 End: 06-07-2025 ambulatory Reagan Rosen Facility:[facility] Start: 05-10-2025 Encounter for genera l adult medical examination without abnormal findings Reagan Rosen [facility] Start: 05-06-2025 End: 05-06-2025 Emergency department patient visit Dr. Reagan Rosen MD Work Phone: -Emergency Department Work Phone: Start: 05-03-2025 End: 05-03-[address] Reagan Rosen MD Work Phone: -Outpatient Bone Densitometry Start: 05-03-2025 End: 05-03-[address] Reagan Rosen MD -Outpatient Bone Densitometry Work Phone: Start: 05-02-2025 ambulatory Reagan Rosen Facility:[facility] Start: 05-02-2025 Non-patient / Non-visit Dr. Earline kelly MD -[facility]- Start: 05-02-2025 End: 05-03-[address] Reagan Rosen MD Work Phone: -Pulmonary Services/Neurology Start: 05-02-2025 End: 05-02-[address] Reagan Rosen MD -Pulmonary Services/Neurology Work Phone: Start: 05-02-2025 End: 05-02-2025 ambulatory Reagan Rosen Facility:[facility] Start: 04-25-2025 End: 04-25-[address] Reagan Rosen MD Work Phone: -Laboratory [facility] Start: 04-25-2025 End: 04-25-[address] Reagan Rosen MD -[facility] Start: 04-25-2025 End: 04-25-2025 ambulatory Reagan Rosen Facility:[facility] Start: 03-30-2025 End: 03-30-[address] Clinton Bautista MD Work Phone: -Cardiovascular Services Start: 03-30-2025 End: 03-30-[address] Reagan Rosen MD -Cardiovascular Services Work Phone: Start: 03-30-2025 End: 03-30-2025 ambulatory Reagan Rosen Facility:[facility] Start: 02-20-2025 End: 02-20-[address] Clinton Bautista MD Work Phone: [facility] Work Phone: Start: 02-20-2025 End: 02-20-[address] Mendez South MD -Laboratory, [facility] Start: 02-20-2025 End: 02-20-[address] Mendez South MD -[facility] Work Phone: Start: 02-20-2025 End: 02-20-2025 ambulatory Mendez South Facility:[facility] Start: 02-20-2025 End: 02-20-2025 ambulatory Mendez South Facility:[facility] Start: 02-16-2025 End: 02-16-[address] Clinton Bautista MD Work Phone: [facility] Work Phone: Start: 02-16-2025 End: 02-16-[address] Mendez South MD -Ultrasound, [facility] Work Phone: Start: 02-16-2025 End: 02-16-2025 ambulatory Mendez South Facility:[facility] Start: 02-04-2025 End: 02-04-[address] Reagan Rosen MD -Ultrasound, [facility] Work Phone: Start: 02-04-2025 End: 02-04-2025 ambulatory Reagan Rosen Facility:[facility] Start: 12-30-2024 End: 12-30-[address] Reagan Rosen MD Work Phone: [facility] Work Phone: Start: 12-30-2024 End: 12-30-[address] Edmundo Buenrostro MD -Laboratory Work Phone: Start: 12-29-2024 End: 12-30-[address] Reagan Rosen MD Work Phone: [facility] Work Phone: Start: 12-29-2024 End: 12-29-[address] Edmundo Buenrostro MD -Laboratory Work Phone: Start: 12-28-2024 End: 12-29-[address] Reagan Rosen MD Work Phone: [facility] Work Phone: Start: 12-28-2024 End: 12-28-[address] Edmundo Buenrostro MD -Laboratory Work Phone: Start: 12-28-2024 End: 12-28-2024 ambulatory Reagan Rosen Facility:[facility] Start: 12-20-2024 End: 12-20-[address] Reagan Rosen MD Work Phone: [facility] Work Phone: Start: 12-20-2024 End: 12-20-[address] Clinton Bautista MD -Radiology, [place] Work Phone: Start: 12-20-2024 End: 12-20-2024 ambulatory Reagan Rosen Facility:[facility] Start: 09-13-2024 End: 09-13-2024 Patient encounter procedure Rashmi ANAYA -Outpatient Breast Imaging Work Phone: Start: 09-13-2024 End: 09-13-2024 ambulatory Reagan Rosen Facility:[facility] Start: 07-22-2023 End: 07-22-2023 ambulatory [facility] Work Phone: Start: 07-22-2023 End: 07-22-2023 Patient encounter procedure [facility]-Outpatient Breast Imaging Work Phone: Start: 06-23-2023 End: 06-23-2023 ambulatory REAGAN ROSEN Facility:[facility] Start: 01-27-2023 End: 01-27-[address] Reagan Rosen Work Phone: [facility] Work Phone: Start: 01-27-2023 End: 01-27-[address] Reagan Rosen Work Phone: [facility]-Outpatient Bone Densitometry Start: 01-13-2023 End: 01-13-[address] Reagan Rosen Work Phone: [facility] Start: 01-01-2023 End: 01-01-[address] Reagan Rosen Work Phone: [facility] Work Phone: Start: 01-01-2023 End: 01-01-[address] Reagan Rosen Work Phone: [facility] Start: 12-17-2022 End: 12-17-[address] Reagan Rosen Work Phone: [facility] Start: 11-26-[address] Reagan Rosen Work Phone: [facility]-Physical Therapy Start: 11-19-2022 Registered Recurring [facility]-Physical Therapy Start: 11-06-2022 End: 11-06-2022 ambulatory [facility] Work Phone: Start: 11-06-2022 End: 11-06-2022 Patient encounter procedure [facility]-Cat Scan, [facility] Start: 09-22-2022 End: 09-22-2022 ambulatory [facility] Work Phone: Start: 09-22-2022 End: 09-22-2022 Patient encounter procedure [facility] Start: 07-18-2022 End: 07-18-2022 ambulatory [facility] Work Phone: Start: 07-18-2022 End: 07-18-2022 Patient encounter procedure [facility]-Outpatient Breast Imaging Start: 07-14-2022 End: 07-14-2022 ambulatory [facility] Work Phone: Start: 07-14-2022 End: 07-14-2022 Patient encounter procedure [facility]-Cat Scan, [facility] Start: 07-14-2022 End: 07-14-2022 ambulatory [facility] Work Phone: Start: 07-14-2022 End: 07-14-2022 [facility] Start: 01-24-2022 End: 01-24-[address] Reagan Rosen Work Phone[facility] Start: 12-26-2021 End: 12-26-[address] Reagan Rosen Work Phone[facility] Start: 11-08-2021 End: 11-08-[address] Reagan Rosen Work Phone: [facility] Procedures Date Procedure Procedure Detail [...] the productionof interferon gamma. Chemiluminescence immunoassaymethodologyPerformed at: [facility] [address] [id number] Director: Giancarlo Crowell PhD, Phone: [phone] Start: 12-20-2024 X-ray of chest, PA and [...] identified in Urine by Culture Urine Culture [facility] Start: 05-06-2025 [facility] Start: 05-06-2025 [facility] Start: 12-30-2024 Acid Fast Bacilli Culture Acid Fast Bacilli Culture [facility] Start: 12-30-2024 Acid Fast Bacilli Smear Acid Fast Bacilli Smear [facility] Start: 12-30-2024 Acid fast bacilli culture [facility] Start: 12-29-2024 Acid Fast Bacilli Culture Acid Fast Bacilli Culture [facility] Start: 12-29-2024 Acid Fast Bacilli Smear Acid Fast Bacilli Smear [facility] Start: 12-29-2024 Acid fast bacilli culture [facility] Start: 12-28-2024 Acid Fast Bacilli Culture Acid Fast Bacilli Culture [facility] Start: 12-28-2024 Acid Fast Bacilli Smear Acid Fast Bacilli Smear [facility] Start: 12-28-2024 Microscopic observation [Identifier] in Unspecified specimen by Gram stain [facility] Start: 12-28-2024 Respiratory Culture Respiratory Culture [facility] Start: 12-28-2024 Acid fast bacilli culture [facility] Start: 12-28-2024 In-vitro immunologic test [facility] Start: 12-28-2024 [facility] Angiotensin converti ng enzyme [Enzymatic activity/volume] in Serum or Plasma [facility] Bacteria identified in Sputum by Respiratory culture [facility] C reactive protein [Mass/volume] in Serum or Plasma [facility] Cyclic citrullinated peptide IgG Ab [Units/volume] in Serum or Plasma [facility] DNA double strand Ab [Units/volume] in Serum [facility] Mycobacterium sp identified in Unspecified specimen by Organism specific culture [facility] Mycobacterium sp identified in Unspecified specimen by Organism specific culture [facility] Mycobacterium sp identified in Unspecified specimen by Organism specific culture [facility] Mycobacterium tuberculosis tuberculin stimulated gamma interferon [Presence] in Blood [facility] Neutrophil cytoplasm ic Ab.classic [Units/volume] in Serum [facility] P-ANCA measurement [facility] Patient Education [facility] Work Phone: Smooth muscle Ab [Presence] in Serum [facility] Urine culture [facility] Payers Date Payer Category Payer Medicare [id number] 2024 Self-pay [id number] 2020 Private Health Insurance [facility] [id number] Unknown [id number] Unknown [id number] 2.16.8 40.1.409043.3.579.2.462 Unknown [id number] 2.16.8 40.1.577552.3.579.2.462 Unknown [id number] 2.16.8 40.1.395849.3.579.2.462 Unknown [id number] 2.16.8 40.1.427879.3.579.2.462 Unknown [id number] 2.16.8 40.1.502052.3.579.2.462 Unknown [id number] 2.16.8 40.1.785685.3.579.2.462 Unknown [id number] 2.16.8 40.1.172408.3.579.2.462 Unknown [id number] 2.16.8 40.1.385486.3.579.2.462 Unknown [id number] 2.16.8 40.1.284756.3.579.2.462 Unknown [id number] 2.16.8 40.1.017989.3.579.2.462 Unknown [id number] 2.16.8 40.1.112067.3.579.2.462 Unknown [id number] 2.16.8 40.1.404801.3.579.2.462 Unknown [id number] 2.16.8 40.1.222172.3.579.2.462 Unknown [id number] 2.16.8 40.1.793336.3.579.2.462 Unknown [id number] 2.16.8 40.1.585378.3.579.2.462 Unknown [id number] 2.16.8 40.1.424733.3.579.2.462 Unknown [id number] 2.16.8 40.1.849860.3.579.2.462 Unknown [id number] 2.16.8 40.1.938941.3.579.2.462 Unknown [id number] 2.16.8 40.1.397483.3.579.2.462 Unknown [id number] 2.16.8 40.1.181045.3.579.2.462 Unknown [id number] 2.16.8 40.1.177373.3.579.2.462 Social History Date Type Detail Facility Start: 11-08-2021 End: 01-13-2023 Tobacco smoking status [facility] Unknown if ever smoked [facility] Start: 1955 Sex Assigned At Female W [facility] Start: 01-22-2024 End: 05-06-2025 Tobacco smoking status NHIS Ex-smoker (finding) [facility] Start: 12-28-2024 End: 01-06-2025 Sex Female (finding) [facility] Clinical Notes 12-20-2024 to 06-09-2025 Note Date & Type Note Facility 06-09-2025 Radiology Diagnostic study note [facility] Imaging Services [address] [place] [id number] Knee 4 or More Views MR#: [id number] Acct: [id number] Name: YOUNG AGARWAL Rep #: [id number] : 1955 F 70 From: Dary Iraheta MD PCP: Dr. Reagan Rosen MD Status: CATRACHITO YANCEY Study:Knee 4 or More Views Date of Exam: 06/08/25 Exam# [id number] Ordering Dr: Reagan Rosen MD EXAM: XR Left Knee Complete, 4 or More Views CLINICAL INDICATION: LEFT KNEE PAIN TECHNIQUE: Four or more views of the left knee. COMPARISON: No relevant prior studies available. FINDINGS: BONES/JOINTS: Unremarkable. No acute fracture. No dislocation. SOFT TISSUES: Unremarkable. RAD/Knee 4 or More Views IMPRESSION: No acute fracture. Reading [facility] CC: Dr. Reagan Rosen MD ~ Traffic Operations Manager: Signed [facility] 05-06-2025 Hospital Discharg e instructions Additional Instructions Please take the antibiotic as directed to help resolve your urinary tract infection. It would typically take 2 to 3 days for the antibiotic to take effect and help resolve symptoms. If you develop a fever or have increasing pain or any further concerns please return to the ER for repeat evaluation. [facility] Work Phone: 05-06-2025 Discharge summary [facility] 05-02-2025 Procedure note [facility] 02-20-2025 Radiology Diagnostic study note [facility] Imaging Services [address] [place] [address] Thyroid MR#: [id number] Acct: [id number] Name: YOUNG AGARWAL Rep #: [id number] : 1955 F 69 From: Modesto Crockett MD PCP: Dr. Reagan Rosen MD Status: REG C NAYE Study:Thyroid Date of Exam: 02/16/25 Exam# [id number] Ordering Dr: Hyun South MD PROCEDURE: THYROID 02/16/2025 REASON FOR EXAM: THYROID ULTRASOUND TECHNIQUE: High-frequency thyroid ultrasound, including grayscale and color-flow images. REFERENCE LINKS: TI-RADS Chart: [email or web address]-[email or web address] TI-RADS Calculator Tool with Reference Images: [email or web address].com/radiology-calculators/body-imaging/tirads-calculator/ COMPARISON: Comparison is made with prior sonogram [...] no more than 2 nodules. Reading Location: [id number] CC: Dr. Mendez South MD; Dr. Reagan Rosen MD ~ Traffic Operations Manager: Signed [facility] 02-20-2025 Evaluation note Diagnosis Onset Date Resolution Thyroid nodule acute February 20, 2025 8:46am [facility] Work Phone: 1(135) 179-377405-12-2025 Evaluation note* Diagnosis Onset Date Resolution Status Admit Date Thyroid nodule acute February 20, 2025 8:46am Overactive bladder acute Septem nisha 2024 10:40am Urge incontinence acute Septemb er 2024 10:40am Uterovaginal prolapse, incomplete acute June 14, 2 025 10:40am UTI (urinary tract infection) acute June 14, 2025 10:40am Vaginal atrophy acute June 14, 2025 10:40am [facility] Work Phone: 1(812) 509-820303-11-2025 Radiology Diagnostic study note [facility] Imaging Services [address] [place] [address] Chest PA and Lateral MR#: [id number] Acct: [id number] Name: YOUNG AGARWAL Rep #: [id number] : 1955 F 69 From: Dary Iraheta MD PCP: Dr. Reagan Rosen MD Status: REG C NAYE Study:Chest PA and Lateral Date of Exam: 12/20/24 Exam# [id number] Ordering Dr: Clinton Bautista MD EXAM: XR [...] Lateral IMPRESSION: Suggestion of COPD. Reading Location: [facility] CC: Dr. Clinton Bautista MD; Dr. Reagan Rosen MD ~ Traffic Operations Manager: Signed [facility] Author Froilan [facility] Note Date/Time May 06, 2025 3:48 am [facility] Medical Records Department [address] [place] [address] Emergency Department Summary 05/06/25 MR#: [id number] Acct: [id number] Name: YOUNG AGARWAL Rep #:[id number] : 1955 70 From: Froilan Nelson [...] concern for worsening infection presents for evaluation. [facility] Medical History Thyroid nodule Premature ventricular contraction [...] Sl. Cloudy Urine pH 7.0 Ur Specific [place] 1.010 Urine Protein 30 H Urine Glucose [...] the ER for repeat evaluation. Print Language: Czech Disposition Disposition: Home, Self Care What to do if you have Problems For any increased pain, shortness of breath, bleeding, nausea or vomiting, chestpain, or any unexpected problems, contact your Primary Care Provider. Call [facility] ([phone]) or report to the closest Emergency Room. Call 911 if necessary. 05/06/25 0348 <Electronically signed by Froilan Nelson DO> Cosigner Signature (if applicable): CC: Dr. Reagan Rosen MD ~ Signed [facility] Work Phone: Evaluation note* Diagnosis Onset Date Resolution Status Premature ventricular contraction acute SVT (supraventricular tachycardia) acute Essential hypertension chron ic Mixed hyperlipidemia chronic [facility] Work Phone: Evaluation noteNo assessment information available [facility] Work Phone: Evaluation note* Diagnosis Onset Date Resolution Status Premature ventricular contraction acute SVT (supraventricular tachycardia) acute Essential hypertension chron ic Mixed hyperlipidemia chronic Cystocele acute Encounter for routine gynecological examination noneactive [facility] Work Phone: Evaluation note* Diagnosis Onset Date Resolution Status Cystocele acute Encounter for routine gynecological examination noneactive [facility] Work Phone: Reason for referral (narrative)No [facility] Work Phone: Chief Complaint and Reason for [...] BACK PAIN/RX HERE 1 Y FU 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 No May 06, 2025 2:06am Additional Source [...] 2024 End: September 13, 2024 Rashmi Tapia ACCOUNT SUPPORT ASSOCIATE, ACCOUNT SUPPORT ASSOCIATE-C Attending Provider Active Start: September 13, 2024 End: September 13, 2024 Rashmi Tapia ACCOUNT SUPPORT ASSOCIATE, ACCOUNT SUPPORT ASSOCIATE-C Referring Provider Active Start: September 13, 2024 [...] 30, 2024 End: December 30, 2024 Dr. Edmunod Buenrostro MD Referring Provider Active Start: December 30, 2024 End: December 30, 2024 Team Status: Inactive Member Role Status Dates Dr. Reagan Rosen MD Primary Care Provider Active Start: February 04, 2025 End: February 04, 2025 Dr. Reagan Rosen MD Attending Provider Active Start: February 04, 2025 End: February 04, 2025 Dr. eRagan Rosen MD Referring Provider Active Start: February [...] section and content) DATE CREATED AUTHOR 06/24/2023 [facility] DATE CREATED AUTHOR DHEERAJ COHEN 08/24/2025 [facility] FOR RECORDS PERTAINING TO PATIENTS WHO [...] BE BASED ON THE PRIMARY CLINICAL RECORDS. [employer] provides no warranty or guarantee of the accuracy or completeness of information in this document.
[2025-10-07 08:11] VITALS: BP 178/74; PULSE 60; RESP 15; O2SAT 98
--- NOTE | 2025-10-07 08:20 | EX.ED.DYSGE1 ---
HPI History of Present Illness Chief Complaint: Palpitations Narrative Narrative: Pt is a 7-year-old female who is presenting to the ER today with chief complaint of elevated blood pressure this morning. Around 6:30 AM, patient was noticing some palpitations in her upper chest and neck. Patient took her metoprolol tablet this morning. 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 Patient also was on losartan, patient just had hydrochlorothiazide called in yesterday for her blood pressure as well. Patient has no symptoms when she arrived to the ER. at bedside. Patient has no headache or neck pain. No chest pain or shortness of breath. No abdominal pain nausea vomiting. No other acute complaints. Patient has been working with blood pressure management with medication. Patient recently had an echocardiogram. Patient does have a history of mitral valve prolapse. Patient has no recent traveling. No history of stents. No other acute complaints. Patient has no strokelike signs or symptoms. Patient has no recent heavy lifting, twisting or turning. No musculoskeletal complaints. Patient has no strokelike signs or symptoms. No chest heaviness, tightness, short of breath REVIEW OF SYSTEMS: Unless otherwise stated in this report the patient's positive and negative responses for review of systems for constitutional, eyes, ENT, cardiovascular, respiratory, gastrointestinal, neurological, , musculoskeletal, and integument systems and related systems to the presenting problem are either stated in the history of present illness or were not pertinent or were negative for the symptoms and/or complaints related to the presenting medical problem. Nurse's notes and vital signs reviewed. The patient is not hypoxic. Vital signs reviewed and patient is not hypoxic. Patient is slightly hypertensive, asymptomatic. General: The patient appears well and in no apparent distress. Patient is resting comfortably on cart. Not toxic, lethargic, or listless. Skin: Warm, dry, no pallor noted. There is no rash noted. Head: Normocephalic, atraumatic Eye: Normal conjunctiva, no drainage, EOMI. PERRL. Ears, Nose, Mouth, and Throat: oral mucosa is moist. Nares patent. Mouth without vesicles. Cardiovascular: Regular Rate and Rhythm, no murmurs, gallops, or rubs. No recent reproducible tenderness to palpation to bilateral anterior, lateral, posterior chest wall. Respiratory: Patient is in no distress, no accessory muscle use, lungs are clear to auscultation, no wheezing, rales or rhonchi Back: non-tender, no CVA tenderness bilaterally to percussion. NO CTLS midline or paraspinal tenderness to palpation. GI: Soft, no tenderness to palpation, no masses appreciated. No rebound, guarding, or rigidity noted. Musculoskeletal: The patient has full range of motion of all extremities and joints with no difficulty. Patient has no motor, no sensory deficits. No pitting edema to bilateral lower extremities. Neurological: A&O x4, normal speech, no focal neurological deficits. Psychiatric: Cooperative, patient concerned about her elevated blood pressure admittedly. [facility] Medical History Centrilobular emphysema Essential hypertension SVT (supraventricular tachycardia) Premature ventricular contraction Mixed hyperlipidemia Mitral valve prolapse Urge incontinence Vaginal atrophy Uterovaginal prolapse, incomplete Overactive bladder Thyroid nodule UTI (urinary tract infection) Home Medications ?Medication ?Instructions ?Recorded ?Last Taken ?Type ascorbic acid (vitamin C) 500 mg 500 mg PO DAILY 11/11/19 Unknown History capsule rosuvastatin 5 mg tablet (Crestor) 5 mg PO DAILY 11/11/19 Unknown History glucosamine-chondroitin 500 mg-400 1 tab PO DAILY 11/08/21 Unknown History mg tablet (Cosamin DS) albuterol sulfate 2.5 mg/3 mL 2.5 mg inhalation QDAY 02/20/25 Unknown History (0.083 %) solution for nebulization aspirin 81 mg tablet 81 mg PO QDAY 06/14/25 Unknown History estradiol 0.01% (0.1 mg/gram) 1 g vaginal 3XW 3 months #42.5 06/14/25 Unknown Rx vaginal cream grams metoprolol tartrate 25 mg tablet 25 mg PO BID 08/23/25 Unknown History Lactobacillus 1 cap PO DAILY 09/20/25 Unknown History acidophilus-Bifidobac.animalis 10 billion cell capsule (Digestive Probiotic) magnesium glycinate 200 mg PO DAILY 09/20/25 Unknown History calcium 600 mg (as 1 cap PO DAILY 09/27/25 Unknown History carbonate)-vitamin D3 10 mcg (400 unit) capsule guaifenesin 600 mg tablet, 600 mg PO BID PRN 09/27/25 Unknown History extended release 12 hr (Mucinex) losartan 50 mg tablet 50 mg PO DAILY #90 tabs 09/29/25 Unknown Rx hydrochlorothiazide 25 mg tablet 25 mg PO DAILY 10/06/25 Unknown History Allergy/AdvReac Type Severity Reaction Status Date / Time clarithromycin (From Biaxin) Allergy Unknown Unknown Verified 10/07/25 07:13 cephalexin (From Keflex) Allergy Angioedema Verified 10/07/25 07:13 nitrofurantoin (From Allergy Angioedema Verified 10/07/25 07:13 Macrobid) Sulfa (Sulfonamide Allergy Angioedema Verified 10/07/25 07:13 Antibiotics) sulfamethoxazole (From Allergy Angioedema Verified 10/07/25 07:13 Bactrim) trimethoprim (From Bactrim) Allergy Angioedema Verified 10/07/25 07:13 ciprofloxacin (From Cipro) AdvReac rash Verified 10/07/25 07:13 Family History Father Myocardial infarction, Onset Age: 65 Sister Mitral valve prolapse Bladder cancer Bladder cancer, cancer cells found in breast also Brother Cancer Liver Mother No problems noted. Surgical History rectal tumor removal History of endometrial ablation Salivary cyst Social History number of children: 3 current occupational status: employed current occupation: Retired Smoking Status: Former smoker how long ago did patient quit smokin alcohol intake: current alcohol intake frequency: holidays/special occasions only substance use type: does not use caffeine: No seatbelt use: always do you feel safe at home: Yes additional social history: Khris Retired EXAM Physical Exam Const Vital Signs: 10/07/25 07:12 10/07/25 07:41 Temperature 98 F Temperature Source Oral Pulse Rate 75 Respiratory Rate 16 Blood Pressure 191/81 H Blood Pressure Mean 117 Pulse Ox 100 100 Oxygen Delivery Method Room Air Room Air MDM MDM MDM Narrative Medical decision making narrative: Patient seen and examined: IV, chest x-ray, labs, aspirin prophylactically Differential diagnosis includes but is not limited to: Hypertension, dehydration, electrolyte abnormality, anxiety, cardiomegaly Relevant laboratory interpretation: No acute findings Radiological studies: Chest x-ray was interpreted by Dr. Mayfield. No acute cardiopulmonary disease, no infiltrate, no effusion. Reevaluation: EKG interpretation. Normal sinus rhythm at 72 beats a minute. EKG interpreted by Dr. Mayfield. EKG interpretation. Normal sinus rhythm at 72 beats minute. normal axis deviation. No acute ST elevation, no acute ectopy. Artifact noted. Social barriers to healthcare: There are no food insecurities, there is no issue with transportation, there are no insurance barriers Disposition: Patient did have a blood pressure medication called in yesterday around 1 PM. Patient has not started that yet, she has not picked it up from the pharmacy yet because it has not been read yet. Patient will continue medication. 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 Patient will continue recording blood pressure log, twice a day. Patient has no symptoms when she arrived to the ER. Her palpitations have subsided. Education on blood pressure was done at bedside. No question of discharge. Education on asymptomatic versus symptomatic hypertension was discussed at bedside and on discharge paper. Patient has no symptoms at discharge, but admittedly admits there could be underlying anxiety causing some of the blood pressure changes, she states that she feels fine, but keeps looking at her blood pressure on the monitor, and this been increasing slightly. Patient has been on the question of discharge. Lab Data Labs: Laboratory Results - last 24 hr 10/07/25 07:38 WBC 5.6 RBC 4.68 Hgb 14.0 Hct 42.4 MCV 90.6 MCH 29.9 MCHC 33.0 RDW Std Deviation 44.9 H RDW Coeff of Mary Anne 13.5 Plt Count 271 MPV 8.5 Immature Gran % (Auto) 0.200 Neut % (Auto) 39.4 L Lymph % (Auto) 46.[address] [place] % (Auto) 9.2 Eos % (Auto) 4.3 Baso % (Auto) 0.5 Absolute Neuts (auto) 2.2 Absolute Lymphs (auto) 2.58 Nucleated RBC % 0 Sodium 138 Potassium 3.7 Chloride 102 Carbon Dioxide 26.3 Anion Gap 9 BUN 13 Creatinine 0.71 Estim Creat Clear Calc 72.83 Est GFR (MDRD) Non-Af 91 BUN/Creatinine Ratio 18.8 Glucose 103 H Calcium 9.3 Magnesium 2.0 Troponin T High Sens < 6 NT pro BNP II 267 Radiography Diagnostic Testing: Clinical Impression(s) from Imaging Studies Chest X-Ray 10/07/25 07:19 IMPRESSION: No Acute Findings. Reading Location: [facility] Discharge Plan Triage Chief Complaint: Palpitations ED Provider: Rl Mayfield Dx/Rx/DC Orders Clinical Impression: Palpitations, Hypertension Instructions: Controlling High Blood Pressure, Hypertension Dc, ED Hypertension, Established, ED Heart Palpitations Prescriptions: No Action ascorbic acid (vitamin C) 500 mg capsule 500 mg PO DAILY rosuvastatin [Crestor] 5 mg tablet 5 mg PO DAILY glucosamine-chondroitin [Cosamin DS] 500-400 mg tablet 1 tab PO DAILY albuterol sulfate 2.5 mg /3 mL (0.083 %) solution for nebulization 2.5 mg inhalation QDAY aspirin 81 mg tablet 81 mg PO QDAY estradiol 0.01 % (0.1 mg/gram) cream 1 g vaginal 3XW 90 Days Qty: 42.5 3RF metoprolol tartrate 25 mg tablet 25 mg PO BID Digestive Probiotic 10 billion cell capsule 1 cap PO DAILY magnesium glycinate 100 mg magnesium capsule 200 mg PO DAILY calcium carbonate-vitamin D3 600 mg-10 mcg (400 unit) capsule 1 cap PO DAILY guaifenesin [Mucinex] 600 mg tablet extended release 12hr 600 mg PO BID PRN losartan 50 mg tablet 50 mg PO DAILY Qty: 90 3RF hydrochlorothiazide 25 mg tablet 25 mg PO DAILY Primary Care Provider: Reagan Santa Referrals: Reagan Santa MD [Primary Care Provider, Family Practice] Activity Restrictions/Additional Instructions: Continue taking medication as prescribed. Continue taking your blood pressure twice a day and continue working with Dr. Mcarthur with blood pressure control. Continue recording your blood pressures, including a blood pressure log, and call on Thursday to Dr. Mcarthur office if any other acute concerns. If you are having any significant headache, chest pain, shortness of breath, passing out, or any other acute concerns, please return back to the ER. Print Language: Lithuanian Disposition Disposition: Home, Self Care
[2025-10-07 08:42] LABS: Anion Gap 9 (7-18); BUN 13 mg/dL (4-19); BUN/Creat Ratio 18.8 RATIO (10-20); Calcium,Total 9.3 mg/dL (7.6-11.0); Carbon Dioxide 26.3 mmol/L (20.0-29.0); Chloride 102 mmol/L (96-106); Estimated Creatinine Clearance 72.83 ml/min (50-250); Glucose 103 mg/dL (70-99); Magnesium 2.0 mg/dL (1.5-2.2); Potassium 3.7 mmol/L (3.5-5.1); Pro- Brain NATRIURETIC PEPTIDE 267 pg/mL (<=900); Troponin T High Sensitivity < 6 ng/L (<=14)
[2025-10-07 09:03] VITALS: BP 179/71; PULSE 57; RESP 21; TEMP 36.8; O2SAT 100
== END 2025-10-07 09:09 | disposition home or self-care (01) ==
PROVIDERS: Emergency Provider Emergency Medicine; PCP Family Medicine; Visit Provider Emergency Medicine
DX: R00.2 Palpitations (principal); E78.2 Mixed hyperlipidemia; I10 Essential (primary) hypertension; Z87.891 Personal history of nicotine dependence; Z79.899 Other long term (current) drug therapy; Z79.82 Long term (current) use of aspirin
CPT/HCPCS: 71045; 80048; 83735; 83880; 84484; 85025; 93005; 99285